=== PATIENT | male | born 1965 | race Caucasian/White ===

== ENCOUNTER 2019-08-06 12:11 | Emergency (ER) | payer MEDICARE, OTHER ==
[~2019-08-06] VITALS: Ht 188 cm; Wt 137.0 kg
[~2019-08-06 12:11] MED LIST: COGENTIN PO; COGENTIN1 MG/1 ML PO; HYDROCODON-ACE1 EA11 PO; LITHIUM PO; NORCO 10MG-325MG1 EA PO; RISPERDAL PO; RISPERDAL4 MG PO; VALIUM10 MG PO; ZOLOFT100 MG PO
--- OUTSIDE RECORDS SUMMARY | 2019-08-06 12:14 | XMS REPORT ---
Author [facility] Address Unknown Phone Unavailable Care Team Providers Care Stick Inserter Name Role Phone UNKNOWN, REFFERING PP Unavailable CARINA NICE M.D. Unavailable Unavailable Payers Payer Name Policy Type Policy Number Effective Date Expiration Date Problems This patient has no known problems. Allergies, Adverse Reactions, Alerts Allergy Name Allergy Type Status Severity Reaction(s) Onset Date Inactive Date Treating Clinician Comments Mesoridazine Besylate DA Active U 2019-05-03 00:00:00 Haloperidol Lactate DA Active U 2019-05-03 00:00:00 perphenazine DA Active U 2019-05-03 00:00:00 haloperidol DA Active U 2019-05-03 00:00:00 divalproex sodium DA Active MO 2019-05-03 00:00:00 clozapine DA Active SV 2019-05-03 00:00:00 Mesoridazine Besylate DA Active U 2018-04-24 00:00:00 Haloperidol Lactate DA Active U 2018-04-24 00:00:00 perphenazine DA Active U 2018-04-24 00:00:00 haloperidol DA Active U 2018-04-24 00:00:00 divalproex sodium DA Active MO 2018-04-24 00:00:00 clozapine DA Active SV 2018-04-24 00:00:00 lorazepam DA Active U 2018-04-24 00:00:00 No Known Allergies DA Active U 2018-03-06 00:00:00 Mesoridazine Besylate DA Active U 2015-11-11 00:00:00 Haloperidol Lactate DA Active U 2015-11-11 00:00:00 lorazepam DA Active U 2015-11-11 00:00:00 perphenazine DA Active U 2015-11-11 00:00:00 haloperidol DA Active U 2015-11-11 00:00:00 divalproex sodium DA Active MO 2015-11-11 00:00:00 clozapine DA Active SV 2015-11-11 00:00:00 CYRANTYL DA Active SV 2011-05-08 00:00:00 NAVAINE DA Active MO 2011-05-08 00:00:00 Medications This patient has no known medications. Encounters Start Date/Time End Date/Time Encounter Type Admission Type Attending [facility] Facility Care Department Encounter ID 2019-04-02 20:34:38 2019-04-02 20:34:38 Emergency [facility] MED [id number] 2019-02-05 22:30:00 2019-02-05 22:30:00 Emergency [facility] [id number] 2019-02-05 16:09:00 2019-02-05 16:09:00 Emergency E [facility] 7500 Results Test Description Test Time Test Comments Text Results Atomic Results Result Comments - XR PELVIS 05/29 VIEWS 2019-06-03 09:34:00 FAX: Alberto Mills MD [phone] [place]: St: REG FAX: Juanito Tellez [phone] Name: GARCIA CARTWRIGHT [facility] : 1965 Age/S: 53/M [address] Unit #: [id number] Loc: [place] [address] Phys: Alberto Stone MD Acct: [id number] Dis Date: Status: REG RCR PHONE #: [phone] Exam Date: 06/03/2019921 FAX #: Reason: HIP PAIN EXAMS: CPT CODE: [id number] XR PELVIS 1/2 VIEWS 88566 HISTORY: LEFT HIP PAIN EXAM: AP pelvis as well as AP and frog-leg views of the left hip Comparison: Pelvis radiographs March 02, 2019 FINDINGS: No acute fracture of the bony pelvis. No diastases of the SI joints or pubic symphysis. Hip joints are not dislocated. Proximal femurs are intact. Lower lumbar spine is unremarkable. IMPRESSION: Negative radiographic examination of the bony pelvis. Location: [facility] at 0934 Reported and signed by: Calos Infante MD CC: Alberto Stone MD; Juanito Morales Technologist: RT Meliton(Latoya) Trnscrd Date/Time/By: 06/03/2019 (1086) : By: [email or web address] Orig Print D/T: S: 06/03/2019 (8231) PAGE 1 Signed Report - XR HIP W/PEL UNI 2+V LT 2019-06-03 09:34:00 FAX: Alberto Mills MD [phone] [place]: St: REG FAX: Juanito Tellez [phone] Name: GARCIA CARTWRIGHT [facility] : 1965 Age/S: 53/M [address] Unit #: [id number] [facility] [address] Phys: Alberto Stone MD Acct: [id number] Dis Date: Status: REG RCR PHONE #: [phone] Exam Date: 06/03/2019921 FAX #: Reason: LEFT HIP PAIN EXAMS: CPT CODE: [id number] XR HIP W/PEL UNI 2+[place] [address] HISTORY: LEFT HIP PAIN EXAM: AP pelvis as well as AP and frog-leg views of the left hip Comparison: Pelvis radiographs March 02, 2019 FINDINGS: No acute fracture of the bony pelvis. No diastases of the SI joints or pubic symphysis. Hip joints are not dislocated. Proximal femurs are intact. Lower lumbar spine is unremarkable. IMPRESSION: Negative radiographic examination of the bony pelvis. Location: [facility] at 0934 Reported and signed by: Calos Infante MD CC: Alberto Stone MD; Juanito Morales Technologist: FLAQUITO Coelho) Trnscrd Date/Time/By: 06/03/2019 (8194) : By: [email or web address] Orig Print D/T: S: 06/03/2019 (2265) PAGE 1 Signed Report - MRI LW JNT W/O CONT LT 2019-05-14 14:57:00 FAX: Juanito Tellez [phone] [place]: St: REG Name: GARCIA CARTWRIGHT [facility] : 1965 Age/S: 53/M [address] [facility] Unit #: [id number] Loc: [place] [address] Phys: Juanito Morales DO Acct: [id number] Dis Date: Status: REG CLI PHONE #: [phone] Exam Date: 05/14/2019 1047 FAX #: [phone] Reason: M16.12,M25.552 EXAMS: CPT CODE: [id number] [place] LW JNT W/[place] [address] HISTORY: /552. COMPARISON: X-ray from March 02, 2019. Location: [facility]. MRI left hip without contrast: No acute fracture of the left hip mildly narrowed hip joint. No AVN is noted. Acetabulum is without fracture with normal signal. Sacrum is without fracture in the portions visualized. Unremarkable SI joint. The lower L- spine is without fracture. Visualized right hip is without fracture. The pubic bones are without fracture. Symphysis is well opposed. No cam or pincer impingement. No femoral ischial impingement. Strain at the insertion of the gluteus medius muscle on the left with small fluid consistent with trochanteric bursitis. There is mild edema of the gluteus medius muscle and to lesser extent in the gluteus nivia muscle. No edema within the gluteus minimus muscle. The piriformis muscle is unremarkable and appear symmetrical. The adductor muscles are without tear or strain. Origins of the hamstrings is normal. The conjoined tendon is without tear. The symphyseal disc is unremarkable. No pathologic adenopathy. Unremarkable urinary bladder. Prostate is not enlarged. IMPRESSION: Left trochanteric bursitis with strain at the insertion of the gluteus medius muscle as well. Mild edema of the gluteus maximum and medius muscles without tear. No joint fluid. No AVN. No acute fracture. Narrowed hip joint. No impingement. at 4892 Reported and signed by: Luis Alberto Valentin M.D. CC: Juanito Morales Technologist: RT JUL[facility] Date/Time/By: 05/14/2019 (5452) : By: [email or web address] Orig Print D/T: S: 05/14/2019 (1500) PAGE 1 Signed Report RPR Qualitative 2019-04-08 16:20:39 RPR Qual (test code=RPR Qual) Non-Reactive Non-Reactive Reactive Control (test code=Reactive Control) Reactive Weak Reactive Control (test code=Weak Reactive Control) Weak Reactive Non-Reactive Control (test code=Non-Reactive Control) Non-Reactive Lot # (test code=Lot #) [id number] Expiration Dt (test code=Expiration Dt) 1031.20 Thyroid Stimulating [id number] 10:27:38* Test Item Value Reference Range Comments TSH (test code=TSH) 1.880 mIU/mL 0.270-4.200 Lipid [id number] 10:24:51* Test Item Value Reference Range Comments Cholesterol Total (test code=Cholesterol Total) 136 mg/dL 0-200 RISK OF HEART DISEASEPublished by [place] Heart Association Analyte Optimal Borderline Increased RiskCHOL <200 200-239 >240TRIG <150 150-199 >200HDL Male >60 <40HDL Female >60 <50LDL <100 130-159 >160LDL Near optimal is 100-129 Triglycerides (test code=Triglycerides) 107 mg/dL 9-200 HDL (test code=HDL) 40 mg/dL 40-60 LDL (test code=LDL) 75 mg/dL 0-130 The equation being used in this calculation is LDL=(Chol - HDL) - (Trig / 5) VLDL (test code=VLDL) 21 mg/dL 5-40 The equation being used in this calculation is VLDL=Trig / 5 Chol/HDL (test code=Chol/HDL) 3.4 ratio 0.0-5.0 LDL/HDL Ratio (test code=LDL/HDL Ratio) 2 The equation being used in this calculation is LDL/HDL Ratio=LDL Calc/HDL Chol Alcohol [id number] 22:16:26* Test Item Value Reference Range Comments Ethanol Level (test code=Ethanol Level) <0.00 g/dL 0.00-0.01 Intoxicated 0.080 g/dL or more Ethanol Inst (test code=Ethanol Inst) <0 Comprehensive Metabolic [id number] 22:16:25* Test Item Value Reference Range Comments Sodium Level (test code=Sodium Level) 141.0 mmol/L 135.0-145.0 Potassium Level (test code=Potassium Level) 4.6 mmol/L 3.5-5.1 Chloride Level (test code=Chloride Level) 102 mmol/L 98-105 CO2 (test code=CO2) 28 mmol/L 22-29 Anion Gap (test code=Anion Gap) 11 mmol/L 7-16 BUN (test code=BUN) 18.00 mg/dL 6.00-20.00 Creatinine Level (test code=Creatinine Level) 1.00 mg/dL 0.70-1.20 BUN/Creat Ratio (test code=BUN/Creat Ratio) 18 Glucose Level (test code=Glucose Level) 86 mg/dL 70-115 Calcium Level (test code=Calcium Level) 9.6 mg/dL 8.3-10.5 Alk Phos (test code=Alk Phos) 82 U/L 40-129 Bilirubin Total (test code=Bilirubin Total) 0.4 mg/dL 0.1-0.9 Albumin Level (test code=Albumin Level) 3.9 g/dL 3.5-5.2 Protein Total (test code=Protein Total) 6.5 g/dL 6.4-8.3 ALT (test code=ALT) 30 U/L 1-41 AST (test code=AST) See Comments U/L 1-40 Specimen hemolyzed. AST 34 Globulin (test code=Globulin) 2.6 g/dL 2.9-3.1 A/G Ratio (test code=A/G Ratio) 1.5 ratio Comprehensive Metabolic [id number] 22:16:25* Test Item Value Reference Range Comments Sodium Level (test code=Sodium Level) 141.0 mmol/L 135.0-145.0 Potassium Level (test code=Potassium Level) 4.6 mmol/L 3.5-5.1 Chloride Level (test code=Chloride Level) 102 mmol/L 98-105 CO2 (test code=CO2) 28 mmol/L 22-29 Anion Gap (test code=Anion Gap) 11 mmol/L 7-16 BUN (test code=BUN) 18.00 mg/dL 6.00-20.00 Creatinine Level (test code=Creatinine Level) 1.00 mg/dL 0.70-1.20 BUN/Creat Ratio (test code=BUN/Creat Ratio) 18 Glucose Level (test code=Glucose Level) 86 mg/dL 70-115 Calcium Level (test code=Calcium Level) 9.6 mg/dL 8.3-10.5 Alk Phos (test code=Alk Phos) 82 U/L 40-129 Bilirubin Total (test code=Bilirubin Total) 0.4 mg/dL 0.1-0.9 Albumin Level (test code=Albumin Level) 3.9 g/dL 3.5-5.2 Protein Total (test code=Protein Total) 6.5 g/dL 6.4-8.3 ALT (test code=ALT) 30 U/L 1-41 AST (test code=AST) See Comments U/L 1-40 Specimen hemolyzed. AST 34 Globulin (test code=Globulin) 2.6 g/dL 2.9-3.1 A/G Ratio (test code=A/G Ratio) 1.5 ratio eGFR AA (test code=eGFR AA) >60 mL/min/1.73 m2 eGFR (estimated Glomerular Filtration Rate) is an estimated value, calculated from the patient's serum creatinine using the MDRD equation. It is NOT the patient's actual GFR. The eGFR provides a more clinically useful measure of kidney disease than serum creatinine alone.This calculation takes sex and race into account, if the information is provided. If the race is not provided, and the patient is -Algerian, multiply by 1.212. If sex is not provided, and the patient is female, multiply by 0.742. Results for patients <18 years of age have not been validated by the MDRD study and should be interpreted with caution. eGFR Result Interpretation:eGFR > or=60 is in the Normal RangeeGFR < 60 may mean kidney diseaseeGFR < 15 may mean kidney failure Ranges recommended by the National Kidney Foundation, http://nkdep.nih.gov Comprehensive Metabolic [id number] 22:16:25* Test Item Value Reference Range Comments Sodium Level (test code=Sodium Level) 141.0 mmol/L 135.0-145.0 Potassium Level (test code=Potassium Level) 4.6 mmol/L 3.5-5.1 Chloride Level (test code=Chloride Level) 102 mmol/L 98-105 CO2 (test code=CO2) 28 mmol/L 22-29 Anion Gap (test code=Anion Gap) 11 mmol/L 7-16 BUN (test code=BUN) 18.00 mg/dL 6.00-20.00 Creatinine Level (test code=Creatinine Level) 1.00 mg/dL 0.70-1.20 BUN/Creat Ratio (test code=BUN/Creat Ratio) 18 Glucose Level (test code=Glucose Level) 86 mg/dL 70-115 Calcium Level (test code=Calcium Level) 9.6 mg/dL 8.3-10.5 Alk Phos (test code=Alk Phos) 82 U/L 40-129 Bilirubin Total (test code=Bilirubin Total) 0.4 mg/dL 0.1-0.9 Albumin Level (test code=Albumin Level) 3.9 g/dL 3.5-5.2 Protein Total (test code=Protein Total) 6.5 g/dL 6.4-8.3 ALT (test code=ALT) 30 U/L 1-41 AST (test code=AST) See Comments U/L 1-40 Specimen hemolyzed. AST 34 Globulin (test code=Globulin) 2.6 g/dL 2.9-3.1 A/G Ratio (test code=A/G Ratio) 1.5 ratio eGFR AA (test code=eGFR AA) >60 mL/min/1.73 m2 eGFR (estimated Glomerular Filtration Rate) is an estimated value, calculated from the patient's serum creatinine using the MDRD equation. It is NOT the patient's actual GFR. The eGFR provides a more clinically useful measure of kidney disease than serum creatinine alone.This calculation takes sex and race into account, if the information is provided. If the race is not provided, and the patient is -Algerian, multiply by 1.212. If sex is not provided, and the patient is female, multiply by 0.742. Results for patients <18 years of age have not been validated by the MDRD study and should be interpreted with caution. eGFR Result Interpretation:eGFR > or=60 is in the Normal RangeeGFR < 60 may mean kidney diseaseeGFR < 15 may mean kidney failure Ranges recommended by the National Kidney Foundation, http://nkdep.nih.gov eGFR Non-AA (test code=eGFR Non-AA) >60.00 mL/min/1.73 m2 eGFR (estimated Glomerular Filtration Rate) is an estimated value, calculated from the patient's serum creatinine using the MDRD equation. It is NOT the patient's actual GFR. The eGFR provides a more clinically useful measure of kidney disease than serum creatinine alone.This calculation takes sex and race into account, if the information is provided. If the race is not provided, and the patient is -Algerian, multiply by 1.212. If sex is not provided, and the patient is female, multiply by 0.742. Results for patients <18 years of age have not been validated by the MDRD study and should be interpreted with caution. eGFR Result Interpretation:eGFR > or=60 is in the Normal RangeeGFR < 60 may mean kidney diseaseeGFR < 15 may mean kidney failure Ranges recommended by the National Kidney Foundation, http://nkdep.nih.gov Urine Drug [id number] 22:15:20* Test Item Value Reference Range Comments Amphetamine Screen Ur (test code=Amphetamine Screen Ur) Negative Negative Barbiturate Screen Ur (test code=Barbiturate Screen Ur) Negative Negative Benzodiazepines Ur (test code=Benzodiazepines Ur) POSITIVE Negative Cocaine Screen Ur (test code=Cocaine Screen Ur) Negative Negative U Methadone Scr (test code=U Methadone Scr) Negative Negative Opiate Screen Ur (test code=Opiate Screen Ur) POSITIVE Negative U PCP Scrn (test code=U PCP Scrn) Negative Negative Cannabinoid Screen Ur (test code=Cannabinoid Screen Ur) Negative Negative U TCA (test code=U TCA) Negative Negative The results of all drug screen tests are only preliminary. Clinical consideration and professional judgment should be applied to any drug of abuse test result, particularly when preliminary positive results are obtained. Please order a separate confirmatory test if desired. Automated [id number] 21:55:00* Test Item Value Reference Range Comments Neutro Auto (test code=Neutro Auto) 59.9 % 36.0-70.0 Lymph Auto (test code=Lymph Auto) 28.1 % 12.0-44.0 Nicollet Auto (test code=Nicollet Auto) 7.1 % 0.0-11.0 Eos, Auto (test code=Eos, Auto) 4.1 % 0.0-7.0 Basophil Auto (test code=Basophil Auto) 0.4 % 0.0-2.0 Neutro Absolute (test code=Neutro Absolute) 4.0 x10 1.6-7.4 Lymph Absolute (test code=Lymph Absolute) 1.90 x10 .50-4.60 Nicollet Absolute (test code=Nicollet Absolute) .48 x10 .00-1.20 Eos Absolute (test code=Eos Absolute) 0.28 x10 0.00-0.74 Baso Absolute (test code=Baso Absolute) 0.03 x10 0.00-0.21 IG [id number] 21:55:00* Test Item Value Reference Range Comments IG (test code=IG) 0.4 % 0.0-5.0 IG Abs (test code=IG Abs) 0 x10 Complete Blood Count with [id number] 21:54:59* Test Item Value Reference Range Comments WBC (test code=WBC) 6.8 x10 4.4-10.5 RBC (test code=RBC) 4.77 x10 4.10-5.70 Hgb (test code=Hgb) 15.0 g/dL 13.4-17.4 Hct (test code=Hct) 45.7 % 38.7-52.0 MCV (test code=MCV) 95.80 fL 80.00-100.00 MCHC (test code=MCHC) 32.80 g/dL 32.00-37.50 RDW CV (test code=RDW CV) 13.2 % 11.5-14.5 MCH (test code=MCH) 31.4 pg 27.0-32.5 Platelets (test code=Platelets) 207.0 x10 140.0-440.0 MPV (test code=MPV) 9.7 fL Slide Review (test code=Slide Review) Auto Auto Result created by [email or web address] nRBC (test code=nRBC) 0 NRBC Abs (test code=NRBC Abs) 0.00 x10 IPF (test code=IPF) 0 % URINALYSIS [id number] 04:35:00* Test Item Value Reference Range Comments UA COLOR (test code=COLU) COLORLESS YELLOW UA APPEARANCE (test code=APPU) CLEAR CLEAR UA GLUCOSE DIPSTICK (test code=DGLUU) NEGATIVE mg/dL NEGATIVE UA BILIRUBIN DIPSTICK (test code=BILU) NEGATIVE mg/dL NEGATIVE UA KETONE DIPSTICK (test code=KETU) NEGATIVE mg/dL NEGATIVE UA SPECIFIC GRAVITY (test code=SGU) 1.003 1.001-1.035 UA BLOOD DIPSTICK (test code=TISHA) Negative mg/dL NEGATIVE UA PH DIPSTICK (test code=ERIN) 6.0 5.0-8.0 UA PROTEIN DIPSTICK (test code=PROU) NEGATIVE mg/dL NEGATIVE UA UROBILINIOGEN DIPSTICK (test code=URO) Normal mg/dL NEGATIVE UA NITRITE DIPSTICK (test code=DOROTHY) NEGATIVE NEGATIVE UA LEUKOCYTE ESTERASE W REFLEX (test code=LEUUR) NEGATIVE Jose/uL NEGATIVE UA WBC (test code=WBCU) 0-5 per HPF 0-5 UA RBC (test code=RBCU) 0-2 #/HPF 0-5 UA EPITHELIAL CELLS (test code=EPIU) None seen per HPF FEW UA BACTERIA (test code=BACU) NONE SEEN #/HPF NONE Urine Source? Clean CatchDRUGS OF ABUSE SCREEN [id number] 04:35:00* Test Item Value Reference Range Comments URN COCAINE (test code=COCAURN) NEGATIVE <300 ng/mL URN CANNABINOIDS (test code=CANNABURN) NEGATIVE <50 ng/mL URN AMPHETAMINE (test code=AMPHETURN) NEGATIVE <1000 ng/mL URN BARBITURATE (test code=BARBITURN) NEGATIVE <200 ng/mL URN BENZODIAZEPINE (test code=BENZOURN) NEGATIVE <200 ng/mL URN OPIATES (test code=OPIATURN) NEGATIVE <300 ng/mL URN PHENCYCLIDINE (PCP) (test code=PHENCURN) NEGATIVE <25 ng/mL URN METHADONE (test code=METHAURN) NEGATIVE <300 ng/mL Urine Source? Clean CatchBASIC METABOLIC [id number] 03:28:00* Test Item Value Reference Range Comments SODIUM (test code=NA) 142 mmol/L 136-145 POTASSIUM (test code=K) 3.7 mmol/L 3.5-5.1 CHLORIDE (test code=CL) 106.0 mmol/L 98-107 CARBON DIOXIDE (test code=CO2) 28.0 mmol/L 21-32 ANION GAP (test code=GAP) 11.7 10-20 GLUCOSE (test code=GLU) 78 mg/dL 74-106 BLOOD UREA NITROGEN (test code=BUN) 7 mg/dL 7-18 GLOMERULAR FILTRATION RATE (test code=GFR) > 60 mL/min >=60 Estimated GFR by using Modified MDRD formula.Chronic kidney disease is defined as either kidney damageor GFR <60 mL/min/1.73 m2 for >3 months. CREATININE (test code=CREAT) 0.80 mg/dL 0.7-1.3 BUN/CREATININE RATIO (test code=BUN/CREA) 8.9 10-20 CALCIUM (test code=CA) 8.9 mg/dL 8.5-10.1 HEPATIC FUNCTION [id number] 03:28:00* Test Item Value Reference Range Comments TOTAL PROTEIN (test code=PROT) 7.4 gram/dL 6.4-8.2 ALBUMIN (test code=ALB) 3.9 g/dL 3.4-5.0 GLOBULIN (test code=GLOB) 3.5 gram/dL 2.7-4.2 ALBUMIN/GLOBULIN RATIO (test code=A/G) 1.1 0.75-1.50 BILIRUBIN TOTAL (test code=BILT) 0.50 mg/dL 0.0-1.0 BILIRUBIN DIRECT (test code=BILD) 0.16 mg/dL 0.0-0.20 SGOT/AST (test code=AST) 43 IUnit/L 15-37 SGPT/ALT (test code=ALT) 43 IUnit/L 12-78 ALKALINE PHOSPHATASE TOTAL (test code=ALKP) 85 IUnit/L 45-117 Note change in reference range due to change in reagent. [id number] 03:28:00* Test Item Value Reference Range Comments ACETAMINOPHEN (test code=ACET) < 10 mcg/mL 10-30 A RANGE OF 10-30 mcg/mL IS A THERAPEUTIC RANGE. TOXIC CONCENTRATIONS: >150 mcg/mL AT 4 HOURS AFTER INGESTION >=50 mcg/mL AT 12 HOURS AFTER INGESTION [id number] 03:28:00* Test Item Value Reference Range Comments SALICYLATE (test code=KALLI) 9.1 mg/dL 2.8-20.0 [id number] 03:28:00* Test Item Value Reference Range Comments ALCOHOL (test code=ALC) 131 mg/dL 0.0-3.0 INTERPRETIVE DATA NOTE: POSITIVE SCREENING RESULTS SHOULD BE CONSIDERED PRESUMPTIVE.WHEN COLLECTED FOR MEDICAL PURPOSES ONLY. SPECIMEN WILL NOTBE COLLECTED BY CHAIN OF CUSTODY.IF A CONFIRMATION OF POSITIVE RESULTS IS DESIRED, ACONFIRMATION TEST MUST BE REQUESTED BY THE PHYSICIAN AT ANADDITIONAL CHARGE TO THE PATIENT. BASIC METABOLIC [id number] 03:13:00* Test Item Value Reference Range Comments SODIUM (test code=NA) 142 mmol/L 136-145 POTASSIUM (test code=K) 3.7 mmol/L 3.5-5.1 CHLORIDE (test code=CL) 106.0 mmol/L 98-107 CARBON DIOXIDE (test code=CO2) mmol/L 21-32 ANION GAP (test code=GAP) 10-20 GLUCOSE (test code=GLU) mg/dL 74-106 BLOOD UREA NITROGEN (test code=BUN) mg/dL 7-18 GLOMERULAR FILTRATION RATE (test code=GFR) mL/min >=60 CREATININE (test code=CREAT) mg/dL 0.7-1.3 BUN/CREATININE RATIO (test code=BUN/CREA) 10-20 CALCIUM (test code=CA) mg/dL 8.5-10.1 HEPATIC FUNCTION [id number] 03:13:00* Test Item Value Reference Range Comments TOTAL PROTEIN (test code=PROT) gram/dL 6.4-8.2 ALBUMIN (test code=ALB) g/dL 3.4-5.0 GLOBULIN (test code=GLOB) gram/dL 2.7-4.2 ALBUMIN/GLOBULIN RATIO (test code=A/G) 0.75-1.50 BILIRUBIN TOTAL (test code=BILT) mg/dL 0.0-1.0 BILIRUBIN DIRECT (test code=BILD) mg/dL 0.0-0.20 SGOT/AST (test code=AST) IUnit/L 15-37 SGPT/ALT (test code=ALT) IUnit/L 12-78 ALKALINE PHOSPHATASE TOTAL (test code=ALKP) IUnit/L 45-117 [id number] 03:13:00* Test Item Value Reference Range Comments ACETAMINOPHEN (test code=ACET) mcg/mL 10-30 [id number] 03:13:00* Test Item Value Reference Range Comments SALICYLATE (test code=KALLI) mg/dL 2.8-20.0 [id number] 03:13:00* Test Item Value Reference Range Comments ALCOHOL (test code=ALC) mg/dL 0-3 URINALYSIS [id number] 03:10:00* Test Item Value Reference Range Comments UA COLOR (test code=COLU) COLORLESS YELLOW UA APPEARANCE (test code=APPU) CLEAR CLEAR UA GLUCOSE DIPSTICK (test code=DGLUU) NEGATIVE mg/dL NEGATIVE UA BILIRUBIN DIPSTICK (test code=BILU) NEGATIVE mg/dL NEGATIVE UA KETONE DIPSTICK (test code=KETU) NEGATIVE mg/dL NEGATIVE UA SPECIFIC GRAVITY (test code=SGU) 1.003 1.001-1.035 UA BLOOD DIPSTICK (test code=TISHA) Negative mg/dL NEGATIVE UA PH DIPSTICK (test code=ERIN) 6.0 5.0-8.0 UA PROTEIN DIPSTICK (test code=PROU) NEGATIVE mg/dL NEGATIVE UA UROBILINIOGEN DIPSTICK (test code=URO) Normal mg/dL NEGATIVE UA NITRITE DIPSTICK (test code=DOROTHY) NEGATIVE NEGATIVE UA LEUKOCYTE ESTERASE W REFLEX (test code=LEUUR) NEGATIVE Jose/uL NEGATIVE UA WBC (test code=WBCU) 0-5 per HPF 0-5 UA RBC (test code=RBCU) 0-2 #/HPF 0-5 UA EPITHELIAL CELLS (test code=EPIU) None seen per HPF FEW UA BACTERIA (test code=BACU) NONE SEEN #/HPF NONE Urine Source? Clean CatchDRUGS OF ABUSE SCREEN [id number] 03:10:00* Test Item Value Reference Range Comments URN COCAINE (test code=COCAURN) <300 ng/mL URN CANNABINOIDS (test code=CANNABURN) <50 ng/mL URN AMPHETAMINE (test code=AMPHETURN) <1000 ng/mL URN BARBITURATE (test code=BARBITURN) <200 ng/mL URN BENZODIAZEPINE (test code=BENZOURN) <200 ng/mL URN OPIATES (test code=OPIATURN) <300 ng/mL URN PHENCYCLIDINE (PCP) (test code=PHENCURN) <25 ng/mL URN METHADONE (test code=METHAURN) <300 ng/mL Urine Source? Clean CatchCBC W/O [id number] 03:03:00* Test Item Value Reference Range Comments WHITE BLOOD CELL (test code=WBC) 8.4 K/mm3 4.5-12.5 RED BLOOD CELL (test code=RBC) 4.73 mill/mm3 4.0-5.8 HEMOGLOBIN (test code=HGB) 14.9 gram/dL 13.0-17.5 HEMATOCRIT (test code=HCT) 46.3 % 42.0-52.0 MEAN CELL VOLUME (test code=MCV) 97.9 fL 80-98 MEAN CELL HGB (test code=MCH) 31.5 picogram 27.0-33.0 MEAN CELL HGB CONCETRATION (test code=MCHC) 32.2 gram/dL 33.0-36.0 RED CELL DISTRIBUTION WIDTH (test code=RDW) 14.1 % 11.6-16.2 PLATELET COUNT (test code=PLT) 187 K/mm3 150-450 MEAN PLATELET VOLUME (test code=MPV) 9.2 fL 6.7-11.0 BASIC METABOLIC [id number] 10:40:00* Test Item Value Reference Range Comments SODIUM (test code=NA) 145 mmol/L 136-145 POTASSIUM (test code=K) 4.4 mmol/L 3.5-5.1 CHLORIDE (test code=CL) 110.0 mmol/L 98-107 CARBON DIOXIDE (test code=CO2) 29.0 mmol/L 21-32 ANION GAP (test code=GAP) 10.4 10-20 GLUCOSE (test code=GLU) 98 mg/dL 74-106 BLOOD UREA NITROGEN (test code=BUN) 12 mg/dL 7-18 GLOMERULAR FILTRATION RATE (test code=GFR) > 60 mL/min >=60 Estimated GFR by using Modified MDRD formula.Chronic kidney disease is defined as either kidney damageor GFR <60 mL/min/1.73 m2 for >3 months. CREATININE (test code=CREAT) 0.80 mg/dL 0.7-1.3 BUN/CREATININE RATIO (test code=BUN/CREA) 14.3 10-20 CALCIUM (test code=CA) 9.1 mg/dL 8.5-10.1 HEPATIC FUNCTION [id number] 10:40:00* Test Item Value Reference Range Comments TOTAL PROTEIN (test code=PROT) 6.5 gram/dL 6.4-8.2 ALBUMIN (test code=ALB) 3.5 g/dL 3.4-5.0 GLOBULIN (test code=GLOB) 3.0 gram/dL 2.7-4.2 ALBUMIN/GLOBULIN RATIO (test code=A/G) 1.2 0.75-1.50 BILIRUBIN TOTAL (test code=BILT) 1.10 mg/dL 0.0-1.0 BILIRUBIN DIRECT (test code=BILD) 0.40 mg/dL 0.0-0.20 SGOT/AST (test code=AST) 38 IUnit/L 15-37 SGPT/ALT (test code=ALT) 34 IUnit/L 12-78 ALKALINE PHOSPHATASE TOTAL (test code=ALKP) 80 IUnit/L 45-117 Note change in reference range due to change in reagent. [id number] 10:40:00* Test Item Value Reference Range Comments ACETAMINOPHEN (test code=ACET) < 10 mcg/mL 10-30 A RANGE OF 10-30 mcg/mL IS A THERAPEUTIC RANGE. TOXIC CONCENTRATIONS: >150 mcg/mL AT 4 HOURS AFTER INGESTION >=50 mcg/mL AT 12 HOURS AFTER INGESTION [id number] 10:40:00* Test Item Value Reference Range Comments SALICYLATE (test code=KALLI) 7.9 mg/dL 2.8-20.0 [id number] 10:40:00* Test Item Value Reference Range Comments ALCOHOL (test code=ALC) < 3 mg/dL 0.0-3.0 INTERPRETIVE DATA NOTE: POSITIVE SCREENING RESULTS SHOULD BE CONSIDERED PRESUMPTIVE.WHEN COLLECTED FOR MEDICAL PURPOSES ONLY. SPECIMEN WILL NOTBE COLLECTED BY CHAIN OF CUSTODY.IF A CONFIRMATION OF POSITIVE RESULTS IS DESIRED, ACONFIRMATION TEST MUST BE REQUESTED BY THE PHYSICIAN AT ANADDITIONAL CHARGE TO THE PATIENT. BASIC METABOLIC [id number] 10:32:00* Test Item Value Reference Range Comments SODIUM (test code=NA) 145 mmol/L 136-145 POTASSIUM (test code=K) 4.4 mmol/L 3.5-5.1 CHLORIDE (test code=CL) 110.0 mmol/L 98-107 CARBON DIOXIDE (test code=CO2) mmol/L 21-32 ANION GAP (test code=GAP) 10-20 GLUCOSE (test code=GLU) mg/dL 74-106 BLOOD UREA NITROGEN (test code=BUN) mg/dL 7-18 GLOMERULAR FILTRATION RATE (test code=GFR) mL/min >=60 CREATININE (test code=CREAT) mg/dL 0.7-1.3 BUN/CREATININE RATIO (test code=BUN/CREA) 10-20 CALCIUM (test code=CA) mg/dL 8.5-10.1 HEPATIC FUNCTION [id number] 10:32:00* Test Item Value Reference Range Comments TOTAL PROTEIN (test code=PROT) gram/dL 6.4-8.2 ALBUMIN (test code=ALB) g/dL 3.4-5.0 GLOBULIN (test code=GLOB) gram/dL 2.7-4.2 ALBUMIN/GLOBULIN RATIO (test code=A/G) 0.75-1.50 BILIRUBIN TOTAL (test code=BILT) mg/dL 0.0-1.0 BILIRUBIN DIRECT (test code=BILD) mg/dL 0.0-0.20 SGOT/AST (test code=AST) IUnit/L 15-37 SGPT/ALT (test code=ALT) IUnit/L 12-78 ALKALINE PHOSPHATASE TOTAL (test code=ALKP) IUnit/L 45-117 [id number] 10:32:00* Test Item Value Reference Range Comments ACETAMINOPHEN (test code=ACET) mcg/mL 10-30 [id number] 10:32:00* Test Item Value Reference Range Comments SALICYLATE (test code=KALLI) mg/dL 2.8-20.0 [id number] 10:32:00* Test Item Value Reference Range Comments ALCOHOL (test code=ALC) mg/dL 0-3 CBC W/O [id number] 10:24:00* Test Item Value Reference Range Comments WHITE BLOOD CELL (test code=WBC) 7.7 K/mm3 4.5-12.5 RED BLOOD CELL (test code=RBC) 4.94 mill/mm3 4.0-5.8 HEMOGLOBIN (test code=HGB) 15.7 gram/dL 13.0-17.5 HEMATOCRIT (test code=HCT) 46.5 % 42.0-52.0 MEAN CELL VOLUME (test code=MCV) 94.1 fL 80-98 MEAN CELL HGB (test code=MCH) 31.8 picogram 27.0-33.0 MEAN CELL HGB CONCETRATION (test code=MCHC) 33.8 gram/dL 33.0-36.0 RED CELL DISTRIBUTION WIDTH (test code=RDW) 14.9 % 11.6-16.2 PLATELET COUNT (test code=PLT) 224 K/mm3 150-450 MEAN PLATELET VOLUME (test code=MPV) 9.3 fL 6.7-11.0 URINALYSIS [id number] 10:09:00* Test Item Value Reference Range Comments UA COLOR (test code=COLU) YELLOW YELLOW UA APPEARANCE (test code=APPU) CLEAR CLEAR UA GLUCOSE DIPSTICK (test code=DGLUU) NEGATIVE mg/dL NEGATIVE UA BILIRUBIN DIPSTICK (test code=BILU) NEGATIVE mg/dL NEGATIVE UA KETONE DIPSTICK (test code=KETU) 10 (1+) mg/dL NEGATIVE UA SPECIFIC GRAVITY (test code=SGU) 1.022 1.001-1.035 UA BLOOD DIPSTICK (test code=TISHA) Negative mg/dL NEGATIVE UA PH DIPSTICK (test code=ERIN) 6.0 5.0-8.0 UA PROTEIN DIPSTICK (test code=PROU) 20 (Trace) mg/dL NEGATIVE UA UROBILINIOGEN DIPSTICK (test code=URO) 2.0 (1+) mg/dL NEGATIVE UA NITRITE DIPSTICK (test code=DOROTHY) NEGATIVE NEGATIVE UA LEUKOCYTE ESTERASE W REFLEX (test code=LEUUR) NEGATIVE Jose/uL NEGATIVE UA WBC (test code=WBCU) 6-10 per HPF 0-5 UA RBC (test code=RBCU) 0-2 #/HPF 0-5 UA EPITHELIAL CELLS (test code=EPIU) FEW per HPF FEW UA BACTERIA (test code=BACU) FEW #/HPF NONE UA HYALINE CAST (test code=HYALU) 3-5 #/LPF 0-5 UA MUCUS (test code=MUCU) FEW #/LPF FEW Urine Source? Clean CatchDRUGS OF ABUSE SCREEN [id number] 10:09:00* Test Item Value Reference Range Comments URN COCAINE (test code=COCAURN) NEGATIVE <300 ng/mL URN CANNABINOIDS (test code=CANNABURN) NEGATIVE <50 ng/mL URN AMPHETAMINE (test code=AMPHETURN) NEGATIVE <1000 ng/mL URN BARBITURATE (test code=BARBITURN) NEGATIVE <200 ng/mL URN BENZODIAZEPINE (test code=BENZOURN) NEGATIVE <200 ng/mL URN OPIATES (test code=OPIATURN) NEGATIVE <300 ng/mL URN PHENCYCLIDINE (PCP) (test code=PHENCURN) NEGATIVE <25 ng/mL URN METHADONE (test code=METHAURN) NEGATIVE <300 ng/mL Urine Source? Clean CatchURINALYSIS [id number] 09:50:00* Test Item Value Reference Range Comments UA COLOR (test code=COLU) YELLOW YELLOW UA APPEARANCE (test code=APPU) CLEAR CLEAR UA GLUCOSE DIPSTICK (test code=DGLUU) NEGATIVE mg/dL NEGATIVE UA BILIRUBIN DIPSTICK (test code=BILU) NEGATIVE mg/dL NEGATIVE UA KETONE DIPSTICK (test code=KETU) 10 (1+) mg/dL NEGATIVE UA SPECIFIC GRAVITY (test code=SGU) 1.022 1.001-1.035 UA BLOOD DIPSTICK (test code=TISHA) Negative mg/dL NEGATIVE UA PH DIPSTICK (test code=ERIN) 6.0 5.0-8.0 UA PROTEIN DIPSTICK (test code=PROU) 20 (Trace) mg/dL NEGATIVE UA UROBILINIOGEN DIPSTICK (test code=URO) 2.0 (1+) mg/dL NEGATIVE UA NITRITE DIPSTICK (test code=DOROTHY) NEGATIVE NEGATIVE UA LEUKOCYTE ESTERASE W REFLEX (test code=LEUUR) NEGATIVE Jose/uL NEGATIVE UA WBC (test code=WBCU) 6-10 per HPF 0-5 UA RBC (test code=RBCU) 0-2 #/HPF 0-5 UA EPITHELIAL CELLS (test code=EPIU) FEW per HPF FEW UA BACTERIA (test code=BACU) FEW #/HPF NONE UA HYALINE CAST (test code=HYALU) 3-5 #/LPF 0-5 UA MUCUS (test code=MUCU) FEW #/LPF FEW Urine Source? Clean CatchDRUGS OF ABUSE SCREEN [id number] 09:50:00* Test Item Value Reference Range Comments URN COCAINE (test code=COCAURN) <300 ng/mL URN CANNABINOIDS (test code=CANNABURN) <50 ng/mL URN AMPHETAMINE (test code=AMPHETURN) <1000 ng/mL URN BARBITURATE (test code=BARBITURN) <200 ng/mL URN BENZODIAZEPINE (test code=BENZOURN) <200 ng/mL URN OPIATES (test code=OPIATURN) <300 ng/mL URN PHENCYCLIDINE (PCP) (test code=PHENCURN) <25 ng/mL URN METHADONE (test code=METHAURN) <300 ng/mL Urine Source? Clean Catch- XR PELVIS 1/2 [id number] 08:55:00 FAX: John Dietrich [place]: St: REG Name: GARCIA DURAND [facility] : [birth year] 64 Age/S: 53/M [address] [facility] Unit #: [id number] Loc: [place] [address] Phys: John Dietrich MD Acct: [id number] Dis Date: Status: REG ER PHONE #: [phone] Exam Date: 03/02/2019 08 FAX #: [phone] Reason: pain EXAMS: CPT CODE: [id number] XR PELVIS 1/2 VIEWS 01653 EXAM: Pelvis, one view; INFORMATION: Pelvic pain and leg pain; FINDINGS: Normal shape and structure of the imaged bones; no evidence of fracture or disloc ation; no soft tissue abnormalities. IMPRESSION: No evidence of acute osseous trauma or other pathological changes. No ra diopaque foreign body. at 0855 Reported and signed by: Richi Cruz M.D. CC: John Dietrich MD [place] hnologist: Paulo HUDDLESTON) Trnscrd Date/T alissa/By: 03/02/2019 (0855) : By: RashidaW Orig Print D/T: S: 9 (6254) PAGE 1 Signed Report [id number] 13:47:00 RUN DATE: 03/08/18 [facility] PAGE 1 RUN TIME: 1347 Specimen Inqui ry RUN USER: INTERFACE PATIENT: GARCIA CARTWRIGHT ACCT #: [id number] LOC: ICU U #: [id number] AGE/SX: 52/M ROOM: [facility] RE03/06/18REG DR: Avinash Mallory MD : 63 BED: A DIS: STATUS: ADM IN TLOC: SPEC #: [id number] RECD: 03/07/18 STATUS: PILLO REQ #: [id number] SARAH: 03/06/18- SUBM DR: Alexei Henning MD ENTERED: 03/07/18-1111 SP TYPE: STOMACH OTHR DR: lKeber Balbuena i, MD, Nkoli I MDORDERED: GROSS COPIES TO: Alexei Henning MD [address] [place] [address] Kleber Harmon MD [address] [place], [place] [id number] Glenda Russell MD [address] [place], [place] [id number] PROCEDURES: GROSS (03/08/18-124 5) TISSUES: GASTRIC ULCER - BX CLINICAL HISTORY COLLECTION DATE: 03/06/18 INTENTIONAL INGESTION OF CLOROX FINAL DIAGNOSIS Gastric tissue, biopsy: REACTIVE GASTROPATHY NO AREAS OF MUCO KALLI EROSION/ULCERATION NO ACUTE INFLAMMATORY INFILTRATE PRESENT IL LD REACTIVE EPITHELIAL CHANGE PRESENT NEGATIVE FOR INTESTINAL METAPLASIA NEGATIVE FOR HELICOBACTER ORGANISMS NEGATIVE FOR MALIGNANCY RRB/sm D CONTINUED ON NEXT PAGE ----- -------RUN DATE: 03/08/18 [place] - Lab PAGE 2 RUN TIME: 1347 Specimen Inquiry RUN USER: INTERFACE SPEC #: [id number] PATIENT: GARCIA CARTWRIGHT #[id number] (Continued) FINAL DIAGNOSIS (Continued) [id number], [address] MACROSCOPIC The specimen is recei amanda in formalin, labeled with the patient's name, identified as "gastric", and consists of light eduardo-pink biopsy tissue measuring 0.3 cm in aggregate, submi tted for H E and [facility]a stains. GROSS PERFORMED AT [address] [address] [phone] MICROSCOPIC MICROSCOPIC PERFORMED AT [facility] A ll of the stains, including any controls performed, stain appropriately. [facility] [address] [place] [phone] (A) PERFORMING SITE Diagnosis performed at: [facility], [place] [address] [place] [address] [phone] Signed SIGNATURE ON FILE Tanner Gautam 03/08/18 1347 END OF REPORT [id number] 21:56:00* Test Item Value Reference Range Comments Amphetamine (test code=AMPH) Negative Negative For diagnostic purposes only, positive results should always be assessedin conjunctionwith the patient's medical history,clinical examination and otherfindings.To fulfill legal requirements, a more specific alternate chemical methodmust be used inorder to obtain a Confirmed analytical result. GC/MS is the preferred confirmatory method. Barbiturates (test code=JOSELITO) Negative Negative Benzodiazepine (test code=LEANA) Negative Negative Cocaine (test code=COCA) Negative Negative Methadone (test code=MTHD) Negative Negative Opiates (test code=OPIA) Negative Negative PCP (test code=PCP) Negative Negative Propoxyphene (test code=PROPOX) Negative Negative THC (test code=THC) POSITIVE Negative Alcohol, Urine (test code=ETOHU) <0.01 g/dL 0.00-0.01 Comprehensive Metabolic [id number] 21:56:00* Test Item Value Reference Range Comments Sodium (test code=NA) 141 mmol/L 135-145 Potassium (test code=K) 4.3 mmol/L 3.5-5.1 Chloride (test code=CL) 100 mmol/L 98-105 Carbon Dioxide (test code=CO2) 28 mmol/L 22-29 Glucose (test code=GLU) 84 mg/dL 70-115 Blood Urea Nitrogen (test code=BUN) 10 mg/dL 6-20 Creatinine (test code=CREAT) 0.9 mg/dL 0.7-1.2 Calcium (test code=CA) 9.5 mg/dL 8.3-10.5 Prot Total (test code=TP) 7.1 g/dL 6.4-8.3 Albumin (test code=ALB) 4.1 g/dL 3.5-5.2 A/G Ratio (test code=AGRATIO) 1.4 Ratio Globulin (test code=GLOB) 3.0 2.9-3.1 Bili Total (test code=TBIL) 0.3 mg/dL 0.1-0.9 Alk Phos (test code=APHOS) 78 U/L 40-129 AST (test code=AST) 31 U/L 1-40 ALT (test code=ALT) 38 U/L 1-41 BUN/Creatinine Ratio (test code=BCRATIO) 11.1 Anion Gap (test code=AGAP) 13 mmol/L 7-16 Estimated GFR (test code=GFR) >60 mL/min/1.73m2 eGFR (estimated Glomerular Filtration Rate) is an estimated value,calculated from the patient's serum creatinine using the MDRD equation.It is NOT the patient's actual GFR. The eGFR provides a more clinicallyuseful measure of kidney disease than serum creatinine alone.This calculation takes sex and race into account, if the informationis provided. If the race is not provided, and the patient isAfrican-Algerian, multiply by 1.212. If sex is not provided, and thepatient is female, multiply by 0.742. Results for patients <18 years ofage have not been validated by the MDRD study and should be interpretedwith caution.eGFR Result Interpretation:eGFR > or=60 is in the Normal RangeeGFR < 60 may mean kidney diseaseeGFR < 15 may mean kidney failureRanges recommended by the National Kidney Foundat ion,http://nkdep.nih.gov Urinalysis [id number] 21:42:00* Test Item Value Reference Range Comments Color (test code=COLOR) Yellow Yellow,Straw,Pl yellow Clarity (test code=CLAR) Clear Clear Specific [place] (test code=SPGR) 1.005 1.001-1.035 pH (test code=PH) 7.0 5.0-9.0 Ketone (test code=KET) Negative mg/dL Negative Glucose (test code=GLUCUR) Negative mg/dL Negative Protein (test code=PROT) Negative mg/dL Negative Bilirubin (test code=BILI) Negative mg/dL Negative Occult Blood (test code=UDOB) Negative Negative Urobilinogen (test code=UROB) 0.2 mg/dL 0.2-1.0 Nitrite (test code=NIT) Negative Negative Leuk Esterase (test code=LEUK) Negative Negative Micros Exam (test code=MEXAM) Not indicated CBC with [id number] 21:35:00* Test Item Value Reference Range Comments WBC (test code=WBC) 7.1 K/cumm 4.4-10.5 RBC (test code=RBC) 5.41 M/cumm 4.10-5.70 Hemoglobin (test code=HGB) 16.3 gm/dL 13.4-17.4 Hematocrit (test code=HCT) 49.7 % 38.7-52.0 MCV (test code=MCV) 91.8 fL 80-100 MCH (test code=MCH) 30.1 pg 27.0-32.5 MCHC (test code=MCHC) 32.8 g/dL 32.0-37.5 RDW (test code=RDW) 13.0 % 11.5-14.5 Platelet Count (test code=PLTCT) 222 K/cumm 140-440 MPV (test code=MPV) 6.8 fL Diff Method (test code=DIFFM) Auto Neutrophil (test code=NEUT) 55.7 % 36-70 Lymphocyte (test code=LYMPH) 34.6 % 12-44 Monocyte (test code=MONO) 5.9 % 0-11 Eosinophil (test code=EOS) 3.4 % 0-7 Basophil (test code=BASO) 0.5 % 0-2 Neutro Abs (test code=ANEUT) 4.0 K/cumm 1.6-7.4 Lymph Abs (test code=ALYMPH) 2.5 K/cumm 0.5-4.6 [place] Abs (test code=AMONO) 0.4 K/cumm 0.0-1.2 Eos Abs (test code=AEOS) 0.24 K/cumm 0.00-0.74 Baso Abs (test code=ABASO) 0.0 K/cumm 0.00-0.21
[2019-08-06 12:56] LABS: BASOPHILS % 0.3 % (0.0-1.0); EOSINOPHILS # (AUTO) 0.1 (0.0-0.4); EOSINOPHILS % 1.4 % (0.0-6.0); HEMATOCRIT 47.1 % (38.2-49.6); LYMPHOCYTES # (AUTO) 1.8 (1.0-3.2); LYMPHOCYTES % 26.5 % (18.0-39.1); MEAN CORPUSCULAR HEMOGLOBIN 31.1 pg (28-32); MEAN CORPUSCULAR VOLUME 91.6 fL (81-99); MONOCYTES # (AUTO) 0.4 (0.2-0.8); MONOCYTES % 6.6 % (4.4-11.3); NEUTROPHILS # (AUTO) 4.3 (2.1-6.9); NEUTROPHILS % 64.9 % (38.7-80.0); PLATELET COUNT 194 x10e3/uL (140-360); RED BLOOD COUNT 5.14 x10e6/uL (4.3-5.7); RED CELL DISTRIBUTION WIDTH 13.2 % (11.7-14.4)
[2019-08-06] MEDS ORDERED: METHYLPREDNISOLONE SOD SUCC 125 MG/2ML VIAL IV STA (13:04)
[2019-08-06 13:13] LABS: ALANINE AMINOTRANSFERASE 33 IU/L (0-55); ALBUMIN 3.5 g/dL (3.5-5.0); ALBUMIN/GLOBULIN RATIO 1.2 (0.8-2.0); ALKALINE PHOSPHATASE 65 IU/L (40-150); ANION GAP 9.7 mmol/L (8-16); BLOOD UREA NITROGEN 7 mg/dL (7-26); BUN/CREATININE RATIO 10 (6-25); CARBON DIOXIDE 23 mmol/L (22-29); CHLORIDE 109 mmol/L (98-107); CREATINE KINASE 39 IU/L (30-200); CREATININE, SERUM 0.72 mg/dL (0.72-1.25); EST GLOMERULAR FILTRATION RATE > 60 ML/MIN (60-); GLUCOSE 96 mg/dL (74-118); POTASSIUM 3.7 mmol/L (3.5-5.1); SODIUM 138 mmol/L (136-145)
[2019-08-06] MEDS ORDERED: ALBUTEROL/IPRATROPIUM 3 ML NEB NEB ONE (13:15)
--- NOTE | 2019-08-06 13:18 | Diagnostic Imaging Report ---
EXAMINATION: CHEST 2 VIEWS INDICATION: ^CP COMPARISON: None FINDINGS: PA and lateral views TUBES and LINES: None. LUNGS: Lungs are well inflated. Lungs are clear. There is no evidence of pneumonia or pulmonary edema. PLEURA: No pleural effusion or pneumothorax. HEART AND MEDIASTINUM: The cardiomediastinal silhouette is unremarkable. BONES AND SOFT TISSUES: No acute osseous lesion. Soft tissues are unremarkable. UPPER ABDOMEN: No free air under the diaphragm. IMPRESSION: No acute thoracic radiographic abnormality. Signed by: Aydin Graham MD on 08/06/2019 1:15 PM
== END 2019-08-06 15:44 | disposition home or self-care (01) ==
LOC: ER 12:18
DX: J20.9 Acute bronchitis, unspecified (principal); R07.89 Other chest pain; J44.0 Chronic obstructive pulmonary disease with (acute) lower respiratory infection; I10 Essential (primary) hypertension; I25.10 Atherosclerotic heart disease of native coronary artery without angina pectoris; E78.5 Hyperlipidemia, unspecified; F17.200 Nicotine dependence, unspecified, uncomplicated; E66.9 Obesity, unspecified; Z68.38 Body mass index [BMI] 38.0-38.9, adult; F41.8 Other specified anxiety disorders; K21.9 Gastro-esophageal reflux disease without esophagitis; F20.0 Paranoid schizophrenia
CPT/HCPCS: 36415; 71046; 80053; 82550; 82553; 83735; 84484; 85025; 93005; 94640; 99284; J2930

== ENCOUNTER 2019-10-08 14:26 | Emergency (ER) | payer MEDICARE, OTHER ==
[~2019-10-08] VITALS: Ht 188 cm; Wt 137.0 kg
--- OUTSIDE RECORDS SUMMARY | 2019-10-08 14:30 | XMS REPORT | Summary of Care ---
Author Author [facility] Organization [facility] Address Unknown Phone Unavailable Encounter HQ Cierra(NEENA) [id number] Date(s): 02/05/19 - 02/06/19 [facility] [address] [employer] provided by [employer] [facility] [employer] [place] [address]- Encounter Diagnosis Hand pain (Discharge Diagnosis) - 02/06/19 Discharge Disposition: Home or Self Care Attending Physician: Davy Faith MD Vital Signs Most recent to 1 2 oldest [Reference Range]: Height 187.96 cm (02/05/19 10:33 PM) Temperature Oral 98.8 DegF 98.6 DegF [96.4-99.1 DegF] (02/06/19 5:08 AM) (02/05/19 10:33 PM) Blood Pressure 148/89 mmHg 163/77 mmHg [90-140/60-90 mmHg] *HI* *HI* (02/06/19 5:08 AM) (02/05/19 10:33 PM) Respiratory Rate 18 BRMIN 18 BRMIN [14-20 BRMIN] (02/06/19 5:08 AM) (02/05/19 10:33 PM) Peripheral Pulse 91 bpm 70 bpm Rate [60-100 bpm] (02/06/19 5:08 AM) (02/05/19 10:33 PM) Weight 97.727 kg (02/05/19 10:33 PM) Body Mass Index 27.66 m2 (02/05/19 10:33 PM) Problem List No data available for this section Allergies, Adverse Reactions, Alerts No Known Allergies Medications acetaminophen 650 mg, Route: PO, Drug form: TAB, ONCE, Dosing Weight 97.727, kg, Priority: STA T, Start date: 02/06/19 4:43:00 CDT, Stop date: 02/06/19 4:43:00 CDT Start Date: 02/06/19 Stop Date: 02/06/19 Status: Completed ibuprofen 400 mg, Route: PO, ONCE, Dosing Weight 97.727, kg, Priority: STAT, Start date: 0 02/06/19 4:43:00 CDT, Stop date: 02/06/19 4:43:00 CDT Start Date: 02/06/19 Stop Date: 02/06/19 Status: Completed Mcclave 5/325 oral tablet 1 tab, Route: PO, Drug Form: TAB, Dosing Weight 97.727, kg, ONCE, STAT, Start da te: 02/05/19 22:48:00 CDT, Stop date: 02/05/19 22:48:00 CDT, 0 Notes: (Same as: Mcclave 325/5) Do not exceed 4gm/day of acetaminophen. Start Date: 02/05/19 Stop Date: 02/05/19 Status: Completed Results No data available for this section Immunizations No data available for this section Procedures No data available for this section Social History Social History Type Response Smoking Status Never smoker; Exposure to T obacco Smoke None; Cigarette Smoking Last 365 Days No; Reg Smoking Cessation Counseli ng No entered on: 02/05/19 Assessment and Plan Extracted from: Title: ORS Hand Consult Note Author: Oniel Holder MD Date: 02/06/19 Ortho Hand Consult Note Reason for Consult: Bilateral scapholunate widening R > L Source of Consult: ED Consulting Physician: Dr. Shyanne Dixon Orthopedic Attending: Dr. Baez Date of Service: 02/06/19 CC: "I fell onto my wrists" HPI: The pt is a 53 yo RHD M s/p fall onto his bilateral wrists who was found to have scapholunate widening of his bilateral wrists R > L. On presentation, the patient complains of pain primarily to his right wrist. He denies any numbness or tingling to his fingers. PMH: HepC, COPD PSH: denies Medications: denies Allergies: NKDA Review of Systems: Gen: Denies fever/chills HEENT: Denies vision change CV: Denies CP, Palpitations Resp: Denies SOB, wheezing GI: Denies Abd pain, N/V : Denies urinary retention, urgency. Back/Spine: Denies pain. Neuro: Denies numbness, tingling, weakness in extremities. Integumentary: Denies open wounds. Endocrine: Denies recent weight changes. Psych: Denies depression, anxiety. Musculoskeletal: Denies all but HPI. All other systems negative except HPI. Social History: Employment/Lifestyle: unemployed Tobacco: smokes 2 packs per day EtOH: 6 pack per weekend Illicit drugs: denies Family History: Non-contibutory VitalsTmp(F)[id number] 02/05 22:3398.765440/170201--- 24 Hr Tmax: 98.6F (37.00c) at 02/05 22:3 3Vital Signs are the last 5 in the past 48 hours. Exam: Gen: A/Ox3, NAD Resp: Breathing unlabored CV: Distal pulses palpated RUE: Inspection: - No focal erythema or swelling - No open wounds or gross deformity - Mild tenderness to palpation over dors al wrist - Mereta intact Motor: Thumb: Active flex/ext at MCP, Active flex/ext at IP 2nd finger: Active flex/ext at MCP, Acti ve flex/ext at PIP, Active flex/ext at DIP 3rd finger: Active flex/ext at MCP, Acti ve flex/ext at PIP, Active flex/ext at DIP 4th finger: Active flex/ext at MCP, Acti ve flex/ext at PIP, Active flex/ext at DIP 5th finger: Active flex/ext at MCP, Acti ve flex/ext at PIP, Active flex/ext at DIP Sensory: 2-point discrimination intact to all 5 d igits Vascular: 2+ Radial pulse intact Cap refill <2 secs throughout all 5 fingers LUE: Inspection: - No focal erythema or swelling - No open wounds or gross deformity - Minimal TTP over the dorsal wrist - Mereta intact Motor: Thumb: Active flex/ext at MCP, Active flex/ext at IP 2nd finger: Active flex/ext at MCP, Acti ve flex/ext at PIP, Active flex/ext at DIP 3rd finger: Active flex/ext at MCP, Acti ve flex/ext at PIP, Active flex/ext at DIP 4th finger: Active flex/ext at MCP, Acti ve flex/ext at PIP, Active flex/ext at DIP 5th finger: Active flex/ext at MCP, Acti ve flex/ext at PIP, Active flex/ext at DIP Sensory: 2-point discrimination intact to all 5 d igits Vascular: 2+ Radial pulse intact Cap refill <2 secs throughout all 5 fingers Imaging:XR bilateral wrist: R wrist with 4mm scapholunate widening, L wrist with 3mm scapholunate widening Imaging Studies (last 36 hours) (none) Assessment and Plan: Patient is a 53yo RHD M s/p fall with bilateral scapholunate widening - Weight bearing status: NWB BUE - Removable wrist braces - Dispo:Plan for follow up with Dr. Wilmer adam as outpatient in 1-2 weeks to discuss surgical options. Oniel Holder MD PGY2 Orthopaedic Surgery MSO: [id number] Pager: [phone]
--- OUTSIDE RECORDS SUMMARY | 2019-10-08 14:30 | XMS REPORT | Summary of Care ---
Author Author [facility] Out[facility] Imaging - [facility] Organization [facility] Outpatient Imaging - [facility] Address Unknown Phone Unavailable Encounter HQ Encntr_alias(FIN) [id number] Date(s): 01/18/17 - 01/18/17 [facility] Outpatient Imaging - [place] [address] [place] [phone] Discharge Disposition: Home or Self Care Attending Physician: Juanito Morales DO Vital Signs No data available for this section Problem List No data available for this section Allergies, Adverse Reactions, Alerts No data available for this section Medications No data available for this section Results No data available for this section Immunizations No data available for this section Procedures No data available for this section Social History No data available for this section Assessment and Plan No data available for this section
--- OUTSIDE RECORDS SUMMARY | 2019-10-08 14:30 | XMS REPORT | Summary of Care ---
Author Organization Unknown Address Unknown Phone Unavailable Encounter HQ Kingar_katernia(NEENA) [id number] Date(s): 11/14/13 - 11/14/13 [facility] Outpatient Imaging - [address] [address] [place] Discharge Disposition: Home Physician Attending: Aydin Almaraz MD Reason for Visit 724.2 - LUMBAGO Problem List No data available for this section Allergies, Adverse Reactions, Alerts No data available for this section Medications No data available for this section Medications Administered During Your Visit No data available for this section Immunizations No data available for this section
--- OUTSIDE RECORDS SUMMARY | 2019-10-08 14:30 | XMS REPORT | Continuity of Care Document ---
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 Name Role Phone [facility] [employer] Unavailable Un available Problems Problem Status Onset Date Classification Date Reported Comments Source Pain in unspecified hand 02/06/2019 02/08/2019 [facility] Pain in left hip 02/05/2019 02/07/2019 [facility] Pain in right wrist 02/05/2019 02/07/2019 [facility] Low back pain 02/05/2019 02/07/2019 [facility] SHOULDER PAIN Active 02/05/2019 [facility] FALL Active 02/05/2019 [facility] M48.08 - "SPINAL STENOSIS, SACRAL AND SA Active 06/16/2016 [facility] Maria Medications Medication Details Route Status Patient Instructions Ordering Provider Order Date Source Acetaminophen 650 mg, Route: P O, Drug form: TAB, ONCE, Dosing Weight 97.727, kg, Priority: STAT, Start date: 02/06/19 4:43:00 CDT, Stop date: 02/06/19 4:43:00 CDT Inactive 02/06/2019 [facility] nt Ibuprofen 400 mg, Route: PO, O NCE, Dosing Weight 97.727, kg, Priority: STAT, Start date: 02/06/19 4:43:00 CDT, Stop date: 02/06/19 4:43:00 CDT Inactive 02/06/2019 [facility] Acetaminophen 325 MG / Hydrocodone Gerry trate 5 MG Oral Tablet [[place] 5/325] Notes: (Same as: [place] 325/5) Do not ex ceed 4gm/day of acetaminophen. Inactive 02/06/2019 [facility] Motrin 600 mg, 1 tab, Route: P O, Drug form: TAB, ONCE, Dosing Weight 97.273, kg, Priority: STAT, Start date: 02/05/19 16:54:00 CDT, Stop date: 02/05/19 16:54:00 CDT, 0 Inactive 02/05/2019 [facility] nter Tylenol 650 mg, 2 tab, Route: PO, Drug form: TAB, ONCE, Dosing Weight 97.273, kg, Priority: STAT, Start date: 02/05/19 16:54:00 CDT, Stop date: 02/05/19 16:54:00 CDT, 0 Inactive 02/05/2019 [facility] nter Allergies, Adverse Reactions, Alerts No Known Medication Allergies Immunizations No Data Provided for This Section Results No Data Provided for This Section Pathology Reports No Data Provided for This Section Diagnostic Reports Report Value Date Source Wrist complete DX EXAM: XR RIG HT WRIST 4 VIEWS DATE: 02/05/2019 18:11 CDT INDICATION: fell, wrist pain evaluate for fracture COMPARISON: None. TECHNIQUE: PA, scaphoid, lateral and oblique radiographs of the wrist FINDINGS: No acute fracture or malalignment is identified. 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 No fracture, periosteal reaction, or erosions identified. Widening of the scapholunate interval measuring 4 mm noted. Soft tissues are unremarkable. IMPRESSION: No fractures identified. Widening of the scapholunate interval suggesting age-indeterminate scapholunate ligament insufficiency/tear. Osteochondroma/exostosis at the distal 5th metacarpal metadiaphysis diaphysis. Dr. Shyanne Dixon notified of findings by telephone 02/05/2019 at 2030 hours 02/05/2019 [facility] Wrist complete DX EXAM: XR LEF T WRIST 4 VIEWS DATE: 02/05/2019 18:11 CDT INDICATION: Fell wrist pain evaluate for fracture COMPARISON: None. TECHNIQUE: PA, scaphoid, lateral and oblique radiographs of the wrist FINDINGS: No acute fracture or malalignment is identified. There is displacement of a well-corticated ulnar styloid process, from old nonunited fracture. Widening of the scapholunate interval measuring 4 mm noted. Soft tissues are unremarkable. IMPRESSION: No acute fracture or malalignment of the left wrist. Chronic nonunited ulnar styloid process fracture. Widening of the scapholunate interval suggesting age-indeterminate scapholunate ligament insufficiency/tear. Dr. Shyanne Dixon notified of findings by telephone 02/05/2019 at 2030 hours 02/05/2019 [facility] Spine lumbar 2 or 3 views DX E XAM: XR LUMBAR SPINE 2 VIEWS DATE: 02/05/2019 17:24 CDT INDICATION: - fall onto buttocks, tenderness overlying L3-L4 COMPARISON: None. TECHNIQUE: AP and lateral radiographs of the lumbar spine FINDINGS: 5 lumbar type, non-rib bearing vertebral bodies are present. Minimal grade 1 degenerative anterolisthesis present at L4-L5. Vertebral body heights are normal. No lumbar spine fracture is identified. Corticated ossicle/heterotopic bone along the L5-S1 level noted posteriorly. Soft tissues are unremarkable. Mild degenerative disc disease present at L4-S1. Minimal lumbar spondylosis noted. Mild facet arthropathy present at the lower lumbar spine. Minimal aortic atherosclerosis present. IMPRESSION: No acute injuries identified. Minimal grade 1 degenerative anterolisthesis at L4-L5. Degenerative disc disease and facet arthropathy of the lumbar spine. 02/05/2019 [facility] Shoulder series DX EXAM: XR RI GHT SHOULDER 3 VIEWS DATE: 02/05/2019 16:53 CDT INDICATION: - fall onto buttocks, braced fall onto wrists and right shoulder pain COMPARISON: None. TECHNIQUE: AP views in internal and external rotation, and an axillary view of the shoulder FINDINGS: No acute fracture or malalignment is identified. No subacromial narrowing. No greater tuberosity enthesophytes or cysts. Calcific tendinosis in the right rotator cuff noted. IMPRESSION: No fractures identified. Calcific tendinosis in the right rotator cuff. 02/05/2019 [facility] Femur series DX EXAM: XR LEFT HIP 2 VIEW AND AP PELVIS EXAM: XR LEFT FEMUR 2 VIEWS DATE: 02/05/2019 16:52 CDT INDICATION: - fall with gluteal pain COMPARISON: None. TECHNIQUE: AP pelvis, 2 view hip, 2 views of the femur FINDINGS: Pelvis/Hip: No acute fracture or malalignment is identified. Degenerative disc disease and facet arthropathy lower lumbar spine noted. Femur: No acute fracture or malalignment is identified. Degenerative changes of the knee are noted with tricompartmental marginal osteophyte formation. Soft tissues: No soft tissue abnormality is identified. IMPRESSION: No acute fracture or malalignment of the left hip or femur. Tricompartmental osteoarthrosis of the knee most pronounced in the patellofemoral compartment. 02/05/2019 [facility] Hip 2/3 views uni w pelvis DX EXAM: XR LEFT HIP 2 VIEW AND AP PELVIS EXAM: XR LEFT FEMUR 2 VIEWS DATE: 02/05/2019 16:52 CDT INDICATION: - fall with gluteal pain COMPARISON: None. TECHNIQUE: AP pelvis, 2 view hip, 2 views of the femur FINDINGS: Pelvis/Hip: No acute fracture or malalignment is identified. Degenerative disc disease and facet arthropathy lower lumbar spine noted. Femur: No acute fracture or malalignment is identified. Degenerative changes of the knee are noted with tricompartmental marginal osteophyte formation. Soft tissues: No soft tissue abnormality is identified. IMPRESSION: No acute fracture or malalignment of the left hip or femur. Tricompartmental osteoarthrosis of the knee most pronounced in the patellofemoral compartment. 02/05/2019 [facility] Knee wo contrast MRI Exam: MRI of the right knee without contrast Reason for Exam: - [id number] Unspecified tear of unspecified meniscus, current injury, right knee, initial encounter Comparison Exam: None Technique: Multiplanar and multisequence imaging was performed of the right knee. Proton density weighted images were acquired without injection of gadolinium IV. Discussion: Bones and marrow: No acute bony abnormalities identified. No destructive intraosseous lesions. Medial compartment: No acute tear seen within the medial meniscus. Mild chondromalacia seen involving the medial compartment. The medial collateral ligament appears intact. Intercondylar notch: Anterior cruciate ligament and posterior cruciate ligament are intact. The meniscal roots are also intact. Lateral compartment: No acute tear seen within the lateral meniscus. Mild chondromalacia seen involving the lateral compartment. Lateral collateral ligament complex and popliteal tendon remain intact. Anterior compartment: Grade II chondromalacia seen involving the patella. Small osteophyte formation is seen within the lateral articulating aspect of the femur. Moderate suprapatellar effusion. Infrapatellar fat pad is unremarkable. Extensor mechanisms: The patella tendon and quadriceps tendon are intact. Posterior compartment: Posterior compartment is unremarkable. No Rangel's cyst identified Impression: 1. The menisci, collateral ligaments, a nd cruciate ligaments appear intact. 2. Moderate osteoarthritis involving the anterior compartment. 01/18/2017 [facility] Spine lumbar wo contrast MRI L UMBAR SPINE MRI 06/17/2016. TECHNIQUE: Sagittal T1, sagittal T2 with fat saturation, axial T1 and axial T2 images were obtained. Comparison: 11/14/2013 FINDINGS: There is congenital shortening of the pedicles with dorsal epidural lipomatosis causing narrowing of the canal with diffuse mild canal stenosis causing crowding of the nerve roots. The vertebrae are normal in shape, signal intensity and alignment. The intervertebral disks are mildly desiccated especially T12 L1 with mild height loss. The paravertebral musculature demonstrates moderate fatty atrophy in keeping with deconditioning. The conus medullaris terminates normally at the T12-L1 level. There is no intradural mass lesion. T12-L1: Slight improvement in right paracentral disc extrusion measuring 2 to 3 mm anterior posteriorly and extending 4 mm below the level of the disc subligamentous with annular tearing, superimposed minimal disc bulge and facet hypertrophy. This now only encroaches on the right anterior conus medullaris without current contact. L1-L2: Minimal disc bulge and facet hypertrophy. Foramen patent. L2-L3: Minimal disc bulge and facet hypertrophy. Foramen patent. L3-L4: Mild disc bulge with minimal posterior osteophytes and [id number] facet hypertrophy with ligamentum flavum thickening. This results in moderate canal stenosis with near CSF block. Minimal neural foraminal narrowing. L4-L5: Moderate disc bulge and facet hypertrophy with ligamentum flavum thickening. This results in severe canal stenosis with probable complete to near complete CSF block [id number] right greater than left neural foraminal narrowing with slight deformity of the L4 nerve roots. Moderate right lateral recess narrowing displacing the descending right L5 nerve root. L5-S1: Mild disc bulge with posterior osteophytes and minimal facet hypertrophy. This results in mild lateral recess narrowing with slight contact to the descending S1 nerve roots. Mild bilateral neural foraminal narrowing with facets contacting the L5 nerve roots. IMPRESSION: 1. Congenital greater than acquired skip l stenosis is moderate to severe at L4- L5 greater than L3-L4 with near CSF block. 2. Additional degenerative stenoses incl uding slight deformity of bilateral L4 foraminal nerve roots and displacement of the descending right L5 nerve root. Lesser stenoses as detailed above. 3. Interval improvement in disc herniati on T12-L1. 06/17/2016 [facility] Spine lumbar wo contrast MRI M RI LUMBAR SPINE WITHOUT CONTRAST COMPARISON: No prior exam. The report of the MRI of 07/12/2005 is referenced. TECHNIQUE: Sagittal T1, sagittal T2 with fat saturation, axial T1 and axial T2 images were obtained. No intravenous gadolinium was given. FINDINGS: The paravertebral soft tissues are normal. The conus medullaris terminates at the L1 level. Congenital shortened lumbar pedicles are seen. Moderate epidural lipomatosis is present. T12-L1 right paracentral disc extrusion is present measuring 3.1 mm in the AP dimension, resulting in severe thecal sac stenosis and mild mass effect on the conus medullaris. L1-L2: Moderate to severe thecal sac stenosis present due to the short lumbar pedicles and epidural lipomatosis. No foraminal stenosis is seen. L2-L3: Severe thecal sac stenosis present due to similar findings. Mild bilateral foraminal stenosis present due to disc bulge encroachment. L3-L4: Severe thecal sac stenosis present with moderate ligamenta flava redundancy and facet osteoarthritis. Mild bilateral foraminal stenosis present. L4-L5: Severe thecal sac stenosis present due to dorsal disc osteophyte complex, severe ligamenta flava redundancy, and moderate facet osteoarthritis. Moderate bilateral foraminal stenosis is seen with mass effect on the right L4 exiting nerve root sleeve. L5-S1: Severe thecal sac stenosis present due to similar findings. Mild to moderate bilateral foraminal stenosis is present. IMPRESSION: 1. Multilevel disc degenerative disease and spondylosis. Congenital shortened lumbar pedicles are seen. Dorsal epidural lipomatosis is present. 2. T12-L1 right paracentral disc protrus ion with mild mass effect on the conus medullaris and severe thecal sac stenosis. 3. Additional multilevel severe central canal stenosis and mild to moderate bilateral foraminal stenosis as above. 11/14/2013 [facility] Bose Consultation Notes No Data Provided for This Section Discharge Summaries No Data Provided for This Section History and Physicals No Data Provided for This Section Vital Signs Vital Sign Value Date Comments Source Temperature Oral (F) 98.8 F 02/06/2019 [facility] Heart Rate 91 02/06/2019 [facility] Respitory Rate 18 02/06/2019 [facility] Systolic (mm Hg) 148 02/06/2019 [facility] Diastolic (mm Hg) 89 02/06/2019 [facility] Systolic (mm Hg) 163 02/06/2019 [facility] Diastolic (mm Hg) 77 02/06/2019 [facility] Heart Rate 70 02/06/2019 [facility] Respitory Rate 18 02/06/2019 [facility] Temperature Oral (F) 98.6 F 02/06/2019 [facility] Height 187.96 cm 02/06/2019 [facility] BMI Calculated 27.66 02/06/2019 [facility] Weight 97.727 02/06/2019 [facility] Temperature Oral (F) 97.8 F 02/06/2019 [facility] Heart Rate 66 02/06/2019 [facility] Respitory Rate 18 02/06/2019 [facility] Systolic (mm Hg) 152 02/06/2019 [facility] Diastolic (mm Hg) 69 02/06/2019 [facility] Systolic (mm Hg) 153 02/05/2019 [facility] Diastolic (mm Hg) 65 02/05/2019 [facility] Respitory Rate 20 02/05/2019 [facility] Heart Rate 64 02/05/2019 [facility] Systolic (mm Hg) 166 02/05/2019 [facility] Diastolic (mm Hg) 87 02/05/2019 [facility] Heart Rate 60 02/05/2019 [facility] Respitory Rate 18 02/05/2019 [facility] Temperature Oral (F) 97.9 F 02/05/2019 [facility] Height 187.96 cm 02/05/2019 [facility] BMI Calculated 27.53 02/05/2019 [facility] Weight 97.273 02/05/2019 [facility] Encounters Location Location Details Encounter Type Encounter Number Reason For Visit Attending Provider ADM Date DC Date Status Source [facility] [place] [facility] [id number] Aydin Almaraz 11/14/2013 11/15/2013 [facility] [place] [place] [facility] [id number] Casey Avila Jr 06/17/2016 06/18/2016 [facility] [place] [facility] [place] [facility] [id number] Juanito Morales 01/18/2017 01/19/2017 [facility] [place] Emergency [id number] Shyanne Dixon 02/05/2019 02/06/2019 [facility] Emergency [id number] Davy Faith 02/06/2019 02/06/2019 [facility] Procedures No Data Provided for This Section Assessment and Plan Assessment and Plan Date Source Extracted from:Title: ORS Hand Consult [place] Author: Oniel Holder MD Date: 02/06/19 Ortho [...] weekend Illicit drugs: denies Family History: Non-contibutory Vitals Tmp(F) Pulse BP RR SpO2 FIO2 02/05 22:33 98.6 70 163/77 1 8 98 --- 24 Hr Tmax: 98.6F (37.00c) at 02/05 22:3 3 Vital Signs are the last 5 in the past 48 hours. Exam: Gen: A/Ox3, NAD Resp: Breathing unlabored CV: Distal pulses palpated RUE: Inspection: - No focal erythema or swelling - No open wounds or gross deformity - Mild tenderness to palpation over dors al wrist - [place] intact Motor: Thumb: Active flex/ext at MCP, [...] Minimal TTP over the dorsal wrist - [place] intact Motor: Thumb: Active flex/ext at MCP, [...] - Dispo:Plan for follow up with Dr. Angel hwang as outpatient in 1-2 weeks to discuss surgical options. Oniel Holder MD PGY2 Orthopaedic Surgery MSO: [phone] Pager: [phone] 02/06/2019 [facility] Plan of Care No Data Provided for This Section Social History Social History Date Source Social History TypeResponse Smoking Status Never smoker; Exposure to Tobacco Smoke None; Cigarette Smoking Last 365 Days No; Reg Smoking Cessation Counseling No entered on: 02/05/19 02/05/2019 [facility] No data available for this section 01/19/2017 [facility] Family History No Data Provided for This Section Advance Directives No Data Provided for This Section Functional Status No Data Provided for This Section
--- OUTSIDE RECORDS SUMMARY | 2019-10-08 14:30 | XMS REPORT | Summary of Care ---
Author Author [facility] Organization [facility] Address Unknown Phone Unavailable Encounter HQ Encntr_aliwing(FIN) [id number] Date(s): 06/17/16 - 06/17/16 [facility] Outpatient Imaging - [place] [address] [place] [phone] Discharge Disposition: Home or Self Care Attending Physician: Casey Shetty MD Vital Signs No data available for this [...]
--- OUTSIDE RECORDS SUMMARY | 2019-10-08 14:30 | XMS REPORT | Summary of Care ---
Author Author [facility] Organization [facility] Address Unknown Phone Unavailable Encounter RADHA Norton(NEENA) [id number] Date(s): 02/05/19 - 02/05/[address] [facility] [address] [facility] provided by [facility] [place] [address]- Encounter Diagnosis Acute pain of left hip (Discharge Diagnosis) - 02/05/19 Acute pain of both wrists (Discharge Diagnosis) - 02/05/19 Lower back pain (Discharge Diagnosis) - 02/05/19 Discharge Disposition: Home or Self Care Attending Physician: Shyanne Dixon MD Vital Signs 1 2 3 Most recent to oldest [Reference Range]: 187.96 cm (02/05/19 4:12 PM) Height 97.8 DegF (02/05/19 7:12 PM) 97.9 DegF (02/05/19 4:12 PM) Temperature Oral [96.4-99.1 DegF] 152/69 mmHg *HI* (02/05/19 7:12 PM) 153/65 mmHg *HI* (02/05/19 5:54 PM) 166/87 mmHg *HI* (02/05/19 4:12 PM) Blood Pressure [90-140/60-90 mmHg] 18 BRMIN (02/05/19 7:12 PM) 20 BRMIN (02/05/19 5:54 PM) 18 BRMIN (02/05/19 4:12 PM) Respiratory Rate [14-20 BRMIN] 66 bpm (02/05/19 7:12 PM) 64 bpm (02/05/19 5:54 PM) 60 bpm (02/05/19 4:12 PM) Peripheral Pulse Rate [60-100 bpm] 97.273 kg (02/05/19 4:12 PM) Weight 27.53 m2 (02/05/19 4:12 PM) Body Mass Index Problem List No data available for this section Allergies, Adverse Reactions, Alerts No Known Allergies Medications Motrin 600 mg, 1 tab, Route: PO, Drug form: TAB, ONCE, Dosing Weight 97.273, kg, Priori ty: STAT, Start date: 02/05/19 16:54:00 CDT, Stop date: 02/05/19 16:54:00 CDT, 0 Start Date: 02/05/19 Stop Date: 02/05/19 Status: Completed Tylenol 650 mg, 2 tab, Route: PO, Drug form: TAB, ONCE, Dosing Weight 97.273, kg, Priori ty: STAT, Start date: 02/05/19 16:54:00 CDT, Stop date: 02/05/19 16:54:00 CDT, 0 Start Date: 02/05/19 Stop Date: 02/05/19 Status: Completed Results No data available for this section Immunizations No data available for this section Procedures No data available for this section Social History Social History Type Response Smoking Status Never smoker; Exposure to T obacco Smoke None; Cigarette Smoking Last 365 Days No; Reg Smoking Cessation Counseli ng No entered on: 02/05/19 Assessment and Plan No data available for this section
[2019-10-08] MEDS ORDERED: SODIUM CHLORIDE 0.9% 1000ML 1,000 ML IV STA (14:31)
--- OUTSIDE RECORDS SUMMARY | 2019-10-08 14:31 | XMS REPORT ---
Author Author [facility] Organization [facility] Address [address] [facility] [place] [address] Phone Unavailable Care Team Providers Care Allergy Nurse Name Role Phone Estuardo MORALES DO PCP Luis Alberto BUCK Attphys Unavailable Denton Faith Attphys Michael Dixon Attphys CARINA NICE M.D., CARINA Tabor M.D. Attphys Unavailable Michael Moraleston Attphys Michael Avila Jr Attphys Gilbert Almaraz Attphys CARINA NICE M.D., CARINA Tabor M.D. Admphys Unavailable Payers Payer Name Policy Type Policy Number Effective Date Expiration Date Pedro chacon [facility] [id number] 2011 00:00 :00 [facility] Medicare A & B [id number] 1995 00:00:00 [facility] Problems This patient has no known problems. Allergies, Adverse Reactions, Alerts Allergy Name Allergy Type Status Severity Reaction(s) Onset Date Inacti ve Date Treating Clinician Comments Source Mesoridazine Besylate DA Active U 2019-05-03 00:00:00 [facility] Haloperidol Lactate DA Active U 2019-05-03 00:00:00 [facility] perphenazine DA Active U 2019-05-03 00:00:00 [facility] haloperidol DA Active U 2019-05-03 00:00:00 [facility] divalproex sodium DA Active MO 2019-05-03 00:00:00 [facility] clozapine DA Active SV 2019-05-03 00:00:00 [facility] Mesoridazine Besylate DA Active U 2018-04-24 00:00:00 [facility] Haloperidol Lactate DA Active U 2018-04-24 00:00:00 [facility] perphenazine DA Active U 2018-04-24 00:00:00 [facility] haloperidol DA Active U 2018-04-24 00:00:00 [facility] divalproex sodium DA Active MO 2018-04-24 00:00:00 [facility] clozapine DA Active SV 2018-04-24 00:00:00 [facility] lorazepam DA Active U 2018-04-24 00:00:00 [facility] No Known Allergies DA Active U 2018-03-06 00:00:00 [facility] Mesoridazine Besylate DA Active U 2015-11-11 00:00:00 [facility] Haloperidol Lactate DA Active U 2015-11-11 00:00:00 [facility] lorazepam DA Active U 2015-11-11 00:00:00 [facility] perphenazine DA Active U 2015-11-11 00:00:00 [facility] haloperidol DA Active U 2015-11-11 00:00:00 [facility] divalproex sodium DA Active MO 2015-11-11 00:00:00 [facility] clozapine DA Active SV 2015-11-11 00:00:00 [facility] CYRANTYL DA Active SV 2011-05-08 00:00:00 [facility] NAVAINE DA Active MO 2011-05-08 00:00:00 [facility] Medications Ordered Medication Name Filled Medication Name Start Date Stop Da te Current Medication? Ordering Clinician Indication Dosage Frequency Signature (SIG) Comments Components Source Acetaminophen/Hydrocodone Bitart ([place] 10MG-325MG*) 1 Ea Tab Acetaminophen/Hydrocodone Bitart ([place] 10MG-325MG*) 1 Ea Tab Ye s 1 Every [address] [facility] Benztropine Mesylate (Cogentin) 1 Mg/1 Ml Amp Benztrop ine Mesylate (Cogentin) 1 Mg/1 Ml Amp Yes 2 Bedtime [facility] Hydrocodone Bit/Acetaminophen (Hydrocodon-Acetaminophe n 5-325) 1 Each Tablet Hydrocodone Bit/Acetaminophen (Hydrocodon-Acetaminophen 5-325) 1 Each Tablet Yes Four Times Daily [facility] Risperidone (Risperdal) 4 Mg Tablet Risperidone (Risperdal) 4 Mg Tabl et Yes 8 Bedtime [facility] Sertraline Hcl (Zoloft) 100 Mg Tablet Sertraline Hcl (Zoloft) 100 M g Tablet Yes 100 Bedtime [facility] Cogentin , 2 Mg Oral Cogentin , 2 Mg Oral 2016-07-18 00:00:00 No 2 Daily [facility] Diazepam (Valium) 10 Mg Tablet, 10 Mg Oral Diazepam (V alium) 10 Mg Tablet, 10 Mg Oral 2016-07-18 00:00:00 No 10 Daily [facility] [place] , 1200 Mg Oral [place] , 1200 Mg Oral 2016-07-18 00:00:0 0 No 1200 Daily [facility] Risperdal , 8 Mg Oral Risperdal , 8 Mg Oral 2016-07-18 00:00:00 No 8 Daily [facility] Procedures Procedure Date / Time Performed Performing Clinician Sour e X-ray of chest, two views 2019-08-06 00:00:00 TIA BUCK Luis Alberto [facility] Encounters Start Date/Time End Date/Time Encounter Type Admission Type Attendi [facility] Care Department Encounter ID Source 2019-08-06 12:18:00 2019-08-06 15:44:00 Departed Emergency Room 1 TIA BUCK [facility] [id number] [facility] 2019-02-05 22:30:38 2019-02-06 05:25:00 Outpatient Davy Faith [facility] [id number] [facility] 2019-02-05 22:30:00 2019-02-05 22:30:00 Emergency E [facility] [address] [facility] 2019-02-05 16:09:25 2019-02-05 19:14:00 Outpatient Demetrio Dixon [facility] [id number] [facility] 2019-02-05 16:09:00 2019-02-05 16:09:00 Emergency E [facility] [address] [facility] 2017-01-18 13:13:00 2017-01-18 23:59:00 Outpatient Juanito Stubbs [facility] [id number] [facility] Out patient Imaging - [place] 2016-06-17 12:10:00 2016-06-17 23:59:00 Outpatient Casey Reina [facility] [id number] [facility] Out patient Imaging - [place] 2013-11-14 10:30:00 2013-11-14 23:59:00 Outpatient Frances Ramires [facility] [id number] Results Test Description Test Time Test Comments Results Result Comments Source URINALYSIS COMPLETE 2019-09-13 19:24:00 Test Item UA COLOR (test code = COLU) YELLOW YELLOW UA APPEARANCE (test code = APPU) CLEAR CLEAR UA GLUCOSE DIPSTICK (test code = DGLUU) NEGATIVE mg/dL NEGATIVE UA BILIRUBIN DIPSTICK (test code = BILU) NEGATIVE mg/dL NEGATIVE UA KETONE DIPSTICK (test code = KETU) TRACE mg/dL NEGATIVE A UA SPECIFIC GRAVITY (test code = SGU) 1.011 1.001-1.035 UA BLOOD DIPSTICK (test code = TISHA) Negative mg/dL NEGATIVE UA PH DIPSTICK (test code = ERIN) 5.5 5.0-8.0 UA PROTEIN DIPSTICK (test code = PROU) NEGATIVE mg/dL NEGATIVE UA UROBILINIOGEN DIPSTICK (test code = URO) Normal mg/dL NEGATIVE UA NITRITE DIPSTICK (test code = DOROTHY) NEGATIVE NEGATIVE UA LEUKOCYTE ESTERASE W REFLEX (test code = LEUUR) NEGATIVE Jose/uL NEGATIVE UA WBC (test code = WBCU) 0-5 per HPF 0-5 UA RBC (test code = RBCU) NONE SEEN #/HPF 0-5 UA EPITHELIAL CELLS (test code = EPIU) None seen per HPF FEW UA BACTERIA (test code = BACU) NONE SEEN #/HPF NONE UA HYALINE CAST (test code = HYALU) 6-10 #/LPF 0-5 A UA MUCUS (test code = MUCU) FEW #/LPF FEW Urine Source? Clean CatchDRUGS OF ABUSE SCREEN [id number] 19:24:00* Test Item Value Reference Range Interpretation Comments URN COCAINE (test code = COCAURN) POSITIVE <300 ng/mL A This test provides only a preliminary test result. A morespecific alternate chemical method must be used in order toobtain a confirmed analytical result. Gas chromatography/mass spectrometry (GC/MS) is thepreferred confirmatory method. Other chemical confirmationmethods are available. Clinical consideration and professional judgment should be applied to any drug of abusetest result, particularly when preliminary positive resultsare used.Unconfirmed screening results must not be used fornon-medical purposes (e.g., employment testing, legaltesting). URN CANNABINOIDS (test code = CANNABURN) POSITIVE <50 ng/mL A This test provides only a preliminary test result. A morespecific alternate chemical method must be used in order toobtain a confirmed analytical result. Gas chromatography/mass spectrometry (GC/MS) is thepreferred confirmatory method. Other chemical confirmationmethods are available. Clinical consideration and professional judgment should be applied to any drug of abusetest result, particularly when preliminary positive resultsare used.Unconfirmed screening results must not be used fornon-medical purposes (e.g., employment testing, legaltesting). URN AMPHETAMINE (test code = AMPHETURN) POSITIVE <1000 ng/mL A This test provides only a preliminary test result. A morespecific alternate chemical method must be used in order toobtain a confirmed analytical result. Gas chromatography/mass spectrometry (GC/MS) is thepreferred confirmatory method. Other chemical confirmationmethods are available. Clinical consideration and professional judgment should be applied to any drug of abusetest result, particularly when preliminary positive resultsare used.Unconfirmed screening results must not be used fornon-medical purposes (e.g., employment testing, legaltesting). URN BARBITURATE (test code = BARBITURN) NEGATIVE <200 ng/mL URN BENZODIAZEPINE (test code = BENZOURN) NEGATIVE <200 ng/mL URN OPIATES (test code = OPIATURN) NEGATIVE <300 ng/mL URN PHENCYCLIDINE (PCP) (test code = PHENCURN) NEGATIVE <25 ng/ mL URN METHADONE (test code = METHAURN) NEGATIVE <300 ng/mL Urine Source? Clean CatchURINALYSIS [id number] 18:53:00* Test Item Value Reference Range Interpretation Comments UA COLOR (test code = COLU) YELLOW YELLOW UA APPEARANCE (test code = APPU) CLEAR CLEAR UA GLUCOSE DIPSTICK (test code = DGLUU) NEGATIVE mg/dL NEGATIVE UA BILIRUBIN DIPSTICK (test code = BILU) NEGATIVE mg/dL NEGATIVE UA KETONE DIPSTICK (test code = KETU) TRACE mg/dL NEGATIVE A UA SPECIFIC GRAVITY (test code = SGU) 1.011 1.001-1.035 UA BLOOD DIPSTICK (test code = TISHA) Negative mg/dL NEGATIVE UA PH DIPSTICK (test code = ERIN) 5.5 5.0-8.0 UA PROTEIN DIPSTICK (test code = PROU) NEGATIVE mg/dL NEGATIVE UA UROBILINIOGEN DIPSTICK (test code = URO) Normal mg/dL NEGATIVE UA NITRITE DIPSTICK (test code = DOROTHY) NEGATIVE NEGATIVE UA LEUKOCYTE ESTERASE W REFLEX (test code = LEUUR) NEGATIVE Jose/uL NEGATIVE UA WBC (test code = WBCU) 0-5 per HPF 0-5 UA RBC (test code = RBCU) NONE SEEN #/HPF 0-5 UA EPITHELIAL CELLS (test code = EPIU) None seen per HPF FEW UA BACTERIA (test code = BACU) NONE SEEN #/HPF NONE UA HYALINE CAST (test code = HYALU) 6-10 #/LPF 0-5 A UA MUCUS (test code = MUCU) FEW #/LPF FEW Urine Source? Clean CatchDRUGS OF ABUSE SCREEN [id number] 18:53:00* Test Item Value Reference Range Interpretation Comments URN COCAINE (test code = COCAURN) <300 ng/mL URN CANNABINOIDS (test code = CANNABURN) <50 ng/mL URN AMPHETAMINE (test code = AMPHETURN) <1000 ng/mL URN BARBITURATE (test code = BARBITURN) <200 ng/mL URN BENZODIAZEPINE (test code = BENZOURN) <200 ng/mL URN OPIATES (test code = OPIATURN) <300 ng/mL URN PHENCYCLIDINE (PCP) (test code = PHENCURN) <25 ng/ mL URN METHADONE (test code = METHAURN) <300 ng/mL Urine Source? Clean CatchBASIC METABOLIC [id number] 14:49:00* Test Item Value Reference Range Interpretation Comments SODIUM (test code = NA) 140 mmol/L 136-145 N POTASSIUM (test code = K) 3.7 mmol/L 3.5-5.1 N CHLORIDE (test code = CL) 107.0 mmol/L 98-107 N CARBON DIOXIDE (test code = CO2) 27.0 mmol/L 21-32 N ANION GAP (test code = GAP) 9.7 10-20 L GLUCOSE (test code = GLU) 80 mg/dL 74-106 N BLOOD UREA NITROGEN (test code = BUN) 11 mg/dL 7-18 N GLOMERULAR FILTRATION RATE (test code = GFR) > 60 mL/min >=60 Estimated GFR by using Modified MDRD formula.Chronic kidney disease is defined as either kidney damageor GFR <60 mL/min/1.73 m2 for >3 months. CREATININE (test code = CREAT) 1.00 mg/dL 0.7-1.3 N BUN/CREATININE RATIO (test code = BUN/CREA) 11.0 10-20 N CALCIUM (test code = CA) 9.2 mg/dL 8.5-10.1 N HEPATIC FUNCTION [id number] 14:49:00* Test Item Value Reference Range Interpretation Comments TOTAL PROTEIN (test code = PROT) 7.0 gram/dL 6.4-8.2 N ALBUMIN (test code = ALB) 3.6 g/dL 3.4-5.0 N GLOBULIN (test code = GLOB) 3.4 gram/dL 2.7-4.2 N ALBUMIN/GLOBULIN RATIO (test code = A/G) 1.1 0.75-1.50 N BILIRUBIN TOTAL (test code = BILT) 0.80 mg/dL 0.0-1.0 N BILIRUBIN DIRECT (test code = BILD) 0.26 mg/dL 0.0-0.20 H SGOT/AST (test code = AST) 30 IUnit/L 15-37 N SGPT/ALT (test code = ALT) 37 IUnit/L 12-78 N ALKALINE PHOSPHATASE TOTAL (test code = ALKP) 76 IUnit/L 45-117 N Note change in reference range due to change in reagent. [id number] 14:49:00* Test Item Value Reference Range Interpretation Comments ALCOHOL (test code = ALC) < 3 mg/dL 0.0-3.0 N -- INTERPRETIVE DATA NOTE: POSITIVE SCREENING RESULTS SHOULD BE CONSIDERED PRESUMPTIVE.WHEN COLLECTED FOR MEDICAL PURPOSES ONLY. SPECIMEN WILL NOTBE COLLECTED BY CHAIN OF CUSTODY.IF A CONFIRMATION OF POSITIVE RESULTS IS DESIRED, ACONFIRMATION TEST MUST BE REQUESTED BY THE PHYSICIAN AT ANADDITIONAL CHARGE TO THE PATIENT. BASIC METABOLIC [id number] 14:36:00* Test Item Value Reference Range Interpretation Comments SODIUM (test code = NA) 140 mmol/L 136-145 N POTASSIUM (test code = K) 3.7 mmol/L 3.5-5.1 N CHLORIDE (test code = CL) 107.0 mmol/L 98-107 N CARBON DIOXIDE (test code = CO2) mmol/L 21-32 ANION GAP (test code = GAP) 10-20 GLUCOSE (test code = GLU) mg/dL 74-106 BLOOD UREA NITROGEN (test code = BUN) mg/dL 7-18 GLOMERULAR FILTRATION RATE (test code = GFR) mL/min >=60 CREATININE (test code = CREAT) mg/dL 0.7-1.3 BUN/CREATININE RATIO (test code = BUN/CREA) 10-20 CALCIUM (test code = CA) mg/dL 8.5-10.1 HEPATIC FUNCTION [id number] 14:36:00* Test Item Value Reference Range Interpretation Comments TOTAL PROTEIN (test code = PROT) gram/dL 6.4-8.2 ALBUMIN (test code = ALB) g/dL 3.4-5.0 GLOBULIN (test code = GLOB) gram/dL 2.7-4.2 ALBUMIN/GLOBULIN RATIO (test code = A/G) 0.75-1.50 BILIRUBIN TOTAL (test code = BILT) mg/dL 0.0-1.0 BILIRUBIN DIRECT (test code = BILD) mg/dL 0.0-0.20 SGOT/AST (test code = AST) IUnit/L 15-37 SGPT/ALT (test code = ALT) IUnit/L 12-78 ALKALINE PHOSPHATASE TOTAL (test code = ALKP) IUnit/L 45-117 [id number] 14:36:00* Test Item Value Reference Range Interpretation Comments ALCOHOL (test code = ALC) mg/dL 0-3 CBC W/O [id number] 14:33:00* Test Item Value Reference Range Interpretation Comments WHITE BLOOD CELL (test code = WBC) 7.7 K/mm3 4.5-12.5 N RED BLOOD CELL (test code = RBC) 4.98 mill/mm3 4.0-5.8 N HEMOGLOBIN (test code = HGB) 15.5 gram/dL 13.0-17.5 N HEMATOCRIT (test code = HCT) 45.9 % 42.0-52.0 N MEAN CELL VOLUME (test code = MCV) 92.2 fL 80-98 N MEAN CELL HGB (test code = MCH) 31.1 picogram 27.0-33.0 N MEAN CELL HGB CONCETRATION (test code = MCHC) 33.8 gram/dL 33.0-36. 0 N RED CELL DISTRIBUTION WIDTH (test code = RDW) 13.8 % 11.6-16. 2 N PLATELET COUNT (test code = PLT) 233 K/mm3 150-450 N MEAN PLATELET VOLUME (test code = MPV) 9.5 fL 6.7-11.0 N BASIC METABOLIC [id number] 04:02:00* Test Item Value Reference Range Interpretation Comments SODIUM (test code = NA) 143 mmol/L 136-145 N POTASSIUM (test code = K) 4.2 mmol/L 3.5-5.1 N CHLORIDE (test code = CL) 113.0 mmol/L 98-107 H CARBON DIOXIDE (test code = CO2) 22.0 mmol/L 21-32 N ANION GAP (test code = GAP) 12.2 10-20 N GLUCOSE (test code = GLU) 91 mg/dL 74-106 N BLOOD UREA NITROGEN (test code = BUN) 6 mg/dL 7-18 L GLOMERULAR FILTRATION RATE (test code = GFR) > 60 mL/min >=60 Estimated GFR by using Modified MDRD formula.Chronic kidney disease is defined as either kidney damageor GFR <60 mL/min/1.73 m2 for >3 months. CREATININE (test code = CREAT) 0.70 mg/dL 0.7-1.3 N BUN/CREATININE RATIO (test code = BUN/CREA) 8.6 10-20 L CALCIUM (test code = CA) 9.2 mg/dL 8.5-10.1 N HEPATIC FUNCTION [id number] 04:02:00* Test Item Value Reference Range Interpretation Comments TOTAL PROTEIN (test code = PROT) 7.6 gram/dL 6.4-8.2 N ALBUMIN (test code = ALB) 3.8 g/dL 3.4-5.0 N GLOBULIN (test code = GLOB) 3.8 gram/dL 2.7-4.2 N ALBUMIN/GLOBULIN RATIO (test code = A/G) 1.0 0.75-1.50 N BILIRUBIN TOTAL (test code = BILT) 0.40 mg/dL 0.0-1.0 N BILIRUBIN DIRECT (test code = BILD) 0.11 mg/dL 0.0-0.20 N SGOT/AST (test code = AST) 33 IUnit/L 15-37 N SGPT/ALT (test code = ALT) 50 IUnit/L 12-78 N ALKALINE PHOSPHATASE TOTAL (test code = ALKP) 82 IUnit/L 45-117 N Note change in reference range due to change in reagent. [id number] 04:02:00* Test Item Value Reference Range Interpretation Comments ACETAMINOPHEN (test code = ACET) < 10 mcg/mL 10-30 L A RANGE OF 10-30 mcg/mL IS A THERAPEUTIC RANGE. TOXIC CONCENTRATIONS: >150 mcg/mL AT 4 HOURS AFTER INGESTION >= 50 mcg/mL AT 12 HOURS AFTER INGESTION [id number] 04:02:00* Test Item Value Reference Range Interpretation Comments SALICYLATE (test code = KALLI) 6.5 mg/dL 2.8-20.0 N [id number] 04:02:00* Test Item Value Reference Range Interpretation Comments ALCOHOL (test code = ALC) 79 mg/dL 0.0-3.0 H -- INTERPRETIVE DATA NOTE: POSITIVE SCREENING RESULTS SHOULD BE CONSIDERED PRESUMPTIVE.WHEN COLLECTED FOR MEDICAL PURPOSES ONLY. SPECIMEN WILL NOTBE COLLECTED BY CHAIN OF CUSTODY.IF A CONFIRMATION OF POSITIVE RESULTS IS DESIRED, ACONFIRMATION TEST MUST BE REQUESTED BY THE PHYSICIAN AT ANADDITIONAL CHARGE TO THE PATIENT. BASIC METABOLIC [id number] 03:48:00* Test Item Value Reference Range Interpretation Comments SODIUM (test code = NA) 143 mmol/L 136-145 N POTASSIUM (test code = K) 4.2 mmol/L 3.5-5.1 N CHLORIDE (test code = CL) 113.0 mmol/L 98-107 H CARBON DIOXIDE (test code = CO2) mmol/L 21-32 ANION GAP (test code = GAP) 10-20 GLUCOSE (test code = GLU) mg/dL 74-106 BLOOD UREA NITROGEN (test code = BUN) mg/dL 7-18 GLOMERULAR FILTRATION RATE (test code = GFR) mL/min >=60 CREATININE (test code = CREAT) mg/dL 0.7-1.3 BUN/CREATININE RATIO (test code = BUN/CREA) 10-20 CALCIUM (test code = CA) mg/dL 8.5-10.1 HEPATIC FUNCTION [id number] 03:48:00* Test Item Value Reference Range Interpretation Comments TOTAL PROTEIN (test code = PROT) gram/dL 6.4-8.2 ALBUMIN (test code = ALB) g/dL 3.4-5.0 GLOBULIN (test code = GLOB) gram/dL 2.7-4.2 ALBUMIN/GLOBULIN RATIO (test code = A/G) 0.75-1.50 BILIRUBIN TOTAL (test code = BILT) mg/dL 0.0-1.0 BILIRUBIN DIRECT (test code = BILD) mg/dL 0.0-0.20 SGOT/AST (test code = AST) IUnit/L 15-37 SGPT/ALT (test code = ALT) IUnit/L 12-78 ALKALINE PHOSPHATASE TOTAL (test code = ALKP) IUnit/L 45-117 [id number] 03:48:00* Test Item Value Reference Range Interpretation Comments ACETAMINOPHEN (test code = ACET) mcg/mL 10-30 [id number] 03:48:00* Test Item Value Reference Range Interpretation Comments SALICYLATE (test code = KALLI) mg/dL 2.8-20.0 [id number] 03:48:00* Test Item Value Reference Range Interpretation Comments ALCOHOL (test code = ALC) mg/dL 0-3 CBC W/O [id number] 03:35:00* Test Item Value Reference Range Interpretation Comments WHITE BLOOD CELL (test code = WBC) 7.2 K/mm3 4.5-12.5 N RED BLOOD CELL (test code = RBC) 5.89 mill/mm3 4.0-5.8 H HEMOGLOBIN (test code = HGB) 18.1 gram/dL 13.0-17.5 H HEMATOCRIT (test code = HCT) 53.5 % 42.0-52.0 H MEAN CELL VOLUME (test code = MCV) 90.8 fL 80-98 N MEAN CELL HGB (test code = MCH) 30.7 picogram 27.0-33.0 N MEAN CELL HGB CONCETRATION (test code = MCHC) 33.8 gram/dL 33.0-36. 0 N RED CELL DISTRIBUTION WIDTH (test code = RDW) 13.6 % 11.6-16. 2 N PLATELET COUNT (test code = PLT) 278 K/mm3 150-450 N MEAN PLATELET VOLUME (test code = MPV) 9.5 fL 6.7-11.0 N - CT MAXIFAC [id number] 21:29:00 Name: GARCIA CARTWRIGHT [facility] : 1965 Age/S: 54 / M [address] [facility] Unit #: [id number] Loc: [place] [address] Phys: Christina Alston MD Acct: [id number] Dis Date: Status: REG ER PHONE #: [phone] Exam Date: 09/03/20192107 FAX #: [phone] Reason: swelling, redness, discharge to right ear EXAMS: CPT CODE: [id number] CT MAXIFAC W/CONTRAST [id number] EXAM: - CT MAXIFAC W/CONTRAST HISTORY: swelling, redness, discharge to right ear TECHNIQUE: Axial images were obtained through the facial bones and orbits with IV contrast. Sagittal and coronal multiplanar reconstructions were created from the data. COMPARISON: CT scan of the brain March 06, 2018 FINDINGS: The facial bones, including the mandible, are within normal limits. Specifically, there is no evidence of fracture, dislocation, or aggressive osseous lesions. The globes are normal in size, contour, and position. There is been prior extraction of the lens from the left lobe. The course and caliber of the optic nerve sheath complex is within normal limits. The extraocular muscles, intraconal fat, and extraconal fat are within normal limits. The lacrimal glands appear normal. The orbital sherwood and optic canals are normal. The visualized intracranial structures appear normal. No lesion of the visualized skull base or calvarium is present. There is mild mucosal thic kening in the ethmoid sinuses. The mastoid air cells are clear. Th ere is cerumen in the left external auditory canal. The right data management al auditory canal is grossly clear. Both middle air cavities are clear. Th e internal auditory canals are also clear. The periauricular soft tissues do not demonstrate any abscesses. No abnormal-appearing lymph node s are seen on either side. IMPRESSION: Normal face CT. Specifically the right external auditory canal and right middle ear cavity and right internal auditory canal or clear and there are no abnormalities in the right-sided periauricular soft tissues. Location: [facility] PAGE 1 Signed Report (CONTINUED) Name: GARCIA CARTWRIGHT [facility] : 1965 Age/S: 54 / M [address] Unit #: [id number] Loc: [place] [address] Phys: Christina Alston MD Acct: [id number] Dis Date: Status: REG ER PHONE #: [phone] Exam Date: 09/03/20192107 FAX #: [phone] Reason: swelling, redness, discharge to right ear EXAMS: CPT CODE: [id number] CT MAXIFAC W/CONTRAST [id number] < Continued> at 2128 Reported and signed by: Calos Infante MD CC: Juanito Morales; Christina Alston MD Technologist:Bridget Brody RT(R); ALFONZO Jacob CTDI: DLP: Trnscb Date/Time: 09/03/2019 (2128) [email or web address] Orig Print D/T: S: 09/03/2019 (2131) PAGE 2 Signed Report BASIC METABOLIC [id number] 20:41:00* Test Item Value Reference Range Interpretation Comments SODIUM (test code = NA) 139 mmol/L 136-145 N POTASSIUM (test code = K) 3.7 mmol/L 3.5-5.1 N CHLORIDE (test code = CL) 108.0 mmol/L 98-107 H CARBON DIOXIDE (test code = CO2) 22.0 mmol/L 21-32 N ANION GAP (test code = GAP) 12.7 10-20 N GLUCOSE (test code = GLU) 88 mg/dL 74-106 N BLOOD UREA NITROGEN (test code = BUN) 8 mg/dL 7-18 N GLOMERULAR FILTRATION RATE (test code = GFR) > 60 mL/min >=60 Estimated GFR by using Modified MDRD formula.Chronic kidney disease is defined as either kidney damageor GFR <60 mL/min/1.73 m2 for >3 months. CREATININE (test code = CREAT) 1.10 mg/dL 0.7-1.3 N BUN/CREATININE RATIO (test code = BUN/CREA) 7.3 10-20 L CALCIUM (test code = CA) 9.9 mg/dL 8.5-10.1 N HEPATIC FUNCTION [id number] 20:41:00* Test Item Value Reference Range Interpretation Comments TOTAL PROTEIN (test code = PROT) 7.5 gram/dL 6.4-8.2 N ALBUMIN (test code = ALB) 3.7 g/dL 3.4-5.0 N GLOBULIN (test code = GLOB) 3.8 gram/dL 2.7-4.2 N ALBUMIN/GLOBULIN RATIO (test code = A/G) 1.0 0.75-1.50 N BILIRUBIN TOTAL (test code = BILT) 1.00 mg/dL 0.0-1.0 N BILIRUBIN DIRECT (test code = BILD) 0.28 mg/dL 0.0-0.20 H SGOT/AST (test code = AST) 36 IUnit/L 15-37 N SGPT/ALT (test code = ALT) 48 IUnit/L 12-78 N ALKALINE PHOSPHATASE TOTAL (test code = ALKP) 84 IUnit/L 45-117 N Note change in reference range due to change in reagent. [id number] 20:41:00* Test Item Value Reference Range Interpretation Comments LIPASE (test code = LIP) 35 U/L 73.0-393.0 L [id number] 20:41:00* Test Item Value Reference Range Interpretation Comments TROPONIN-I (test code = TROPI) <0.015 ng/mL 0-0.045 N LACTIC [id number] 20:38:00* Test Item Value Reference Range Interpretation Comments LACTIC ACID (test code = LACT) 1.2 mmol/L 0.4-1.9 N BASIC METABOLIC [id number] 20:28:00* Test Item Value Reference Range Interpretation Comments SODIUM (test code = NA) 139 mmol/L 136-145 N POTASSIUM (test code = K) 3.7 mmol/L 3.5-5.1 N CHLORIDE (test code = CL) 108.0 mmol/L 98-107 H CARBON DIOXIDE (test code = CO2) mmol/L 21-32 ANION GAP (test code = GAP) 10-20 GLUCOSE (test code = GLU) mg/dL 74-106 BLOOD UREA NITROGEN (test code = BUN) mg/dL 7-18 GLOMERULAR FILTRATION RATE (test code = GFR) mL/min >=60 CREATININE (test code = CREAT) mg/dL 0.7-1.3 BUN/CREATININE RATIO (test code = BUN/CREA) 10-20 CALCIUM (test code = CA) mg/dL 8.5-10.1 HEPATIC FUNCTION [id number] 20:28:00* Test Item Value Reference Range Interpretation Comments TOTAL PROTEIN (test code = PROT) gram/dL 6.4-8.2 ALBUMIN (test code = ALB) g/dL 3.4-5.0 GLOBULIN (test code = GLOB) gram/dL 2.7-4.2 ALBUMIN/GLOBULIN RATIO (test code = A/G) 0.75-1.50 BILIRUBIN TOTAL (test code = BILT) mg/dL 0.0-1.0 BILIRUBIN DIRECT (test code = BILD) mg/dL 0.0-0.20 SGOT/AST (test code = AST) IUnit/L 15-37 SGPT/ALT (test code = ALT) IUnit/L 12-78 ALKALINE PHOSPHATASE TOTAL (test code = ALKP) IUnit/L 45-117 [id number] 20:28:00* Test Item Value Reference Range Interpretation Comments LIPASE (test code = LIP) U/L 73.0-393.0 [id number] 20:28:00* Test Item Value Reference Range Interpretation Comments TROPONIN-I (test code = TROPI) ng/mL 0-0.045 CBC W/AUTO [id number] 20:16:00* Test Item Value Reference Range Interpretation Comments WHITE BLOOD CELL (test code = WBC) 9.3 K/mm3 4.5-12.5 N RED BLOOD CELL (test code = RBC) 5.60 mill/mm3 4.0-5.8 N HEMOGLOBIN (test code = HGB) 17.4 gram/dL 13.0-17.5 N HEMATOCRIT (test code = HCT) 51.1 % 42.0-52.0 N MEAN CELL VOLUME (test code = MCV) 91.3 fL 80-98 N MEAN CELL HGB (test code = MCH) 31.1 picogram 27.0-33.0 N MEAN CELL HGB CONCETRATION (test code = MCHC) 34.1 gram/dL 33.0-36. 0 N RED CELL DISTRIBUTION WIDTH (test code = RDW) 13.8 % 11.6-16. 2 N RED CELL DISTRIBUTION WIDTH SD (test code = RDW-SD) 46.2 fL 37 .0-51.0 N PLATELET COUNT (test code = PLT) 269 K/mm3 150-450 N MEAN PLATELET VOLUME (test code = MPV) 9.7 fL 6.7-11.0 N NEUTROPHIL % (test code = NT%) 72.3 % 39.0-69.0 H IMMATURE GRANULOCYTE % (test code = IG%) 0.2 % 0.0-5.0 N LYMPHOCYTE % (test code = LY%) 17.3 % 25.0-55.0 L MONOCYTE % (test code = MO%) 7.8 % 0.0-10.0 N EOSINOPHIL % (test code = EO%) 2.0 % 0.0-5.0 N BASOPHIL % (test code = BA%) 0.4 % 0.0-1.0 N NUCLEATED RBC % (test code = NRBC%) 0.0 % 0-0 N NEUTROPHIL # (test code = NT#) 6.72 K/mm3 1.8-7.7 N IMMATURE GRANULOCYTE # (test code = IG#) 0.02 x10 3/uL 0-0.03 N LYMPHOCYTE # (test code = LY#) 1.61 K/mm3 1.0-5.0 N MONOCYTE # (test code = MO#) 0.73 K/mm3 0-0.8 N EOSINOPHIL # (test code = EO#) 0.19 K/mm3 0.0-0.5 N BASOPHIL # (test code = BA#) 0.04 K/mm3 0.0-0.2 N NUCLEATED RBC # (test code = NRBC#) 0.00 K/mm3 0.0-0.1 N Magnesium [id number] 13:56:00* Test Item Value Reference Range Interpretation Comments Magnesium Level (test code = 65193-6) 1.7 1.3-2.1 [facility] Kinase [id number] 13:26:00* Test Item Value Reference Range Interpretation Comments Creatine Kinase MB (test code = 75151-6) 1.50 0-5.0 [facility] CenterTroponin [id number] 13:26:00* Test Item Value Reference Range Interpretation Comments Troponin I (test code = NUZ1562) 0.001 0-0.300 [facility] Rxpqg4897-22-23 13:19:00* Test Item Value Reference Range Interpretation Comments Sodium Level (test code = 2951-2) 138 136-145 [facility] CenterPotassium Rxanc4162-10-06 13:19:00* Test Item Value Reference Range Interpretation Comments Potassium Level (test code = 2823-3) 3.7 3.5-5.1 [facility] CenterChloride Hqxlm7506-35-80 13:19:00* Test Item Value Reference Range Interpretation Comments Chloride Level (test code = 2075-0) 109 98-107 [facility] CenterCarbon Dioxide Dxsbe1024-45-05 13:19:00* Test Item Value Reference Range Interpretation Comments Carbon Dioxide Level (test code = 2028-9) 23 22-29 [facility] CenterAnion [id number] 13:19:00* Test Item Value Reference Range Interpretation Comments Anion Gap (test code = 60323-7) 9.7 8-16 [facility] CenterBlood Urea Npnyyzij8944-54-90 13:19:00* Test Item Value Reference Range Interpretation Comments Blood Urea Nitrogen (test code = 3094-0) 7 7-26 [facility] CenterCreatinine2020-03-11 13:19:00* Test Item Value Reference Range Interpretation Comments Creatinine (test code = 2160-0) 0.72 0.72-1.25 [facility] CenterBUN/Creatinine Zeiwf2455-12-74 13:19:00* Test Item Value Reference Range Interpretation Comments BUN/Creatinine Ratio (test code = 3097-3) 10 6-25 [facility] CenterEstimat Glomerular Filtration Rate 2019-08-06 13:19:00* Test Item Value Reference Range Interpretation Comments Estimat Glomerular Filtration Rate (test code = 778142729) > 60 >60 Ranges were taken from the National Kidney Disease Education Program and the [facility] Kid[facility] Foundation literature.Reference ranges:60 or greater: Lmfgjq37-09 ( for 3 consecutive months): Chronic kidney disease 15 or less: Kidney failureBaylor University Medical CenterGlucose Htelq1215-23-50 13:19:00* Test Item Value Reference Range Interpretation Comments Glucose Level (test code = RLW9555) 96 74-118 [facility] CenterCalcium Pcver6741-95-12 13:19:00* Test Item Value Reference Range Interpretation Comments Calcium Level (test code = 66859-4) 9.0 8.4-10.2 [facility] CenterTotal Wglgakmmj0016-03-86 13:19:00* Test Item Value Reference Range Interpretation Comments Total Bilirubin (test code = 1975-2) 0.4 0.2-1.2 [facility] CenterAspartate Amino Transf (AST/SGOT) 2019-08-06 13:19:00* Test Item Value Reference Range Interpretation Comments Aspartate Amino Transf (AST/SGOT) (test code = Aspartate Amino Transf (AST/SGOT)) 32 5-34 [facility] CenterAlanine Aminotransferase (ALT/SGPT) 2019-08-06 13:19:00* Test Item Value Reference Range Interpretation Comments Alanine Aminotransferase (ALT/SGPT) (test code = 1742-6) 33 0-55 [facility] CenterTotal Kggdinj0796-51-18 13:19:00* Test Item Value Reference Range Interpretation Comments Total Protein (test code = 2885-2) 6.5 6.5-8.1 [facility] CenterAlbumin2020-03-11 13:19:00* Test Item Value Reference Range Interpretation Comments Albumin (test code = 1751-7) 3.5 3.5-5.0 [facility] CenterGlobulin2020-03-11 13:19:00* Test Item Value Reference Range Interpretation Comments Globulin (test code = 41085-2) 3.0 2.3-3.5 [facility] CenterAlbumin/Globulin Hxvuj0672-06-33 13:19:00 * Test Item Value Reference Range Interpretation Comments Albumin/Globulin Ratio (test code = 1759-0) 1.2 0.8-2.0 [facility] CenterAlkaline Qekrlltkxrg9011-19-99 13:19:00* Test Item Value Reference Range Interpretation Comments Alkaline Phosphatase (test code = 6768-6) 65 40-150 [facility] CenterCreatine Wttash5457-36-64 13:19:00* Test Item Value Reference Range Interpretation Comments Creatine Kinase (test code = 2157-6) 39 30-200 [facility] CenterCHEST 2 [id number] 13:14:00 [facility] [address] [address] Patient Name: GARCIA CARTWRIGHT MR #: [id number] : 1965 Age/Sex: 54/M Req #: [id number] Adm Physician: Ordered by: TIA BUCK MD Report #: [id number] Location: ER Room/Bed: Procedure: [id number] DX/C HEST 2 VIEWS Exam Date: Exam Time: REPORT STATUS: Signed EXAMINATION: CHEST 2 VIE WS INDICATION: CP COMPARISON: None FINDINGS: PA and lateral views TUBES and LINES: None. LUNGS: Lungs are well in flated. Lungs are clear. There is no evidence of pneumonia or pulmonary lulu a. PLEURA: No pleural effusion or pneumothorax. HEART AND MEDIASTINUM : The cardiomediastinal silhouette is unremarkable. BONES AND SOFT TIS SUES: No acute osseous lesion. Soft tissues are unremarkable. UPPER ABD OMEN: No free air under the diaphragm. IMPRESSION: No acute thoracic radiographic abnormality. Signed by: Frances Gutierrez MD on 08/06/2019 1: 15 PM Dictated By: FRANCES GUTIERREZ MD 1315 Transcribed By: ORTIZ on 08/06/19 1315 COPY T O: TIA BUCK MD White Blood Qhhyc6416-89-96 13:00:00* Test Item Value Reference Range Interpretation Comments White Blood Count (test code = 6690-2) 6.63 4.8-10.8 [facility] CenterRed Blood Bevuq1916-90-28 13:00:00* Test Item Value Reference Range Interpretation Comments Red Blood Count (test code = 789-8) 5.14 4.3-5.7 [facility] CenterHemoglobin2020-03-11 13:00:00* Test Item Value Reference Range Interpretation Comments Hemoglobin (test code = 88021-9) 16.0 14.0-18.0 [facility] CenterHematocrit2020-03-11 13:00:00* Test Item Value Reference Range Interpretation Comments Hematocrit (test code = 4544-3) 47.1 38.2-49.6 [facility] CenterMean Corpuscular Uiopzt3535-56-98 13:00:00* Test Item Value Reference Range Interpretation Comments Mean Corpuscular Volume (test code = 787-2) 91.6 81-99 [facility] CenterMean Corpuscular Zbncltakae3784-68-69 13:00:00* Test Item Value Reference Range Interpretation Comments Mean Corpuscular Hemoglobin (test code = 785-6) 31.1 28-32 [facility] CenterMean Corpuscular Hemoglobin Concent 2019-08-06 13:00:00* Test Item Value Reference Range Interpretation Comments Mean Corpuscular Hemoglobin Concent (test code = 786-4) 34.0 31-35 [facility] CenterRed Cell Distribution Vodhx6626-90-05 13:00:00* Test Item Value Reference Range Interpretation Comments Red Cell Distribution Width (test code = 63490-9) 13.2 11.7 -14.4 [facility] CenterPlatelet Jgcuk8321-58-82 13:00:00* Test Item Value Reference Range Interpretation Comments Platelet Count (test code = 777-3) 194 140-360 [facility] CenterNeutrophils (%) (Auto)2019-08-06 13:00:00 * Test Item Value Reference Range Interpretation Comments Neutrophils (%) (Auto) (test code = 03738-0) 64.9 38.7-80.0 [facility] CenterLymphocytes (%) (Auto)2019-08-06 13:00:00 * Test Item Value Reference Range Interpretation Comments Lymphocytes (%) (Auto) (test code = 736-9) 26.5 18.0-39.1 [facility] CenterMonocytes (%) (Auto)2019-08-06 13:00:00* Test Item Value Reference Range Interpretation Comments Monocytes (%) (Auto) (test code = 5905-5) 6.6 4.4-11.3 [facility] CenterEosinophils (%) (Auto)2019-08-06 13:00:00 * Test Item Value Reference Range Interpretation Comments Eosinophils (%) (Auto) (test code = 713-8) 1.4 0.0-6.0 [facility] CenterBasophils (%) (Auto)2019-08-06 13:00:00* Test Item Value Reference Range Interpretation Comments Basophils (%) (Auto) (test code = 706-2) 0.3 0.0-1.0 [facility] CenterIM GRANULOCYTES %2019-08-06 13:00:00* Test Item Value Reference Range Interpretation Comments IM GRANULOCYTES % (test code = IM GRANULOCYTES %) 0.3 0.0- 1.0 [facility] CenterNeutrophils # (Auto)2019-08-06 13:00:00* Test Item Value Reference Range Interpretation Comments Neutrophils # (Auto) (test code = 751-8) 4.3 2.1-6.9 [facility] CenterLymphocytes # (Auto)2019-08-06 13:00:00* Test Item Value Reference Range Interpretation Comments Lymphocytes # (Auto) (test code = 03692-9) 1.8 1.0-3.2 [facility] CenterMonocytes # (Auto)2019-08-06 13:00:00* Test Item Value Reference Range Interpretation Comments Monocytes # (Auto) (test code = 742-7) 0.4 0.2-0.8 [facility] CenterEosinophils # (Auto)2019-08-06 13:00:00* Test Item Value Reference Range Interpretation Comments Eosinophils # (Auto) (test code = 711-2) 0.1 0.0-0.4 [facility] CenterBasophils # (Auto)2019-08-06 13:00:00* Test Item Value Reference Range Interpretation Comments Basophils # (Auto) (test code = 704-7) 0.0 0.0-0.1 [facility] CenterAbsolute Immature Granulocyte (auto 2019-08-06 13:00:00* Test Item Value Reference Range Interpretation Comments Absolute Immature Granulocyte (auto (patrick t code = Absolute Immature Granulocyte (auto) 0.02 0-0.1 [facility]- XR PELVIS 1/2 [id number] 09:34:00 FAX: Alberto Mills MD [phone] [place]: St: REG FAX: Juanito Tellez [phone] Name: GARCIA CARTWRIGHT [facility] : 1965 Age/S: 53/M [address] Unit #: [id number] Loc: [place] [address] Phys: Alberto Stone MD Acct: [id number] Dis Date: Status: REG R PHONE #: [phone] Exam Date: 06/03/2019921 FAX #: Reason: HIP PAIN EXAMS: CPT CODE: [id number] XR PELVIS 1/2 VIEWS 02371 HISTORY: LEFT HIP PAIN EXAM: AP pelvis as well as AP and frog-leg views of the left hip Comparison: Pelvis radiographs March 02, 2019 FINDINGS: No acute fracture of the bony pelvis. No diastases of the SI joints or pubic symphysis. Hip joints are not dislocated. Proximal femurs are intact. Lower lumbar spine is unremarkable. IM PRESSION: Negative radiographic examination of the bony pelvis. Location: [facility] Electronically Signed by Calos Infante MD on 020 at 0934 Reported and signed by: Calos Infante MD CC: Alberto Stone MD; Juanito Morales gist: RT Meliton(R) Trnscrd Date/Time/B y: 06/03/2019 (933) : By: [email or web address] Orig Print D/T: S: 06/03/2019 () PAGE 1 Signed Report - XR HIP W/PEL UNI 2+V [id number] 09:34:00 FAX: Alberto Mills MD [phone] [place]: St: REG FAX: Juanito Tellez [phone] Name: GARCIA CARTWRIGHT [facility] [place] : 1965 Age/S: 53/M [address] Unit #: [id number] Loc: [place] [address] Phys: Alberto Stone MD Acct: [id number] Dis Date: Status: REG RCR PHONE #: [phone] Exam Date: 06/03/2019921 FAX #: Reason: LEFT HIP PAIN EXAMS: CPT CODE: [id number] XR HIP W/PEL UNI 2+[place] [address] HISTORY: LEFT HIP PAIN EXAM: AP pelvis as well as AP and frog-leg views of the left hip Comparison: Pelvis radiographs March 02, 2019 FINDINGS: No acute fracture of the bony pelvis. No diastases of the SI joints or pubic symphysis. Hip joints are not dislocated. Proximal femurs are intact. Lower lumbar spine is unremarkable. IM PRESSION: Negative radiographic examination of the bony pelvis. Location: [facility] Electronically Signed by Calos Infante MD on 020 at 0934 Reported and signed by: Calos Infante MD CC: Alberto Stone MD; Juanito Morales gist: RT Meliton(R) Trnscrd Date/Time/B y: 06/03/2019 (933) : By: [email or web address] Orig Print D/T: S: 06/03/2019 () PAGE 1 Signed Report - MRI LW JNT W/O CONT [id number] 14:57:00 FAX: Juanito Tellez [phone] [place]: St: REG Name: GARCIA DURAND [facility] : [birth year] Age/S: 53/M [facility] Unit #: [id number] Loc: [place] [address] Phys: Juanito Morales DO Acct: [id number] Dis Date: Status: REG CLI PHONE #: [phone] Exam Date: 05/14/2019 1047 FAX #: [phone] Reason: M111.06,M255 EXAMS: CPT CODE: [id number] MRI LW JNT W/[place] [address] HISTORY: /. COMPARISON: X-ray from March 02, 2019. Location: [facility]. MRI left hip without contrast: No acute fracture of the left hip mildly narrowed hip joint. No AVN is noted. Acetabulum is without f racture with normal signal. Sacrum is without fracture in the portions vis ualized. Unremarkable SI joint. The lower L-spine is without fracture. Vis ualized right hip is without fracture. The pubic bones are without fractur e. Symphysis is well opposed. No cam or pincer impingement. No femoral isc hial impingement. Strain at the insertion of the gluteus medius mu scle on the left with small fluid consistent with trochanteric bursitis. T here is mild edema of the gluteus medius muscle and to lesser extent in th e gluteus nivia muscle. No edema within the gluteus minimus muscle. The piriformis muscle is unremarkable and appear symmetrical. The adductor muscles are without tear or strain. Origins of the hamstrings is normal. The conjoined tendon is without tear. The symphyseal disc is unremarkable. No pathologic adenopathy. Unremarkable urinary bladder. Prostate is not enlarged. IMPRESSION: Left troc hanteric bursitis with strain at the insertion of the gluteus medius mus delroy as well. Mild edema of the gluteus maximum and medius muscles withou t tear. No joint fluid. No AVN. No acute fracture. Narrowed hip joint. N o impingement. Electronically Signed by Carol Valentin on 019 at 1457 Reported and signed by: Luis Alberto Valentin M.D. CC: Juanito Morales Technologist: Jyoti THOMAS,RT - MRI Trniard Date/Time/By: 04/27 (5967) : By: [email or web address] Orig Print D/T: S: 05/14/2019 (1235) PAGE 1 Signed Report RPR Bjaoniztfij8912-82-31 16:20:39* Test Item Value Reference Range Interpretation Comments RPR Qual (test code = RPR Qual) Non-Reactive Non-Reactive Reactive Control (test code = Reactive Control) Reactive Weak Reactive Control (test code = Weak Reactive Control) Weak Reac tive Non-Reactive Control (test code = Non-Reactive Control) Non-Reactiv e Lot # (test code = Lot #) [id number] N Expiration Dt (test code = Expiration Dt) 10.31.20 N Thyroid Stimulating Jwhougz8941-71-39 10:27:38* Test Item Value Reference Range Interpretation Comments TSH (test code = TSH) 1.880 mIU/mL 0.270-4.200 Lipid Eegan6061-51-75 10:24:51* Test Item Value Reference Range Interpretation Comments Cholesterol Total (test code = Cholesterol Total) 136 mg/dL 0-20 0 RISK OF HEART DISEASEPublished by [place] Heart Association Analyte Optimal Borderline Increased RiskCHOL <200 200-239 >240TRIG <150 150-199 >200HDL Male >60 <40HDL Female >60 <50LDL <100 130-159 >160LDL Near optimal is 100-129 Triglycerides (test code = Triglycerides) 107 mg/dL 9-200 HDL (test code = HDL) 40 mg/dL 40-60 LDL (test code = LDL) 75 mg/dL 0-130 The eq uation being used in this calculation is LDL = (Chol - HDL) - (Trig / 5) VLDL (test code = VLDL) 21 mg/dL 5-40 The equation being used in this calculation is VLDL = Trig / 5 Chol/HDL (test code = Chol/HDL) 3.4 ratio 0.0-5.0 LDL/HDL Ratio (test code = LDL/HDL Ratio) 2 N The equation being used in this calculation is LDL/HDL Ratio=LDL Calc/HDL Chol Alcohol Xlozx5184-06-03 22:16:26* Test Item Value Reference Range Interpretation Comments Ethanol Level (test code = Ethanol Level) <0.00 g/dL 0.00-0.01 Intoxicated 0.080 g/dL or more Ethanol Inst (test code = Ethanol Inst) <0 N Comprehensive Metabolic [id number] 22:16:25* Test Item Value Reference Range Interpretation Comments Sodium Level (test code = Sodium Level) 141.0 mmol/L 135.0-145.0 Potassium Level (test code = Potassium Level) 4.6 mmol/L 3.5-5.1 Chloride Level (test code = Chloride Level) 102 mmol/L 98-105 CO2 (test code = CO2) 28 mmol/L 22-29 Anion Gap (test code = Anion Gap) 11 mmol/L 7-16 BUN (test code = BUN) 18.00 mg/dL 6.00-20.00 Creatinine Level (test code = Creatinine Level) 1.00 mg/dL 0.70-1 .20 BUN/Creat Ratio (test code = BUN/Creat Ratio) 18 N Glucose Level (test code = Glucose Level) 86 mg/dL 70-115 Calcium Level (test code = Calcium Level) 9.6 mg/dL 8.3-10.5 Alk Phos (test code = Alk Phos) 82 U/L 40-129 Bilirubin Total (test code = Bilirubin Total) 0.4 mg/dL 0.1-0.9 Albumin Level (test code = Albumin Level) 3.9 g/dL 3.5-5.2 Protein Total (test code = Protein Total) 6.5 g/dL 6.4-8.3 ALT (test code = ALT) 30 U/L 1-41 AST (test code = AST) See Comments U/L 1-40 N Sp ecimen hemolyzed. AST 34 Globulin (test code = Globulin) 2.6 g/dL 2.9-3.1 L A/G Ratio (test code = A/G Ratio) 1.5 ratio N Comprehensive Metabolic [id number] 22:16:25* Test Item Value Reference Range Interpretation Comments Sodium Level (test code = Sodium Level) 141.0 mmol/L 135.0-145.0 Potassium Level (test code = Potassium Level) 4.6 mmol/L 3.5-5.1 Chloride Level (test code = Chloride Level) 102 mmol/L 98-105 CO2 (test code = CO2) 28 mmol/L 22-29 Anion Gap (test code = Anion Gap) 11 mmol/L 7-16 BUN (test code = BUN) 18.00 mg/dL 6.00-20.00 Creatinine Level (test code = Creatinine Level) 1.00 mg/dL 0.70-1 .20 BUN/Creat Ratio (test code = BUN/Creat Ratio) 18 N Glucose Level (test code = Glucose Level) 86 mg/dL 70-115 Calcium Level (test code = Calcium Level) 9.6 mg/dL 8.3-10.5 Alk Phos (test code = Alk Phos) 82 U/L 40-129 Bilirubin Total (test code = Bilirubin Total) 0.4 mg/dL 0.1-0.9 Albumin Level (test code = Albumin Level) 3.9 g/dL 3.5-5.2 Protein Total (test code = Protein Total) 6.5 g/dL 6.4-8.3 ALT (test code = ALT) 30 U/L 1-41 AST (test code = AST) See Comments U/L 1-40 N Sp ecimen hemolyzed. AST 34 Globulin (test code = Globulin) 2.6 g/dL 2.9-3.1 L A/G Ratio (test code = A/G Ratio) 1.5 ratio N eGFR AA (test code = eGFR AA) >60 mL/min/1.73 m2 N eGFR (estimated Glomerular Filtration Rate) is an estimated value, calculated from the patient's serum creatinine using the MDRD equation. It is NOT the patient's actual GFR. The eGFR provides a more clinically useful measure of kidney disease than serum creatinine alone.This calculation takes sex and race into account, if the information is provided. If the race is not provided, and the patient is -[place], multiply by 1.212. If sex is not provided, and the patient is female, multiply by 0.742. Results for patients <18 years of age have not been validated by the MDRD study and should be interpreted with caution. eGFR Result Interpretation:eGFR > or = 60 is in the Normal RangeeGFR < 60 may mean kidney diseaseeGFR < 15 may mean kidney failure Ranges recommended by the National Kidney Foundation, http://nkdep.nih.gov Comprehensive Metabolic [id number] 22:16:25* Test Item Value Reference Range Interpretation Comments Sodium Level (test code = Sodium Level) 141.0 mmol/L 135.0-145.0 Potassium Level (test code = Potassium Level) 4.6 mmol/L 3.5-5.1 Chloride Level (test code = Chloride Level) 102 mmol/L 98-105 CO2 (test code = CO2) 28 mmol/L 22-29 Anion Gap (test code = Anion Gap) 11 mmol/L 7-16 BUN (test code = BUN) 18.00 mg/dL 6.00-20.00 Creatinine Level (test code = Creatinine Level) 1.00 mg/dL 0.70-1 .20 BUN/Creat Ratio (test code = BUN/Creat Ratio) 18 N Glucose Level (test code = Glucose Level) 86 mg/dL 70-115 Calcium Level (test code = Calcium Level) 9.6 mg/dL 8.3-10.5 Alk Phos (test code = Alk Phos) 82 U/L 40-129 Bilirubin Total (test code = Bilirubin Total) 0.4 mg/dL 0.1-0.9 Albumin Level (test code = Albumin Level) 3.9 g/dL 3.5-5.2 Protein Total (test code = Protein Total) 6.5 g/dL 6.4-8.3 ALT (test code = ALT) 30 U/L 1-41 AST (test code = AST) See Comments U/L 1-40 N Sp ecimen hemolyzed. AST 34 Globulin (test code = Globulin) 2.6 g/dL 2.9-3.1 L A/G Ratio (test code = A/G Ratio) 1.5 ratio N eGFR AA (test code = eGFR AA) >60 mL/min/1.73 m2 N eGFR (estimated Glomerular Filtration Rate) is an estimated value, calculated from the patient's serum creatinine using the MDRD equation. It is NOT the patient's actual GFR. The eGFR provides a more clinically useful measure of kidney disease than serum creatinine alone.This calculation takes sex and race into account, if the information is provided. If the race is not provided, and the patient is -[place], multiply by 1.212. If sex is not provided, and the patient is female, multiply by 0.742. Results for patients <18 years of age have not been validated by the MDRD study and should be interpreted with caution. eGFR Result Interpretation:eGFR > or = 60 is in the Normal RangeeGFR < 60 may mean kidney diseaseeGFR < 15 may mean kidney failure Ranges recommended by the National Kidney Foundation, http://nkdep.nih.gov eGFR Non-AA (test code = eGFR Non-AA) >60.00 mL/min/1.73 m2 N eGFR (estimated Glomerular Filtration Rate) is an estimated value, calculated from the patient's serum creatinine using the MDRD equation. It is NOT the patient's actual GFR. The eGFR provides a more clinically useful measure of kidney disease than serum creatinine alone.This calculation takes sex and race into account, if the information is provided. If the race is not provided, and the patient is -[place], multiply by 1.212. If sex is not provided, and the patient is female, multiply by 0.742. Results for patients <18 years of age have not been validated by the MDRD study and should be interpreted with caution. eGFR Result Interpretation:eGFR > or = 60 is in the Normal RangeeGFR < 60 may mean kidney diseaseeGFR < 15 may mean kidney failure Ranges recommended by the National Kidney Foundation, http://[email or web address].nih.gov Urine Drug [id number] 22:15:20* Test Item Value Reference Range Interpretation Comments Amphetamine Screen Ur (test code = Amphetamine Screen Ur) Negative Negative Barbiturate Screen Ur (test code = Barbiturate Screen Ur) Negative Negative Benzodiazepines Ur (test code = Benzodiazepines Ur) POSITIVE Ne gative A Cocaine Screen Ur (test code = Cocaine Screen Ur) Negative Nega tive U Methadone Scr (test code = U Methadone Scr) Negative Negative Opiate Screen Ur (test code = Opiate Screen Ur) POSITIVE Negati ve A U PCP Scrn (test code = U PCP Scrn) Negative Negative Cannabinoid Screen Ur (test code = Cannabinoid Screen Ur) Negative Negative U TCA (test code = U TCA) Negative Negative Th e results of all drug screen tests are only preliminary. Clinical consideration and professional judgment should be applied to any drug of abuse test result, particularly when preliminary positive results are obtained. Please order a separate confirmatory test if desired. Automated [id number] 21:55:00* Test Item Value Reference Range Interpretation Comments Neutro Auto (test code = Neutro Auto) 59.9 % 36.0-70.0 Lymph Auto (test code = Lymph Auto) 28.1 % 12.0-44.0 [place] Auto (test code = [place] Auto) 7.1 % 0.0-11.0 Eos, Auto (test code = Eos, Auto) 4.1 % 0.0-7.0 Basophil Auto (test code = Basophil Auto) 0.4 % 0.0-2.0 Neutro Absolute (test code = Neutro Absolute) 4.0 x10 1.6-7.4 Lymph Absolute (test code = Lymph Absolute) 1.90 x10 .50-4.60 [place] Absolute (test code = [place] Absolute) .48 x10 .00-1.20 Eos Absolute (test code = Eos Absolute) 0.28 x10 0.00-0.74 Baso Absolute (test code = Baso Absolute) 0.03 x10 0.00-0.21 IG [id number] 21:55:00* Test Item Value Reference Range Interpretation Comments IG (test code = IG) 0.4 % 0.0-5.0 IG Abs (test code = IG Abs) 0 x10 N Complete Blood Count with [id number] 21:54:59* Test Item Value Reference Range Interpretation Comments WBC (test code = WBC) 6.8 x10 4.4-10.5 RBC (test code = RBC) 4.77 x10 4.10-5.70 Hgb (test code = Hgb) 15.0 g/dL 13.4-17.4 Hct (test code = Hct) 45.7 % 38.7-52.0 MCV (test code = MCV) 95.80 fL 80.00-100.00 MCHC (test code = MCHC) 32.80 g/dL 32.00-37.50 RDW CV (test code = RDW CV) 13.2 % 11.5-14.5 MCH (test code = MCH) 31.4 pg 27.0-32.5 Platelets (test code = Platelets) 207.0 x10 140.0-440.0 MPV (test code = MPV) 9.7 fL N Slide Review (test code = Slide Review) Auto Auto Result created by [id number] nRBC (test code = nRBC) 0 N NRBC Abs (test code = NRBC Abs) 0.00 x10 N IPF (test code = IPF) 0 % N URINALYSIS [id number] 04:35:00* Test Item Value Reference Range Interpretation Comments UA COLOR (test code = COLU) COLORLESS YELLOW A UA APPEARANCE (test code = APPU) CLEAR CLEAR UA GLUCOSE DIPSTICK (test code = DGLUU) NEGATIVE mg/dL NEGATIVE UA BILIRUBIN DIPSTICK (test code = BILU) NEGATIVE mg/dL NEGATIVE UA KETONE DIPSTICK (test code = KETU) NEGATIVE mg/dL NEGATIVE UA SPECIFIC GRAVITY (test code = SGU) 1.003 1.001-1.035 UA BLOOD DIPSTICK (test code = TISHA) Negative mg/dL NEGATIVE UA PH DIPSTICK (test code = ERIN) 6.0 5.0-8.0 UA PROTEIN DIPSTICK (test code = PROU) NEGATIVE mg/dL NEGATIVE UA UROBILINIOGEN DIPSTICK (test code = URO) Normal mg/dL NEGATIVE UA NITRITE DIPSTICK (test code = DOROTHY) NEGATIVE NEGATIVE UA LEUKOCYTE ESTERASE W REFLEX (test code = LEUUR) NEGATIVE Jose/uL NEGATIVE UA WBC (test code = WBCU) 0-5 per HPF 0-5 UA RBC (test code = RBCU) 0-2 #/HPF 0-5 UA EPITHELIAL CELLS (test code = EPIU) None seen per HPF FEW UA BACTERIA (test code = BACU) NONE SEEN #/HPF NONE Urine Source? Clean CatchDRUGS OF ABUSE SCREEN [id number] 04:35:00* Test Item Value Reference Range Interpretation Comments URN COCAINE (test code = COCAURN) NEGATIVE <300 ng/mL URN CANNABINOIDS (test code = CANNABURN) NEGATIVE <50 ng/mL URN AMPHETAMINE (test code = AMPHETURN) NEGATIVE <1000 ng/mL URN BARBITURATE (test code = BARBITURN) NEGATIVE <200 ng/mL URN BENZODIAZEPINE (test code = BENZOURN) NEGATIVE <200 ng/mL URN OPIATES (test code = OPIATURN) NEGATIVE <300 ng/mL URN PHENCYCLIDINE (PCP) (test code = PHENCURN) NEGATIVE <25 ng/ mL URN METHADONE (test code = METHAURN) NEGATIVE <300 ng/mL Urine Source? Clean CatchBASIC METABOLIC [id number] 03:28:00* Test Item Value Reference Range Interpretation Comments SODIUM (test code = NA) 142 mmol/L 136-145 N POTASSIUM (test code = K) 3.7 mmol/L 3.5-5.1 N CHLORIDE (test code = CL) 106.0 mmol/L 98-107 N CARBON DIOXIDE (test code = CO2) 28.0 mmol/L 21-32 N ANION GAP (test code = GAP) 11.7 10-20 N GLUCOSE (test code = GLU) 78 mg/dL 74-106 N BLOOD UREA NITROGEN (test code = BUN) 7 mg/dL 7-18 N GLOMERULAR FILTRATION RATE (test code = GFR) > 60 mL/min >=60 Estimated GFR by using Modified MDRD formula.Chronic kidney disease is defined as either kidney damageor GFR <60 mL/min/1.73 m2 for >3 months. CREATININE (test code = CREAT) 0.80 mg/dL 0.7-1.3 N BUN/CREATININE RATIO (test code = BUN/CREA) 8.9 10-20 L CALCIUM (test code = CA) 8.9 mg/dL 8.5-10.1 N HEPATIC FUNCTION [id number] 03:28:00* Test Item Value Reference Range Interpretation Comments TOTAL PROTEIN (test code = PROT) 7.4 gram/dL 6.4-8.2 N ALBUMIN (test code = ALB) 3.9 g/dL 3.4-5.0 N GLOBULIN (test code = GLOB) 3.5 gram/dL 2.7-4.2 N ALBUMIN/GLOBULIN RATIO (test code = A/G) 1.1 0.75-1.50 N BILIRUBIN TOTAL (test code = BILT) 0.50 mg/dL 0.0-1.0 N BILIRUBIN DIRECT (test code = BILD) 0.16 mg/dL 0.0-0.20 N SGOT/AST (test code = AST) 43 IUnit/L 15-37 H SGPT/ALT (test code = ALT) 43 IUnit/L 12-78 N ALKALINE PHOSPHATASE TOTAL (test code = ALKP) 85 IUnit/L 45-117 N Note change in reference range due to change in reagent. [id number] 03:28:00* Test Item Value Reference Range Interpretation Comments ACETAMINOPHEN (test code = ACET) < 10 mcg/mL 10-30 L A RANGE OF 10-30 mcg/mL IS A THERAPEUTIC RANGE. TOXIC CONCENTRATIONS: >150 mcg/mL AT 4 HOURS AFTER INGESTION >= 50 mcg/mL AT 12 HOURS AFTER INGESTION [id number] 03:28:00* Test Item Value Reference Range Interpretation Comments SALICYLATE (test code = KALLI) 9.1 mg/dL 2.8-20.0 N [id number] 03:28:00* Test Item Value Reference Range Interpretation Comments ALCOHOL (test code = ALC) 131 mg/dL 0.0-3.0 H -- INTERPRETIVE DATA NOTE: POSITIVE SCREENING RESULTS SHOULD BE CONSIDERED PRESUMPTIVE.WHEN COLLECTED FOR MEDICAL PURPOSES ONLY. SPECIMEN WILL NOTBE COLLECTED BY CHAIN OF CUSTODY.IF A CONFIRMATION OF POSITIVE RESULTS IS DESIRED, ACONFIRMATION TEST MUST BE REQUESTED BY THE PHYSICIAN AT ANADDITIONAL CHARGE TO THE PATIENT. BASIC METABOLIC [id number] 03:13:00* Test Item Value Reference Range Interpretation Comments SODIUM (test code = NA) 142 mmol/L 136-145 N POTASSIUM (test code = K) 3.7 mmol/L 3.5-5.1 N CHLORIDE (test code = CL) 106.0 mmol/L 98-107 N CARBON DIOXIDE (test code = CO2) mmol/L 21-32 ANION GAP (test code = GAP) 10-20 GLUCOSE (test code = GLU) mg/dL 74-106 BLOOD UREA NITROGEN (test code = BUN) mg/dL 7-18 GLOMERULAR FILTRATION RATE (test code = GFR) mL/min >=60 CREATININE (test code = CREAT) mg/dL 0.7-1.3 BUN/CREATININE RATIO (test code = BUN/CREA) 10-20 CALCIUM (test code = CA) mg/dL 8.5-10.1 HEPATIC FUNCTION [id number] 03:13:00* Test Item Value Reference Range Interpretation Comments TOTAL PROTEIN (test code = PROT) gram/dL 6.4-8.2 ALBUMIN (test code = ALB) g/dL 3.4-5.0 GLOBULIN (test code = GLOB) gram/dL 2.7-4.2 ALBUMIN/GLOBULIN RATIO (test code = A/G) 0.75-1.50 BILIRUBIN TOTAL (test code = BILT) mg/dL 0.0-1.0 BILIRUBIN DIRECT (test code = BILD) mg/dL 0.0-0.20 SGOT/AST (test code = AST) IUnit/L 15-37 SGPT/ALT (test code = ALT) IUnit/L 12-78 ALKALINE PHOSPHATASE TOTAL (test code = ALKP) IUnit/L 45-117 [id number] 03:13:00* Test Item Value Reference Range Interpretation Comments ACETAMINOPHEN (test code = ACET) mcg/mL 10-30 [id number] 03:13:00* Test Item Value Reference Range Interpretation Comments SALICYLATE (test code = KALLI) mg/dL 2.8-20.0 [id number] 03:13:00* Test Item Value Reference Range Interpretation Comments ALCOHOL (test code = ALC) mg/dL 0-3 URINALYSIS [id number] 03:10:00* Test Item Value Reference Range Interpretation Comments UA COLOR (test code = COLU) COLORLESS YELLOW A UA APPEARANCE (test code = APPU) CLEAR CLEAR UA GLUCOSE DIPSTICK (test code = DGLUU) NEGATIVE mg/dL NEGATIVE UA BILIRUBIN DIPSTICK (test code = BILU) NEGATIVE mg/dL NEGATIVE UA KETONE DIPSTICK (test code = KETU) NEGATIVE mg/dL NEGATIVE UA SPECIFIC GRAVITY (test code = SGU) 1.003 1.001-1.035 UA BLOOD DIPSTICK (test code = TISHA) Negative mg/dL NEGATIVE UA PH DIPSTICK (test code = ERIN) 6.0 5.0-8.0 UA PROTEIN DIPSTICK (test code = PROU) NEGATIVE mg/dL NEGATIVE UA UROBILINIOGEN DIPSTICK (test code = URO) Normal mg/dL NEGATIVE UA NITRITE DIPSTICK (test code = DOROTHY) NEGATIVE NEGATIVE UA LEUKOCYTE ESTERASE W REFLEX (test code = LEUUR) NEGATIVE Jose/uL NEGATIVE UA WBC (test code = WBCU) 0-5 per HPF 0-5 UA RBC (test code = RBCU) 0-2 #/HPF 0-5 UA EPITHELIAL CELLS (test code = EPIU) None seen per HPF FEW UA BACTERIA (test code = BACU) NONE SEEN #/HPF NONE Urine Source? Clean CatchDRUGS OF ABUSE SCREEN [id number] 03:10:00* Test Item Value Reference Range Interpretation Comments URN COCAINE (test code = COCAURN) <300 ng/mL URN CANNABINOIDS (test code = CANNABURN) <50 ng/mL URN AMPHETAMINE (test code = AMPHETURN) <1000 ng/mL URN BARBITURATE (test code = BARBITURN) <200 ng/mL URN BENZODIAZEPINE (test code = BENZOURN) <200 ng/mL URN OPIATES (test code = OPIATURN) <300 ng/mL URN PHENCYCLIDINE (PCP) (test code = PHENCURN) <25 ng/ mL URN METHADONE (test code = METHAURN) <300 ng/mL Urine Source? Clean CatchCBC W/O [id number] 03:03:00* Test Item Value Reference Range Interpretation Comments WHITE BLOOD CELL (test code = WBC) 8.4 K/mm3 4.5-12.5 N RED BLOOD CELL (test code = RBC) 4.73 mill/mm3 4.0-5.8 N HEMOGLOBIN (test code = HGB) 14.9 gram/dL 13.0-17.5 N HEMATOCRIT (test code = HCT) 46.3 % 42.0-52.0 N MEAN CELL VOLUME (test code = MCV) 97.9 fL 80-98 N MEAN CELL HGB (test code = MCH) 31.5 picogram 27.0-33.0 N MEAN CELL HGB CONCETRATION (test code = MCHC) 32.2 gram/dL 33.0-36. 0 L RED CELL DISTRIBUTION WIDTH (test code = RDW) 14.1 % 11.6-16. 2 N PLATELET COUNT (test code = PLT) 187 K/mm3 150-450 N MEAN PLATELET VOLUME (test code = MPV) 9.2 fL 6.7-11.0 N BASIC METABOLIC [id number] 10:40:00* Test Item Value Reference Range Interpretation Comments SODIUM (test code = NA) 145 mmol/L 136-145 N POTASSIUM (test code = K) 4.4 mmol/L 3.5-5.1 N CHLORIDE (test code = CL) 110.0 mmol/L 98-107 H CARBON DIOXIDE (test code = CO2) 29.0 mmol/L 21-32 N ANION GAP (test code = GAP) 10.4 10-20 N GLUCOSE (test code = GLU) 98 mg/dL 74-106 N BLOOD UREA NITROGEN (test code = BUN) 12 mg/dL 7-18 N GLOMERULAR FILTRATION RATE (test code = GFR) > 60 mL/min >=60 Estimated GFR by using Modified MDRD formula.Chronic kidney disease is defined as either kidney damageor GFR <60 mL/min/1.73 m2 for >3 months. CREATININE (test code = CREAT) 0.80 mg/dL 0.7-1.3 N BUN/CREATININE RATIO (test code = BUN/CREA) 14.3 10-20 N CALCIUM (test code = CA) 9.1 mg/dL 8.5-10.1 N HEPATIC FUNCTION [id number] 10:40:00* Test Item Value Reference Range Interpretation Comments TOTAL PROTEIN (test code = PROT) 6.5 gram/dL 6.4-8.2 N ALBUMIN (test code = ALB) 3.5 g/dL 3.4-5.0 N GLOBULIN (test code = GLOB) 3.0 gram/dL 2.7-4.2 N ALBUMIN/GLOBULIN RATIO (test code = A/G) 1.2 0.75-1.50 N BILIRUBIN TOTAL (test code = BILT) 1.10 mg/dL 0.0-1.0 H BILIRUBIN DIRECT (test code = BILD) 0.40 mg/dL 0.0-0.20 H SGOT/AST (test code = AST) 38 IUnit/L 15-37 H SGPT/ALT (test code = ALT) 34 IUnit/L 12-78 N ALKALINE PHOSPHATASE TOTAL (test code = ALKP) 80 IUnit/L 45-117 N Note change in reference range due to change in reagent. [id number] 10:40:00* Test Item Value Reference Range Interpretation Comments ACETAMINOPHEN (test code = ACET) < 10 mcg/mL 10-30 L A RANGE OF 10-30 mcg/mL IS A THERAPEUTIC RANGE. TOXIC CONCENTRATIONS: >150 mcg/mL AT 4 HOURS AFTER INGESTION >= 50 mcg/mL AT 12 HOURS AFTER INGESTION [id number] 10:40:00* Test Item Value Reference Range Interpretation Comments SALICYLATE (test code = KALLI) 7.9 mg/dL 2.8-20.0 N [id number] 10:40:00* Test Item Value Reference Range Interpretation Comments ALCOHOL (test code = ALC) < 3 mg/dL 0.0-3.0 N -- INTERPRETIVE DATA NOTE: POSITIVE SCREENING RESULTS SHOULD BE CONSIDERED PRESUMPTIVE.WHEN COLLECTED FOR MEDICAL PURPOSES ONLY. SPECIMEN WILL NOTBE COLLECTED BY CHAIN OF CUSTODY.IF A CONFIRMATION OF POSITIVE RESULTS IS DESIRED, ACONFIRMATION TEST MUST BE REQUESTED BY THE PHYSICIAN AT ANADDITIONAL CHARGE TO THE PATIENT. BASIC METABOLIC [id number] 10:32:00* Test Item Value Reference Range Interpretation Comments SODIUM (test code = NA) 145 mmol/L 136-145 N POTASSIUM (test code = K) 4.4 mmol/L 3.5-5.1 N CHLORIDE (test code = CL) 110.0 mmol/L 98-107 H CARBON DIOXIDE (test code = CO2) mmol/L 21-32 ANION GAP (test code = GAP) 10-20 GLUCOSE (test code = GLU) mg/dL 74-106 BLOOD UREA NITROGEN (test code = BUN) mg/dL 7-18 GLOMERULAR FILTRATION RATE (test code = GFR) mL/min >=60 CREATININE (test code = CREAT) mg/dL 0.7-1.3 BUN/CREATININE RATIO (test code = BUN/CREA) 10-20 CALCIUM (test code = CA) mg/dL 8.5-10.1 HEPATIC FUNCTION [id number] 10:32:00* Test Item Value Reference Range Interpretation Comments TOTAL PROTEIN (test code = PROT) gram/dL 6.4-8.2 ALBUMIN (test code = ALB) g/dL 3.4-5.0 GLOBULIN (test code = GLOB) gram/dL 2.7-4.2 ALBUMIN/GLOBULIN RATIO (test code = A/G) 0.75-1.50 BILIRUBIN TOTAL (test code = BILT) mg/dL 0.0-1.0 BILIRUBIN DIRECT (test code = BILD) mg/dL 0.0-0.20 SGOT/AST (test code = AST) IUnit/L 15-37 SGPT/ALT (test code = ALT) IUnit/L 12-78 ALKALINE PHOSPHATASE TOTAL (test code = ALKP) IUnit/L 45-117 [id number] 10:32:00* Test Item Value Reference Range Interpretation Comments ACETAMINOPHEN (test code = ACET) mcg/mL 10-30 [id number] 10:32:00* Test Item Value Reference Range Interpretation Comments SALICYLATE (test code = KALLI) mg/dL 2.8-20.0 [id number] 10:32:00* Test Item Value Reference Range Interpretation Comments ALCOHOL (test code = ALC) mg/dL 0-3 CBC W/O [id number] 10:24:00* Test Item Value Reference Range Interpretation Comments WHITE BLOOD CELL (test code = WBC) 7.7 K/mm3 4.5-12.5 N RED BLOOD CELL (test code = RBC) 4.94 mill/mm3 4.0-5.8 N HEMOGLOBIN (test code = HGB) 15.7 gram/dL 13.0-17.5 N HEMATOCRIT (test code = HCT) 46.5 % 42.0-52.0 N MEAN CELL VOLUME (test code = MCV) 94.1 fL 80-98 N MEAN CELL HGB (test code = MCH) 31.8 picogram 27.0-33.0 N MEAN CELL HGB CONCETRATION (test code = MCHC) 33.8 gram/dL 33.0-36. 0 N RED CELL DISTRIBUTION WIDTH (test code = RDW) 14.9 % 11.6-16. 2 N PLATELET COUNT (test code = PLT) 224 K/mm3 150-450 N MEAN PLATELET VOLUME (test code = MPV) 9.3 fL 6.7-11.0 N URINALYSIS [id number] 10:09:00* Test Item Value Reference Range Interpretation Comments UA COLOR (test code = COLU) YELLOW YELLOW UA APPEARANCE (test code = APPU) CLEAR CLEAR UA GLUCOSE DIPSTICK (test code = DGLUU) NEGATIVE mg/dL NEGATIVE UA BILIRUBIN DIPSTICK (test code = BILU) NEGATIVE mg/dL NEGATIVE UA KETONE DIPSTICK (test code = KETU) 10 (1+) mg/dL NEGATIVE A UA SPECIFIC GRAVITY (test code = SGU) 1.022 1.001-1.035 UA BLOOD DIPSTICK (test code = TISHA) Negative mg/dL NEGATIVE UA PH DIPSTICK (test code = ERIN) 6.0 5.0-8.0 UA PROTEIN DIPSTICK (test code = PROU) 20 (Trace) mg/dL NEGATIVE A UA UROBILINIOGEN DIPSTICK (test code = URO) 2.0 (1+) mg/dL NEGATIVE A UA NITRITE DIPSTICK (test code = DOROTHY) NEGATIVE NEGATIVE UA LEUKOCYTE ESTERASE W REFLEX (test code = LEUUR) NEGATIVE Jose/uL NEGATIVE UA WBC (test code = WBCU) 6-10 per HPF 0-5 A UA RBC (test code = RBCU) 0-2 #/HPF 0-5 UA EPITHELIAL CELLS (test code = EPIU) FEW per HPF FEW UA BACTERIA (test code = BACU) FEW #/HPF NONE A UA HYALINE CAST (test code = HYALU) 3-5 #/LPF 0-5 UA MUCUS (test code = MUCU) FEW #/LPF FEW Urine Source? Clean CatchDRUGS OF ABUSE SCREEN [id number] 10:09:00* Test Item Value Reference Range Interpretation Comments URN COCAINE (test code = COCAURN) NEGATIVE <300 ng/mL URN CANNABINOIDS (test code = CANNABURN) NEGATIVE <50 ng/mL URN AMPHETAMINE (test code = AMPHETURN) NEGATIVE <1000 ng/mL URN BARBITURATE (test code = BARBITURN) NEGATIVE <200 ng/mL URN BENZODIAZEPINE (test code = BENZOURN) NEGATIVE <200 ng/mL URN OPIATES (test code = OPIATURN) NEGATIVE <300 ng/mL URN PHENCYCLIDINE (PCP) (test code = PHENCURN) NEGATIVE <25 ng/ mL URN METHADONE (test code = METHAURN) NEGATIVE <300 ng/mL Urine Source? Clean CatchURINALYSIS [id number] 09:50:00* Test Item Value Reference Range Interpretation Comments UA COLOR (test code = COLU) YELLOW YELLOW UA APPEARANCE (test code = APPU) CLEAR CLEAR UA GLUCOSE DIPSTICK (test code = DGLUU) NEGATIVE mg/dL NEGATIVE UA BILIRUBIN DIPSTICK (test code = BILU) NEGATIVE mg/dL NEGATIVE UA KETONE DIPSTICK (test code = KETU) 10 (1+) mg/dL NEGATIVE A UA SPECIFIC GRAVITY (test code = SGU) 1.022 1.001-1.035 UA BLOOD DIPSTICK (test code = TISHA) Negative mg/dL NEGATIVE UA PH DIPSTICK (test code = ERIN) 6.0 5.0-8.0 UA PROTEIN DIPSTICK (test code = PROU) 20 (Trace) mg/dL NEGATIVE A UA UROBILINIOGEN DIPSTICK (test code = URO) 2.0 (1+) mg/dL NEGATIVE A UA NITRITE DIPSTICK (test code = DOROTHY) NEGATIVE NEGATIVE UA LEUKOCYTE ESTERASE W REFLEX (test code = LEUUR) NEGATIVE Jose/uL NEGATIVE UA WBC (test code = WBCU) 6-10 per HPF 0-5 A UA RBC (test code = RBCU) 0-2 #/HPF 0-5 UA EPITHELIAL CELLS (test code = EPIU) FEW per HPF FEW UA BACTERIA (test code = BACU) FEW #/HPF NONE A UA HYALINE CAST (test code = HYALU) 3-5 #/LPF 0-5 UA MUCUS (test code = MUCU) FEW #/LPF FEW Urine Source? Clean CatchDRUGS OF ABUSE SCREEN [id number] 09:50:00* Test Item Value Reference Range Interpretation Comments URN COCAINE (test code = COCAURN) <300 ng/mL URN CANNABINOIDS (test code = CANNABURN) <50 ng/mL URN AMPHETAMINE (test code = AMPHETURN) <1000 ng/mL URN BARBITURATE (test code = BARBITURN) <200 ng/mL URN BENZODIAZEPINE (test code = BENZOURN) <200 ng/mL URN OPIATES (test code = OPIATURN) <300 ng/mL URN PHENCYCLIDINE (PCP) (test code = PHENCURN) <25 ng/ mL URN METHADONE (test code = METHAURN) <300 ng/mL Urine Source? Clean Catch- XR PELVIS 1/2 [id number] 08:55:00 FAX: John Dietrich [place]: B St: REG Name: GARCIA DURANDIN [facility] : [birth year] Age/S: 53/M [address] [facility] Unit #: [id number] Loc: [place] [address] Phys: John Dietrich MD Acct: [id number] Dis Date: Status: REG ER PHONE #: [phone] Exam Date: 03/02/2019 0831 FAX #: [phone] Reason: pain EXAMS: CPT CODE: [id number] XR PELVIS 1/2 VIEWS [id number] EXAM: Pelvis, one view; INFORMATION: Pelvic pain and leg pain; FINDINGS: Normal shape and structure of the imaged bones; no evidence of fracture or disloc ation; no soft tissue abnormalities. IMPRESSION: No evidence of acute osseous trauma or other pathological changes. No ra diopaque foreign body. at 0855 Reported and signed by: Richi Cruz M.D. CC: John Dietrich MD [place] hnologist: Alfonzo RIOSR) Trnscrd Date/T alissa/By: 03/02/2019 (854) : By: BernardoGRW Orig Print D/T: S: 9 (10) PAGE 1 Signed Report [id number] 13:47:00 RUN DATE: 03/08/18 [facility] PAGE 1 RUN TIME: 1347 Specimen Inqui ry RUN USER: INTERFACE PATIENT: GARCIA CARTWRIGHT ACCT #: [id number] LOC: .ICU U #: [id number] AGE/SX: 52/M ROOM: [facility] RE03/06/18REG DR: Avinash Mallory MD : 63 BED: A DIS: STATUS: ADM IN TLOC: SPEC #: [id number] RECD: 03/07/18 STATUS: PILLO BATISTA #: [id number] SARAH: 03/06/18- SUBM DR: Alexei Henning MD ENTERED: 03/07/18 SP TYPE: STOMACH OTHR DR: Kleber Balbuena i, MD, Nkoli I MDORDERED: GROSS COPIES TO: Alexei Henning MD [address] [place] [address] Kleber Harmon MD [address] [place] [address] Glenda Russell MD [address] [place], [place] [id number] PROCEDURES: GROSS (03/08/18-124 5) TISSUES: GASTRIC ULCER - BX CLINICAL HISTORY COLLECTION DATE: 03/06/18 INTENTIONAL INGESTION OF CLOROX FINAL DIAGNOSIS Gastric tissue, biopsy: REACTIVE GASTROPATHY NO AREAS OF MUCO KALLI EROSION/ULCERATION NO ACUTE INFLAMMATORY INFILTRATE PRESENT HI LD REACTIVE EPITHELIAL CHANGE PRESENT NEGATIVE FOR INTESTINAL METAPLASIA NEGATIVE FOR HELICOBACTER ORGANISMS NEGATIVE FOR MALIGNANCY RRB/sm D CONTINUED ON NEXT PAGE ----- -------RUN DATE: 03/08/18 [place] [email or web address] PAGE 2 RUN TIME: 1347 Specimen Inquiry RUN USER: INTERFACE SPEC #: [id number] PATIENT: GARCIA CARTWRIGHT #[id number] (Continued) FINAL DIAGNOSIS (Continued) [id number], [id number] MACROSCOPIC The specimen is recei amanda in formalin, labeled with the patient's name, identified as "gastric", and consists of light eduardo-pink biopsy tissue measuring 0.3 cm in aggregate, submi tted for H E and Giemsa stains[place] [address] (D) MICROSCOPIC MICROSCOPIC PERFORMED AT [facility] A ll of the stains, including any controls performed, stain appropriately. [facility] [address] [place] [address] [phone] PERFORMING SITE Diagnosis performed at: [facility] [address] [place], [place] [id number] Signed SIGNATURE ON FILE Tanner Gautam 03/08/18 1347 END OF REPORT [id number] 21:56:00* Test Item Value Reference Range Interpretation Comments Amphetamine (test code = AMPH) Negative Negative N For diagnostic purposes only, positive results should always be assessedin conjunctionwith the patient's medical history,clinical examination and otherfindings.To fulfill legal requirements, a more specific alternate chemical methodmust be used inorder to obtain a Confirmed analytical result. GC/MS is the preferred confirmatory method. Barbiturates (test code = JOSELITO) Negative Negative N Benzodiazepine (test code = LEANA) Negative Negative N Cocaine (test code = COCA) Negative Negative N Methadone (test code = MTHD) Negative Negative N Opiates (test code = OPIA) Negative Negative N PCP (test code = PCP) Negative Negative N Propoxyphene (test code = PROPOX) Negative Negative N THC (test code = THC) POSITIVE Negative A Alcohol, Urine (test code = ETOHU) <0.01 g/dL 0.00-0.01 N Comprehensive Metabolic [id number] 21:56:00* Test Item Value Reference Range Interpretation Comments Sodium (test code = NA) 141 mmol/L 135-145 N Potassium (test code = K) 4.3 mmol/L 3.5-5.1 N Chloride (test code = CL) 100 mmol/L 98-105 N Carbon Dioxide (test code = CO2) 28 mmol/L 22-29 N Glucose (test code = GLU) 84 mg/dL 70-115 N Blood Urea Nitrogen (test code = BUN) 10 mg/dL 6-20 N Creatinine (test code = CREAT) 0.9 mg/dL 0.7-1.2 N Calcium (test code = CA) 9.5 mg/dL 8.3-10.5 N Prot Total (test code = TP) 7.1 g/dL 6.4-8.3 N Albumin (test code = ALB) 4.1 g/dL 3.5-5.2 N A/G Ratio (test code = AGRATIO) 1.4 Ratio Globulin (test code = GLOB) 3.0 2.9-3.1 N Bili Total (test code = TBIL) 0.3 mg/dL 0.1-0.9 N Alk Phos (test code = APHOS) 78 U/L 40-129 N AST (test code = AST) 31 U/L 1-40 N ALT (test code = ALT) 38 U/L 1-41 N BUN/Creatinine Ratio (test code = BCRATIO) 11.1 Anion Gap (test code = AGAP) 13 mmol/L 7-16 N Estimated GFR (test code = GFR) >60 mL/min/1.73m2 eGFR (estimated Glomerular Filtration Rate) is an estimated value,calculated from the patient's serum creatinine using the MDRD equation.It is NOT the patient's actual GFR. The eGFR provides a more clinicallyuseful measure of kidney disease than serum creatinine alone.This calculation takes sex and race into account, if the informationis provided. If the race is not provided, and the patient isAfrican-Yemeni, multiply by 1.212. If sex is not provided, and thepatient is female, multiply by 0.742. Results for patients <18 years ofage have not been validated by the MDRD study and should be interpretedwith caution.eGFR Result Interpretation:eGFR > or = 60 is in the Normal RangeeGFR < 60 may mean kidney diseaseeGFR < 15 may mean kidney failureRanges recommended by the National Kidney Found ation,http://nkdep.nih.gov Urinalysis [id number] 21:42:00* Test Item Value Reference Range Interpretation Comments Color (test code = COLOR) Yellow Yellow,Straw,Pl yellow N Clarity (test code = CLAR) Clear Clear N Specific [place] (test code = SPGR) 1.005 1.001-1.035 N pH (test code = PH) 7.0 5.0-9.0 N Ketone (test code = KET) Negative mg/dL Negative N Glucose (test code = GLUCUR) Negative mg/dL Negative N Protein (test code = PROT) Negative mg/dL Negative N Bilirubin (test code = BILI) Negative mg/dL Negative N Occult Blood (test code = UDOB) Negative Negative N Urobilinogen (test code = UROB) 0.2 mg/dL 0.2-1.0 N Nitrite (test code = NIT) Negative Negative N Leuk Esterase (test code = LEUK) Negative Negative N Micros Exam (test code = MEXAM) Not indicated CBC with [id number] 21:35:00* Test Item Value Reference Range Interpretation Comments WBC (test code = WBC) 7.1 K/cumm 4.4-10.5 N RBC (test code = RBC) 5.41 M/cumm 4.10-5.70 N Hemoglobin (test code = HGB) 16.3 gm/dL 13.4-17.4 N Hematocrit (test code = HCT) 49.7 % 38.7-52.0 N MCV (test code = MCV) 91.8 fL 80-100 N MCH (test code = MCH) 30.1 pg 27.0-32.5 N MCHC (test code = MCHC) 32.8 g/dL 32.0-37.5 N RDW (test code = RDW) 13.0 % 11.5-14.5 N Platelet Count (test code = PLTCT) 222 K/cumm 140-440 N MPV (test code = MPV) 6.8 fL Diff Method (test code = DIFFM) Auto Neutrophil (test code = NEUT) 55.7 % 36-70 N Lymphocyte (test code = LYMPH) 34.6 % 12-44 N Monocyte (test code = MONO) 5.9 % 0-11 N Eosinophil (test code = EOS) 3.4 % 0-7 N Basophil (test code = BASO) 0.5 % 0-2 N Neutro Abs (test code = ANEUT) 4.0 K/cumm 1.6-7.4 N Lymph Abs (test code = ALYMPH) 2.5 K/cumm 0.5-4.6 N [place] Abs (test code = AMONO) 0.4 K/cumm 0.0-1.2 N Eos Abs (test code = AEOS) 0.24 K/cumm 0.00-0.74 N Baso Abs (test code = ABASO) 0.0 K/cumm 0.00-0.21 N
[2019-10-08] MEDS ORDERED: ZIPRASIDONE 20 MG VIAL IM STA ×2 (14:41→15:05)
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
[2019-10-08] MEDS ORDERED: LORAZEPAM INJ 2 MG/ML VIAL ONE (14:47)
[2019-10-08] MEDS ORDERED: ZIPRASIDONE 20 MG VIAL IM ONE (14:48)
[2019-10-08] MEDS ORDERED: LORAZEPAM INJ 2 MG/ML VIAL IM ONE (15:00)
[2019-10-08 15:46] LABS: BASOPHILS % 0.3 % (0.0-1.0); EOSINOPHILS # (AUTO) 0.2 (0.0-0.4); EOSINOPHILS % 2.7 % (0.0-6.0); HEMATOCRIT 44.1 % (38.2-49.6); HEMOGLOBIN 14.8 g/dL (14.0-18.0); LYMPHOCYTES % 30.1 % (18.0-39.1); MEAN CORPUSCULAR HEMOGLOBIN 30.1 pg (28-32); MEAN CORPUSCULAR HGB CONC 33.6 g/dL (31-35); MEAN CORPUSCULAR VOLUME 89.8 fL (81-99); MONOCYTES # (AUTO) 0.3 (0.2-0.8); MONOCYTES % 4.7 % (4.4-11.3); NEUTROPHILS # (AUTO) 4.2 (2.1-6.9); NEUTROPHILS % 61.9 % (38.7-80.0); PLATELET COUNT 246 x10e3/uL (140-360); RED BLOOD COUNT 4.91 x10e6/uL (4.3-5.7); RED CELL DISTRIBUTION WIDTH 13.2 % (11.7-14.4)
[2019-10-08 15:49] LABS: BILIRUBIN,URINE NEGATIVE (NEGATIVE); CLARITY,URINE CLEAR (CLEAR); COLOR,URINE YELLOW (YELLOW); KETONES,URINE NEGATIVE (NEGATIVE); LEUKOCYTE ESTERASE ,URINE NEGATIVE (NEGATIVE); NITRITE,URINE NEGATIVE (NEGATIVE); PROTEIN,URINE DIPSTICK NEGATIVE (NEGATIVE); URINE UROBILINOGEN 0.2 mg/dL (0.2 - 1)
[2019-10-08 15:51] LABS: PHENCYCLIDINE SCREEN,URINE NEGATIVE (NEGATIVE)
[2019-10-08 15:51] LABS: PARTIAL THROMBOPLASTIN TIME 31.3 seconds (23.8-35.5); PROTHROMBIN TIME 13.8 seconds (11.9-14.5)
[2019-10-08 15:52] LABS: AMPHETAMINES SCREEN,URINE NEGATIVE (NEGATIVE); BENZODIAZEPINES SCREEN,URINE NEGATIVE (NEGATIVE)
--- NOTE | 2019-10-08 15:52 | Diagnostic Imaging Report ---
EXAMINATION: CHEST SINGLE (PORTABLE) INDICATION: Altered mental status COMPARISON: None FINDINGS: LINES/TUBES:None LUNGS:The lungs are well-inflated. No focal consolidation or pulmonary edema. PLEURA:No pleural effusion or pneumothorax. MEDIASTINUM:The cardiomediastinal silhouette appears normal in size and shape. BONES/SOFT TISSUES:No acute osseous injury. ABDOMEN:No free air under the diaphragm. IMPRESSION: No focal pneumonia or pulmonary edema. Signed by: Steffanie Kay MD on 10/08/2019 3:47 PM
[2019-10-08 16:01] LABS: ALANINE AMINOTRANSFERASE 32 IU/L (0-55); ALBUMIN 3.6 g/dL (3.5-5.0); ALBUMIN/GLOBULIN RATIO 1.2 (0.8-2.0); ALKALINE PHOSPHATASE 71 IU/L (40-150); ANION GAP 14.7 mmol/L (8-16); BLOOD UREA NITROGEN 7 mg/dL (7-26); BUN/CREATININE RATIO 8 (6-25); CALCIUM 8.7 mg/dL (8.4-10.2); CARBON DIOXIDE 24 mmol/L (22-29); CHLORIDE 105 mmol/L (98-107); CREATINE KINASE 48 IU/L (30-200); CREATININE, SERUM 0.86 mg/dL (0.72-1.25); EST GLOMERULAR FILTRATION RATE > 60 ML/MIN (60-); GLUCOSE 108 mg/dL (74-118); POTASSIUM 3.7 mmol/L (3.5-5.1); SODIUM 140 mmol/L (136-145)
[2019-10-08 16:01] LABS: WBC,URINE (MAN) 0-5 /HPF (0-5)
--- NOTE | 2019-10-08 16:01 | NUR ---
rn and tech logged pt property pt has $21.85 and dentures that was given to security pt hat, shoes, pants, belt and shirt placed in pt belonging bag with pt sticker attached to it
[2019-10-08 16:02] LABS: BACTERIA,URINE RARE /HPF; EPITHELIAL CELLS,URINE FEW /LPF
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
--- NOTE | 2019-10-08 16:21 | Diagnostic Imaging Report ---
History: Altered mental status Comparison studies: None Technique: Axial images were obtained from the brain and cervical spine. Coronal and sagittal images reconstructed from the axial data. Dose modulation, iterative reconstruction, and/or weight based adjustment of the mA/kV was utilized to reduce the radiation dose to as low as reasonably achievable. Intravenous contrast: None Findings: Head CT: Scalp/skull: No abnormalities. No fractures, blastic or lytic lesions. Brain sulci: Appropriate for age. Ventricles: Normal in size and configuration. No hydrocephalus. Extra-axial spaces: No masses. No fluid collections. Parenchyma: No abnormal densities. No masses, hemorrhage, acute or chronic cortical vascular insults. Sellar/suprasellar region: No abnormalities. Craniocervical junction: Patent foramen magnum. No Chiari one malformation. Cervical spine CT: Airway: Patent. Fractures: None. Soft tissues: No gross abnormalities. Atlantoaxial articulation: Intact. Alignment: Straightening of the normal cervical lordosis. No scoliosis. Cervicomedullary junction: No abnormalities. Patent foramen magnum. Vertebrae: No infection or neoplasm. Degenerative changes: * Posterior disc osteophyte complex and right uncovertebral hypertrophy results in severe right neural foraminal stenosis at C4-C5 and C6-C7. * No high-grade spinal canal stenosis. IMPRESSION: Head CT: No acute abnormalities. Cervical spine CT: 1. No acute abnormalities. 2. Cannot adequately evaluate for ligament, spinal cord and or vascular abnormalities. Preliminary report was given by Neuroradiology fellow Dr. Harrison at 4:20 PM on 10/08/2019. I have reviewed the images and agree with findings in the preliminary report. Signed by: Dr. Twyla Rios M.D. on 10/08/2019 7:52 PM
--- NOTE | 2019-10-08 20:08 | NUR ---
Patient asleep with no distress noted. When patient awoken, he was alert and oriented times 3 yet lethrgic and words slurred. Md aware. Will continue to monitor patient closely.
--- NOTE | 2019-10-08 21:18 | NUR ---
Patient more alert and this time. Asking questions regarding where he is at. No distress noted at this time. Will continue to monitor patient.
--- NOTE | 2019-10-08 22:36 | NUR ---
Patient resting with no distress at this time.
--- NOTE | 2019-10-08 23:53 | NUR ---
Patient alert and oriented and getting dressed at this time. Cab called for patient. Patient states he has money to pay for his own cab.
--- NOTE | 2019-10-08 23:54 | NUR ---
IV dc'd at this time. ER MD states patient may discharge home.
[2019-10-08 23:56] VITALS: BP 102/50
--- NOTE | 2019-10-09 00:22 | NUR ---
Patient not in lobby at this time. Cab was called for patient. Patient decided to leave by himself. ELEAZAR PALOMARES notified.
== END 2019-10-09 00:10 | disposition home or self-care (01) ==
LOC: ER 14:26
DX: R41.82 Altered mental status, unspecified (principal); F10.10 Alcohol abuse, uncomplicated; F20.0 Paranoid schizophrenia; I10 Essential (primary) hypertension; E78.5 Hyperlipidemia, unspecified; I25.10 Atherosclerotic heart disease of native coronary artery without angina pectoris; J44.9 Chronic obstructive pulmonary disease, unspecified
CPT/HCPCS: 36415; 51701; 70450; 71045; 72125; 80053; 80307; 80320; 80329; 81001; 82550; 82553; 84484; 85025; 85610; 85730; 93005; 99284; J2060; J3486; J7030

== ENCOUNTER 2020-01-28 21:37 | Emergency (ER) | payer MEDICARE, OTHER ==
[~2020-01-28] VITALS: Ht 188 cm; Wt 108.9 kg
[2020-01-28] MEDS ORDERED: SODIUM CHLORIDE 0.9% 1000ML 1,000 ML IV STA (21:41)
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
[2020-01-28 21:49] LABS: BASOPHILS % 0.3 % (0.0-1.0); EOSINOPHILS # (AUTO) 0.2 (0.0-0.4); EOSINOPHILS % 2.3 % (0.0-6.0); HEMATOCRIT 41.6 % (38.2-49.6); HEMOGLOBIN 13.9 g/dL (14.0-18.0); LYMPHOCYTES # (AUTO) 2.5 (1.0-3.2); LYMPHOCYTES % 27.6 % (18.0-39.1); MEAN CORPUSCULAR HEMOGLOBIN 30.2 pg (28-32); MEAN CORPUSCULAR HGB CONC 33.4 g/dL (31-35); MEAN CORPUSCULAR VOLUME 90.4 fL (81-99); MONOCYTES # (AUTO) 0.7 (0.2-0.8); MONOCYTES % 7.9 % (4.4-11.3); NEUTROPHILS # (AUTO) 5.7 (2.1-6.9); NEUTROPHILS % 61.6 % (38.7-80.0); PLATELET COUNT 257 x10e3/uL (140-360); RED CELL DISTRIBUTION WIDTH 13.8 % (11.7-14.4)
[2020-01-28 22:07] LABS: ALANINE AMINOTRANSFERASE 32 IU/L (0-55); ALBUMIN 4.4 g/dL (3.5-5.0); ALBUMIN/GLOBULIN RATIO 1.7 (0.8-2.0); ALKALINE PHOSPHATASE 68 IU/L (40-150); ANION GAP 16.2 mmol/L (8-16); BLOOD UREA NITROGEN 12 mg/dL (7-26); BUN/CREATININE RATIO 15 (6-25); CALCIUM 9.8 mg/dL (8.4-10.2); CARBON DIOXIDE 26 mmol/L (22-29); CHLORIDE 104 mmol/L (98-107); CREATINE KINASE 137 IU/L (30-200); CREATININE, SERUM 0.81 mg/dL (0.72-1.25); EST GLOMERULAR FILTRATION RATE > 60 ML/MIN (60-); GLUCOSE 103 mg/dL (74-118); POTASSIUM 3.2 mmol/L (3.5-5.1); SODIUM 143 mmol/L (136-145)
--- OUTSIDE RECORDS SUMMARY | 2020-01-28 22:31 | XMS REPORT | Continuity of Care Document ---
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 Role Phone [employer] Unavailable Un available Problems Problem Status Onset Date Classification Date Reported Comments Source Pain in unspecified hand 02/06/2019 02/08/2019 [facility] Pain in left hip 02/05/2019 02/07/2019 [facility] Pain in right wrist 02/05/2019 02/07/2019 [facility] Low back pain 02/05/2019 02/07/2019 [facility] SHOULDER PAIN Active 02/05/2019 [facility] FALL Active 02/05/2019 [facility] M48.08 - "SPINAL STENOSIS, SACRAL AND SA Active 06/16/2016 [facility] [place] Medications Medication Details Route Status Patient Instructions Ordering Provider Order Date Source Acetaminophen 650 mg, Route: P O, Drug form: TAB, ONCE, Dosing Weight 97.727, kg, Priority: STAT, Start date: 02/06/19 4:43:00 CDT, Stop date: 02/06/19 4:43:00 CDT Inactive 02/06/2019 [facility] nt Ibuprofen 400 mg, Route: PO, O NCE, Dosing Weight 97.727, kg, Priority: STAT, Start date: 02/06/19 4:43:00 CDT, Stop date: 02/06/19 4:43:00 CDT Inactive 02/06/2019 [facility] Acetaminophen 325 MG / Hydrocodone Gerry trate 5 MG Oral Tablet [[place] 5/325] Notes: (Same as: [place] 325/5) Do not ex ceed 4gm/day of acetaminophen. Inactive 02/06/2019 [facility] Motrin 600 mg, 1 tab, Route: P O, Drug form: TAB, ONCE, Dosing Weight 97.273, kg, Priority: STAT, Start date: 02/05/19 16:54:00 CDT, Stop date: 02/05/19 16:54:00 CDT, 0 Inactive 02/05/2019 [facility] nter Tylenol 650 mg, 2 tab, Route: PO, Drug form: TAB, ONCE, Dosing Weight 97.273, kg, Priority: STAT, Start date: 02/05/19 16:54:00 CDT, Stop date: 02/05/19 16:54:00 CDT, 0 Inactive 02/05/2019 [facility] nter Allergies, Adverse Reactions, Alerts No Known [...] by telephone 02/05/2019 at 2030 hours 02/05/2019 [facility] Wrist complete DX EXAM: XR LEF T [...] by telephone 02/05/2019 at 2030 hours 02/05/2019 [facility] Spine lumbar 2 or 3 views DX [...] facet arthropathy of the lumbar spine. 02/05/2019 [facility] Shoulder series DX EXAM: XR RI GHT [...] tendinosis in the right rotator cuff. 02/05/2019 [facility] Femur series DX EXAM: XR LEFT HIP [...] most pronounced in the patellofemoral compartment. 02/05/2019 [facility] Hip 2/3 views uni w pelvis DX [...] most pronounced in the patellofemoral compartment. 02/05/2019 [facility] Knee wo contrast MRI Exam: MRI of [...] osteoarthritis involving the anterior compartment. 01/18/2017 [facility] [place] Spine lumbar wo contrast MRI L UMBAR [...] disc bulge with minimal posterior osteophytes and jnqy-ih-uyncomzm facet hypertrophy with ligamentum flavum thickening. This results in moderate canal stenosis with near CSF block. Minimal neural foraminal narrowing. L4-L5: Moderate disc bulge and facet hypertrophy with ligamentum flavum thickening. This results in severe canal stenosis with probable complete to near complete CSF block [id number]-[id number] right greater than left neural foraminal narrowing [...] in disc herniati on T12-L1. 06/17/2016 [facility] [place] Spine lumbar wo contrast MRI M RI [...] bilateral foraminal stenosis as above. 11/14/2013 [facility] Consultation Notes No Data Provided for This Section Discharge Summaries No Data Provided for This Section History and Physicals No Data Provided for This Section Vital Signs Vital Sign Value Date Comments Source Temperature Oral (F) 98.8 F 02/06/2019 [facility] Heart Rate 91 02/06/2019 [facility] Respitory Rate 18 02/06/2019 [facility] Systolic (mm Hg) 148 02/06/2019 [facility] Diastolic (mm Hg) 89 02/06/2019 [facility] Systolic (mm Hg) 163 02/06/2019 [facility] Diastolic (mm Hg) 77 02/06/2019 [facility] Heart Rate 70 02/06/2019 [facility] Respitory Rate 18 02/06/2019 [facility] Temperature Oral (F) 98.6 F 02/06/2019 [facility] Height 187.96 cm 02/06/2019 [facility] BMI Calculated 27.66 02/06/2019 [facility] Weight 97.727 02/06/2019 [facility] Temperature Oral (F) 97.8 F 02/06/2019 [facility] Heart Rate 66 02/06/2019 [facility] Respitory Rate 18 02/06/2019 [facility] Systolic (mm Hg) 152 02/06/2019 [facility] Diastolic (mm Hg) 69 02/06/2019 [facility] Systolic (mm Hg) 153 02/05/2019 [facility] Diastolic (mm Hg) 65 02/05/2019 [facility] Respitory Rate 20 02/05/2019 [facility] Heart Rate 64 02/05/2019 [facility] Systolic (mm Hg) 166 02/05/2019 [facility] Diastolic (mm Hg) 87 02/05/2019 [facility] Heart Rate 60 02/05/2019 [facility] Respitory Rate 18 02/05/2019 [facility] Temperature Oral (F) 97.9 F 02/05/2019 [facility] Height 187.96 cm 02/05/2019 [facility] BMI Calculated 27.53 02/05/2019 [facility] Weight 97.273 02/05/2019 [facility] Encounters Location Location Details Encounter Type Encounter Number Reason For Visit Attending Provider ADM Date DC Date Status Source [facility] [place] [facility] [id number] Aydin Almaraz 11/14/2013 11/15/2013 [facility] [place] [facility] [place] [facility] [id number] Casey Avila Jr 06/17/2016 06/18/2016 [facility] [place] [facility] [place] [facility] [id number] 02 Juanito Morales 01/18/2017 01/19/2017 [facility] [place] [facility] [id number] Shyanne Dixon 02/05/2019 02/06/2019 [facility] [id number] Davy Faith 02/06/2019 02/06/2019 [facility] Procedures No Data Provided for This Section [...] to palpation over dors al wrist - Bland intact Motor: Thumb: Active flex/ext at MCP, [...] Minimal TTP over the dorsal wrist - Bland intact Motor: Thumb: Active flex/ext at MCP, [...] Oniel Holder MD PGY2 Orthopaedic Surgery MSO: [id number] Pager: [phone] 02/06/2019 [facility] Plan of Care No Data Provided for This Section Social History Social History Date Source Social History TypeResponse Smoking Status Never smoker; Exposure to Tobacco Smoke None; Cigarette Smoking Last 365 Days No; Reg Smoking Cessation Counseling No entered on: 02/05/19 02/05/2019 [facility] No data available for this section 01/19/2017 [facility] [place] Family History No Data Provided for This Section Advance Directives No Data Provided for This Section Functional Status No Data Provided for This Section
--- OUTSIDE RECORDS SUMMARY | 2020-01-28 22:32 | XMS REPORT | Continuity of Care Document ---
Author Author [facility] t Organization [facility] Address [address] [place] [address] Phone Unavailable Care Team Providers Care Oil Winterizer Name Role Phone Estuardo MORALES DO PCP Leander Nice Attphys Unavailable Leander Nice Attphys Unavailable Sera Ahuja Attphys Unavailable Sera Ahuja Attphys Unavailable Luis Alberto BUCK Attphys Unavailable Denton Faith Attphys Michael Dixon Attphys Michael Morales Attphys Michael Avila Jr Attphys Gilbert Almaraz Attphys Leander Nice Admphys Unavailable Sera Ahuja Admphys Unavailable CARINA NICE M.D., CARINA Tabor M.D. Admphys Unavailable Payers Payer Name Policy Type Policy Number Effective Date Expiration Date S [facility] [employer] [facility] [id number] 2011 00:00 :00 [facility] Medicare A & B [id number] 1995 00:00:[address] [facility] Problems Condition Name Condition Details Condition Category Status Onset Date Resolution Date Last Treatment Date Treating Clinician Comments Source SHOULDER PAIN SHOU LDER PAIN Active 02/05/2019 [facility] Diagnosis Active 2019-02-05 10:49:00 2019-02-05 2 2:52:00 Errol Estrada FALL FALL Active 02/05/2019 [facility] Diagnosis Active 2019-02-05 00:00:00 2019-02-12 22:15:00 [facility] Gail M48.08 - "SPINAL STENOSIS, SACRAL AND SA M48.08 - "SPINAL STENOSIS, SACRAL AND SA Active 06/16/2016 [facility] Diagnosis Active 2016-06-16 00:01:00 2016-06-17 12:20:00 Errol Estrada Pain in unspecified hand Pain in unspecified hand 02/06/2019 02/08/2019 [facility] Problem 2019-01 17:00:00 2019-02-08 21:07:18 2019-02-08 21:07:18 [facility] Pain in left hip Pain in left hip 02/05/2019 02/07/2019 [facility] Problem 2019-02-05 17:00:00 2019-01 22:24:43 2019-02-07 22:24:43 [facility] Sean Pain in right wrist Pain in right wrist 02/05/2019 02/07/2019 [facility] Problem 2019-02-05 17 :00:00 2019-02-07 22:24:43 2019-02-07 22:24:43 [facility] mo Low back pain Low back pain 02/05/2019 02/07/2019 [facility] Problem 2019-02-05 17:00:00 2019-01 22:24:43 2019-02-07 22:24:43 [facility] Allergies, Adverse Reactions, Alerts Allergy Name Allergy Type Status Severity Reaction(s) Onset Date Inacti ve Date Treating Clinician Comments Source Mesoridazine Besylate DA Active U 2020-01-02 00:00:00 [facility] Haloperidol Lactate DA Active U 2020-01-02 00:00:00 [facility] perphenazine DA Active U 2020-01-02 00:00:00 [facility] haloperidol DA Active U 2020-01-02 00:00:00 [facility] divalproex sodium DA Active MO 2020-01-02 00:00:00 [facility] clozapine DA Active SV 2020-01-02 00:00:00 [facility] Mesoridazine Besylate DA Active U 2019-05-03 00:00:00 [facility] Haloperidol Lactate DA Active U 2019-05-03 00:00:00 [facility] perphenazine DA Active U 2019-05-03 00:00:00 [facility] haloperidol DA Active U 2019-05-03 00:00:00 [facility] divalproex sodium DA Active MO 2019-05-03 00:00:00 [facility] clozapine DA Active SV 2019-05-03 00:00:00 [facility] Mesoridazine Besylate DA Active U 2018-04-24 00:00:00 [facility] Haloperidol Lactate DA Active U 2018-04-24 00:00:00 [facility] perphenazine DA Active U 2018-04-24 00:00:00 [facility] haloperidol DA Active U 2018-04-24 00:00:00 [facility] divalproex sodium DA Active MO 2018-04-24 00:00:00 [facility] clozapine DA Active SV 2018-04-24 00:00:00 [facility] lorazepam DA Active U 2018-04-24 00:00:00 [facility] No Known Allergies DA Active U 2018-03-06 00:00:00 [facility] Mesoridazine Besylate DA Active U 2015-11-11 00:00:00 [facility] Haloperidol Lactate DA Active U 2015-11-11 00:00:00 [facility] lorazepam DA Active U 2015-11-11 00:00:00 [facility] perphenazine DA Active U 2015-11-11 00:00:00 [facility] haloperidol DA Active U 2015-11-11 00:00:00 [facility] divalproex sodium DA Active MO 2015-11-11 00:00:00 [facility] clozapine DA Active SV 2015-11-11 00:00:00 [facility] CYRANTYL DA Active SV 2011-05-08 00:00:00 [facility] NAVAINE DA Active MO 2011-05-08 00:00:00 [facility] Social History Social Habit Start Date Stop Date Quantity Comments Source Social History 2017-01-19 04:59:00 2017-01-19 04:59:00 [facility] Smoking Status Start Date Stop Date Source Social History [facility] Medications Ordered Medication Name Filled Medication Name Start Date Stop Da te Current Medication? Ordering Clinician Indication Dosage Frequency Signature (SIG) Comments Components Source Acetaminophen 2019-02-06 09:43:00 No 650 mg, Route: PO, Drug form: TAB, ONCE, Dosing Weight 97.727, kg, Priority: STAT, Start date: 02/06/19 4:43:00 CDT, Stop date: 02/06/19 4:43:00 CDT [facility] Ibuprofen 2019-02-06 09:43:00 No 400 mg, Route: PO, ONCE, Dosing Weight 97.727, kg, Priority: STAT, Start date: 02/06/19 4:43:00 CDT, Stop date: 02/06/19 4:43:00 CDT [facility] Acetaminophen 325 MG / Hydrocodone Bitartrate 5 MG Oral Tabl et [[place] 5/325] 2019-02-06 03:48:00 No Notes: (Same as: [place] 325/5) Do not exceed 4gm/day of acetaminophen. [facility] nn Motrin 2019-02-05 21:54:00 No 600 mg, 1 tab, Route: PO, Drug form: TAB, ONCE, Dosing Weight 97.273, kg, Priority: STAT, Start date: 02/05/19 16:54:00 CDT, Stop date: 02/05/19 16:54:00 CDT, 0 [facility] Tylenol 2019-02-05 21:54:00 No 650 mg, 2 tab, Route: PO, Drug form: TAB, ONCE, Dosing Weight 97.273, kg, Priority: STAT, Start date: 02/05/19 16:54:00 CDT, Stop date: 02/05/19 16:54:00 CDT, 0 [facility] Acetaminophen/Hydrocodone Bitart ([place] 10MG-325MG*) 1 Ea Tab Acetaminophen/Hydrocodone Bitart ([place] 10MG-325MG*) 1 Ea Tab Ye s 1 Every [address] [facility] Benztropine Mesylate (Cogentin) 1 Mg/1 Ml Amp Benztrop ine Mesylate (Cogentin) 1 Mg/1 Ml Amp Yes 2 Bedtime [facility] Hydrocodone Bit/Acetaminophen (Hydrocodon-Acetaminophe n 5-325) 1 Each Tablet Hydrocodone Bit/Acetaminophen (Hydrocodon-Acetaminophen 5-325) 1 Each Tablet Yes Four Times Daily [facility] Risperidone (Risperdal) 4 Mg Tablet Risperidone (Risperdal) 4 Mg Tabl et Yes [address] [facility] Sertraline Hcl (Zoloft) 100 Mg Tablet Sertraline Hcl (Zoloft) 100 M g Tablet Yes 100 Bedtime [facility] Cogentin , 2 Mg Oral Cogentin , 2 Mg Oral 2016-07-18 00:00:00 No 2 Daily [facility] Diazepam (Valium) 10 Mg Tablet, 10 Mg Oral Diazepam (V alium) 10 Mg Tablet, 10 Mg Oral 2016-07-18 00:00:00 No 10 Daily [facility] [place] , 1200 Mg Oral [place] , 1200 Mg Oral 2016-07-18 00:00:0 0 No 1200 Daily [facility] Risperdal , 8 Mg Oral Risperdal , 8 Mg Oral 2016-07-18 00:00:00 No 8 Daily [facility] Vital Signs Vital Name Observation Time Observation Value Comments Source Temperature Oral (F) 2019-02-06 10:08:00 98.8 F [facility] Sean Heart Rate 2019-02-06 10:08:00 [facility] Respitory Rate 2019-02-06 10:08:00 [facility] Systolic (mm Hg) 2019-02-06 10:08:00 Dalton blake Sean Diastolic (mm Hg) 2019-02-06 10:08:00 [facility] Sean Systolic (mm Hg) 2019-02-06 03:33:00 Dalton rial Sean Diastolic (mm Hg) 2019-02-06 03:33:00 [facility] Sean Heart Rate 2019-02-06 03:33:00 [facility] Respitory Rate 2019-02-06 03:33:00 [facility] Saen Temperature Oral (F) 2019-02-06 03:33:00 98.6 F [facility] Height 2019-02-06 03:33:00 187.96 cm [facility] BMI Calculated 2019-02-06 03:33:00 [facility] Weight 2019-02-06 03:33:00 [facility] Temperature Oral (F) 2019-02-06 00:12:00 97.8 F [facility] Heart Rate 2019-02-06 00:12:00 [facility] Respitory Rate 2019-02-06 00:12:00 [facility] Systolic (mm Hg) 2019-02-06 00:12:00 Dalton rial Sean Diastolic (mm Hg) 2019-02-06 00:12:00 Mem o[facility] Gail Systolic (mm Hg) 2019-02-05 22:54:00 Dalton rial Gail Diastolic (mm Hg) 2019-02-05 22:54:00 Mem orial Gail Respitory Rate 2019-02-05 22:54:00 [facility] Heart Rate 2019-02-05 22:54:00 [facility] Systolic (mm Hg) 2019-02-05 21:12:00 Dalton rial Sean Diastolic (mm Hg) 2019-02-05 21:12:00 Mem orial Gail Heart Rate 2019-02-05 21:12:00 [facility] Respitory Rate 2019-02-05 21:12:00 [facility] G[facility] Temperature Oral (F) 2019-02-05 21:12:00 97.9 F [facility] Height 2019-02-05 21:12:00 187.96 cm [facility] BMI Calculated 2019-02-05 21:12:00 [facility] Weight 2019-02-05 21:12:00 [facility] Procedures Procedure Date / Time Performed Performing Clinician [facility] e X-ray of chest, two views 2019-08-06 00:00:00 TIA BUCK [facility] Encounters Start Date/Time End Date/Time En[facility] Source 2020-01-04 05:22:00 Inpatient 1 Deborah Nice Lawrence [facility] ITZ [id number] [facility] 2020-01-28 01:34:00 2020-01-28 08:44:00 Emergency 1 Carlos Menon Mike [facility] ITZ [id number] [facility] 2020-01-04 05:22:00 2020-01-06 13:12:00 Inpatient 1 Carina Mejia [facility] PSY [id number] [facility] 2019-08-06 12:18:00 2019-08-06 15:44:00 Departed Emergency Room [address] [facility] [id number] [facility] 2019-02-05 22:30:38 2019-02-06 05:25:00 Outpatient Davy Faith [facility] [id number] 2019-02-05 22:30:00 2019-02-05 22:30:00 Emergency E [facility] [id number] [facility] 2019-02-05 16:09:25 2019-02-05 19:14:00 Outpatient Demetrio Dixon [facility] [id number] 2019-02-05 16:09:00 2019-02-05 16:09:00 Emergency E [facility] [id number] [facility] 2017-01-18 13:13:00 2017-01-18 23:59:00 Outpatient Juanito Stubbs [facility] [id number] 2016-06-17 12:10:00 2016-06-17 23:59:00 Outpatient Casey Reina [facility] [id number] 2013-11-14 10:30:00 2013-11-14 23:59:00 Outpatient Aydin Almaraz [facility] [id number] Results Test Description Test Time Test Comments Results Result Comments Source Urine DOA 9 2020-01-28 03:35:44 Test Item Amphetamine Screen Ur (test code = Amphetamine Screen Ur) Negative Negative The specimen is presumptive positive if the analyte concentration is equal to or greater than 1000 ng/ml.If confirmation of positive result is desired, please order Amphetamine Confirmation, Urine within 7 days. Barbiturate Screen Ur (test code = Barbiturate Screen Ur) Negative Negative The specimen is presumptive positive if the analyte concentration is equal to or greater than 200 ng/ml.If confirmation of positive result is desired, please order Barbiturate Confirmation, Urine within 7 days. Benzodiazepines Ur (test code = Benzodiazepines Ur) Negative Ne gative The specimen is presumptive positive if the analyte concentration is equal to or greater than 200 ng/ml.If confirmation of positive result is desired, please order Benzodiazephine Confirmation, Urine within 7 days. Cocaine Screen Ur (test code = Cocaine Screen Ur) Negative Nega tive The specimen is presumptive positive if the analyte concentration is equal to or greater than 300 ng/ml.If confirmation of positive result is desired, please order Cocaine Metabolite Confirmation, Urine within 7 days. Opiate Screen Ur (test code = Opiate Screen Ur) Negative Negati ve The specimen is presumptive positive if the analyte concentration is equal to or greater than 2000 ng/ml.If confirmation of positive result is desired, please order Opiate Confirmation, Urine within 7 days. U PCP Scrn (test code = U PCP Scrn) Negative Negative The specimen is presumptive positive if the analyte concentration is equal to or greater than 25 ng/ml.If confirmation of positive result is desired, please order Phencyclidine Confirmation, Urine within 7 days. Cannabinoid Screen Ur (test code = Cannabinoid Screen Ur) Negative Negative The specimen is presumptive positive if the analyte concentration is equal to or greater than 50 ng/ml.If confirmation of positive result is desired, please order Cannabinoid (THC) Confirmation, Urine within 7 days. U Methadone Scr (test code = U Methadone Scr) Negative Negative The specimen is presumptive positive if the analyte concentration is equal to or greater than 300 ng/ml.If confirmation of positive result is desired, please order Methadone Confirmation, Urine within 7 days. U Propoxyphene (test code = U Propoxyphene) Negative Negative The specimen is presumptive positive if the analyte concentration is equal to or greater than 300 ng/ml.If confirmation of positive result is desired, please order Propoxyphene Confirmation within 7 days. Urinalysis with Culture, if [id number] 03:32:44* Test Item Value Reference Range Interpretation Comments UA Color (test code = UA Color) Dark Yellow N UA Appear (test code = UA Appear) CLEAR Clear UA pH (test code = UA pH) 5.5 N UA Spec Grav (test code = UA Spec Grav) 1.025 1.001-1.035 UA Glucose (test code = UA Glucose) NEG Negative UA Bili (test code = UA Bili) Small mg/dL N UA Ketones (test code = UA Ketones) Trace mg/dL N UA Blood (test code = UA Blood) NEG Negative UA Protein (test code = UA Protein) NEG Negative UA Urobilinogen (test code = UA Urobilinogen) 2 mg/dL N UA Nitrite (test code = UA Nitrite) NEG Negative UA Leuk Est (test code = UA Leuk Est) NEG Negative UA Micro Ind? (test code = UA Micro Ind?) Not Indicated Not Indicat ed Alcohol [id number] 03:20:56* Test Item Value Reference Range Interpretation Comments Ethanol Level (test code = Ethanol Level) 74.1 mg/dL N The pharmacological response to blood alcohol levels may vary from individual to individual. The fatal concentration has been reported to be >400 mg/dl. Comprehensive Metabolic [id number] 03:20:55* Test Item Value Reference Range Interpretation Comments Sodium Level (test code = Sodium Level) 145.0 mmol/L 136.0-145.0 Potassium Level (test code = Potassium Level) 3.70 mmol/L 3.50-5.1 0 Chloride Level (test code = Chloride Level) 111.0 mmol/L 98.0-107.0 H CO2 (test code = CO2) 27 mmol/L 20-31 Anion Gap (test code = Anion Gap) 7.1 mmol/L 5.0-15.0 BUN (test code = BUN) 13 mg/dL 9-23 Creatinine Level (test code = Creatinine Level) 0.73 mg/dL 0.70-1 .30 BUN/Creat Ratio (test code = BUN/Creat Ratio) 17.8 ratio 10.0-20. 0 Glucose Level (test code = Glucose Level) 93 mg/dL 74-106 Calcium Level (test code = Calcium Level) 9.5 mg/dL 8.3-10.6 Alk Phos (test code = Alk Phos) 73 U/L 46-116 Bilirubin Total (test code = Bilirubin Total) 0.2 mg/dL 0.2-1.1 Albumin Level (test code = Albumin Level) 4.3 g/dL 3.2-4.8 Protein Total (test code = Protein Total) 6.3 g/dL 5.7-8.2 ALT (test code = ALT) 38 U/L 10-49 AST (test code = AST) 38 U/L <=34 H Globulin (test code = Globulin) 2.0 g/dL 2.3-3.5 L A/G Ratio (test code = A/G Ratio) 2.2 g/dL 0.8-2.0 H Hemolysis (test code = Hemolysis) 0 g/dL 1-2 H Icterus (test code = Icterus) 0 g/dL 1-2 H Lipemia (test code = Lipemia) 0 g/dL 1-2 H Comprehensive Metabolic [id number] 03:20:55* Test Item Value Reference Range Interpretation Comments Sodium Level (test code = Sodium Level) 145.0 mmol/L 136.0-145.0 Potassium Level (test code = Potassium Level) 3.70 mmol/L 3.50-5.1 0 Chloride Level (test code = Chloride Level) 111.0 mmol/L 98.0-107.0 H CO2 (test code = CO2) 27 mmol/L 20-31 Anion Gap (test code = Anion Gap) 7.1 mmol/L 5.0-15.0 BUN (test code = BUN) 13 mg/dL 9-23 Creatinine Level (test code = Creatinine Level) 0.73 mg/dL 0.70-1 .30 BUN/Creat Ratio (test code = BUN/Creat Ratio) 17.8 ratio 10.0-20. 0 Glucose Level (test code = Glucose Level) 93 mg/dL 74-106 Calcium Level (test code = Calcium Level) 9.5 mg/dL 8.3-10.6 Alk Phos (test code = Alk Phos) 73 U/L 46-116 Bilirubin Total (test code = Bilirubin Total) 0.2 mg/dL 0.2-1.1 Albumin Level (test code = Albumin Level) 4.3 g/dL 3.2-4.8 Protein Total (test code = Protein Total) 6.3 g/dL 5.7-8.2 ALT (test code = ALT) 38 U/L 10-49 AST (test code = AST) 38 U/L <=34 H Globulin (test code = Globulin) 2.0 g/dL 2.3-3.5 L A/G Ratio (test code = A/G Ratio) 2.2 g/dL 0.8-2.0 H eGFR AA (test code = eGFR AA) >60 mL/min/1.73 m2 >=60 eGFR (estimated Glomerular Filtration Rate) is an estimated value, calculated from the patient's serum creatinine using the MDRD equation. It is NOT the patient's actual GFR. The eGFR provides a more clinically useful measure of kidney disease than serum creatinine alone.This calculation takes sex and race into account, if the information is provided. If the race is not provided, and the patient is -[place]ym[place], multiply by 1.212. If sex is not [...] recommended by the National Kidney Foundation, http://nkdep.nih.gov Hemolysis (test code = Hemolysis) 0 g/dL 1-2 H Icterus (test code = Icterus) 0 g/dL 1-2 H Lipemia (test code = Lipemia) 0 g/dL 1-2 H Comprehensive Metabolic [id number] 03:20:55* Test Item Value Reference Range Interpretation Comments Sodium Level (test code = Sodium Level) 145.0 mmol/L 136.0-145.0 Potassium Level (test code = Potassium Level) 3.70 mmol/L 3.50-5.1 0 Chloride Level (test code = Chloride Level) 111.0 mmol/L 98.0-107.0 H CO2 (test code = CO2) 27 mmol/L 20-31 Anion Gap (test code = Anion Gap) 7.1 mmol/L 5.0-15.0 BUN (test code = BUN) 13 mg/dL 9-23 Creatinine Level (test code = Creatinine Level) 0.73 mg/dL 0.70-1 .30 BUN/Creat Ratio (test code = BUN/Creat Ratio) 17.8 ratio 10.0-20. 0 Glucose Level (test code = Glucose Level) 93 mg/dL 74-106 Calcium Level (test code = Calcium Level) 9.5 mg/dL 8.3-10.6 Alk Phos (test code = Alk Phos) 73 U/L 46-116 Bilirubin Total (test code = Bilirubin Total) 0.2 mg/dL 0.2-1.1 Albumin Level (test code = Albumin Level) 4.3 g/dL 3.2-4.8 Protein Total (test code = Protein Total) 6.3 g/dL 5.7-8.2 ALT (test code = ALT) 38 U/L 10-49 AST (test code = AST) 38 U/L <=34 H Globulin (test code = Globulin) 2.0 g/dL 2.3-3.5 L A/G Ratio (test code = A/G Ratio) 2.2 g/dL 0.8-2.0 H eGFR AA (test code = eGFR AA) >60 mL/min/1.73 m2 >=60 eGFR (estimated Glomerular Filtration Rate) is an estimated value, calculated from the patient's serum creatinine using the MDRD equation. It is NOT the patient's actual GFR. The eGFR provides a more clinically useful measure of kidney disease than serum creatinine alone.This calculation takes sex and race into account, if the information is provided. If the race is not provided, and the patient is -[place]ym[place], multiply by 1.212. If sex is not [...] code = eGFR Non-AA) >60.00 mL/min/1.73 m2 >=60.00 eGFR (estimated Glomerular Filtration Rate) is an estimated value, calculated from the patient's serum creatinine using the MDRD equation. It is NOT the patient's actual GFR. The eGFR provides a more clinically useful measure of kidney disease than serum creatinine alone.This calculation takes sex and race into account, if the information is provided. If the race is not provided, and the patient is -[place]ym[place], multiply by 1.212. If sex is not [...] recommended by the National Kidney Foundation, http://nkdep.nih.gov Hemolysis (test code = Hemolysis) 0 g/dL 1-2 H Icterus (test code = Icterus) 0 g/dL 1-2 H Lipemia (test code = Lipemia) 0 g/dL 1-2 H Complete Blood Count with [id number] 03:19:59* Test Item Value Reference Range Interpretation Comments WBC (test code = WBC) 8.6 x10 4.4-10.5 RBC (test code = RBC) 4.90 x10 4.10-5.70 Hgb (test code = Hgb) 15.3 g/dL 13.4-17.4 MCV (test code = MCV) 94.10 fL 80.00-100.00 Hct (test code = Hct) 46.1 % 38.7-52.0 MCHC (test code = MCHC) 33.20 g/dL 32.00-37.50 RDW CV (test code = RDW CV) 13.4 % 11.5-14.5 MCH (test code = MCH) 31.2 pg 27.0-32.5 Platelets (test code = Platelets) 313.0 x10 140.0-440.0 MPV (test code = MPV) 9.7 fL N Slide Review (test code = Slide Review) Auto Auto Result created by [email or web address] nRBC (test code = nRBC) 0 N NRBC Abs (test code = NRBC Abs) 0.00 x10 N Automated [id number] 03:19:59* Test Item Value Reference Range Interpretation Comments Neutro Auto (test code = Neutro Auto) 57.9 % 36.0-70.0 Lymph Auto (test code = Lymph Auto) 32.4 % 12.0-44.0 Dundy Auto (test code = Dundy Auto) 5.5 % 0.0-11.0 Eos, Auto (test code = Eos, Auto) 3.6 % 0.0-7.0 Basophil Auto (test code = Basophil Auto) 0.3 % 0.0-2.0 Neutro Absolute (test code = Neutro Absolute) 5.0 x10 1.6-7.4 Lymph Absolute (test code = Lymph Absolute) 2.80 x10 .50-4.60 Dundy Absolute (test code = Dundy Absolute) .48 x10 .00-1.20 Eos Absolute (test code = Eos Absolute) 0.31 x10 0.00-0.74 Baso Absolute (test code = Baso Absolute) 0.03 x10 0.00-0.21 IG [id number] 03:19:59* Test Item Value Reference Range Interpretation Comments IG (test code = IG) 0.3 % 0.0-5.0 IG Abs (test code = IG Abs) 0 x10 N URINALYSIS [id number] 20:39:00* Test Item Value Reference Range Interpretation Comments UA COLOR (test code = COLU) YELLOW YELLOW UA APPEARANCE (test code = APPU) Cloudy CLEAR A UA GLUCOSE DIPSTICK (test code = DGLUU) NEGATIVE mg/dL NEGATIVE UA BILIRUBIN DIPSTICK (test code = BILU) 0.5 (1+) mg/dL NEGATIVE A UA KETONE DIPSTICK (test code = KETU) TRACE mg/dL NEGATIVE A UA SPECIFIC GRAVITY (test code = SGU) 1.034 1.001-1.035 UA BLOOD DIPSTICK (test code = TISHA) >1.0 mg/dL NEGATIVE UA PH DIPSTICK (test code = ERIN) 5.5 5.0-8.0 UA PROTEIN DIPSTICK (test code = PROU) 50 (1+) mg/dL NEGATIVE A UA UROBILINIOGEN DIPSTICK (test code = URO) 6.0 (2+) mg/dL NEGATIVE A UA NITRITE DIPSTICK (test code = DOROTHY) NEGATIVE NEGATIVE UA LEUKOCYTE ESTERASE W REFLEX (test code = LEUUR) NEGATIVE Jose/uL NEGATIVE UA WBC (test code = WBCU) 0-5 per HPF 0-5 UA RBC (test code = RBCU) >200 #/HPF 0-5 UA EPITHELIAL CELLS (test code = EPIU) None seen per HPF FEW UA BACTERIA (test code = BACU) NONE SEEN #/HPF NONE UA MUCUS (test code = MUCU) FEW #/LPF FEW Urine Source? Clean CatchDRUGS OF ABUSE SCREEN [id number] 20:39:00* Test Item Value Reference Range Interpretation Comments [...] NEGATIVE <300 ng/mL Urine Source? Clean CatchURINALYSIS [id number] 20:38:00* Test Item Value Reference Range Interpretation Comments UA COLOR (test code = COLU) YELLOW YELLOW UA APPEARANCE (test code = APPU) Cloudy CLEAR A UA GLUCOSE DIPSTICK (test code = DGLUU) NEGATIVE mg/dL NEGATIVE UA BILIRUBIN DIPSTICK (test code = BILU) 0.5 (1+) mg/dL NEGATIVE A UA KETONE DIPSTICK (test code = KETU) TRACE mg/dL NEGATIVE A UA SPECIFIC GRAVITY (test code = SGU) 1.034 1.001-1.035 UA BLOOD DIPSTICK (test code = TISHA) >1.0 mg/dL NEGATIVE UA PH DIPSTICK (test code = ERIN) 5.5 5.0-8.0 UA PROTEIN DIPSTICK (test code = PROU) 50 (1+) mg/dL NEGATIVE A UA UROBILINIOGEN DIPSTICK (test code = URO) 6.0 (2+) mg/dL NEGATIVE A UA NITRITE DIPSTICK (test code = DOROTHY) NEGATIVE NEGATIVE UA LEUKOCYTE ESTERASE W REFLEX (test code = LEUUR) NEGATIVE Jose/uL NEGATIVE UA WBC (test code = WBCU) 0-5 per HPF 0-5 UA RBC (test code = RBCU) >200 #/HPF 0-5 UA EPITHELIAL CELLS (test code = EPIU) None seen per HPF FEW UA BACTERIA (test code = BACU) NONE SEEN #/HPF NONE UA MUCUS (test code = MUCU) FEW #/LPF FEW Urine Source? Clean CatchDRUGS OF ABUSE SCREEN [id number] 20:38:00* Test Item Value Reference Range Interpretation [...] <300 ng/mL Urine Source? Clean CatchBASIC METABOLIC [id number] 20:26:00* Test Item Value Reference Range Interpretation Comments SODIUM (test code = NA) 142 mmol/L 136-145 N POTASSIUM (test code = K) 3.7 mmol/L 3.5-5.1 N CHLORIDE (test code = CL) 107.0 mmol/L 98-107 N CARBON DIOXIDE (test code = CO2) 27.0 mmol/L 21-32 N ANION GAP (test code = GAP) 11.7 10-20 N GLUCOSE (test code = GLU) 89 mg/dL 74-106 N BLOOD UREA NITROGEN (test code = BUN) 13 mg/dL 7-18 N GLOMERULAR FILTRATION RATE (test code = GFR) > 60 mL/min >=60 Estimated GFR by using Modified MDRD formula.Chronic kidney disease is defined as either kidney damageor GFR <60 mL/min/1.73 m2 for >3 months. CREATININE (test code = CREAT) 0.70 mg/dL 0.7-1.3 N BUN/CREATININE RATIO (test code = BUN/CREA) 18.7 10-20 N CALCIUM (test code = CA) 9.5 mg/dL 8.5-10.1 N HEPATIC FUNCTION [id number] 20:26:00* Test Item Value Reference Range Interpretation Comments TOTAL PROTEIN (test code = PROT) 6.6 gram/dL 6.4-8.2 N ALBUMIN (test code = ALB) 3.7 g/dL 3.4-5.0 N GLOBULIN (test code = GLOB) 2.9 gram/dL 2.7-4.2 N ALBUMIN/GLOBULIN RATIO (test code = A/G) 1.3 0.75-1.50 N BILIRUBIN TOTAL (test code = BILT) 0.90 mg/dL 0.0-1.0 N BILIRUBIN DIRECT (test code = BILD) 0.26 mg/dL 0.0-0.20 H SGOT/AST (test code = AST) 44 IUnit/L 15-37 H SGPT/ALT (test code = ALT) 60 IUnit/L 12-78 N ALKALINE PHOSPHATASE TOTAL (test code = ALKP) 73 IUnit/L 45-117 N Note change in reference range due to change in reagent. [id number] 20:26:00* Test Item Value Reference Range Interpretation Comments ALCOHOL (test code = ALC) < 3 mg/dL 0.0-3.0 N -- INTERPRETIVE DATA NOTE: POSITIVE SCREENING RESULTS SHOULD BE CONSIDERED PRESUMPTIVE.WHEN COLLECTED FOR MEDICAL PURPOSES ONLY. SPECIMEN WILL NOTBE COLLECTED BY CHAIN OF CUSTODY.IF A CONFIRMATION OF POSITIVE RESULTS IS DESIRED, ACONFIRMATION TEST MUST BE REQUESTED BY THE PHYSICIAN AT ANADDITIONAL CHARGE TO THE PATIENT. URINALYSIS [id number] 20:23:00* Test Item Value Reference Range Interpretation Comments UA COLOR (test code = COLU) YELLOW YELLOW UA APPEARANCE (test code = APPU) Cloudy CLEAR A UA GLUCOSE DIPSTICK (test code = DGLUU) NEGATIVE mg/dL NEGATIVE UA BILIRUBIN DIPSTICK (test code = BILU) 0.5 (1+) mg/dL NEGATIVE A UA KETONE DIPSTICK (test code = KETU) TRACE mg/dL NEGATIVE A UA SPECIFIC GRAVITY (test code = SGU) 1.034 1.001-1.035 UA BLOOD DIPSTICK (test code = TISHA) >1.0 mg/dL NEGATIVE UA PH DIPSTICK (test code = ERIN) 5.5 5.0-8.0 UA PROTEIN DIPSTICK (test code = PROU) 50 (1+) mg/dL NEGATIVE A UA UROBILINIOGEN DIPSTICK (test code = URO) 6.0 (2+) mg/dL NEGATIVE A UA NITRITE DIPSTICK (test code = DOROTHY) NEGATIVE NEGATIVE UA LEUKOCYTE ESTERASE W REFLEX (test code = LEUUR) NEGATIVE Jose/uL NEGATIVE UA WBC (test code = WBCU) per HPF 0-5 UA RBC (test code = RBCU) per HPF 0-5 UA EPITHELIAL CELLS (test code = EPIU) per HPF Few UA BACTERIA (test code = BACU) per HPF NONE Urine Source? Clean CatchDRUGS OF ABUSE SCREEN [id number] 20:23:00* Test Item Value Reference Range Interpretation Comments [...] <300 ng/mL Urine Source? Clean CatchBASIC METABOLIC [id number] 20:18:00* Test Item Value Reference Range Interpretation Comments [...] code = CA) mg/dL 8.5-10.1 HEPATIC FUNCTION [id number] 20:18:00* Test Item Value Reference Range Interpretation Comments [...] TOTAL (test code = ALKP) IUnit/L 45-117 [id number] 20:18:00* Test Item Value Reference Range Interpretation Comments ALCOHOL (test code = ALC) mg/dL 0-3 CBC W/O [id number] 20:13:00* Test Item Value Reference Range Interpretation Comments WHITE BLOOD CELL (test code = WBC) 7.4 K/mm3 4.5-12.5 N RED BLOOD CELL (test code = RBC) 4.67 mill/mm3 4.0-5.8 N HEMOGLOBIN (test code = HGB) 14.5 gram/dL 13.0-17.5 N HEMATOCRIT (test code = HCT) 42.6 % 42.0-52.0 N MEAN CELL VOLUME (test code = MCV) 91.2 fL 80-98 N MEAN CELL HGB (test code = MCH) 31.0 picogram 27.0-33.0 N MEAN CELL HGB CONCETRATION (test code = MCHC) 34.0 gram/dL 33.0-36. 0 N RED CELL DISTRIBUTION WIDTH (test code = RDW) 13.2 % 11.6-16. 2 N PLATELET COUNT (test code = PLT) 280 K/mm3 150-450 N MEAN PLATELET VOLUME (test code = MPV) 9.5 fL 6.7-11.0 N CBC W/O [id number] 20:10:00* Test Item Value Reference Range Interpretation Comments WHITE BLOOD CELL (test code = WBC) K/mm3 4.5-12.5 RED BLOOD CELL (test code = RBC) mill/mm3 4.0-5.8 HEMOGLOBIN (test code = HGB) 14.5 gram/dL 13.0-17.5 N HEMATOCRIT (test code = HCT) 42.6 % 42.0-52.0 N MEAN CELL VOLUME (test code = MCV) fL 80-98 MEAN CELL HGB (test code = MCH) picogram 27.0-33.0 MEAN CELL HGB CONCETRATION (test code = MCHC) gram/dL 33.0-36. 0 RED CELL DISTRIBUTION WIDTH (test code = RDW) % 11.6-16. 2 PLATELET COUNT (test code = PLT) 280 K/mm3 150-450 N MEAN PLATELET VOLUME (test code = MPV) fL 6.7-11.0 RPR [id number] 15:45:35* Test Item Value Reference Range Interpretation Comments RPR Qual (test code = RPR Qual) Non-Reactive Non-Reactive Reactive Control (test code = Reactive Control) Reactive Weak Reactive Control (test code = Weak Reactive Control) Weak Reac tive Non-Reactive Control (test code = Non-Reactive Control) Non-Reactiv e Lot # (test code = Lot #) [id number] N Expiration Dt (test code = Expiration Dt) 02-24-21 N Lipid [id number] 07:30:39* Test Item Value Reference Range Interpretation Comments Cholesterol Total (test code = Cholesterol Total) 137 mg/dL N Low-risk level (desirable) - <200 mg/dlModerate-risk level (borderline) - 200-239 mg/dlHigh- risk level - ?240 mg/dl Triglycerides (test code = Triglycerides) 77 mg/dL N Normal - <150 mg/dlBorderline high - 150-199 mg/dlHigh - 200-499 mg/dlVery high - ?500 mg/dl HDL (test code = HDL) 46.60 mg/dL N Low-ri sk level (desirable) - ?60 mg/dlHigh-risk level (undesirable) - <40 mg/dl LDL (test code = LDL) 75 mg/dL N The eq uation being used in this calculation is LDL = (Chol - HDL) - (Trig / 5) VLDL (test code = VLDL) 15 mg/dL 5-40 The equation being used in this calculation is VLDL = Trig / 5 Chol/HDL (test code = Chol/HDL) 2.9 ratio <=5.0 LDL/HDL Ratio (test code = LDL/HDL Ratio) 3 N The equation being used in this calculation is LDL/HDL Ratio=LDL Calc/HDL Chol Thyroid Stimulating [id number] 07:30:39* Test Item Value Reference Range Interpretation Comments TSH (test code = TSH) 0.616 mcIU/mL 0.550-4.780 Hemoglobin [id number] 07:28:34* Test Item Value Reference Range Interpretation Comments Hemoglobin A1c (test code = Hemoglobin A1c) 4.5 % 4.0-5.8 Diabetic >=6.5 %Prediabetes 5.7-6.4 %Normal <5.7 % COVID 19 INHOUSE [id number] 11:10:00* Test Item Value Reference Range Interpretation Comments COVID 19 INHOUSE AG (test code = [id number]) NEGATIVE URINALYSIS [id number] 04:32:00* Test Item Value Reference Range Interpretation Comments UA COLOR (test code = COLU) YELLOW YELLOW UA APPEARANCE (test code = APPU) CLEAR CLEAR UA GLUCOSE DIPSTICK (test code = DGLUU) NEGATIVE mg/dL NEGATIVE UA BILIRUBIN DIPSTICK (test code = BILU) NEGATIVE mg/dL NEGATIVE UA KETONE DIPSTICK (test code = KETU) NEGATIVE mg/dL NEGATIVE UA SPECIFIC GRAVITY (test code = SGU) 1.015 1.001-1.035 UA BLOOD DIPSTICK (test code = TISHA) Negative mg/dL NEGATIVE UA PH DIPSTICK (test code = ERIN) 5.5 5.0-8.0 UA PROTEIN DIPSTICK (test code = PROU) 10 (Trace) mg/dL NEGATIVE A UA UROBILINIOGEN DIPSTICK [...] Urine Source? Clean CatchDRUGS OF ABUSE SCREEN [id number] 04:32:00* Test Item Value Reference Range Interpretation Comments URN COCAINE (test code = COCAURN) NEGATIVE <300 ng/mL URN CANNABINOIDS (test code = CANNABURN) NEGATIVE <50 ng/mL URN AMPHETAMINE (test code = AMPHETURN) NEGATIVE <1000 ng/mL URN BARBITURATE (test code = BARBITURN) NEGATIVE <200 ng/mL URN BENZODIAZEPINE (test code = BENZOURN) NEGATIVE <200 ng/mL URN OPIATES (test code = OPIATURN) POSITIVE <300 ng/mL A This test provides [...] fornon-medical purposes (e.g., employment testing, legaltesting). URN PHENCYCLIDINE (PCP) (test code = PHENCURN) NEGATIVE <25 ng/ mL URN METHADONE (test code = METHAURN) NEGATIVE <300 ng/mL Urine Source? Clean CatchURINALYSIS [id number] 04:30:00* Test Item Value Reference Range Interpretation Comments UA COLOR (test code = COLU) YELLOW YELLOW UA APPEARANCE (test code = APPU) CLEAR CLEAR UA GLUCOSE DIPSTICK (test code = DGLUU) NEGATIVE mg/dL NEGATIVE UA BILIRUBIN DIPSTICK (test code = BILU) NEGATIVE mg/dL NEGATIVE UA KETONE DIPSTICK (test code = KETU) NEGATIVE mg/dL NEGATIVE UA SPECIFIC GRAVITY (test code = SGU) 1.015 1.001-1.035 UA BLOOD DIPSTICK (test code = TISHA) Negative mg/dL NEGATIVE UA PH DIPSTICK (test code = ERIN) 5.5 5.0-8.0 UA PROTEIN DIPSTICK (test code = PROU) 10 (Trace) mg/dL NEGATIVE A UA UROBILINIOGEN DIPSTICK (test code = URO) Normal mg/dL NEGATIVE UA NITRITE DIPSTICK (test code = DOROTHY) NEGATIVE NEGATIVE UA LEUKOCYTE ESTERASE W REFLEX (test code = LEUUR) NEGATIVE Jose/uL NEGATIVE UA WBC (test code = WBCU) per HPF 0-5 UA RBC (test code = RBCU) per HPF 0-5 UA EPITHELIAL CELLS (test code = EPIU) per HPF Few UA BACTERIA (test code = BACU) per HPF NONE Urine Source? Clean CatchDRUGS OF ABUSE SCREEN [id number] 04:30:00* Test Item Value Reference Range Interpretation Comments URN COCAINE (test code = COCAURN) NEGATIVE <300 ng/mL URN CANNABINOIDS (test code = CANNABURN) NEGATIVE <50 ng/mL URN AMPHETAMINE (test code = AMPHETURN) NEGATIVE <1000 ng/mL URN BARBITURATE (test code = BARBITURN) NEGATIVE <200 ng/mL URN BENZODIAZEPINE (test code = BENZOURN) NEGATIVE <200 ng/mL URN OPIATES (test code = OPIATURN) POSITIVE <300 ng/mL A This test provides [...] fornon-medical purposes (e.g., employment testing, legaltesting). URN PHENCYCLIDINE (PCP) (test code = PHENCURN) NEGATIVE <25 ng/ mL URN METHADONE (test code = METHAURN) NEGATIVE <300 ng/mL Urine Source? Clean CatchURINALYSIS [id number] 03:58:00* Test Item Value Reference Range Interpretation Comments UA COLOR (test code = COLU) YELLOW YELLOW UA APPEARANCE (test code = APPU) CLEAR CLEAR UA GLUCOSE DIPSTICK (test code = DGLUU) NEGATIVE mg/dL NEGATIVE UA BILIRUBIN DIPSTICK (test code = BILU) NEGATIVE mg/dL NEGATIVE UA KETONE DIPSTICK (test code = KETU) NEGATIVE mg/dL NEGATIVE UA SPECIFIC GRAVITY (test code = SGU) 1.015 1.001-1.035 UA BLOOD DIPSTICK (test code = TISHA) Negative mg/dL NEGATIVE UA PH DIPSTICK (test code = ERIN) 5.5 5.0-8.0 UA PROTEIN DIPSTICK (test code = PROU) 10 (Trace) mg/dL NEGATIVE A UA UROBILINIOGEN DIPSTICK (test code = URO) Normal mg/dL NEGATIVE UA NITRITE DIPSTICK (test code = DOROTHY) NEGATIVE NEGATIVE UA LEUKOCYTE ESTERASE W REFLEX (test code = LEUUR) NEGATIVE Jose/uL NEGATIVE UA WBC (test code = WBCU) per HPF 0-5 UA RBC (test code = RBCU) per HPF 0-5 UA EPITHELIAL CELLS (test code = EPIU) per HPF Few UA BACTERIA (test code = BACU) per HPF NONE Urine Source? Clean CatchDRUGS OF ABUSE SCREEN [id number] 03:58:00* Test Item Value Reference Range Interpretation Comments [...] <300 ng/mL Urine Source? Clean CatchBASIC METABOLIC [id number] 23:16:00* Test Item Value Reference Range Interpretation Comments SODIUM (test code = NA) 139 mmol/L 136-145 N POTASSIUM (test code = K) 3.0 mmol/L 3.5-5.1 L CHLORIDE (test code = CL) 106.0 mmol/L 98-107 N CARBON DIOXIDE (test code = CO2) 26.0 mmol/L 21-32 N ANION GAP (test code = GAP) 10.0 10-20 N GLUCOSE (test code = GLU) 106 mg/dL 74-106 N BLOOD UREA NITROGEN (test code = BUN) 14 mg/dL 7-18 N GLOMERULAR FILTRATION RATE (test code = GFR) > 60 mL/min >=60 Estimated GFR by using Modified MDRD formula.Chronic kidney disease is defined as either kidney damageor GFR <60 mL/min/1.73 m2 for >3 months. CREATININE (test code = CREAT) 1.00 mg/dL 0.7-1.3 N BUN/CREATININE RATIO (test code = BUN/CREA) 14.3 10-20 N CALCIUM (test code = CA) 9.4 mg/dL 8.5-10.1 N HEPATIC FUNCTION [id number] 23:16:00* Test Item Value Reference Range Interpretation Comments TOTAL PROTEIN (test code = PROT) 6.9 gram/dL 6.4-8.2 N ALBUMIN (test code = ALB) 3.4 g/dL 3.4-5.0 N GLOBULIN (test code = GLOB) 3.5 gram/dL 2.7-4.2 N ALBUMIN/GLOBULIN RATIO (test code = A/G) 1.0 0.75-1.50 N BILIRUBIN TOTAL (test code = BILT) 0.50 mg/dL 0.0-1.0 N BILIRUBIN DIRECT (test code = BILD) 0.21 mg/dL 0.0-0.20 H SGOT/AST (test code = AST) 46 IUnit/L 15-37 H SGPT/ALT (test code = ALT) 40 IUnit/L 12-78 N ALKALINE PHOSPHATASE TOTAL (test code = ALKP) 73 IUnit/L 45-117 N Note change in reference range due to change in reagent. [id number] 23:16:00* Test Item Value Reference Range Interpretation Comments ACETAMINOPHEN (test code = ACET) < 10 mcg/mL 10-30 L A RANGE OF 10-30 mcg/mL IS A THERAPEUTIC RANGE. TOXIC CONCENTRATIONS: >150 mcg/mL AT 4 HOURS AFTER INGESTION >= 50 mcg/mL AT 12 HOURS AFTER INGESTION [id number] 23:16:00* Test Item Value Reference Range Interpretation Comments SALICYLATE (test code = KALLI) 5.8 mg/dL 2.8-20.0 N [id number] 23:16:00* Test Item Value Reference Range Interpretation Comments [...] ANADDITIONAL CHARGE TO THE PATIENT. BASIC METABOLIC [id number] 23:08:00* Test Item Value Reference Range Interpretation Comments SODIUM (test code = NA) 139 mmol/L 136-145 N POTASSIUM (test code = K) 3.0 mmol/L 3.5-5.1 L CHLORIDE (test code = CL) 106.0 mmol/L [...] code = CA) mg/dL 8.5-10.1 HEPATIC FUNCTION [id number] 23:08:00* Test Item Value Reference Range Interpretation Comments [...] TOTAL (test code = ALKP) IUnit/L 45-117 [id number] 23:08:00* Test Item Value Reference Range Interpretation Comments ACETAMINOPHEN (test code = ACET) mcg/mL 10-30 [id number] 23:08:00* Test Item Value Reference Range Interpretation Comments SALICYLATE (test code = KALLI) mg/dL 2.8-20.0 [id number] 23:08:00* Test Item Value Reference Range Interpretation Comments ALCOHOL (test code = ALC) mg/dL 0-3 CBC W/O [id number] 22:58:00* Test Item Value Reference Range Interpretation Comments WHITE BLOOD CELL (test code = WBC) 6.6 K/mm3 4.5-12.5 N RED BLOOD CELL (test code = RBC) 4.77 mill/mm3 4.0-5.8 N HEMOGLOBIN (test code = HGB) 14.9 gram/dL 13.0-17.5 N HEMATOCRIT (test code = HCT) 44.5 % 42.0-52.0 N MEAN CELL VOLUME (test code = MCV) 93.3 fL 80-98 N MEAN CELL HGB (test code = MCH) 31.2 picogram 27.0-33.0 N MEAN CELL HGB CONCETRATION (test code = MCHC) 33.5 gram/dL 33.0-36. 0 N RED CELL DISTRIBUTION WIDTH (test code = RDW) 13.0 % 11.6-16. 2 N PLATELET COUNT (test code = PLT) 188 K/mm3 150-450 N MEAN PLATELET VOLUME (test code = MPV) 9.4 fL 6.7-11.0 N CBC W/O [id number] 22:57:00* Test Item Value Reference Range Interpretation Comments WHITE BLOOD CELL (test code = WBC) K/mm3 4.5-12.5 RED BLOOD CELL (test code = RBC) mill/mm3 4.0-5.8 HEMOGLOBIN (test code = HGB) 14.9 gram/dL 13.0-17.5 N HEMATOCRIT (test code = HCT) 44.5 % 42.0-52.0 N MEAN CELL VOLUME (test code = MCV) fL 80-98 MEAN CELL HGB (test code = MCH) picogram 27.0-33.0 MEAN CELL HGB CONCETRATION (test code = MCHC) gram/dL 33.0-36. 0 RED CELL DISTRIBUTION WIDTH (test code = RDW) % 11.6-16. 2 PLATELET COUNT (test code = PLT) 188 K/mm3 150-450 N MEAN PLATELET VOLUME (test code = MPV) fL 6.7-11.0 CT BRAIN [id number] 16:15:00 [place] [address] Patient Name: GARCIA CARTWRIGHT MR #: [id number] : 1965 Age/Sex: 54/M Req #: [id number] Adm Physician: Ordered by: CHANTEL REYES NP Report #: [id number] Location: ER Room/Bed: Procedure: [id number] CT/CT BRAIN WO Exam Date: 10/08/19 Exam Time: 1550 REPORT STATUS: Signed History: Altered mental st atus Comparison studies: None Technique: Axial images were obtaine d from the brain and cervical spine. Coronal and sagittal images reconstructed from the axial data. Dose modulation, iterative reconstruction, and/or weight based adjustment of the mA/kV was utilized to reduce the radiation dose to as low as reasonably achievable. Intravenous contrast: None Findings: Head CT: Scalp/skull: No abnormalities. No fractures, blastic or lytic lesions. Brain sulci: Appropriate for age. Ventricles: Normal in si ze and configuration. No hydrocephalus. Extra-axial spaces: No masses. No fluid collections. Parenchyma: No abnormal densities. No masses, h emorrhage, acute or chronic cortical vascular insults. Sellar/suprasellar r egion: No abnormalities. Craniocervical junction: Patent foramen magnum. No C hiari one malformation. Cervical spine CT: Airway: Patent. Fractu res: None. Soft tissues: No gross abnormalities. Atlantoaxial articulatio n: Intact. Alignment: Straightening of the normal cervical lordosis. No scolio sis. Cervicomedullary junction: No abnormalities. Patent foramen magnum. Vertebrae: No infection or neoplasm. Degenerative changes: * Posteri or disc osteophyte complex and right uncovertebral hypertrophy results in ludwig re right neural foraminal stenosis at C4-C5 and C6-C7. * No high-grade spinal canal stenosis. IMPRESSION: Head CT: No acute abnormalities. Cervical spine CT: 1. No acute abnormalities. 2. Cannot adequately evalu ate for ligament, spinal cord and or vascular abnormalities. Preliminary report was given by Neuroradiology fellow Dr. Harrison at 4:20 PM on 10/08/2019. I have reviewed the images and agree with findings in the preliminary report. Signed by: Dr. Marci Rios M.D. on 10/08/2019 7:52 PM Dictated By: MARCI RIOS MD 1 952 Transcribed By: ORTIZ on 10/08/191951 COPY TO: CHANTEL REYES NP CT CERVICAL SPINE [id number] 16:15:00 [place] [address] Patient Name: GARCIA CARTWRIGHT MR #: [id number] : 1965 Age/Sex: 54/M Req #: [id number] Adm Physician: Ordered by: CHANTEL REYES NP Report #: [id number] Location: ER Room/Bed: Procedure: [id number] CT/CT CERVICAL SPINE WO Exam Date: 10/08/19 Exam Time: 1550 REPORT STATUS: Signed History: Altered mental status Comparison studies: None Technique: Axial images wer e obtained from the brain and cervical spine. Coronal and sagittal images mary nstructed from the axial data. Dose modulation, iterative reconstruction, and/ or weight based adjustment of the mA/kV was utilized to reduce the radiation dose to as low as reasonably achievable. Intravenous contrast: None Findings: Head CT: Scalp/skull: No abnormalities. No fractures, bl astic or lytic lesions. Brain sulci: Appropriate for age. Ventricles: Nor mal in size and configuration. No hydrocephalus. Extra-axial spaces: No masses. No fluid collections. Parenchyma: No abnormal densities. No masses, hemorrhage, acute or chronic cortical vascular insults. Sellar/supr asellar region: No abnormalities. Craniocervical junction: Patent foramen magn um. No Chiari one malformation. Cervical spine CT: Airway: Patent. Fractures: None. Soft tissues: No gross abnormalities. Atlantoaxial ar ticulation: Intact. Alignment: Straightening of the normal cervical lordosis. No scoliosis. Cervicomedullary junction: No abnormalities. Patent foramen magn um. Vertebrae: No infection or neoplasm. Degenerative changes: * Posterior disc osteophyte complex and right uncovertebral hypertrophy results in severe right neural foraminal stenosis at C4-C5 and C6-C7. * No high-grade spinal canal stenosis. IMPRESSION: Head CT: No acute abnormali ties. Cervical spine CT: 1. No acute abnormalities. 2. Cannot adequat ning evaluate for ligament, spinal cord and or vascular abnormalities. Pre liminary report was given by Neuroradiology fellow Dr. Harrison at 4:20 PM on 09/25. I have reviewed the images and agree with findings in the preliminary report. Signed by: Dr. Marci Rios M.D. on 10/08/2019 7:52 PM Di ctated By: MARCI RIOS MD 51 COPY TO: Sera REYES NP CHEST SINGLE (PORTABLE)2019-10-08 15:46:00 [place] [address] Patient Name: GARCIA CARTWRIGHT MR #: [id number] : 1965 Age/Sex: 54/M Req #: [id number] Adm Physician: Ordered by: CHANTEL REYES NP Report #: [id number] Location: ER Room/Bed: Procedure: [id number] DX/CHEST SINGLE (PORTABLE) Exam Date: 10/08/19 Exam Time: 1520 REPORT STATUS: Signed EXAMINATION: CHEST SINGLE (PORTABLE) INDICATION: Altered mental status COMPARIS ON: None FINDINGS: LINES/TUBES:None LUNGS:The lungs are well -inflated. No focal consolidation or pulmonary edema. PLEURA:No pleural eff usion or pneumothorax. MEDIASTINUM:The cardiomediastinal silhouette appears normal in size and shape. BONES/SOFT TISSUES:No acute osseous injury. ABDOMEN:No free air under the diaphragm. IMPRESSION: No focal pneumo santos or pulmonary edema. Signed by: Rowena Gil MD on 10/08/2019 3:47 PM Dictated By: ROWENA GIL MD 46 COPY TO: CHANTEL REYES NP URINALYSIS [id number] 19:24:00* Test Item Value Reference Range Interpretation [...] Urine Source? Clean CatchDRUGS OF ABUSE SCREEN [id number] 19:24:00* Test Item Value Reference Range Interpretation [...] NEGATIVE <300 ng/mL Urine Source? Clean CatchURINALYSIS [id number] 18:53:00* Test Item Value Reference Range Interpretation [...] Urine Source? Clean CatchDRUGS OF ABUSE SCREEN [id number] 18:53:00* Test Item Value Reference Range Interpretation [...] <300 ng/mL Urine Source? Clean CatchBASIC METABOLIC [id number] 14:49:00* Test Item Value Reference Range Interpretation [...] CA) 9.2 mg/dL 8.5-10.1 N HEPATIC FUNCTION [id number] 14:49:00* Test Item Value Reference Range Interpretation [...] reference range due to change in reagent. [id number] 14:49:00* Test Item Value Reference Range Interpretation [...] ANADDITIONAL CHARGE TO THE PATIENT. BASIC METABOLIC [id number] 14:36:00* Test Item Value Reference Range Interpretation [...] code = CA) mg/dL 8.5-10.1 HEPATIC FUNCTION [id number] 14:36:00* Test Item Value Reference Range Interpretation [...] TOTAL (test code = ALKP) IUnit/L 45-117 [id number] 14:36:00* Test Item Value Reference Range Interpretation Comments ALCOHOL (test code = ALC) mg/dL 0-3 CBC W/O [id number] 14:33:00* Test Item Value Reference Range Interpretation [...] MPV) 9.5 fL 6.7-11.0 N BASIC METABOLIC [id number] 04:02:00* Test Item Value Reference Range Interpretation [...] CA) 9.2 mg/dL 8.5-10.1 N HEPATIC FUNCTION [id number] 04:02:00* Test Item Value Reference Range Interpretation [...] reference range due to change in reagent. [id number] 04:02:00* Test Item Value Reference Range Interpretation Comments ACETAMINOPHEN (test code = ACET) < 10 mcg/mL 10-30 L A RANGE OF 10-30 mcg/mL IS A THERAPEUTIC RANGE. TOXIC CONCENTRATIONS: >150 mcg/mL AT 4 HOURS AFTER INGESTION >= 50 mcg/mL AT 12 HOURS AFTER INGESTION [id number] 04:02:00* Test Item Value Reference Range Interpretation Comments SALICYLATE (test code = KALLI) 6.5 mg/dL 2.8-20.0 N [id number] 04:02:00* Test Item Value Reference Range Interpretation [...] ANADDITIONAL CHARGE TO THE PATIENT. BASIC METABOLIC [id number] 03:48:00* Test Item Value Reference Range Interpretation [...] code = CA) mg/dL 8.5-10.1 HEPATIC FUNCTION [id number] 03:48:00* Test Item Value Reference Range Interpretation [...] TOTAL (test code = ALKP) IUnit/L 45-117 [id number] 03:48:00* Test Item Value Reference Range Interpretation Comments ACETAMINOPHEN (test code = ACET) mcg/mL 10-30 [id number] 03:48:00* Test Item Value Reference Range Interpretation Comments SALICYLATE (test code = KALLI) mg/dL 2.8-20.0 [id number] 03:48:00* Test Item Value Reference Range Interpretation Comments ALCOHOL (test code = ALC) mg/dL 0-3 CBC W/O [id number] 03:35:00* Test Item Value Reference Range Interpretation [...] 9.5 fL 6.7-11.0 N - CT MAXIFAC [id number] 21:29:00 Name: GARCIA CARTWRIGHT [facility] : 1965 Age/S: 54 / M Fabienne Moyer [facility] Unit #: [id number] Loc: [place] [address] Phys: Christina Alston MD Acct: [id number] Dis Date: Status: REG ER PHONE #: [phone] Exam Date: 09/03/20192107 FAX #: [phone] Reason: swelling, redness, discharge to right ear EXAMS: CPT CODE: [id number] CT MAXIFAC W/CONTRAST 62345 EXAM: - CT MAXIFAC W/CONTRAST HISTORY: swelling, [...] the left external auditory canal. The right maturity checker al auditory canal is grossly clear. Both [...] in the right-sided periauricular soft tissues. Location: [facility] PAGE 1 Signed Report (CONTINUED) Name: GARCIA CARTWRIGHT [facility] : 1965 Age/S: 54 / M [address] Unit #: [id number] Loc: [place] [address] Phys: Christina Alston MD Acct: [id number] Dis Date: Status: REG ER PHONE #: [phone] Exam Date: 09/03/20192107 FAX #: [phone] Reason: swelling, redness, discharge to right ear EXAMS: CPT CODE: [id number] CT MAXIFAC W/CONTRAST 01458 < Continued> at 2129 Reported and signed by: Calos Infante MD CC: Juanito Morales; Christina Alston MD Technologist:Bridget Brody RT(R); ALFONZO Jacob CTDI: DLP: Trnscb Date/Time: 09/03/2019 (2128) t.SDR.RR31 Orig Print D/T: S: 09/03/2019 (2131) PAGE 2 Signed Report BASIC METABOLIC [id number] 20:41:00* Test Item Value Reference Range Interpretation [...] CA) 9.9 mg/dL 8.5-10.1 N HEPATIC FUNCTION [id number] 20:41:00* Test Item Value Reference Range Interpretation [...] reference range due to change in reagent. [id number] 20:41:00* Test Item Value Reference Range Interpretation Comments LIPASE (test code = LIP) 35 U/L 73.0-393.0 L [id number]-[id number] 20:41:00* Test Item Value Reference Range Interpretation Comments TROPONIN-I (test code = TROPI) <0.015 ng/mL 0-0.045 N LACTIC [id number] 20:38:00* Test Item Value Reference Range Interpretation Comments LACTIC ACID (test code = LACT) 1.2 mmol/L 0.4-1.9 N BASIC METABOLIC [id number] 20:28:00* Test Item Value Reference Range Interpretation [...] code = CA) mg/dL 8.5-10.1 HEPATIC FUNCTION [id number] 20:28:00* Test Item Value Reference Range Interpretation [...] TOTAL (test code = ALKP) IUnit/L 45-117 VHGHEG5630-07-49 20:28:00* Test Item Value Reference Range Interpretation Comments LIPASE (test code = LIP) U/L 73.0-393.0 ULEEZQGD-K1946-72-08 20:28:00* Test Item Value Reference Range Interpretation Comments TROPONIN-I (test code = TROPI) ng/mL 0-0.045 CBC W/AUTO USUR9253-03-92 20:16:00* Test Item Value Reference Range Interpretation [...] = NRBC#) 0.00 K/mm3 0.0-0.1 N Magnesium Efgtx0385-84-82 13:56:00* Test Item Value Reference Range Interpretation Comments Magnesium Level (test code = 39015-5) 1.7 1.3-2.1 [facility] CenterCreatine Kinase [id number] 13:26:00* Test Item Value Reference Range Interpretation Comments Creatine Kinase MB (test code = 67036-4) 1.50 0-5.0 [facility] CenterTroponin [id number] 13:26:00* Test Item Value Reference Range Interpretation Comments Troponin I (test code = HZG0774) 0.001 0-0.300 [facility] Wqxdf0269-37-47 13:19:00* Test Item Value Reference Range Interpretation Comments Sodium Level (test code = 2951-2) 138 136-145 [facility] CenterPotassium Jdetm8860-88-53 13:19:00* Test Item Value Reference Range Interpretation Comments Potassium Level (test code = 2823-3) 3.7 3.5-5.1 [facility] CenterChloride Wlini3503-96-11 13:19:00* Test Item Value Reference Range Interpretation Comments Chloride Level (test code = 2075-0) 109 98-107 H [facility] CenterCarbon Dioxide Czccq1828-58-97 13:19:00* Test Item Value Reference Range Interpretation Comments Carbon Dioxide Level (test code = 2028-9) 23 22-29 [facility] CenterAnion Siu9767-08-13 13:19:00* Test Item Value Reference Range Interpretation Comments Anion Gap (test code = 09011-7) 9.7 8-16 [facility] CenterBlood Urea Aydsrwko0169-82-27 13:19:00* Test Item Value Reference Range Interpretation Comments Blood Urea Nitrogen (test code = 3094-0) 7 7-26 [facility] CenterCreatinine2020-03-11 13:19:00* Test Item Value Reference Range Interpretation Comments Creatinine (test code = 2160-0) 0.72 0.72-1.25 [facility] CenterBUN/Creatinine Lynuk1369-26-10 13:19:00* Test Item Value Reference Range Interpretation Comments BUN/Creatinine Ratio (test code = 3097-3) 10 6-25 [facility] CenterEstimat Glomerular Filtration Rate 2019-08-06 13:19:00* Test Item Value Reference Range Interpretation Comments Estimat Glomerular Filtration Rate (test code = 043945757) > 60 >60 Ranges were taken from the National Kidney Disease Education Program and the [facility] Kidney Foundation literature.Reference ranges:60 or greater: Gterco89-51 ( for 3 consecutive months): Chronic kidney disease 15 or less: Kidney failureMethodist Dallas Medical CenterGlucose Fchxw5491-28-86 13:19:00* Test Item Value Reference Range Interpretation Comments Glucose Level (test code = IRK9779) 96 74-118 [facility] CenterCalcium Jhira5739-45-21 13:19:00* Test Item Value Reference Range Interpretation Comments Calcium Level (test code = 57428-1) 9.0 8.4-10.2 [facility] CenterTotal Gnxneucvo3948-87-59 13:19:00* Test Item Value Reference Range Interpretation Comments Total Bilirubin (test code = 1975-2) 0.4 0.2-1.2 [facility] CenterAspartate Amino Transf (AST/SGOT) 2019-08-06 13:19:00* Test Item Value Reference Range Interpretation Comments Aspartate Amino Transf (AST/SGOT) (test code = Aspartate Amino Transf (AST/SGOT)) 32 5-34 [facility] CenterAlanine Aminotransferase (ALT/SGPT) 2019-08-06 13:19:00* Test Item Value Reference Range Interpretation Comments Alanine Aminotransferase (ALT/SGPT) (test code = 1742-6) 33 0-55 [facility] CenterTotal Nbxyhmb2718-48-01 13:19:00* Test Item Value Reference Range Interpretation Comments Total Protein (test code = 2885-2) 6.5 6.5-8.1 [facility] CenterAlbumin2020-03-11 13:19:00* Test Item Value Reference Range Interpretation Comments Albumin (test code = 1751-7) 3.5 3.5-5.0 [facility] CenterGlobulin2020-03-11 13:19:00* Test Item Value Reference Range Interpretation Comments Globulin (test code = 69366-1) 3.0 2.3-3.5 [facility] CenterAlbumin/Globulin Lcdrq1577-40-72 13:19:00 * Test Item Value Reference Range Interpretation Comments Albumin/Globulin Ratio (test code = 1759-0) 1.2 0.8-2.0 [facility] CenterAlkaline Jbdvvsfiabj0547-72-57 13:19:00* Test Item Value Reference Range Interpretation Comments Alkaline Phosphatase (test code = 6768-6) 65 40-150 [facility] CenterCreatine Hdpwsn9994-82-13 13:19:00* Test Item Value Reference Range Interpretation Comments Creatine Kinase (test code = 2157-6) 39 30-200 [facility] CenterCHEST 2 KSSUV8222-44-27 13:14:00 [facility] [address] [address] Patient Name: GARCIA CARTWRIGHT MR #: [id number] : 1965 Age/Sex: 54/M Req #: [id number] Adm Physician: Ordered by: TIA BUCK MD Report #: [id number] Location: ER Room/Bed: Procedure: [id number] DX/C HEST 2 VIEWS Exam Date: Exam [...] No acute thoracic radiographic abnormality. Signed by: Aydin Gutierrez MD on 08/06/2019 1: 15 PM Dictated By: AYDIN GUTIERREZ MD 14 Transcribed By: ORTIZ on 08/06/191314 COPY T O: TIA BUCK MD White Blood Beprd5257-96-34 13:00:00* Test Item Value Reference Range Interpretation Comments White Blood Count (test code = 6690-2) 6.63 4.8-10.8 [facility] CenterRed Blood Waudz3367-26-01 13:00:00* Test Item Value Reference Range Interpretation Comments Red Blood Count (test code = 789-8) 5.14 4.3-5.7 [facility] CenterHemoglobin2020-03-11 13:00:00* Test Item Value Reference Range Interpretation Comments Hemoglobin (test code = 47431-5) 16.0 14.0-18.0 [facility] CenterHematocrit2020-03-11 13:00:00* Test Item Value Reference Range Interpretation Comments Hematocrit (test code = 4544-3) 47.1 38.2-49.6 [facility] CenterMean Corpuscular Jovvif0229-56-11 13:00:00* Test Item Value Reference Range Interpretation Comments Mean Corpuscular Volume (test code = 787-2) 91.6 81-99 [facility] CenterMean Corpuscular Qbqphrpcbe8112-43-80 13:00:00* Test Item Value Reference Range Interpretation Comments Mean Corpuscular Hemoglobin (test code = 785-6) 31.1 28-32 [facility] CenterMean Corpuscular Hemoglobin Concent 2019-08-06 13:00:00* Test Item Value Reference Range Interpretation Comments Mean Corpuscular Hemoglobin Concent (test code = 786-4) 34.0 31-35 [facility] CenterRed Cell Distribution Yoldj4557-31-62 13:00:00* Test Item Value Reference Range Interpretation Comments Red Cell Distribution Width (test code = 78289-3) 13.2 11.7 -14.4 [facility] CenterPlatelet Wrtpv9453-80-15 13:00:00* Test Item Value Reference Range Interpretation Comments Platelet Count (test code = 777-3) 194 140-360 [facility] CenterNeutrophils (%) (Auto)2019-08-06 13:00:00 * Test Item Value Reference Range Interpretation Comments Neutrophils (%) (Auto) (test code = 65195-1) 64.9 38.7-80.0 [facility] CenterLymphocytes (%) (Auto)2019-08-06 13:00:00 * Test Item Value Reference Range Interpretation Comments Lymphocytes (%) (Auto) (test code = 736-9) 26.5 18.0-39.1 [facility] CenterMonocytes (%) (Auto)2019-08-06 13:00:00* Test Item Value Reference Range Interpretation Comments Monocytes (%) (Auto) (test code = 5905-5) 6.6 4.4-11.3 [facility] CenterEosinophils (%) (Auto)2019-08-06 13:00:00 * Test Item Value Reference Range Interpretation Comments Eosinophils (%) (Auto) (test code = 713-8) 1.4 0.0-6.0 [facility] CenterBasophils (%) (Auto)2019-08-06 13:00:00* Test Item Value Reference Range Interpretation Comments Basophils (%) (Auto) (test code = 706-2) 0.3 0.0-1.0 [facility] CenterIM GRANULOCYTES %2019-08-06 13:00:00* Test Item Value Reference Range Interpretation Comments IM GRANULOCYTES % (test code = IM GRANULOCYTES %) 0.3 0.0- 1.0 [facility] CenterNeutrophils # (Auto)2019-08-06 13:00:00* Test Item Value Reference Range Interpretation Comments Neutrophils # (Auto) (test code = 751-8) 4.3 2.1-6.9 [facility] CenterLymphocytes # (Auto)2019-08-06 13:00:00* Test Item Value Reference Range Interpretation Comments Lymphocytes # (Auto) (test code = 97908-3) 1.8 1.0-3.2 [facility] CenterMonocytes # (Auto)2019-08-06 13:00:00* Test Item Value Reference Range Interpretation Comments Monocytes # (Auto) (test code = 742-7) 0.4 0.2-0.8 [facility] CenterEosinophils # (Auto)2019-08-06 13:00:00* Test Item Value Reference Range Interpretation Comments Eosinophils # (Auto) (test code = 711-2) 0.1 0.0-0.4 [facility] CenterBasophils # (Auto)2019-08-06 13:00:00* Test Item Value Reference Range Interpretation Comments Basophils # (Auto) (test code = 704-7) 0.0 0.0-0.1 [facility] CenterAbsolute Immature Granulocyte (auto 2019-08-06 13:00:00* Test Item Value Reference Range Interpretation Comments Absolute Immature Granulocyte (auto (patrick t code = Absolute Immature Granulocyte (auto) 0.02 0-0.1 [facility]- XR PELVIS 1/2 QNORH4788-75-58 09:34:00 FAX: Alberto Mills MD [phone] [place]: St: REG FAX: Juanito Tellez [phone] Name: CARTWRIGHTGARCIA [facility] [place] : 1965 Age/S: 53/M [address] Unit #: [id number] Loc: [place] [address] Phys: Alberto Stone MD Acct: [id number] Dis Date: Status: REG RCR PHONE #: [phone] Exam Date: 06/03/2019921 FAX #: Reason: HIP PAIN EXAMS: CPT CODE: [id number] XR PELVIS 1/2 VIEWS 66882 HISTORY: LEFT HIP PAIN EXAM: AP pelvis [...] radiographic examination of the bony pelvis. Location: [facility] Electronically Signed by Calos Infante MD on 020 at 0934 Reported and signed by: Calos Infante MD CC: Alberto Stone MD; Juanito Morales gist: RT Meliton(R) Trnscrd Date/Time/B y: 06/03/2019 (933) : By: [email or web address] Orig Print D/T: S: 06/03/2019 ( 37) PAGE 1 Signed Report - XR HIP W/PEL UNI 2+V [id number] 09:34:00 FAX: Alberto Mills MD [phone] [place]: St: REG FAX: Juanito Tellez [phone] Name: GARCIA CARTWRIGHT [facility] [place] : 1965 Age/S: 53/M [address] [place] [address] Unit #: [id number] Loc: [place] [address] Phys: Alberto Stone MD Acct: [id number] Dis Date: Status: REG RCR PHONE #: [phone] Exam Date: 06/03/2019 09 FAX #: Reason: LEFT HIP PAIN EXAMS: CPT CODE: [id number] XR HIP W/PEL UNI 2+[place] [address] HISTORY: LEFT HIP PAIN EXAM: AP pelvis [...] radiographic examination of the bony pelvis. Location: [facility] Electronically Signed by Calos Infante MD on 020 at 0934 Reported and signed by: Calos Infante MD CC: Alberto Stone MD; Juanito Morales gist: RT Meliton(R) Rinscrd Date/Time/B y: 06/03/2019 (933) : By: [email or web address] Orig Print D/T: S: 06/03/2019 () PAGE 1 Signed Report - MRI JNT W/O CONT [id number] 14:57:00 FAX: Juanito Tellez [phone] [place]: St: REG Name: GARCIA DURAND [facility] : [birth year] Age/S: 53/M [address] [facility] Unit #: [id number] Loc: [place] [address] Phys: Juanito Morales DO Acct: [id number] Dis Date: Status: REG CLI PHONE #: [phone] Exam Date: 05/14/2019 1047 FAX #: [phone] Reason: M16.12,M25.552 EXAMS: CPT CODE: [id number] [place] JNT W/[place] [address] HISTORY: M16.12/M25.552. COMPARISON: X-ray from March 02, 2019. Location: [facility]. MRI left hip without contrast: No acute [...] Valentin M.D. CC: Juanito Morales Technologist: Jyoti THOMASRT - MRI Trnhird Date/Time/By: 04/27 (2386) : By: [email or web address] Orig Print D/T: S: 05/14/2019 (1637) PAGE 1 Signed Report RPR Vlipsyemflp7316-97-64 16:20:39* Test Item Value Reference Range Interpretation [...] = Expiration Dt) 10.31.20 N Thyroid Stimulating Ytvwgui3925-05-57 10:27:38* Test Item Value Reference Range Interpretation Comments TSH (test code = TSH) 1.880 mIU/mL 0.270-4.200 Lipid Yokmk6015-92-85 10:24:51* Test Item Value Reference Range Interpretation Comments Cholesterol Total (test code = Cholesterol Total) 136 mg/dL 0-20 0 RISK OF HEART DISEASEPublished by [employer] Association Analyte Optimal Borderline Increased RiskCHOL [...] calculation is LDL/HDL Ratio=LDL Calc/HDL Chol Alcohol Hokih7507-42-65 22:16:26* Test Item Value Reference Range Interpretation Comments Ethanol Level (test code = Ethanol Level) <0.00 g/dL 0.00-0.01 Intoxicated 0.080 g/dL or more Ethanol Inst (test code = Ethanol Inst) <0 N Comprehensive Metabolic Myhgs7195-84-89 22:16:25* Test Item Value Reference Range Interpretation [...] A/G Ratio) 1.5 ratio N Comprehensive Metabolic Adocj7238-23-95 22:16:25* Test Item Value Reference Range Interpretation [...] is not provided, and the patient is -Cymro, multiply by 1.212. If sex is not [...] the National Kidney Foundation, http://nkdep.nih.gov Comprehensive Metabolic Aonjj7587-09-44 22:16:25* Test Item Value Reference Range Interpretation [...] is not provided, and the patient is -Cymro, multiply by 1.212. If sex is not [...] is not provided, and the patient is -Cymro, multiply by 1.212. If sex is not [...] the National Kidney Foundation, http://nkdep.nih.gov Urine Drug Vpssdi2327-80-41 22:15:20* Test Item Value Reference Range Interpretation [...] a separate confirmatory test if desired. Automated Yyydcqfvuwpw1810-25-70 21:55:00* Test Item Value Reference Range Interpretation Comments Neutro Auto (test code = Neutro Auto) 59.9 % 36.0-70.0 Lymph Auto (test code = Lymph Auto) 28.1 % 12.0-44.0 Dundy Auto (test code = Dundy Auto) 7.1 % 0.0-11.0 Eos, Auto (test code = Eos, Auto) 4.1 % 0.0-7.0 Basophil Auto (test code = Basophil Auto) 0.4 % 0.0-2.0 Neutro Absolute (test code = Neutro Absolute) 4.0 x10 1.6-7.4 Lymph Absolute (test code = Lymph Absolute) 1.90 x10 .50-4.60 Dundy Absolute (test code = Dundy Absolute) .48 x10 .00-1.20 Eos Absolute (test code = Eos Absolute) 0.28 x10 0.00-0.74 Baso Absolute (test code = Baso Absolute) 0.03 x10 0.00-0.21 IG Ludpj7593-99-12 21:55:00* Test Item Value Reference Range Interpretation Comments IG (test code = IG) 0.4 % 0.0-5.0 IG Abs (test code = IG Abs) 0 x10 N Complete Blood Count with Besswnuegknb8229-40-23 21:54:59* Test Item Value Reference Range Interpretation [...] code = IPF) 0 % N URINALYSIS REMHXFVI7973-74-61 04:35:00* Test Item Value Reference Range Interpretation [...] Urine Source? Clean CatchDRUGS OF ABUSE SCREEN QX7001-51-49 04:35:00* Test Item Value Reference Range Interpretation [...] <300 ng/mL Urine Source? Clean CatchBASIC METABOLIC RQLLJ0336-76-33 03:28:00* Test Item Value Reference Range Interpretation [...] CA) 8.9 mg/dL 8.5-10.1 N HEPATIC FUNCTION IROCA3515-18-90 03:28:00* Test Item Value Reference Range Interpretation [...] reference range due to change in reagent. SOSLHBYSLFOOI3002-75-72 03:28:00* Test Item Value Reference Range Interpretation Comments ACETAMINOPHEN (test code = ACET) < 10 mcg/mL 10-30 L A RANGE OF 10-30 mcg/mL IS A THERAPEUTIC RANGE. TOXIC CONCENTRATIONS: >150 mcg/mL AT 4 HOURS AFTER INGESTION >= 50 mcg/mL AT 12 HOURS AFTER INGESTION XKCUSXSXIC2985-70-02 03:28:00* Test Item Value Reference Range Interpretation Comments SALICYLATE (test code = KALLI) 9.1 mg/dL 2.8-20.0 N [id number] 03:28:00* Test Item Value Reference Range Interpretation [...] ANADDITIONAL CHARGE TO THE PATIENT. BASIC METABOLIC KKAIH1297-63-35 03:13:00* Test Item Value Reference Range Interpretation [...] code = CA) mg/dL 8.5-10.1 HEPATIC FUNCTION IUUQK7673-19-27 03:13:00* Test Item Value Reference Range Interpretation [...] TOTAL (test code = ALKP) IUnit/L 45-117 WIGWXEVMYUTXD3931-55-62 03:13:00* Test Item Value Reference Range Interpretation Comments ACETAMINOPHEN (test code = ACET) mcg/mL 10-30 ULEXXOKTAA4741-30-39 03:13:00* Test Item Value Reference Range Interpretation Comments SALICYLATE (test code = KALLI) mg/dL 2.8-20.0 EXBVCQX8660-26-49 03:13:00* Test Item Value Reference Range Interpretation Comments ALCOHOL (test code = ALC) mg/dL 0-3 URINALYSIS BPQGFGXB0617-00-20 03:10:00* Test Item Value Reference Range Interpretation [...] Urine Source? Clean CatchDRUGS OF ABUSE SCREEN [id number] 03:10:00* Test Item Value Reference Range Interpretation [...] <300 ng/mL Urine Source? Clean CatchCBC W/O [id number] 03:03:00* Test Item Value Reference Range Interpretation [...] MPV) 9.2 fL 6.7-11.0 N BASIC METABOLIC TVIFW8889-64-73 10:40:00* Test Item Value Reference Range Interpretation [...] CA) 9.1 mg/dL 8.5-10.1 N HEPATIC FUNCTION [id number] 10:40:00* Test Item Value Reference Range Interpretation [...] reference range due to change in reagent. QGKDYBLNITLGI6526-47-83 10:40:00* Test Item Value Reference Range Interpretation Comments ACETAMINOPHEN (test code = ACET) < 10 mcg/mL 10-30 L A RANGE OF 10-30 mcg/mL IS A THERAPEUTIC RANGE. TOXIC CONCENTRATIONS: >150 mcg/mL AT 4 HOURS AFTER INGESTION >= 50 mcg/mL AT 12 HOURS AFTER INGESTION VQWNNQJGJI4354-88-40 10:40:00* Test Item Value Reference Range Interpretation Comments SALICYLATE (test code = KALLI) 7.9 mg/dL 2.8-20.0 N PNKZESM6127-68-98 10:40:00* Test Item Value Reference Range Interpretation [...] ANADDITIONAL CHARGE TO THE PATIENT. BASIC METABOLIC EYAIM3957-45-66 10:32:00* Test Item Value Reference Range Interpretation [...] code = CA) mg/dL 8.5-10.1 HEPATIC FUNCTION [id number] 10:32:00* Test Item Value Reference Range Interpretation [...] TOTAL (test code = ALKP) IUnit/L 45-117 MEDSOQLZEGTUI5611-73-58 10:32:00* Test Item Value Reference Range Interpretation Comments ACETAMINOPHEN (test code = ACET) mcg/mL 10-30 EMOQCNRHJE9391-29-83 10:32:00* Test Item Value Reference Range Interpretation Comments SALICYLATE (test code = KALLI) mg/dL 2.8-20.0 PQWWBKQ1405-82-90 10:32:00* Test Item Value Reference Range Interpretation Comments ALCOHOL (test code = ALC) mg/dL 0-3 CBC W/O SRRI7442-90-82 10:24:00* Test Item Value Reference Range Interpretation [...] = MPV) 9.3 fL 6.7-11.0 N URINALYSIS DOZQPNZM6846-58-48 10:09:00* Test Item Value Reference Range Interpretation [...] Urine Source? Clean CatchDRUGS OF ABUSE SCREEN QY7215-78-28 10:09:00* Test Item Value Reference Range Interpretation [...] NEGATIVE <300 ng/mL Urine Source? Clean CatchURINALYSIS KLRPENUR1676-80-02 09:50:00* Test Item Value Reference Range Interpretation [...] Urine Source? Clean CatchDRUGS OF ABUSE SCREEN IO0653-04-62 09:50:00* Test Item Value Reference Range Interpretation [...] Urine Source? Clean Catch- XR PELVIS 1/2 [id number] 08:55:00 FAX: John Dietrich [place]: St: REG Name: GARCIA DURAND [facility] : [birth year] Age/S: 53/M [address] [facility] Unit #: [id number] Loc: [place] [address] Phys: John Dietrich MD Acct: [id number] Dis Date: Status: REG ER PHONE #: [phone] Exam Date: 03/02/2019 0831 FAX #: [phone] Reason: pain EXAMS: CPT CODE: [id number] XR PELVIS 1/2 VIEWS 45321 EXAM: Pelvis, one view; INFORMATION: Pelvic pain and leg pain; FINDINGS: Normal shape and structure of the imaged bones; no evidence of fracture or disloc ation; no soft tissue abnormalities. IMPRESSION: No evidence of acute osseous trauma or other pathological changes. No ra diopaque foreign body. at 0855 Reported and signed by: Richi Cruz M.D. CC: John Dietrich MD [place] hnologist: Alfonzo Silverman RT(R) Trnscrd Date/T alissa/By: 03/02/2019 (0855) : By: BernardoGRW Orig Print D/T: S: 9 (3696) PAGE 1 Signed Report [id number] 13:47:00 RUN DATE: 03/08/18 [facility] PAGE 1 RUN TIME: 1347 Specimen Inqui ry RUN USER: INTERFACE PATIENT: GARCIA CARTWRIGHT ACCT #: [id number] LOC: [facility] U #: [id number] AGE/SX: 52/M ROOM: [facility] RE03/06/18REG DR: Avinash Mallory MD : 63 BED: A DIS: STATUS: ADM IN TLOC: SPEC #: [id number] RECD: 03/07/18 STATUS: PILLO REQ #: [id number] SARAH: 03/06/18- SUBM DR: Alexei Henning MD ENTERED: 03/07/18-1111 SP TYPE: STOMACH OTHR DR: Kleber Balbuena i, MD, Nkoli I MDORDERED: GROSS COPIES TO: Alexei Henning MD [address] [place] [address] Kleber Harmon MD [address] [place], [place] [id number] Glenda Russell MD [address] [place], [place] [address] PROCEDURES: GROSS (03/08/18-124 5) TISSUES: GASTRIC ULCER - BX CLINICAL HISTORY COLLECTION DATE: 03/06/18 INTENTIONAL INGESTION OF CLOROX FINAL DIAGNOSIS Gastric tissue, biopsy: REACTIVE GASTROPATHY NO AREAS OF MUCO KALLI EROSION/ULCERATION NO ACUTE INFLAMMATORY INFILTRATE PRESENT MN LD REACTIVE EPITHELIAL CHANGE PRESENT NEGATIVE FOR INTESTINAL METAPLASIA NEGATIVE FOR HELICOBACTER ORGANISMS NEGATIVE FOR MALIGNANCY RRB/sm D CONTINUED ON NEXT PAGE ----- -------RUN DATE: 03/08/18 [facility] PAGE 2 RUN TIME: 1347 Specimen Inquiry RUN USER: INTERFACE SPEC #: [id number] PATIENT: GARCIA CARTWRIGHT #[id number] (Continued) FINAL DIAGNOSIS (Continued) 70940, 29058 MACROSCOPIC The specimen is recei amanda in formalin, labeled with the patient's name, identified as "gastric", and consists of light eduardo-pink biopsy tissue measuring 0.3 cm in aggregate, submi tted for H E and Giemsa stains. GROSS PERFORMED AT [address] [address] (X) MICROSCOPIC MICROSCOPIC PERFORMED AT [facility] A ll of the stains, including any controls performed, stain appropriately. [facility] [address] [place] [address] (Y) PERFORMING SITE Diagnosis performed at: [facility], [address] [place] [address] Signed SIGNATURE ON FILE Tanner Gautam 03/08/18 1347 END OF REPORT [id number] 21:56:00* Test Item Value Reference Range Interpretation [...] ETOHU) <0.01 g/dL 0.00-0.01 N Comprehensive Metabolic Aamhw9264-30-35 21:56:00* Test Item Value Reference Range Interpretation [...] race is not provided, and the patient isAfrican-Cymro, multiply by 1.212. If sex is not [...] by the National Kidney Found ation,http://nkdep.nih.gov Urinalysis Dmjffikc8097-40-65 21:42:00* Test Item Value Reference Range Interpretation Comments Color (test code = COLOR) Yellow Yellow,Straw,Pl yellow N Clarity (test code = CLAR) Clear Clear N Specific Orrum (test code = SPGR) 1.005 1.001-1.035 N [...] code = MEXAM) Not indicated CBC with Dzghkqipbabq4364-75-04 21:35:00* Test Item Value Reference Range Interpretation [...] code = ALYMPH) 2.5 K/cumm 0.5-4.6 N Dundy Abs (test code = AMONO) 0.4 K/cumm 0.0-1.2 N Eos Abs (test code = AEOS) 0.24 K/cumm 0.00-0.74 N Baso Abs (test code = ABASO) 0.0 K/cumm 0.00-0.21 N
[2020-01-28 22:52] LABS: BILIRUBIN,URINE SMALL (NEGATIVE); CLARITY,URINE CLEAR (CLEAR); COLOR,URINE AMBER (YELLOW); KETONES,URINE NEGATIVE (NEGATIVE); LEUKOCYTE ESTERASE ,URINE NEGATIVE (NEGATIVE); NITRITE,URINE NEGATIVE (NEGATIVE); PROTEIN,URINE DIPSTICK TRACE (NEGATIVE); URINE UROBILINOGEN 1 mg/dL (0.2 - 1)
[2020-01-28 22:53] VITALS: BP 133/64
[2020-01-28 22:53] LABS: AMPHETAMINES SCREEN,URINE NEGATIVE (NEGATIVE); BENZODIAZEPINES SCREEN,URINE NEGATIVE (NEGATIVE); PHENCYCLIDINE SCREEN,URINE NEGATIVE (NEGATIVE)
[2020-01-28 22:58] LABS: BACTERIA,URINE FEW /HPF; EPITHELIAL CELLS,URINE FEW /LPF; MUCUS,URINE MANY (RARE); RBC,URINE 0-5 /HPF (0-5); WBC,URINE (MAN) 0-5 /HPF (0-5)
== END 2020-01-28 22:55 | disposition home or self-care (01) ==
LOC: ER 22:28
DX: R53.1 Weakness (principal); R19.7 Diarrhea, unspecified; I10 Essential (primary) hypertension; E78.5 Hyperlipidemia, unspecified; K21.9 Gastro-esophageal reflux disease without esophagitis; F20.0 Paranoid schizophrenia; F10.10 Alcohol abuse, uncomplicated; F17.210 Nicotine dependence, cigarettes, uncomplicated
CPT/HCPCS: 36415; 80053; 80307; 80320; 81001; 82550; 82553; 83690; 84484; 85025; 93005; 99283; J7030

== ENCOUNTER 2020-01-30 07:05 | Emergency (ER) | payer MEDICARE, OTHER ==
[~2020-01-30] VITALS: Ht 188 cm; Wt 108.9 kg
[2020-01-30 07:34] VITALS: BP 133/69
--- OUTSIDE RECORDS SUMMARY | 2020-01-30 07:57 | XMS REPORT | Continuity of Care Document ---
Author Author Limundo GARCIA Urrutia Organization [employer] Address Unknown Phone Unavailable Care Team Providers Care Ct Technologist Name Role Phone [employer] Unavailable Un available Problems Problem Status Onset Date Classification Date Reported Comments Source Pain in unspecified hand 02/06/2019 02/08/2019 [facility] Pain in left hip 02/05/2019 02/07/2019 [facility] Pain in right wrist 02/05/2019 02/07/2019 [facility] Low back pain 02/05/2019 02/07/2019 [facility] SHOULDER PAIN Active 02/05/2019 [facility] FALL Active 02/05/2019 [facility] M48.08 - "SPINAL STENOSIS, SACRAL AND SA Active 06/16/2016 [facility] [place] Medications Medication Details Route Status Patient Instructions Ordering Provider Order Date Source Acetaminophen 650 mg, Route: P O, Drug form: TAB, ONCE, Dosing Weight 97.727, kg, Priority: STAT, Start date: 02/06/19 4:43:00 CDT, Stop date: 02/06/19 4:43:00 CDT Inactive 02/06/2019 [facility] nt Ibuprofen 400 mg, Route: PO, O NCE, Dosing Weight 97.727, kg, Priority: STAT, Start date: 02/06/19 4:43:00 CDT, Stop date: 02/06/19 4:43:00 CDT Inactive 02/06/2019 [facility] Acetaminophen 325 MG / Hydrocodone Gerry trate 5 MG Oral Tablet [[place] 5/325] Notes: (Same as: [place] 325/5) Do not ex ceed 4gm/day of acetaminophen. Inactive 02/06/2019 [facility] Motrin 600 mg, 1 tab, Route: P O, Drug form: TAB, ONCE, Dosing Weight 97.273, kg, Priority: STAT, Start date: 02/05/19 16:54:00 CDT, Stop date: 02/05/19 16:54:00 CDT, 0 Inactive 02/05/2019 [facility] nter Tylenol 650 mg, 2 tab, Route: PO, Drug form: TAB, ONCE, Dosing Weight 97.273, kg, Priority: STAT, Start date: 02/05/19 16:54:00 CDT, Stop date: 02/05/19 16:54:00 CDT, 0 Inactive 02/05/2019 [facility] nter Allergies, Adverse Reactions, Alerts No Known [...] by telephone 02/05/2019 at 2030 hours 02/05/2019 [facility] Wrist complete DX EXAM: XR LEF T [...] by telephone 02/05/2019 at 2030 hours 02/05/2019 [facility] Spine lumbar 2 or 3 views DX [...] facet arthropathy of the lumbar spine. 02/05/2019 [facility] Shoulder series DX EXAM: XR RI GHT [...] tendinosis in the right rotator cuff. 02/05/2019 [facility] Femur series DX EXAM: XR LEFT HIP [...] most pronounced in the patellofemoral compartment. 02/05/2019 [facility] Hip 2/3 views uni w pelvis DX [...] most pronounced in the patellofemoral compartment. 02/05/2019 [facility] Knee wo contrast MRI Exam: MRI of [...] osteoarthritis involving the anterior compartment. 01/18/2017 [facility] [place] Spine lumbar wo contrast MRI L UMBAR [...] disc bulge with minimal posterior osteophytes and [id number] facet hypertrophy with ligamentum flavum thickening. This results in moderate canal stenosis with near CSF block. Minimal neural foraminal narrowing. L4-L5: Moderate disc bulge and facet hypertrophy with ligamentum flavum thickening. This results in severe canal stenosis with probable complete to near complete CSF block [id number] right greater than left neural foraminal narrowing [...] in disc herniati on T12-L1. 06/17/2016 [facility] [place] Spine lumbar wo contrast MRI M RI [...] Source Temperature Oral (F) 98.8 F 02/06/2019 [facility] Heart Rate 91 02/06/2019 [facility] Respitory Rate 18 02/06/2019 [facility] Systolic (mm Hg) 148 02/06/2019 [facility] Diastolic (mm Hg) 89 02/06/2019 [facility] Systolic (mm Hg) 163 02/06/2019 [facility] Diastolic (mm Hg) 77 02/06/2019 [facility] Heart Rate 70 02/06/2019 [facility] Respitory Rate 18 02/06/2019 [facility] Temperature Oral (F) 98.6 F 02/06/2019 [facility] Height 187.96 cm 02/06/2019 [facility] BMI Calculated 27.66 02/06/2019 [facility] Weight 97.727 02/06/2019 [facility] Temperature Oral (F) 97.8 F 02/06/2019 [facility] Heart Rate 66 02/06/2019 [facility] Respitory Rate 18 02/06/2019 [facility] Systolic (mm Hg) 152 02/06/2019 [facility] Diastolic (mm Hg) 69 02/06/2019 [facility] Systolic (mm Hg) 153 02/05/2019 [facility] Diastolic (mm Hg) 65 02/05/2019 [facility] Respitory Rate 20 02/05/2019 [facility] Heart Rate 64 02/05/2019 [facility] Systolic (mm Hg) 166 02/05/2019 [facility] Diastolic (mm Hg) 87 02/05/2019 [facility] Heart Rate 60 02/05/2019 [facility] Respitory Rate 18 02/05/2019 [facility] Temperature Oral (F) 97.9 F 02/05/2019 [facility] Height 187.96 cm 02/05/2019 [facility] BMI Calculated 27.53 02/05/2019 [facility] Weight 97.273 02/05/2019 [facility] Encounters Location Location Details Encounter Type Encounter Number Reason For Visit Attending Provider ADM Date DC Date Status Source [facility] [place] [facility] [id number] Aydin Almaraz 11/14/2013 11/15/2013 [facility] [place] [facility] [place] [facility] [id number] Casey Avila Jr 06/17/2016 06/18/2016 [facility] [place] [facility] [place] [facility] [id number] Juanito Morales 01/18/2017 01/19/2017 [facility] [place] [facility] [id number] Shyanne Dixon 02/05/2019 02/06/2019 [facility] [id number] Davy Faith 02/06/2019 02/06/2019 [facility] Procedures No Data Provided for This Section [...] to palpation over dors al wrist - [place] intact Motor: Thumb: Active flex/ext at MCP, [...] Minimal TTP over the dorsal wrist - [place] intact Motor: Thumb: Active flex/ext at MCP, [...] Oniel Holder MD PGY2 Orthopaedic Surgery MSO: [phone] Pager: [phone] 02/06/2019 [facility] Plan of Care No Data Provided for This Section Social History Social History Date Source Social History TypeResponse Smoking Status Never smoker; Exposure to Tobacco Smoke None; Cigarette Smoking Last 365 Days No; Reg Smoking Cessation Counseling No entered on: 02/05/19 02/05/2019 [facility] No data available for this section 01/19/2017 [facility] [place] Family History No Data Provided for This Section Advance Directives No Data Provided for This Section Functional Status No Data Provided for This Section
--- OUTSIDE RECORDS SUMMARY | 2020-01-30 07:58 | XMS REPORT | Continuity of Care Document ---
Author Author [facility] t Organization [facility] Address [address] [place] [address] Phone Unavailable Care Team Providers Care Assurance Services Manager Health Care Name Role Phone NO, PCP PCP Unavailable Leander Nice Attphys Unavailable Leander Nice Attphys Unavailable eSra Ahuja Attphys Unavailable Sera Ahuja Attphys Unavailable Luis Alberto BUCK Attphys Unavailable Denton Faith Attphys Michael Dixon Attphys Michael Morales Attphys Michael Avila Jr Attphys Gilbert Almaraz Attphys Leander Nice Admphys Unavailable Sera Ahuja Admphys Unavailable CARINA NICE M.D., CARINA Tabor M.D. Admphys Unavailable Payers Payer Name Policy Type Policy Number Effective Date Expiration Date S [facility] [id number] 2011 00:00 :00 [facility] Medicare A & B [id number] 1995 00:00:00 [facility] Problems Condition Name Condition Details Condition Category Status Onset Date Resolution Date Last Treatment Date Treating Clinician Comments Source SHOULDER PAIN SHOU LDER PAIN Active 02/05/2019 [facility] Diagnosis Active 2019-02-05 10:49:00 2019-02-05 2 2:52:00 [facility] Sean FALL FALL Active 02/05/2019 [facility] Diagnosis Active 2019-02-05 00:00:00 2019-02-12 22:15:00 [facility] M48.08 - "SPINAL STENOSIS, SACRAL AND SA M48.08 - "SPINAL STENOSIS, SACRAL AND SA Active 06/16/2016 [facility] Diagnosis Active 2016-06-16 00:01:00 2016-06-17 12:20:00 [facility] Problem Condition Active [facility] Pain in unspecified hand Pain in unspecified hand 02/06/2019 02/08/2019 [facility] Problem 2019-01 17:00:00 2019-02-08 21:07:18 2019-02-08 21:07:18 [facility] Pain in left hip Pain in left hip 02/05/2019 02/07/2019 [facility] Problem 2019-02-05 17:00:00 2019-01 22:24:43 2019-02-07 22:24:43 [facility] in right [facility] Pain in right wrist 02/05/2019 02/07/2019 [facility] Problem 2019-02-05 17 :00:00 2019-02-07 22:24:43 2019-02-07 22:24:43 [facility] mo Low back pain Low back pain 02/05/2019 02/07/2019 [facility] Problem 2019-02-05 17:00:00 2019-01 22:24:43 2019-02-07 22:24:43 [facility] Allergies, Adverse Reactions, Alerts Allergy Name Allergy Type Status Severity Reaction(s) Onset Date Inacti ve Date Treating Clinician Comments Source Mesoridazine Besylate DA Active U 2020-01-02 00:00:00 [facility] Haloperidol Lactate DA Active U 2020-01-02 00:00:00 [facility] perphenazine DA Active U 2020-01-02 00:00:00 [facility] haloperidol DA Active U 2020-01-02 00:00:00 [facility] divalproex sodium DA Active MO 2020-01-02 00:00:00 [facility] clozapine DA Active SV 2020-01-02 00:00:00 [facility] Mesoridazine Besylate DA Active U 2019-05-03 00:00:00 [facility] Haloperidol Lactate DA Active U 2019-05-03 00:00:00 [facility] perphenazine DA Active U 2019-05-03 00:00:00 [facility] haloperidol DA Active U 2019-05-03 00:00:00 [facility] divalproex sodium DA Active MO 2019-05-03 00:00:00 [facility] clozapine DA Active SV 2019-05-03 00:00:00 [facility] Mesoridazine Besylate DA Active U 2018-04-24 00:00:00 [facility] Haloperidol Lactate DA Active U 2018-04-24 00:00:00 [facility] perphenazine DA Active U 2018-04-24 00:00:00 [facility] haloperidol DA Active U 2018-04-24 00:00:00 [facility] divalproex sodium DA Active MO 2018-04-24 00:00:00 [facility] clozapine DA Active SV 2018-04-24 00:00:00 [facility] lorazepam DA Active U 2018-04-24 00:00:00 [facility] No Known Allergies DA Active U 2018-03-06 00:00:00 [facility] Mesoridazine Besylate DA Active U 2015-11-11 00:00:00 [facility] Haloperidol Lactate DA Active U 2015-11-11 00:00:00 [facility] lorazepam DA Active U 2015-11-11 00:00:00 [facility] perphenazine DA Active U 2015-11-11 00:00:00 [facility] haloperidol DA Active U 2015-11-11 00:00:00 [facility] divalproex sodium DA Active MO 2015-11-11 00:00:00 [facility] clozapine DA Active SV 2015-11-11 00:00:00 [facility] CYRANTYL DA Active SV 2011-05-08 00:00:00 [facility] NAVAINE DA Active MO 2011-05-08 00:00:00 [facility] Social History Social Habit Start Date Stop Date Quantity Comments Source Social History 2017-01-19 04:59:00 2017-01-19 04:59:00 [facility] Sex Assigned At 1965 00:00:00 1965 00[birth year]00:00 Male [facility] Smoking Status Start Date Stop Date Source Social History [facility] Medications Ordered Medication Name Filled Medication Name Start Date Stop Da te Current Medication? Ordering Clinician Indication Dosage Frequency Signature (SIG) Comments Components Source Acetaminophen 2019-02-06 09:43:00 No 650 mg, Route: PO, Drug form: TAB, ONCE, Dosing Weight 97.727, kg, Priority: STAT, Start date: 02/06/19 4:43:00 CDT, Stop date: 02/06/19 4:43:00 CDT [facility] Ibuprofen 2019-02-06 09:43:00 No 400 mg, Route: PO, ONCE, Dosing Weight 97.727, kg, Priority: STAT, Start date: 02/06/19 4:43:00 CDT, Stop date: 02/06/19 4:43:00 CDT [facility] Acetaminophen 325 MG / Hydrocodone Bitartrate 5 MG Oral Tabl et [[place] 5/325] 2019-02-06 03:48:00 No Notes: (Same as: [place] 325/5) Do not exceed 4gm/day of acetaminophen. [facility] nn Motrin 2019-02-05 21:54:00 No 600 mg, 1 tab, Route: PO, Drug form: TAB, ONCE, Dosing Weight 97.273, kg, Priority: STAT, Start date: 02/05/19 16:54:00 CDT, Stop date: 02/05/19 16:54:00 CDT, 0 [facility] Tylenol 2019-02-05 21:54:00 No 650 mg, 2 tab, Route: PO, Drug form: TAB, ONCE, Dosing Weight 97.273, kg, Priority: STAT, Start date: 02/05/19 16:54:00 CDT, Stop date: 02/05/19 16:54:00 CDT, 0 [facility] Acetaminophen/Hydrocodone Bitart ([place] 10MG-325MG*) 1 Ea TAB Acetaminophen/Hydrocodone Bitart ([place] 10MG-325MG*) 1 Ea TAB Ye s 1 Every 6 Hours for Pain [facility] Benztropine Mesylate (Cogentin) 1 Mg/1 Ml AMP Benztrop ine Mesylate (Cogentin) 1 Mg/1 Ml AMP Yes 2 Bedtime [facility] Hydrocodone Bit/Acetaminophen (Hydrocodon-Acetaminophe n 5-325) 1 Each TABLET Hydrocodone Bit/Acetaminophen (Hydrocodon-Acetaminophen 5-325) 1 Each TABLET Yes Four Times Daily [facility] Risperidone (Risperdal) 4 Mg TABLET Risperidone (Risperdal) 4 Mg TABL ET Yes 8 Bedtime [facility] Sertraline Hcl (Zoloft) 100 Mg TABLET Sertraline Hcl (Zoloft) 100 M g TABLET Yes 100 Bedtime [facility] Cogentin Cogentin 2016-07-18 00:00:00 No 2 Daily [facility] Diazepam (Valium) 10 Mg TABLET Diazepam (Valium) 10 Mg TABLET 2016-07-18 00:00:00 No 10 Daily [facility] [place] 2016-07-18 00:00:00 No 1200 Daily [facility] Risperdal Risperdal 2016-07-18 00:00:00 No 8 Daily [facility] Vital Signs Vital Name Observation Time Observation Value Comments Source Body Temperature 2020-01-28 22:53:00 98.1 [degF] [facility] Weight 2020-01-28 21:42:00 240 [lb_av] [facility] BMI (Body Mass Index) 2020-01-28 21:42:00 30.8 kg/m2 [facility] Temperature Oral (F) 2019-02-06 10:08:00 98.8 F [facility] Heart Rate 2019-02-06 10:08:00 [facility] Respitory Rate 2019-02-06 10:08:00 [facility] Systolic (mm Hg) 2019-02-06 10:08:00 [place] [facility] Diastolic (mm Hg) 2019-02-06 10:08:00 Mem o[facility] [place] Systolic (mm Hg) 2019-02-06 03:33:00 [place] [facility] Diastolic (mm Hg) 2019-02-06 03:33:00 [facility] Heart Rate 2019-02-06 03:33:00 [facility] Respitory Rate 2019-02-06 03:33:00 [facility] Temperature Oral (F) 2019-02-06 03:33:00 98.6 F [facility] Height 2019-02-06 03:33:00 187.96 cm [facility] BMI Calculated 2019-02-06 03:33:00 [facility] Weight 2019-02-06 03:33:00 [facility] Temperature Oral (F) 2019-02-06 00:12:00 97.8 F [facility] Heart Rate 2019-02-06 00:12:00 [facility] Respitory Rate 2019-02-06 00:12:00 [facility] Systolic (mm Hg) 2019-02-06 00:12:00 [place] [facility] Diastolic (mm Hg) 2019-02-06 00:12:00 Mem o[facility] Systolic (mm Hg) 2019-02-05 22:54:00 [place] [facility] Diastolic (mm Hg) 2019-02-05 22:54:00 Mem o[facility] Respitory Rate 2019-02-05 22:54:00 [facility] Heart Rate 2019-02-05 22:54:00 [facility] Systolic (mm Hg) 2019-02-05 21:12:00 [place] [facility] [place] Diastolic (mm Hg) 2019-02-05 21:12:00 Mem [facility] Heart Rate 2019-02-05 21:12:00 [facility] Respitory Rate 2019-02-05 21:12:00 [facility] Temperature Oral (F) 2019-02-05 21:12:00 97.9 F [facility] Height 2019-02-05 21:12:00 187.96 cm [facility] BMI Calculated 2019-02-05 21:12:00 [facility] Weight 2019-02-05 21:12:00 [facility] Procedures Procedure Date / Time Performed Performing Clinician Jennifer winkler Computed tomography of brain without radiopaque contrast 2019-09 00:00:00 [facility] Computed tomography of cervical spine without contrast 2019-09-26 3 00:00:00 [facility] X-ray of chest, two views 2019-08-06 00:00:00 TIA BUCK A CH [facility] Plan of Care Planned Activity Planned Date Details Comments Source Instructions Weakness (Generalized) [facility] Encounters Start Date/Time End Date/Time Encounter Type Admission Type [facility] Care Department Encounter ID Source 2020-01-04 05:22:00 Inpatient 1 Deborah Nice Lawrence [facility] [id number] [facility] 2020-01-28 22:28:00 2020-01-28 22:55:00 Departed Emergency Room [facility] [id number] [facility] dical [place] 2020-01-28 01:34:00 2020-01-28 08:44:00 Emergency 1 Carlos Menon Mike [facility] [id number] [facility] 2020-01-04 05:22:00 2020-01-06 13:12:00 Inpatient 1 Carina Mejia [facility] PSY [id number] [facility] 2019-10-08 14:26:00 2019-10-09 00:10:00 Departed Emergency Room 1 [facility] [id number] [facility] 2019-08-06 12:18:00 2019-08-06 15:44:00 Departed Emergency Room 1 [place] [facility] [id number] [facility] 2019-02-05 22:30:38 2019-02-06 05:25:00 Outpatient Davy Faith [facility] [id number] 2019-02-05 22:30:00 2019-02-05 22:30:00 [facility] [id number] [facility] 2019-02-05 16:09:25 2019-02-05 19:14:00 Outpatient Demetrio Dixon [facility] [id number] 2019-02-05 16:09:00 2019-02-05 16:09:00 [facility] [id number] [facility] 2017-01-18 13:13:00 2017-01-18 23:59:00 Outpatient Juanito Stubbs [facility] [id number] 2016-06-17 12:10:00 2016-06-17 23:59:00 Outpatient Casey Reina [facility] [id number] 2013-11-14 10:30:00 2013-11-14 23:59:00 Outpatient Aydin Almaraz [facility] [id number] Results Test Description Test Time Test Comments Results Result Comments Source Urine color determination 2020-01-28 22:35:00 Test Item Urine Color (test code = 5778-6) MARCOS YELLOW [facility] [id number] 22:35:00* Test Item Value Reference Range Interpretation Comments Urine Clarity (test code = 93932-9) CLEAR [facility]AR [facility] by Test strip 2020-01-28 22:35:00* Test Item Value Reference Range Interpretation Comments Urine Specific Pass Christian (test code = 5811-5) 1.030 1.010-1.02 5 [facility] pH measurement by automated test [id number] 22:35:00* Test Item Value Reference Range Interpretation Comments Urine pH (test code = 71513-6) 5.5 5-7 [facility] leukocyte esterase detection by [id number] 22:35:00* Test Item Value Reference Range Interpretation Comments Urine Leukocyte Esterase (test code = 5799-2) NEGATIVE NEGATIVE [facility] nitrite [id number] 22:35:00* Test Item Value Reference Range Interpretation Comments Urine Nitrite (test code = 23016-9) NEGATIVE NEGATIVE [facility] protein measurement by test strip (mass/volume)2020-01-28 22:35:00* Test Item Value Reference Range Interpretation Comments Urine Protein (test code = 5804-0) TRACE NEGATIVE [facility] glucose [id number] 22:35:00* Test Item Value Reference Range Interpretation Comments Urine Glucose (UA) (test code = 2349-9) NEGATIVE NEGATIVE [facility] Center[facility] ketones detection by automated test [id number] 22:35:00* Test Item Value Reference Range Interpretation Comments Urine Ketones (test code = 81778-5) NEGATIVE NEGATIVE [facility] Center[facility] opiates screening [id number] 22:35:00* Test Item Value Reference Range Interpretation Comments Urine Opiates Screen (test code = 95944-6) POSITIVE NEGATIVE This test provides only a screen. Positive results should be repeated by a confi rmatory test.[facility] Center[facility] screen, urine 2020-01-28 22:35:00* Test Item Value Reference Range Interpretation Comments Urine Barbiturates Screen (test code = 176871667) NEGATIVE NEGA TIVE [facility] Center[facility] phencyclidine detection by screening [id number] 22:35:00* Test Item Value Reference Range Interpretation Comments Urine Phencyclidine Screen (test code = 57676-6) NEGATIVE NEGAT DELON [facility] CenterU[facility] amphetamines detection by screen method > 1000 [id number] 22:35:00* Test Item Value Reference Range Interpretation Comments Urine Amphetamines Screen (test code = 41556-5) NEGATIVE NEGATI VE [facility] CenterFluoroscopic procedure less than one hour [id number] 22:35:00* Test Item Value Reference Range Interpretation Comments Urine Methamphetamines Screen (test code = Urine Metha mphetamines Screen) NEGATIVE NEGATIVE [facility] Center[facility] benzodiazepines detection by screening [id number] 22:35:00* Test Item Value Reference Range Interpretation Comments Urine Benzodiazepines Screen (test code = 27902-9) NEGATIVE NEG ATIVE [facility] Center[facility] cocaine measurement (mass/volume) 2020-01-28 22:35:00* Test Item Value Reference Range Interpretation Comments Urine Cocaine Screen (test code = 3398-5) NEGATIVE NEGATIVE [facility] CenterUrine cannabinoids detection by screening [id number] 22:35:00* Test Item Value Reference Range Interpretation Comments Urine Cannabinoids Screen (test code = 81287-0) NEGATIVE NEGATI VE THESE RESULTS ARE FOR MEDICAL TREATMENT ONLYTHIS REPORT CONTAINS UNCONFIR MED SCREENING RESULTS*POSITIVE RESULTS WILL BE CONFIRMED BY REFERENCE LAB UPON R EQUEST CUT-OFFDRUG CLASS CONCENTRATION ng/mLAmphetamines 1000Methamphetamines 1000Cocaine 300Opiate 300Phencyc lidine 25Cannabinoid 50Barbiturates 300Benzodiazepine 300Methadone 300[facility] CenterUrine methadone [id number] 22:35:00* Test Item Value Reference Range Interpretation Comments Urine Methadone Screen (test code = 45100-0) NEGATIVE NEGATIVE THESE RESULTS ARE FOR MEDICAL TREATMENT ONLYTHIS REPORT CONTAINS UNCONFIR MED SCREENING RESULTS*POSITIVE RESULTS WILL BE CONFIRMED BY REFERENCE LAB UPON R EQUEST CUT-OFFDRUG CLASS CONCENTRATION ng/mLAmphetamines 1000Methamphetamines 1000Cocaine Metabolite 300Opiate 300Phencyc lidine 25Cannabinoid 50Barbiturates 300Benzodiazepine 300Methadone 300[facility] CenterUrine urobilinogen measurement by test strip (mass/volume)2020-01-28 22:35:00* Test Item Value Reference Range Interpretation Comments Urine Urobilinogen (test code = 64962-4) 1 0.2-1 [facility] Center[facility] total bilirubin measurement (mass/volume)2020-01-28 22:35:00* Test Item Value Reference Range Interpretation Comments Urine Bilirubin (test code = 1978-6) SMALL NEGATIVE [facility] CenterUrine erythrocytes [id number] 22:35:00* Test Item Value Reference Range Interpretation Comments Urine Blood (test code = 39256-4) NEGATIVE NEGATIVE [facility] CenterBlood leukocytes automated count (number/volume)2020-01-28 21:45:00* Test Item Value Reference Range Interpretation Comments White Blood Count (test code = 6690-2) 9.20 4.8-10.8 [facility] CenterBlood erythrocytes automated count (number/volume)2020-01-28 21:45:00* Test Item Value Reference Range Interpretation Comments Red Blood Count (test code = 789-8) 4.60 4.3-5.7 [facility] CenterBlood hemoglobin measurement (moles/volume)2020-01-28 21:45:00* Test Item Value Reference Range Interpretation Comments Hemoglobin (test code = 10622-1) 13.9 14.0-18.0 [facility] CenterAutomated blood hematocrit (volume fraction)2020-01-28 21:45:00* Test Item Value Reference Range Interpretation Comments Hematocrit (test code = 4544-3) 41.6 38.2-49.6 [facility] CenterAutomated erythrocyte mean corpuscular [id number] 21:45:00* Test Item Value Reference Range Interpretation Comments Mean Corpuscular Volume (test code = 787-2) 90.4 81-99 [facility] CenterAutomated erythrocyte mean corpuscular hemoglobin (mass per erythrocyte)2020-01-28 21:45:00* Test Item Value Reference Range Interpretation Comments Mean Corpuscular Hemoglobin (test code = 785-6) 30.2 28-32 [facility] CenterAutomated erythrocyte mean corpuscular hemoglobin concentration measurement (mass/volume)2020-01-28 21:45:00* Test Item Value Reference Range Interpretation Comments Mean Corpuscular Hemoglobin Concent (test code = 786-4) 33.4 31-35 [facility] CenterRDW PuxNw-[id number] 21:45:00* Test Item Value Reference Range Interpretation Comments Red Cell Distribution Width (test code = 05303-9) 13.8 11.7 -14.4 [facility] CenterAutomated blood platelet count (count/volume)2020-01-28 21:45:00* Test Item Value Reference Range Interpretation Comments Platelet Count (test code = 777-3) 257 140-360 [facility] CenterAutomated blood segmented neutrophil count as percentage of total dnxcfgozvd3530-86-22 21:45:00* Test Item Value Reference Range Interpretation Comments Neutrophils (%) (Auto) (test code = 04720-1) 61.6 38.7-80.0 [facility] CenterAutomated blood lymphocyte count as percentage ot total gijbjyngwq1557-33-03 21:45:00* Test Item Value Reference Range Interpretation Comments Lymphocytes (%) (Auto) (test code = 736-9) 27.6 18.0-39.1 [facility] CenterAutomated blood monocyte count as percentage of total irrvsakmer9883-28-93 21:45:00* Test Item Value Reference Range Interpretation Comments Monocytes (%) (Auto) (test code = 5905-5) 7.9 4.4-11.3 [facility] CenterAutomated blood eosinophil count as percentage of total mjpagjaoyd4373-26-42 21:45:00* Test Item Value Reference Range Interpretation Comments Eosinophils (%) (Auto) (test code = 713-8) 2.3 0.0-6.0 [facility] CenterAutomated blood basophil count as percentage of total gkfvyjwsgm3449-95-42 21:45:00* Test Item Value Reference Range Interpretation Comments Basophils (%) (Auto) (test code = 706-2) 0.3 0.0-1.0 [facility] CenterFluoroscopic procedure less than one hour [id number] 21:45:00* Test Item Value Reference Range Interpretation Comments IM GRANULOCYTES % (test code = IM GRANULOCYTES %) 0.3 0.0- 1.0 [facility] CenterAutomated blood neutrophil count 2020-01-28 21:45:00* Test Item Value Reference Range Interpretation Comments Neutrophils # (Auto) (test code = 751-8) 5.7 2.1-6.9 [facility] CenterBlood lymphocytes count (number/volume) 2020-01-28 21:45:00* Test Item Value Reference Range Interpretation Comments Lymphocytes # (Auto) (test code = 45527-5) 2.5 1.0-3.2 [facility] CenterBlood monocytes automated count (number/volume)2020-01-28 21:45:00* Test Item Value Reference Range Interpretation Comments Monocytes # (Auto) (test code = 742-7) 0.7 0.2-0.8 [facility] CenterAutomated blood eosinophil count 2020-01-28 21:45:00* Test Item Value Reference Range Interpretation Comments Eosinophils # (Auto) (test code = 711-2) 0.2 0.0-0.4 [facility] CenterAutomated blood basophil count (count/volume)2020-01-28 21:45:00* Test Item Value Reference Range Interpretation Comments Basophils # (Auto) (test code = 704-7) 0.0 0.0-0.1 [facility] CenterFluoroscopic procedure less than one hour [id number] 21:45:00* Test Item Value Reference Range Interpretation Comments Absolute Immature Granulocyte (auto (patrick t code = Absolute Immature Granulocyte (auto) 0.03 0-0.1 [facility] Centererum or plasma sodium measurement (moles/volume)2020-01-28 21:45:00* Test Item Value Reference Range Interpretation Comments Sodium Level (test code = 2951-2) 143 136-145 [facility] Centererum or plasma potassium measurement (moles/volume)2020-01-28 21:45:00* Test Item Value Reference Range Interpretation Comments Potassium Level (test code = 2823-3) 3.2 3.5-5.1 [facility] Centererum or plasma chloride measurement (moles/volume)2020-01-28 21:45:00* Test Item Value Reference Range Interpretation Comments Chloride Level (test code = 2075-0) 104 98-107 [facility] Centererum or plasma carbon dioxide, total measurement (moles/volume)2020-01-28 21:45:00* Test Item Value Reference Range Interpretation Comments Carbon Dioxide Level (test code = 2028-9) 26 22-29 [facility] Centererum or plasma anion [id number] 21:45:00* Test Item Value Reference Range Interpretation Comments Anion Gap (test code = 73277-9) 16.2 8-16 [facility] Centererum or plasma urea nitrogen measurement (mass/volume)2020-01-28 21:45:00* Test Item Value Reference Range Interpretation Comments Blood Urea Nitrogen (test code = 3094-0) 12 7-26 [facility] Centererum or plasma creatinine measurement (mass/volume)2020-01-28 21:45:00* Test Item Value Reference Range Interpretation Comments Creatinine (test code = 2160-0) 0.81 0.72-1.25 [facility] Centererum or plasma urea nitrogen/creatinine mass [id number] 21:45:00* Test Item Value Reference Range Interpretation Comments BUN/Creatinine Ratio (test code = 3097-3) 15 6- [facility] CenterEstimated glomerular filtration rate (GFR) suqhjohtornoj4241-59-63 21:45:00* Test Item Value Reference Range Interpretation Comments Estimat Glomerular Filtration Rate (test code = 028445664) > 60 >60 Ranges were taken from the National Kidney Disease Education Program and the Critical access hospital [employer] literature.Reference ranges:60 or greater: Lxgjrh25-70 ( for 3 consecutive months): Chronic kidney disease 15 or less: Kidney failureCarl [facility]. [facility]arnall [facility] Medical CenterGlucose dricnhcxbqd4580-52-85 21:45:00* Test Item Value Reference Range Interpretation Comments Glucose Level (test code = CWK2180) 103 74-118 [facility] Centererum or plasma calcium measurement (mass/volume)2020-01-28 21:45:00* Test Item Value Reference Range Interpretation Comments Calcium Level (test code = 97244-2) 9.8 8.4-10.2 [facility] Centererum or plasma total bilirubin measurement (mass/volume)2020-01-28 21:45:00* Test Item Value Reference Range Interpretation Comments Total Bilirubin (test code = 1975-2) 0.6 0.2-1.2 [facility] CenterFluoroscopic procedure less than one hour qmtkscnb7452-49-39 21:45:00* Test Item Value Reference Range Interpretation Comments Aspartate Amino Transf (AST/SGOT) (test code = Aspartate Amino Transf (AST/SGOT)) 31 5-34 [facility] Centererum or plasma alanine aminotransferase measurement (enzymatic activity/volume)2020-01-28 21:45:00* Test Item Value Reference Range Interpretation Comments Alanine Aminotransferase (ALT/SGPT) (test code = 1742-6) 32 0-55 [facility] Centererum or plasma protein measurement (mass/volume)2020-01-28 21:45:00* Test Item Value Reference Range Interpretation Comments Total Protein (test code = 2885-2) 7.0 6.5-8.1 [facility] Centererum or plasma albumin measurement (mass/volume)2020-01-28 21:45:00* Test Item Value Reference Range Interpretation Comments Albumin (test code = 1751-7) 4.4 3.5-5.0 [facility] CenterPlasma globulin measurement (mass/volume) 2020-01-28 21:45:00* Test Item Value Reference Range Interpretation Comments Globulin (test code = 88456-0) 2.6 2.3-3.5 [facility] Centererum or plasma albumin/globulin mass nseeh2918-61-84 21:45:00* Test Item Value Reference Range Interpretation Comments Albumin/Globulin Ratio (test code = 1759-0) 1.7 0.8-2.0 [facility] Centererum or plasma alkaline phosphatase measurement (enzymatic activity/volume)2020-01-28 21:45:00* Test Item Value Reference Range Interpretation Comments Alkaline Phosphatase (test code = 6768-6) 68 40-150 [facility] Centererum or plasma creatine kinase measurement (enzymatic activity/volume)2020-01-28 21:45:00* Test Item Value Reference Range Interpretation Comments Creatine Kinase (test code = 2157-6) 137 30-200 [facility] Centererum or plasma creatine kinase MB measurement (mass/volume)2020-01-28 21:45:00* Test Item Value Reference Range Interpretation Comments Creatine Kinase MB (test code = 09204-4) 3.30 0-5.0 [facility] CenterTroponin I measurement by highly sensitive enzyme xbvplenteao1301-73-84 21:45:00* Test Item Value Reference Range Interpretation Comments Troponin I (test code = 56847-8) 0.008 0-0.300 [facility] Centererum or plasma lipase measurement (enzymatic activity/volume)2020-01-28 21:45:00* Test Item Value Reference Range Interpretation Comments Lipase (test code = 3040-3) 10 8-78 [facility] Centererum or plasma ethanol measurement (mass/volume)2020-01-28 21:45:00* Test Item Value Reference Range Interpretation Comments Ethyl Alcohol Level (test code = 5643-2) < 10.0 0.0-10.0 [facility] CenterUrine DOA 24441-35-76 03:35:44* Test Item Value Reference Range Interpretation Comments [...] within 7 days. Urinalysis with Culture, if aguncnare7155-64-11 03:32:44* Test Item Value Reference Range Interpretation [...] Ind?) Not Indicated Not Indicat ed Alcohol Mfvma8388-70-01 03:20:56* Test Item Value Reference Range Interpretation Comments Ethanol Level (test code = Ethanol Level) 74.1 mg/dL N The pharmacological response to blood alcohol levels may vary from individual to individual. The fatal concentration has been reported to be >400 mg/dl. Comprehensive Metabolic Uaddt1811-31-88 03:20:55* Test Item Value Reference Range Interpretation [...] Lipemia) 0 g/dL 1-2 H Comprehensive Metabolic Slxxt5539-35-38 03:20:55* Test Item Value Reference Range Interpretation [...] is not provided, and the patient is -[place], multiply by 1.212. If sex is not [...] Lipemia) 0 g/dL 1-2 H Comprehensive Metabolic Snajg2767-01-85 03:20:55* Test Item Value Reference Range Interpretation [...] is not provided, and the patient is -[place], multiply by 1.212. If sex is not [...] is not provided, and the patient is -[place], multiply by 1.212. If sex is not [...] g/dL 1-2 H Complete Blood Count with Nnrfajoakjct0632-49-90 03:19:59* Test Item Value Reference Range Interpretation [...] = NRBC Abs) 0.00 x10 N Automated Xnugpccyazci0533-64-23 03:19:59* Test Item Value Reference Range Interpretation Comments Neutro Auto (test code = Neutro Auto) 57.9 % 36.0-70.0 Lymph Auto (test code = Lymph Auto) 32.4 % 12.0-44.0 [place] Auto (test code = [place] Auto) 5.5 % 0.0-11.0 Eos, Auto (test code = Eos, Auto) 3.6 % 0.0-7.0 Basophil Auto (test code = Basophil Auto) 0.3 % 0.0-2.0 Neutro Absolute (test code = Neutro Absolute) 5.0 x10 1.6-7.4 Lymph Absolute (test code = Lymph Absolute) 2.80 x10 .50-4.60 [place] Absolute (test code = [place] Absolute) .48 x10 .00-1.20 Eos Absolute (test code = Eos Absolute) 0.31 x10 0.00-0.74 Baso Absolute (test code = Baso Absolute) 0.03 x10 0.00-0.21 IG Wqxem1235-43-71 03:19:59* Test Item Value Reference Range Interpretation Comments IG (test code = IG) 0.3 % 0.0-5.0 IG Abs (test code = IG Abs) 0 x10 N URINALYSIS JZRHYAUO8071-38-99 20:39:00* Test Item Value Reference Range Interpretation [...] Urine Source? Clean CatchDRUGS OF ABUSE SCREEN ES2254-40-51 20:39:00* Test Item Value Reference Range Interpretation [...] NEGATIVE <300 ng/mL Urine Source? Clean CatchURINALYSIS NZTVKPMT4605-00-46 20:38:00* Test Item Value Reference Range Interpretation [...] Urine Source? Clean CatchDRUGS OF ABUSE SCREEN BS2967-28-48 20:38:00* Test Item Value Reference Range Interpretation [...] <300 ng/mL Urine Source? Clean CatchBASIC METABOLIC WIYHP4943-97-18 20:26:00* Test Item Value Reference Range Interpretation [...] CA) 9.5 mg/dL 8.5-10.1 N HEPATIC FUNCTION [id number] 20:26:00* Test Item Value Reference Range Interpretation [...] reference range due to change in reagent. SCFIKMJ9223-53-58 20:26:00* Test Item Value Reference Range Interpretation [...] AT ANADDITIONAL CHARGE TO THE PATIENT. URINALYSIS VDSFUASL8079-48-47 20:23:00* Test Item Value Reference Range Interpretation [...] Urine Source? Clean CatchDRUGS OF ABUSE SCREEN ES0927-03-82 20:23:00* Test Item Value Reference Range Interpretation [...] <300 ng/mL Urine Source? Clean CatchBASIC METABOLIC NKRRN8950-60-37 20:18:00* Test Item Value Reference Range Interpretation [...] code = CA) mg/dL 8.5-10.1 HEPATIC FUNCTION [id number] 20:18:00* Test Item Value Reference Range Interpretation [...] TOTAL (test code = ALKP) IUnit/L 45-117 [id number] 20:18:00* Test Item Value Reference Range Interpretation Comments ALCOHOL (test code = ALC) mg/dL 0-3 CBC W/O LUBB6513-89-34 20:13:00* Test Item Value Reference Range Interpretation [...] MPV) 9.5 fL 6.7-11.0 N CBC W/O [id number] 20:10:00* Test Item Value Reference Range Interpretation [...] (test code = MPV) fL 6.7-11.0 RPR Aqwpygymuuh5742-83-87 15:45:35* Test Item Value Reference Range Interpretation Comments RPR Qual (test code = RPR Qual) Non-Reactive Non-Reactive Reactive Control (test code = Reactive Control) Reactive Weak Reactive Control (test code = Weak Reactive Control) Weak Reac tive Non-Reactive Control (test code = Non-Reactive Control) Non-Reactiv e Lot # (test code = Lot #) [id number] N Expiration Dt (test code = Expiration Dt) 9-30-21 N Lipid Bqtuj6709-08-74 07:30:39* Test Item Value Reference Range Interpretation [...] is LDL/HDL Ratio=LDL Calc/HDL Chol Thyroid Stimulating Ccdyfyt3267-74-50 07:30:39* Test Item Value Reference Range Interpretation Comments TSH (test code = TSH) 0.616 mcIU/mL 0.550-4.780 Hemoglobin [id number] 07:28:34* Test Item Value Reference Range Interpretation Comments Hemoglobin A1c (test code = Hemoglobin A1c) 4.5 % 4.0-5.8 Diabetic >=6.5 %Prediabetes 5.7-6.4 %Normal <5.7 % COVID 19 INHOUSE OY7340-48-03 11:10:00* Test Item Value Reference Range Interpretation Comments COVID 19 INHOUSE AG (test code = [id number]) NEGATIVE URINALYSIS KNFDKPDF8279-86-33 04:32:00* Test Item Value Reference Range Interpretation [...] Urine Source? Clean CatchDRUGS OF ABUSE SCREEN [id number] 04:32:00* Test Item Value Reference Range Interpretation [...] NEGATIVE <300 ng/mL Urine Source? Clean CatchURINALYSIS CEUFMSUY3204-49-65 04:30:00* Test Item Value Reference Range Interpretation [...] Urine Source? Clean CatchDRUGS OF ABUSE SCREEN [id number] 04:30:00* Test Item Value Reference Range Interpretation [...] NEGATIVE <300 ng/mL Urine Source? Clean CatchURINALYSIS [id number] 03:58:00* Test Item Value Reference Range Interpretation [...] Urine Source? Clean CatchDRUGS OF ABUSE SCREEN CN3922-15-37 03:58:00* Test Item Value Reference Range Interpretation [...] <300 ng/mL Urine Source? Clean CatchBASIC METABOLIC [id number] 23:16:00* Test Item Value Reference Range Interpretation [...] CA) 9.4 mg/dL 8.5-10.1 N HEPATIC FUNCTION [id number] 23:16:00* Test Item Value Reference Range Interpretation [...] reference range due to change in reagent. [id number] 23:16:00* Test Item Value Reference Range Interpretation Comments ACETAMINOPHEN (test code = ACET) < 10 mcg/mL 10-30 L A RANGE OF 10-30 mcg/mL IS A THERAPEUTIC RANGE. TOXIC CONCENTRATIONS: >150 mcg/mL AT 4 HOURS AFTER INGESTION >= 50 mcg/mL AT 12 HOURS AFTER INGESTION [id number] 23:16:00* Test Item Value Reference Range Interpretation Comments SALICYLATE (test code = KALLI) 5.8 mg/dL 2.8-20.0 N [id number] 23:16:00* Test Item Value Reference Range Interpretation [...] ANADDITIONAL CHARGE TO THE PATIENT. BASIC METABOLIC [id number] 23:08:00* Test Item Value Reference Range Interpretation [...] code = CA) mg/dL 8.5-10.1 HEPATIC FUNCTION [id number] 23:08:00* Test Item Value Reference Range Interpretation [...] TOTAL (test code = ALKP) IUnit/L 45-117 CHBJFIJQPHNSZ0970-74-52 23:08:00* Test Item Value Reference Range Interpretation Comments ACETAMINOPHEN (test code = ACET) mcg/mL 10-30 NWQYIUGYRE5809-14-74 23:08:00* Test Item Value Reference Range Interpretation Comments SALICYLATE (test code = KALLI) mg/dL 2.8-20.0 [id number] 23:08:00* Test Item Value Reference Range Interpretation Comments ALCOHOL (test code = ALC) mg/dL 0-3 CBC W/O [id number] 22:58:00* Test Item Value Reference Range Interpretation [...] MPV) 9.4 fL 6.7-11.0 N CBC W/O [id number] 22:57:00* Test Item Value Reference Range Interpretation [...] code = MPV) fL 6.7-11.0 CT BRAIN [id number] 16:15:00 [place] [address] Patient Name: GARCIA CARTWRIGHT MR #: [id number] : 1965 Age/Sex: 54/M Req #: [id number] Adm Physician: Ordered by: CHANTEL REYES MINE INSPECTOR Report #: [id number] Location: ER Room/Bed: Procedure: [id number] CT/CT BRAIN WO Exam Date: 10/08/19 Exam Time: 1550 REPORT STATUS: Signed History: Altered mental st atus Comparison studies: None Technique: Axial images were obtaine d from the brain and cervical spine. Coronal and sagittal images reconstructed from the axial data. Dose modulation, iterative reconstruction, and/or weight based adjustment of the mA/kV was utilized to reduce the radiation dose to a s low as reasonably achievable. Intravenous contrast: None Findings : Head CT: Scalp/skull: No abnormalities. No fractures, [...] Rios M.D. 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 * No high-gra de spinal canal stenosis. IMPRESSION: Head CT: No [...] Di ctated By: MARCI RIOS MD 51 Transcribed By: ORTIZ on 10/08/191951 COPY TO: Sera REYES NP CHEST SINGLE (PORTABLE)2019-10-08 15:46:00 [place] [address] Patient Name: GARCIA CARTWRIGHT MR #: [id number] : 1965 Age/Sex: 54/M Req #: [id number] Adm Physician: Ordered by: CHANTEL REYES MINE INSPECTOR Report #: [id number] Location: ER Room/Bed: Procedure: [id number] DX/CHEST SINGLE (PORTABLE) Exam Date: 10/08/19 Exam [...] MD 46 COPY TO: CHANTEL REYES NP Automated urine sediment leukocyte count by microscopy (number/high power field)2019-10-08 15:34:00* Test Item Value Reference Range Interpretation Comments Urine WBC (test code = 5821-4) 0-5 0-5 [facility] CenterErythrocytes detection in urine sediment by light bolbykwaix2098-58-22 15:34:00* Test Item Value Reference Range Interpretation Comments Urine RBC (test code = 99726-0) NONE 0-5 [facility] CenterBacteria detection in urine sediment by light fznizkldyh3596-73-29 15:34:00* Test Item Value Reference Range Interpretation Comments Urine Bacteria (test code = 46833-0) RARE NONE [facility] CenterEpithelial cells detection in urine sediment by light zgbcxpalxy0790-86-55 15:34:00* Test Item Value Reference Range Interpretation Comments Urine Epithelial Cells (test code = 09740-1) FEW NONE [facility] CenterProthrombin time (PT) in platelet poor plasma by coagulation mvwwm7539-61-50 15:23:00* Test Item Value Reference Range Interpretation Comments Prothrombin Time (test code = 5902-2) 13.8 11.9-14.5 [facility] CenterINR in Platelet poor plasma by Coagulation ksevo2748-85-15 15:23:00* Test Item Value Reference Range Interpretation Comments Prothromb Time International Ratio (test code = 6301-6) 1.00 Oral Anticoagulant Therapy INR Values:1. Low Intensity Therapy 1.5 - 2.02 . Moderate Intensity Therapy 2.0 - 3.03. High Intensity Therapy(1) 2.5 - 3. 54. High Intensity Therapy(2) 3.0 - 4.05. Panic Value INR > 5.0 [facility] CenterActivated partial thromboplastin time (aPTT) in platelet poor plasma by coagulation oxjem8844-33-56 15:23:00* Test Item Value Reference Range Interpretation Comments Activated Partial Thromboplast Time (test code = 40035-4) 31.3 23.8-35.5 [facility] Centererum or plasma acetaminophen measurement by screening method (mass/volume)2019-10-08 15:23:00* Test Item Value Reference Range Interpretation Comments Acetaminophen Level (test code = 79816-7) < 3.0 10-30 [facility] CenterURINALYSIS EQOVZELO1144-42-46 19:24:00* Test Item Value Reference Range Interpretation [...] Urine Source? Clean CatchDRUGS OF ABUSE SCREEN [id number] 19:24:00* Test Item Value Reference Range Interpretation [...] NEGATIVE <300 ng/mL Urine Source? Clean CatchURINALYSIS [id number] 18:53:00* Test Item Value Reference Range Interpretation [...] Urine Source? Clean CatchDRUGS OF ABUSE SCREEN [id number] 18:53:00* Test Item Value Reference Range Interpretation [...] <300 ng/mL Urine Source? Clean CatchBASIC METABOLIC [id number] 14:49:00* Test Item Value Reference Range Interpretation [...] CA) 9.2 mg/dL 8.5-10.1 N HEPATIC FUNCTION [id number] 14:49:00* Test Item Value Reference Range Interpretation [...] reference range due to change in reagent. [id number] 14:49:00* Test Item Value Reference Range Interpretation [...] ANADDITIONAL CHARGE TO THE PATIENT. BASIC METABOLIC [id number] 14:36:00* Test Item Value Reference Range Interpretation [...] code = CA) mg/dL 8.5-10.1 HEPATIC FUNCTION QMFBJ8886-40-01 14:36:00* Test Item Value Reference Range Interpretation [...] TOTAL (test code = ALKP) IUnit/L 45-117 [id number] 14:36:00* Test Item Value Reference Range Interpretation Comments ALCOHOL (test code = ALC) mg/dL 0-3 CBC W/O [id number] 14:33:00* Test Item Value Reference Range Interpretation [...] MPV) 9.5 fL 6.7-11.0 N BASIC METABOLIC CKJTY6898-00-72 04:02:00* Test Item Value Reference Range Interpretation [...] CA) 9.2 mg/dL 8.5-10.1 N HEPATIC FUNCTION [id number] 04:02:00* Test Item Value Reference Range Interpretation [...] reference range due to change in reagent. OQLMHEOUBYFNX5825-68-11 04:02:00* Test Item Value Reference Range Interpretation Comments ACETAMINOPHEN (test code = ACET) < 10 mcg/mL 10-30 L A RANGE OF 10-30 mcg/mL IS A THERAPEUTIC RANGE. TOXIC CONCENTRATIONS: >150 mcg/mL AT 4 HOURS AFTER INGESTION >= 50 mcg/mL AT 12 HOURS AFTER INGESTION KGDJHATNCF5546-02-02 04:02:00* Test Item Value Reference Range Interpretation Comments SALICYLATE (test code = KALLI) 6.5 mg/dL 2.8-20.0 N [id number] 04:02:00* Test Item Value Reference Range Interpretation [...] ANADDITIONAL CHARGE TO THE PATIENT. BASIC METABOLIC [id number] 03:48:00* Test Item Value Reference Range Interpretation [...] code = CA) mg/dL 8.5-10.1 HEPATIC FUNCTION [id number] 03:48:00* Test Item Value Reference Range Interpretation [...] TOTAL (test code = ALKP) IUnit/L 45-117 FJWWCIOBTQSOZ4187-49-34 03:48:00* Test Item Value Reference Range Interpretation Comments ACETAMINOPHEN (test code = ACET) mcg/mL 10-30 ULXUGKVCXU7308-07-36 03:48:00* Test Item Value Reference Range Interpretation Comments SALICYLATE (test code = KALLI) mg/dL 2.8-20.0 RBPVUCX6408-74-20 03:48:00* Test Item Value Reference Range Interpretation Comments ALCOHOL (test code = ALC) mg/dL 0-3 CBC W/O [id number] 03:35:00* Test Item Value Reference Range Interpretation [...] 9.5 fL 6.7-11.0 N - CT MAXIFAC W/BBBKCWYJ2674-70-97 21:29:00 Name: GARCIA CARTWRIGHT [facility] : 1965 Age/S: 54 / M [address] [facility] Unit #: [id number] Loc: [place] [address] Phys: Christina Alston MD Acct: [id number] Dis Date: Status: REG ER PHONE #: [phone] Exam Date: 09/03/20192107 FAX #: [phone] Reason: swelling, redness, discharge to right ear EXAMS: CPT CODE: [id number] CT MAXIFAC W/CONTRAST 66944 EXAM: - CT MAXIFAC W/CONTRAST HISTORY: swelling, [...] course and caliber of the optic nerve s domingo complex is within normal limits. The extraocular muscles, intracona l fat, and extraconal fat are within normal limits. The lacrimal glands a ppear normal. The orbital sherwood and optic canals are normal. The visualized intracranial structures appear normal. No lesion of the visualized skull base or calvarium is present. There is mild mucosal thic kening in the ethmoid sinuses. The mastoid air cells are clear. Th ere is cerumen in the left external auditory canal. The right lead rider al auditory canal is grossly clear. Both [...] in the right-sided periauricular soft tissues. Location: [facility] PAGE 1 Signed Report (CONTINUED) Name: GARCIA CARTWRIGHT [facility] [place] je[place] [facility]iste : 1965 Age/S: 54 / M [address] Unit #: [id number] Loc: [place], [place] [address] Phys: Christina Alston MD Acct: [id number] Dis Date: Status: REG ER PHONE #: [phone] Exam Date: 09/03/20192107 FAX #: [phone] Reason: swelling, redness, [facility] to [facility] ear EXAMS: CPT CODE: [id number] CT MAXIFAC W/CONTRAST 26440 < Continued> at 2128 Reported and signed by: Calos Infante MD CC: Juanito Morales; Christina Alston MD Technologist:Bridget Brody RT(R); ALFONZO Jacob CTDI: DLP: Trnscb Date/Time: 09/03/2019 (2128) t.[id number] Orig Print D/T: S: 09/03/2019 (2131) PAGE 2 Signed Report BASIC METABOLIC [id number] 20:41:00* Test Item Value Reference Range Interpretation [...] CA) 9.9 mg/dL 8.5-10.1 N HEPATIC FUNCTION [id number] 20:41:00* Test Item Value Reference Range Interpretation [...] reference range due to change in reagent. [id number] 20:41:00* Test Item Value Reference Range Interpretation Comments LIPASE (test code = LIP) 35 U/L 73.0-393.0 L [id number]-[id number] 20:41:00* Test Item Value Reference Range Interpretation Comments TROPONIN-I (test code = TROPI) <0.015 ng/mL 0-0.045 N LACTIC [id number] 20:38:00* Test Item Value Reference Range Interpretation Comments LACTIC ACID (test code = LACT) 1.2 mmol/L 0.4-1.9 N BASIC METABOLIC [id number] 20:28:00* Test Item Value Reference Range Interpretation [...] code = CA) mg/dL 8.5-10.1 HEPATIC FUNCTION [id number] 20:28:00* Test Item Value Reference Range Interpretation [...] TOTAL (test code = ALKP) IUnit/L 45-117 [id number] 20:28:00* Test Item Value Reference Range Interpretation Comments LIPASE (test code = LIP) U/L 73.0-393.0 ISFGCVVP-K0188-28-08 20:28:00* Test Item Value Reference Range Interpretation Comments TROPONIN-I (test code = TROPI) ng/mL 0-0.045 CBC W/AUTO [id number] 20:16:00* Test Item Value Reference Range Interpretation [...] = NRBC#) 0.00 K/mm3 0.0-0.1 N Magnesium Vrebu2660-74-58 13:56:00* Test Item Value Reference Range Interpretation Comments Magnesium Level (test code = 87741-5) 1.7 1.3-2.1 [facility] CenterCreatine Kinase [id number] 13:26:00* Test Item Value Reference Range Interpretation Comments Creatine Kinase MB (test code = 48104-3) 1.50 0-5.0 [facility] CenterTroponin [id number] 13:26:00* Test Item Value Reference Range Interpretation Comments Troponin I (test code = ZKO5064) 0.001 0-0.300 [facility] Centerodium Fgpmm4334-64-45 13:19:00* Test Item Value Reference Range Interpretation Comments Sodium Level (test code = 2951-2) 138 136-145 [facility] CenterPotassium Awvdx6620-01-00 13:19:00* Test Item Value Reference Range Interpretation Comments Potassium Level (test code = 2823-3) 3.7 3.5-5.1 [facility] CenterChloride Baswi0692-13-61 13:19:00* Test Item Value Reference Range Interpretation Comments Chloride Level (test code = 2075-0) 109 98-107 H [facility] CenterCarbon Dioxide Fmaci1025-23-18 13:19:00* Test Item Value Reference Range Interpretation Comments Carbon Dioxide Level (test code = 2028-9) 23 22-29 [facility] CenterAnion Ywm2860-51-95 13:19:00* Test Item Value Reference Range Interpretation Comments Anion Gap (test code = 38388-0) 9.7 8-16 [facility] CenterBlood Urea Uahyilvt2447-09-22 13:19:00* Test Item Value Reference Range Interpretation Comments Blood Urea Nitrogen (test code = 3094-0) 7 7-26 [facility] CenterCreatinine2020-03-11 13:19:00* Test Item Value Reference Range Interpretation Comments Creatinine (test code = 2160-0) 0.72 0.72-1.25 [facility] CenterBUN/Creatinine Gduuv2155-58-33 13:19:00* Test Item Value Reference Range Interpretation Comments BUN/Creatinine Ratio (test code = 3097-3) 10 6-25 [facility] CenterEstimat Glomerular Filtration Rate 2019-08-06 13:19:00* Test Item Value Reference Range Interpretation Comments Estimat Glomerular Filtration Rate (test code = 240550111) > 60 >60 Ranges were taken from the National Kidney Disease Education Program and the [facility] literature.Reference ranges:60 or greater: Miltpf68-33 ( for 3 consecutive months): Chronic kidney disease 15 or less: Kidney failureCarl R. Darnall Army Medical CenterGlucose Vexgw5978-77-63 13:19:00* Test Item Value Reference Range Interpretation Comments Glucose Level (test code = PFK9598) 96 74-118 [facility] CenterCalcium Zypyd7218-59-58 13:19:00* Test Item Value Reference Range Interpretation Comments Calcium Level (test code = 58009-9) 9.0 8.4-10.2 [facility] CenterTotal Rrpglvsxd7662-05-72 13:19:00* Test Item Value Reference Range Interpretation Comments Total Bilirubin (test code = 1975-2) 0.4 0.2-1.2 [facility] Medical CenterAspartate Amino Transf (AST/SGOT) 2019-08-06 13:19:00* Test Item Value Reference Range Interpretation Comments Aspartate Amino Transf (AST/SGOT) (test code = Aspartate Amino Transf (AST/SGOT)) 32 5-34 [facility] CenterAlanine Aminotransferase (ALT/SGPT) 2019-08-06 13:19:00* Test Item Value Reference Range Interpretation Comments Alanine Aminotransferase (ALT/SGPT) (test code = 1742-6) 33 0-55 [facility] CenterTotal Cxblmlp4718-34-26 13:19:00* Test Item Value Reference Range Interpretation Comments Total Protein (test code = 2885-2) 6.5 6.5-8.1 [facility] CenterAlbumin2020-03-11 13:19:00* Test Item Value Reference Range Interpretation Comments Albumin (test code = 1751-7) 3.5 3.5-5.0 [facility] CenterGlobulin2020-03-11 13:19:00* Test Item Value Reference Range Interpretation Comments Globulin (test code = 58312-0) 3.0 2.3-3.5 [facility] CenterAlbumin/Globulin Qtzfj4202-36-57 13:19:00 * Test Item Value Reference Range Interpretation Comments Albumin/Globulin Ratio (test code = 1759-0) 1.2 0.8-2.0 [facility] CenterAlkaline Vnjkxmlotyk9773-24-78 13:19:00* Test Item Value Reference Range Interpretation Comments Alkaline Phosphatase (test code = 6768-6) 65 40-150 [facility] CenterCreatine Ujqikb6304-25-68 13:19:00* Test Item Value Reference Range Interpretation Comments Creatine Kinase (test code = 2157-6) 39 30-200 [facility] CenterCHEST 2 [id number] 13:14:00 [facility] [address] [address] Patient Name: GARCIA CARTWRIGHT MR #: [id number] : 1965 Age/Sex: 54/M Req #: [id number] Adm Physician: Ordered by: TIA BUCK MD Report #: [id number] Location: ER Room/Bed: Procedure: [id number] DX/C HEST 2 VIEWS Exam Date: Exam [...] T O: TIA BUCK MD White Blood Oqvvc3927-70-69 13:00:00* Test Item Value Reference Range Interpretation Comments White Blood Count (test code = 6690-2) 6.63 4.8-10.8 [facility] CenterRed Blood Vorgf3163-22-82 13:00:00* Test Item Value Reference Range Interpretation Comments Red Blood Count (test code = 789-8) 5.14 4.3-5.7 [facility] CenterHemoglobin2020-03-11 13:00:00* Test Item Value Reference Range Interpretation Comments Hemoglobin (test code = 14637-4) 16.0 14.0-18.0 [facility] CenterHematocrit2020-03-11 13:00:00* Test Item Value Reference Range Interpretation Comments Hematocrit (test code = 4544-3) 47.1 38.2-49.6 [facility] CenterMean Corpuscular Akzkxv6892-75-12 13:00:00* Test Item Value Reference Range Interpretation Comments Mean Corpuscular Volume (test code = 787-2) 91.6 81-99 [facility] CenterMean Corpuscular Pnuuvhwtmx3229-84-04 13:00:00* Test Item Value Reference Range Interpretation Comments Mean Corpuscular Hemoglobin (test code = 785-6) 31.1 28-32 [facility] Corpuscular Hemoglobin Concent 2019-08-06 13:00:00* Test Item Value Reference Range Interpretation Comments Mean Corpuscular Hemoglobin Concent (test code = 786-4) 34.0 31-35 [facility] CenterRed Cell Distribution Ntmso3029-90-78 13:00:00* Test Item Value Reference Range Interpretation Comments Red Cell Distribution Width (test code = 32889-3) 13.2 11.7 -14.4 [facility] CenterPlatelet Frbji7863-31-99 13:00:00* Test Item Value Reference Range Interpretation Comments Platelet Count (test code = 777-3) 194 140-360 [facility] CenterNeutrophils (%) (Auto)2019-08-06 13:00:00 * Test Item Value Reference Range Interpretation Comments Neutrophils (%) (Auto) (test code = 35667-4) 64.9 38.7-80.0 [facility] CenterLymphocytes (%) (Auto)2019-08-06 13:00:00 * Test Item Value Reference Range Interpretation Comments Lymphocytes (%) (Auto) (test code = 736-9) 26.5 18.0-39.1 [facility] CenterMonocytes (%) (Auto)2019-08-06 13:00:00* Test Item Value Reference Range Interpretation Comments Monocytes (%) (Auto) (test code = 5905-5) 6.6 4.4-11.3 [facility] CenterEosinophils (%) (Auto)2019-08-06 13:00:00 * Test Item Value Reference Range Interpretation Comments Eosinophils (%) (Auto) (test code = 713-8) 1.4 0.0-6.0 [facility] CenterBasophils (%) (Auto)2019-08-06 13:00:00* Test Item Value Reference Range Interpretation Comments Basophils (%) (Auto) (test code = 706-2) 0.3 0.0-1.0 [facility] CenterIM GRANULOCYTES %2019-08-06 13:00:00* Test Item Value Reference Range Interpretation Comments IM GRANULOCYTES % (test code = IM GRANULOCYTES %) 0.3 0.0- 1.0 [facility] CenterNeutrophils # (Auto)2019-08-06 13:00:00* Test Item Value Reference Range Interpretation Comments Neutrophils # (Auto) (test code = 751-8) 4.3 2.1-6.9 [facility] CenterLymphocytes # (Auto)2019-08-06 13:00:00* Test Item Value Reference Range Interpretation Comments Lymphocytes # (Auto) (test code = 43574-2) 1.8 1.0-3.2 [facility] CenterMonocytes # (Auto)2019-08-06 13:00:00* Test Item Value Reference Range Interpretation Comments Monocytes # (Auto) (test code = 742-7) 0.4 0.2-0.8 [facility] CenterEosinophils # (Auto)2019-08-06 13:00:00* Test Item Value Reference Range Interpretation Comments Eosinophils # (Auto) (test code = 711-2) 0.1 0.0-0.4 [facility] CenterBasophils # (Auto)2019-08-06 13:00:00* Test Item Value Reference Range Interpretation Comments Basophils # (Auto) (test code = 704-7) 0.0 0.0-0.1 [facility] CenterAbsolute Immature Granulocyte (auto 2019-08-06 13:00:00* Test Item Value Reference Range Interpretation Comments Absolute Immature Granulocyte (auto (patrick t code = Absolute Immature Granulocyte (auto) 0.02 0-0.1 [facility] Centererum or plasma magnesium measurement (mass/volume)2019-08-06 12:42:00* Test Item Value Reference Range Interpretation Comments Magnesium Level (test code = 27324-9) 1.7 1.3-2.1 [facility]- XR PELVIS 05/29 NYWKB6217-12-56 09:34:00 FAX: Alberto Mills MD [phone] Jolo: St: [facility] FAX: Juanito Tellez [phone] Name: GARCIA CARTWRIGHT [facility] - [place] : 1965 Age/S: 53/M [address] Unit #: [id number] [facility] [place] [phone] Phys: Alberto Stone MD Acct: [id number] Dis Date: Status: REG RCR PHONE #: [phone] Exam Date: 06/03/2019921 FAX #: Reason: HIP PAIN EXAMS: CPT CODE: [id number] XR PELVIS 1/2 VIEWS 20370 HISTORY: LEFT HIP PAIN EXAM: AP pelvis as well a s AP and frog-leg views of the left hip Comparison: Pelvis radiogr aphs March 02, 2019 FINDINGS: No acute fracture of the bony pelvis. No diastases of the SI joints or pubic symphysis . Hip joints are not dislocated. Proximal femurs a re intact. Lower lumbar spine is unremarkable. IM PRESSION: Negative radiographic examination of the bony pelvis. Location: [facility] Electronically Signed by Calos Infante MD on 020 at 0934 Reported and signed by: Calos Infante MD CC: Alberto Stone MD; Juanito Morales gist: Ivanna Robles RT(R) Trnscrd Date/Time/B y: 06/03/2019 (0934) : By: [email or web address] Orig Print D/T: S: 06/03/2019 () PAGE 1 Signed Report - XR HIP W/PEL UNI 2+V [id number] 09:34:00 FAX: Alberto Mills MD [phone] Jolo: St: REG FAX: Juanito Tellez [phone] Name: GARCIA CARTWRIHGT [facility] [place] : 1965 Age/S: 53/M [address] Unit #: [id number] [facility] [place] [phone] Phys: Alberto Stnoe MD Acct: [id number] Dis Date: Status: REG RCR PHONE #: [phone] Exam Date: 06/03/2019921 FAX #: Reason: LEFT HIP PAIN EXAMS: CPT CODE: [id number] XR HIP W/PEL UNI 2+[place] [address] HISTORY: LEFT HIP PAIN EXAM: AP pelvis as well a s AP and frog-leg views of the left hip Comparison: Pelvis radiogr aphs March 02, 2019 FINDINGS: No acute fracture of the bony pelvis. No diastases of the SI joints or pubic symphysis . Hip joints are not dislocated. Proximal femurs a re intact. Lower lumbar spine is unremarkable. IM PRESSION: Negative radiographic examination of the bony pelvis. Location: [facility] Electronically Signed by Calos Infante MD on 020 at 0934 Reported and signed by: Calos Infante MD CC: Alberto Stone MD; Juanito Morales gist: RT Meliton(Latoya) Trnscrd Date/Time/B y: 06/03/2019 (09) : By: [email or web address] Orig Print D/T: S: 06/03/2019 ( 37) PAGE 1 Signed Report - MRI LW JNT W/O CONT [id number] 14:57:00 FAX: Juanito Tellez [phone] Jolo: B St: REG Name: GARCIA DURAND [facility] : [birth year] Age/S: 53/M [address] Unit #: [id number] Loc: V.MRI [place], [place] [address] Phys: Juanito Morales Acct: [id number] Dis Date: Status: REG CLI PHONE #: [phone] Exam Date: 05/14/2019 1047 FAX #: [phone] Reason: M16.12,M25.552 EXAMS: CPT CODE: [id number] [place] LW JNT W/[place] [address] HISTORY: M1./M25.552. COMPARISON: X-ray from March 02, 2019. Location: [facility]. MRI left hip without contrast: No acute fracture of the le ft hip mildly narrowed hip joint. No AVN [...] or strain. Origins of the hamstrings is normal . The conjoined tendon is without tear. The symphyseal disc is unremarkabl e. No pathologic adenopathy. Unremarkable urinary bladder. Prostat e is not enlarged. IMPRESSION: Left troc hanteric [...] Juanito Morales Technologist: Jyoti THOMASRT - MRI Trnscrd Date/Time/By: 04/27 (1457) : By: [email or web address] Orig Print D/T: S: 05/14/2019 (7994) PAGE 1 Signed Report RPR Wyjuwrfqlbm8115-73-70 16:20:39* Test Item Value Reference Range Interpretation [...] = Expiration Dt) 10.31.20 N Thyroid Stimulating Kknlwrf9311-37-02 10:27:38* Test Item Value Reference Range Interpretation Comments TSH (test code = TSH) 1.880 mIU/mL 0.270-4.200 Lipid Tiipb7529-54-23 10:24:51* Test Item Value Reference Range Interpretation Comments Cholesterol Total (test code = Cholesterol Total) 136 mg/dL 0-20 0 RISK OF HEART DISEASEPublished by [place] [employer] Analyte Optimal Borderline Increased RiskCHOL [...] calculation is LDL/HDL Ratio=LDL Calc/HDL Chol Alcohol Kjota6105-17-41 22:16:26* Test Item Value Reference Range Interpretation Comments Ethanol Level (test code = Ethanol Level) <0.00 g/dL 0.00-0.01 Intoxicated 0.080 g/dL or more Ethanol Inst (test code = Ethanol Inst) <0 N Comprehensive Metabolic Zzcse9034-02-02 22:16:25* Test Item Value Reference Range Interpretation [...] A/G Ratio) 1.5 ratio N Comprehensive Metabolic Zmwkd9746-68-82 22:16:25* Test Item Value Reference Range Interpretation [...] is not provided, and the patient is -[place], multiply by 1.212. If sex is not [...] the National Kidney Foundation, http://nkdep.nih.gov Comprehensive Metabolic Xlmgi4669-78-17 22:16:25* Test Item Value Reference Range Interpretation [...] is not provided, and the patient is -[place], multiply by 1.212. If sex is not [...] is not provided, and the patient is -[place], multiply by 1.212. If sex is not [...] the National Kidney Foundation, http://nkdep.nih.gov Urine Drug Obnoql1767-11-36 22:15:20* Test Item Value Reference Range Interpretation [...] a separate confirmatory test if desired. Automated Ongphvrzmyle5303-96-45 21:55:00* Test Item Value Reference Range Interpretation Comments Neutro Auto (test code = Neutro Auto) 59.9 % 36.0-70.0 Lymph Auto (test code = Lymph Auto) 28.1 % 12.0-44.0 Hansford Auto (test code = Hansford Auto) 7.1 % 0.0-11.0 Eos, Auto (test code = Eos, Auto) 4.1 % 0.0-7.0 Basophil Auto (test code = Basophil Auto) 0.4 % 0.0-2.0 Neutro Absolute (test code = Neutro Absolute) 4.0 x10 1.6-7.4 Lymph Absolute (test code = Lymph Absolute) 1.90 x10 .50-4.60 Hansford Absolute (test code = Hansford Absolute) .48 x10 .00-1.20 Eos Absolute (test code = Eos Absolute) 0.28 x10 0.00-0.74 Baso Absolute (test code = Baso Absolute) 0.03 x10 0.00-0.21 IG Mggev5819-48-87 21:55:00* Test Item Value Reference Range Interpretation Comments IG (test code = IG) 0.4 % 0.0-5.0 IG Abs (test code = IG Abs) 0 x10 N Complete Blood Count with Leifffdtmdlk7016-33-34 21:54:59* Test Item Value Reference Range Interpretation [...] code = IPF) 0 % N URINALYSIS PFOPOCDL3504-09-29 04:35:00* Test Item Value Reference Range Interpretation [...] Urine Source? Clean CatchDRUGS OF ABUSE SCREEN [id number] 04:35:00* Test Item Value Reference Range Interpretation [...] <300 ng/mL Urine Source? Clean CatchBASIC METABOLIC [id number] 03:28:00* Test Item Value Reference Range Interpretation [...] CA) 8.9 mg/dL 8.5-10.1 N HEPATIC FUNCTION [id number] 03:28:00* Test Item Value Reference Range Interpretation [...] reference range due to change in reagent. JWDNWSUWXIMHD2206-16-92 03:28:00* Test Item Value Reference Range Interpretation Comments ACETAMINOPHEN (test code = ACET) < 10 mcg/mL 10-30 L A RANGE OF 10-30 mcg/mL IS A THERAPEUTIC RANGE. TOXIC CONCENTRATIONS: >150 mcg/mL AT 4 HOURS AFTER INGESTION >= 50 mcg/mL AT 12 HOURS AFTER INGESTION [id number] 03:28:00* Test Item Value Reference Range Interpretation Comments SALICYLATE (test code = KALLI) 9.1 mg/dL 2.8-20.0 N [id number] 03:28:00* Test Item Value Reference Range Interpretation [...] ANADDITIONAL CHARGE TO THE PATIENT. BASIC METABOLIC [id number] 03:13:00* Test Item Value Reference Range Interpretation [...] code = CA) mg/dL 8.5-10.1 HEPATIC FUNCTION [id number] 03:13:00* Test Item Value Reference Range Interpretation [...] TOTAL (test code = ALKP) IUnit/L 45-117 BGXJLPAVDICOS1205-52-90 03:13:00* Test Item Value Reference Range Interpretation Comments ACETAMINOPHEN (test code = ACET) mcg/mL 10-30 RRFOKTRIUQ5359-13-33 03:13:00* Test Item Value Reference Range Interpretation Comments SALICYLATE (test code = KALLI) mg/dL 2.8-20.0 MQJWWPV2499-07-13 03:13:00* Test Item Value Reference Range Interpretation Comments ALCOHOL (test code = ALC) mg/dL 0-3 URINALYSIS CYMXXTQT3896-75-27 03:10:00* Test Item Value Reference Range Interpretation [...] Urine Source? Clean CatchDRUGS OF ABUSE SCREEN [id number] 03:10:00* Test Item Value Reference Range Interpretation [...] <300 ng/mL Urine Source? Clean CatchCBC W/O [id number] 03:03:00* Test Item Value Reference Range Interpretation [...] MPV) 9.2 fL 6.7-11.0 N BASIC METABOLIC [id number] 10:40:00* Test Item Value Reference Range Interpretation [...] CA) 9.1 mg/dL 8.5-10.1 N HEPATIC FUNCTION [id number] 10:40:00* Test Item Value Reference Range Interpretation [...] reference range due to change in reagent. ZGLXFNDHUCUGJ8870-24-09 10:40:00* Test Item Value Reference Range Interpretation Comments ACETAMINOPHEN (test code = ACET) < 10 mcg/mL 10-30 L A RANGE OF 10-30 mcg/mL IS A THERAPEUTIC RANGE. TOXIC CONCENTRATIONS: >150 mcg/mL AT 4 HOURS AFTER INGESTION >= 50 mcg/mL AT 12 HOURS AFTER INGESTION [id number] 10:40:00* Test Item Value Reference Range Interpretation Comments SALICYLATE (test code = KALLI) 7.9 mg/dL 2.8-20.0 N [id number] 10:40:00* Test Item Value Reference Range Interpretation [...] ANADDITIONAL CHARGE TO THE PATIENT. BASIC METABOLIC [id number] 10:32:00* Test Item Value Reference Range Interpretation [...] code = CA) mg/dL 8.5-10.1 HEPATIC FUNCTION [id number] 10:32:00* Test Item Value Reference Range Interpretation [...] TOTAL (test code = ALKP) IUnit/L 45-117 [id number] 10:32:00* Test Item Value Reference Range Interpretation Comments ACETAMINOPHEN (test code = ACET) mcg/mL 10-30 IFRTAQSXCB1992-30-05 10:32:00* Test Item Value Reference Range Interpretation Comments SALICYLATE (test code = KALLI) mg/dL 2.8-20.0 [id number] 10:32:00* Test Item Value Reference Range Interpretation Comments ALCOHOL (test code = ALC) mg/dL 0-3 CBC W/O [id number] 10:24:00* Test Item Value Reference Range Interpretation [...] = MPV) 9.3 fL 6.7-11.0 N URINALYSIS BRLYWVWR4946-82-02 10:09:00* Test Item Value Reference Range Interpretation [...] Urine Source? Clean CatchDRUGS OF ABUSE SCREEN [id number] 10:09:00* Test Item Value Reference Range Interpretation [...] NEGATIVE <300 ng/mL Urine Source? Clean CatchURINALYSIS ZCCRTPXK9121-54-25 09:50:00* Test Item Value Reference Range Interpretation [...] Urine Source? Clean CatchDRUGS OF ABUSE SCREEN [id number] 09:50:00* Test Item Value Reference Range Interpretation [...] ng/mL Urine Source? Clean Catch- XR PELVIS 05/29 [id number] 08:55:00 FAX: John Dietrich Jolo: B St: REG [facility] [birth year][facility][birth year] Age/S: 53/M [address] Unit #: [id number] Loc: [place] [address] Phys: John Dietrich Acct: [id number] Dis Date: Status: REG ER PHONE #: [phone] Exam Date: 03/02/2019 0831 FAX #: [phone] Reason: pain EXAMS: CPT CODE: [id number] XR PELVIS 1/2 VIEWS 36950 EXAM: Pelvis, one view; INFORMATION: Pelvic pain and leg pain; FINDINGS: Normal shape and structure of the imaged bones; no evidence of fracture or disloc ation; no soft tissue abnormalities. IMPRESSION: No evidence of acute osseous trauma or other pathological changes. No ra diopaque foreign body. at 0855 Reported and signed by: Richi Cruz M.D. CC: John Dietrich MD Roscoe hnologist: Alfonzo HUDDLESTON) Trnscrd Date/T alissa/By: 03/02/2019 (0855) : By: BernardoGRW Orig Print D/T: S: 9 (4226) PAGE 1 Signed Report [id number] 13:47:00 RUN DATE: 03/08/18 [facility] PAGE 1 RUN TIME: 1347 Specimen Inqui ry RUN USER: INTERFACE PATIENT: GARCIA CARTWRIGHT ACCT #: [id number] LOC: ICU U #: [id number] AGE/SX: 52/M [facility]: Avinash Mallory MD : 63 BED: A DIS: STATUS: ADM IN TLOC: SPEC #: [id number] RECD: 03/07/18 STATUS: [facility] #: [id number] SARAH: 03/06/18- SUBM DR: Alexei Henning MD ENTERED: 03/07/18-1111 SP TYPE: STOMACH OTHR DR: Kleber Balbuena i, MD, Nkoli I MDORDERED: GROSS COPIES TO: Alexei Henning MD [address] [place] [address] Kleber Harmon MD [address] [place] [address] Glenda Russell MD [address] [place], [place] [address] PROCEDURES: GROSS (03/08/18-124 5) TISSUES: GASTRIC ULCER - BX CLINICAL HISTORY COLLECTION DATE: 03/06/18 INTENTIONAL INGESTION OF CLOROX FINAL DIAGNOSIS Gastric tissue, biopsy: REACTIVE GASTROPATHY NO AREAS OF MUCO KALLI EROSION/ULCERATION NO ACUTE INFLAMMATORY INFILTRATE PRESENT AR LD REACTIVE EPITHELIAL CHANGE PRESENT NEGATIVE FOR INTESTINAL METAPLASIA NEGATIVE FOR HELICOBACTER ORGANISMS NEGATIVE FOR MALIGNANCY RRB/sm D CONTINUED ON NEXT PAGE ----- -------RUN DATE: 03/08/18 [facility] PAGE 2 RUN TIME: 1347 Specimen Inquiry RUN USER: INTERFACE SPEC #: [id number] PATIENT: GARCIA CARTWRIGHT #[id number] (Continued) FINAL DIAGNOSIS (Continued) 39269, 50256 MACROSCOPIC The specimen is recei amanda in formalin, labeled with the patient's name, identified as "gastric", and consists of light eduardo-pink biopsy tissue measuring 0.3 cm in aggregate, submi tted for H E and Giemsa stains. GROSS PERFORMED AT [facility] [address] [place] [phone] (O) MICROSCOPIC MICROSCOPIC PERFORMED AT [facility] A ll of the stains, including any controls performed, stain appropriately. [address] [address] (J) PERFORMING SITE Diagnosis performed at: [facility] [address] [place] [address] [phone] Signed SIGNATURE ON FILE Tanner Gautam 03/08/18 1347 END OF REPORT [id number] 21:56:00* Test Item Value Reference Range Interpretation [...] ETOHU) <0.01 g/dL 0.00-0.01 N Comprehensive Metabolic [id number] 21:56:00* Test Item Value Reference Range Interpretation [...] race is not provided, and the patient isAfrican-[place], multiply by 1.212. If sex is not [...] by the National Kidney Found ation,http://nkdep.nih.gov Urinalysis Vlktmqda9484-82-26 21:42:00* Test Item Value Reference Range Interpretation Comments Color (test code = COLOR) Yellow Yellow,Straw,Pl yellow N Clarity (test code = CLAR) Clear Clear N Specific Pass Christian (test code = SPGR) 1.005 1.001-1.035 N [...] code = MEXAM) Not indicated CBC with Yngscsbinmaf7437-62-49 21:35:00* Test Item Value Reference Range Interpretation [...] code = ALYMPH) 2.5 K/cumm 0.5-4.6 N [place] Abs (test code = AMONO) 0.4 K/cumm 0.0-1.2 N Eos Abs (test code = AEOS) 0.24 K/cumm 0.00-0.74 N Baso Abs (test code = ABASO) 0.0 K/cumm 0.00-0.21 N
--- NOTE | 2020-01-30 08:14 | Emergency Department Note ---
History of Present Illnes History of Present Illness Chief Complaint: Extremity Trauma/Pain History of Present Illness This is a 54 year old male Patient in from home via EMS with complaints of bilateral foot pain. Patient reports that he walked about 15 miles around [place] in just socks. Patient states that he was hospitalized at [facility] Sunday and ended up walking most of the way home because they did not give him his shoes back. Patient has blisters to the plantar surfaces of both of his feet. 20g IV placed to patient's right hand. Patient is not in any acute distress in triage. Socially patient admits to drinking almost daily and smokes 2.5 to 3 ppd. 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 Any updates have been documented here. 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) DRUG ABUSE ALCOHOL ABUSE Past Surgical History: Cholecysctectomy Other Surgery: back surgery in 2017 Social History Smoking Cessation: Current every day smoker Counseling Performed: No Alcohol Use: Daily Any Illegal Drug Use: Yes TB Exposure/Symptoms: No Physically hurt or threatened: No Family History Family history of heart diseas: No Other Last Tetanus: U Any Pre-Existing Lines (PICC,: No Review of Systems Review of Systems Constitutional: Reports no symptoms EENTM: Reports no symptoms Cardiovascular: Reports no symptoms Respiratory: Reports no symptoms Gastrointestinal: Reports no symptoms Genitourinary: Reports no symptoms Musculoskeletal: Reports as per HPI Integumentary: Reports no symptoms Neurological: Reports no symptoms Psychological: Reports no symptoms Endocrine: Reports no symptoms Hematological/Lymphatic: Reports no symptoms Physical Exam Related Data Allergies: Coded Allergies: No Known Allergies (Unverified , 07/18/16) Triage Vital Signs Vital Signs Date Time Temp Pulse Resp B/P (MAP) Pulse Ox O2 Delivery O2 Flow Rate FiO2 01/30/20 07:09 98.4 70 17 137/71 97 Room Air Vital signs reviewed: Yes Physical Exam CONSTITUTIONAL Constitutional: Present well-developed, Present well-nourished, Present other (DISSHEVELED) HENT HENT: Present normocephalic, Present atraumatic, Present oropharynx clear/moist, Present nose normal HENT L/R: Present left ext ear normal, Present right ext ear normal EYES Eyes: Reports PERRL, Reports conjunctivae normal NECK Neck: Present ROM normal PULMONARY Pulmonary: Present effort normal, Present breath sounds normal CARDIOVASCULAR Cardiovascular: Present regular rhythm, Present heart sounds normal, Present capillary refill normal, Present normal rate GASTROINTESTINAL Abdominal: Present soft, Present nontender, Present bowel sounds normal GENITOURINARY Genitourinary: Present exam deferred SKIN Skin: Present warm, Present dry, Present other (BILATERAL FEET WITH BLISTERS, LEFT > RIGHT) MUSCULOSKELETAL Musculoskeletal: Present ROM normal NEUROLOGICAL Neurological: Present alert, Present oriented x 3, Present no gross motor or sensory deficits PSYCHOLOGICAL Psychological: Present mood/affect normal, Present judgement normal Assessment & Plan Medical Decision Making MDM WALKED 15 MILES IN SOCKS, BLISTERS ON FEET WITHOUT EVIDENCE OF INFECTION AT THIS POINT BUT PT DISHEVELED - WILL GIVE ABX'S, F/U PCP AND WOUND CARE CLINIC Reassessment Reassessment DC, BACTRIM, BACTROBAN, TRAMADOL (#15), F/U PCP & WOUND CARE CLINIC Assessment & Plan Final Impression: (1) Blister of foot Depart Disposition: HOME, SELF-CARE Last Vital Signs Date Time Temp Pulse Resp B/P (MAP) Pulse Ox O2 Delivery O2 Flow Rate FiO2 01/30/20 07:34 68 20 100 01/30/20 07:17 98.2 132/67 Room Air Home Meds Reported Medications Acetaminophen/Hydrocodone* (NORCO 10MG-325MG*) 1 Ea Tab, 1 TAB PO Q6H for PAIN, TAB 07/21/16 Hydrocodone Bit/Acetaminophen (HYDROCODON-ACETAMINOPHEN 5-325) 1 Each Tablet, PO QID 07/18/16 Sertraline Hcl (ZOLOFT) 100 Mg Tablet, 100 MG PO HS 07/18/16 Benztropine Mesylate (COGENTIN) 1 Mg/1 Ml Amp, 2 MG PO HS 07/18/16 Risperidone (RISPERDAL) 4 Mg Tablet, 8 MG PO HS 07/18/16 TIA BUCK MD Jan 30, 2020 08:14
== END 2020-01-30 07:35 | disposition home or self-care (01) ==
LOC: ER 07:25
DX: M79.672 Pain in left foot (principal); M79.671 Pain in right foot; S90.822A Blister (nonthermal), left foot, initial encounter; S90.821A Blister (nonthermal), right foot, initial encounter; Y93.01 Activity, walking, marching and hiking; Y92.488 Other paved roadways as the place of occurrence of the external cause; I10 Essential (primary) hypertension; E78.5 Hyperlipidemia, unspecified; K21.9 Gastro-esophageal reflux disease without esophagitis; I25.10 Atherosclerotic heart disease of native coronary artery without angina pectoris; F20.0 Paranoid schizophrenia; F17.210 Nicotine dependence, cigarettes, uncomplicated
CPT/HCPCS: 99283

== ENCOUNTER 2020-01-31 12:33 | Emergency (ER) | payer MEDICARE, OTHER ==
[~2020-01-31] VITALS: Ht 182.9 cm; Wt 90.7 kg
--- OUTSIDE RECORDS SUMMARY | 2020-01-31 13:40 | XMS REPORT | Continuity of Care Document ---
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 Role Phone [employer] Unavailable Un available Problems Problem Status Onset Date Classification Date Reported Comments Source Pain in unspecified hand 02/06/2019 02/08/2019 [facility] Pain in left hip 02/05/2019 02/07/2019 [facility] Pain in right wrist 02/05/2019 02/07/2019 [facility] Low back pain 02/05/2019 02/07/2019 [facility] SHOULDER PAIN Active 02/05/2019 [facility] FALL Active 02/05/2019 [facility] M48.08 - "SPINAL STENOSIS, SACRAL AND SA Active 06/16/2016 [facility] [place] Medications Medication Details Route Status Patient Instructions Ordering Provider Order Date Source Acetaminophen 650 mg, Route: P O, Drug form: TAB, ONCE, Dosing Weight 97.727, kg, Priority: STAT, Start date: 02/06/19 4:43:00 CDT, Stop date: 02/06/19 4:43:00 CDT Inactive 02/06/2019 [facility] nt Ibuprofen 400 mg, Route: PO, O NCE, Dosing Weight 97.727, kg, Priority: STAT, Start date: 02/06/19 4:43:00 CDT, Stop date: 02/06/19 4:43:00 CDT Inactive 02/06/2019 [facility] Acetaminophen 325 MG / Hydrocodone Gerry trate 5 MG Oral Tablet [[place] 5/325] Notes: (Same as: [place] 325/5) Do not ex ceed 4gm/day of acetaminophen. Inactive 02/06/2019 [facility] Motrin 600 mg, 1 tab, Route: P O, Drug form: TAB, ONCE, Dosing Weight 97.273, kg, Priority: STAT, Start date: 02/05/19 16:54:00 CDT, Stop date: 02/05/19 16:54:00 CDT, 0 Inactive 02/05/2019 [facility] nter Tylenol 650 mg, 2 tab, Route: PO, Drug form: TAB, ONCE, Dosing Weight 97.273, kg, Priority: STAT, Start date: 02/05/19 16:54:00 CDT, Stop date: 02/05/19 16:54:00 CDT, 0 Inactive 02/05/2019 [facility] nter Allergies, Adverse Reactions, Alerts No [...] by telephone 02/05/2019 at 2030 hours 02/05/2019 [facility] Wrist complete DX EXAM: XR LEF T [...] by telephone 02/05/2019 at 2030 hours 02/05/2019 [facility] Spine lumbar 2 or 3 views DX [...] facet arthropathy of the lumbar spine. 02/05/2019 [facility] Shoulder series DX EXAM: XR RI GHT [...] tendinosis in the right rotator cuff. 02/05/2019 [facility] Femur series DX EXAM: XR LEFT HIP [...] most pronounced in the patellofemoral compartment. 02/05/2019 [facility] Hip 2/3 views uni w pelvis DX [...] most pronounced in the patellofemoral compartment. 02/05/2019 [facility] Knee wo contrast MRI Exam: MRI of [...] osteoarthritis involving the anterior compartment. 01/18/2017 [facility] [place] Spine lumbar wo contrast MRI L UMBAR [...] disc bulge with minimal posterior osteophytes and [id number] facet hypertrophy with ligamentum flavum thickening. This results in moderate canal stenosis with near CSF block. Minimal neural foraminal narrowing. L4-L5: Moderate disc bulge and facet hypertrophy with ligamentum flavum thickening. This results in severe canal stenosis with probable complete to near complete CSF block [id number] right greater than left neural foraminal narrowing [...] in disc herniati on T12-L1. 06/17/2016 [facility] [place] Spine lumbar wo contrast MRI M RI [...] Source Temperature Oral (F) 98.8 F 02/06/2019 [facility] Heart Rate 91 02/06/2019 [facility] Respitory Rate 18 02/06/2019 [facility] Systolic (mm Hg) 148 02/06/2019 [facility] Diastolic (mm Hg) 89 02/06/2019 [facility] Systolic (mm Hg) 163 02/06/2019 [facility] Diastolic (mm Hg) 77 02/06/2019 [facility] Heart Rate 70 02/06/2019 [facility] Respitory Rate 18 02/06/2019 [facility] Temperature Oral (F) 98.6 F 02/06/2019 [facility] Height 187.96 cm 02/06/2019 [facility] BMI Calculated 27.66 02/06/2019 [facility] Weight 97.727 02/06/2019 [facility] Temperature Oral (F) 97.8 F 02/06/2019 [facility] Heart Rate 66 02/06/2019 [facility] Respitory Rate 18 02/06/2019 [facility] Systolic (mm Hg) 152 02/06/2019 [facility] Diastolic (mm Hg) 69 02/06/2019 [facility] Systolic (mm Hg) 153 02/05/2019 [facility] Diastolic (mm Hg) 65 02/05/2019 [facility] Respitory Rate 20 02/05/2019 [facility] Heart Rate 64 02/05/2019 [facility] Systolic (mm Hg) 166 02/05/2019 [facility] Diastolic (mm Hg) 87 02/05/2019 [facility] Heart Rate 60 02/05/2019 [facility] Respitory Rate 18 02/05/2019 [facility] Temperature Oral (F) 97.9 F 02/05/2019 [facility] Height 187.96 cm 02/05/2019 [facility] BMI Calculated 27.53 02/05/2019 [facility] Weight 97.273 02/05/2019 [facility] Encounters Location Location Details Encounter Type Encounter Number Reason For Visit Attending Provider ADM Date DC Date Status Source [facility] [place] [facility] [id number] 00 Aydin Almaraz 11/14/2013 11/15/2013 [facility] [place] [facility] [place] [facility] [id number] 01 Casey Avila Jr 06/17/2016 06/18/2016 [facility] [place] [facility] [place] [facility] [id number] 02 Juanito Morales 01/18/2017 01/19/2017 [facility] [place] [facility] [id number] Shyanne Dixon 02/05/2019 02/06/2019 [facility] Emergency [id number] Davy Faith 02/06/2019 02/06/2019 [facility] Procedures No Data Provided for This Section [...] to palpation over dors al wrist - Larue intact Motor: Thumb: Active flex/ext at MCP, [...] Minimal TTP over the dorsal wrist - Larue intact Motor: Thumb: Active flex/ext at MCP, [...] Oniel Holder MD PGY2 Orthopaedic Surgery MSO: [id number] Pager: [phone] 02/06/2019 [facility] Plan of Care No Data Provided for This Section Social History Social History Date Source Social History TypeResponse Smoking Status Never smoker; Exposure to Tobacco Smoke None; Cigarette Smoking Last 365 Days No; Reg Smoking Cessation Counseling No entered on: 02/05/19 02/05/2019 [facility] No data available for this section 01/19/2017 [facility] [place] Family History No Data Provided for This Section Advance Directives No Data Provided for This Section Functional Status No Data Provided for This Section
--- OUTSIDE RECORDS SUMMARY | 2020-01-31 13:41 | XMS REPORT | Continuity of Care Document ---
Author Author [facility] t Organization [facility] Address [address] [place] [address] Phone Unavailable Care Team Providers Care Cabinet Finisher Name Role Phone NO, PCP PCP Unavailable [...] Type Policy Number Effective Date Expiration Date [facility] [employer] [facility] [id number] 2011 00:00 :00 [facility] Medicare A & B [id number] 1995 00:00:00 [facility] Problems Condition Name Condition Details Condition Category Status Onset Date Resolution Date Last Treatment Date Treating Clinician Comments Source SHOULDER PAIN SHOU LDER PAIN Active 02/05/2019 [facility] Diagnosis Active 2019-02-05 10:49:00 2019-02-05 2 2:52:00 Errol Estrada FALL FALL Active 02/05/2019 [facility] Diagnosis Active 2019-02-05 00:00:00 2019-02-12 22:15[facility] - "SPINAL STENOSIS, SACRAL AND SA M48.08 - "SPINAL STENOSIS, SACRAL AND SA Active 06/16/2016 [facility] [place] Diagnosis Active 2016-06-16 00:01:00 2016-06-17 12:20:00 [facility] Problem Condition Active [facility] Pain in unspecified hand Pain in unspecified hand 02/06/2019 02/08/2019 [facility] Problem 2019-01 17:00:00 2019-02-08 21:07:18 2019-02-08 21:07:18 [facility] Pain in left hip Pain in left hip 02/05/2019 02/07/2019 [facility] Problem 2019-02-05 17:00:00 2019-01 22:24:43 2019-02-07 22:24:43 [facility] Pain in right [facility] Pain in right wrist 02/05/2019 02/07/2019 [facility] Problem 2019-02-05 17 :00:00 2019-02-07 22:24:43 2019-02-07 22:24:43 [facility] mo Low back pain Low back pain 02/05/2019 02/07/2019 [facility] Problem 2019-02-05 17:00:00 2019-01 22:24:43 2019-02-07 22:24:43 [facility] Allergies, Adverse Reactions, Alerts Allergy Name Allergy Type Status Severity Reaction(s) Onset Date Inacti ve Date Treating Clinician Comments Source Mesoridazine Besylate DA Active U 2020-01-02 00:00:00 [facility] Haloperidol Lactate DA Active U 2020-01-02 00:00:00 [facility] perphenazine DA Active U 2020-01-02 00:00:00 [facility] haloperidol DA Active U 2020-01-02 00:00:00 [facility] divalproex sodium DA Active MO 2020-01-02 00:00:00 [facility] clozapine DA Active SV 2020-01-02 00:00:00 [facility] Mesoridazine Besylate DA Active U 2019-05-03 00:00:00 [facility] Haloperidol Lactate DA Active U 2019-05-03 00:00:00 [facility] perphenazine DA Active U 2019-05-03 00:00:00 [facility] haloperidol DA Active U 2019-05-03 00:00:00 [facility] divalproex sodium DA Active MO 2019-05-03 00:00:00 [facility] clozapine DA Active SV 2019-05-03 00:00:00 [facility] Mesoridazine Besylate DA Active U 2018-04-24 00:00:00 [facility] Haloperidol Lactate DA Active U 2018-04-24 00:00:00 [facility] perphenazine DA Active U 2018-04-24 00:00:00 [facility] haloperidol DA Active U 2018-04-24 00:00:00 [facility] divalproex sodium DA Active MO 2018-04-24 00:00:00 [facility] clozapine DA Active SV 2018-04-24 00:00:00 [facility] lorazepam DA Active U 2018-04-24 00:00:00 [facility] No Known Allergies DA Active U 2018-03-06 00:00:00 [facility] Mesoridazine Besylate DA Active U 2015-11-11 00:00:00 [facility] Haloperidol Lactate DA Active U 2015-11-11 00:00:00 [facility] lorazepam DA Active U 2015-11-11 00:00:00 [facility] perphenazine DA Active U 2015-11-11 00:00:00 [facility] haloperidol DA Active U 2015-11-11 00:00:00 [facility] divalproex sodium DA Active MO 2015-11-11 00:00:00 [facility] clozapine DA Active SV 2015-11-11 00:00:00 [facility] CYRANTYL DA Active SV 2011-05-08 00:00:00 [facility] NAVAINE DA Active MO 2011-05-08 00:00:00 [facility] Social History Social Habit Start Date Stop Date Quantity Comments Source Social History 2017-01-19 04:59:00 2017-01-19 04:59:00 [facility] Sex Ass[birth year] At 1965 00:00:00 1965 00[birth year]00:00 Male [facility] Smoking Status Start Date Stop Date Source Social History [facility] Medications Ordered Medication Name Filled Medication Name Start Date Stop Da te Current Medication? Ordering Clinician Indication Dosage Frequency Signature (SIG) Comments Components Source Acetaminophen 2019-02-06 09:43:00 No 650 mg, Route: PO, Drug form: TAB, ONCE, Dosing Weight 97.727, kg, Priority: STAT, Start date: 02/06/19 4:43:00 CDT, Stop date: 02/06/19 4:43:00 CDT [facility] Ibuprofen 2019-02-06 09:43:00 No 400 mg, Route: PO, ONCE, Dosing Weight 97.727, kg, Priority: STAT, Start date: 02/06/19 4:43:00 CDT, Stop date: 02/06/19 4:43:00 CDT [facility] Acetaminophen 325 MG / Hydrocodone Bitartrate 5 MG Oral Tabl et [[place] 5/325] 2019-02-06 03:48:00 No Notes: (Same as: [place] 325/5) Do not exceed 4gm/day of acetaminophen. [facility] nn Motrin 2019-02-05 21:54:00 No 600 mg, 1 tab, Route: PO, Drug form: TAB, ONCE, Dosing Weight 97.273, kg, Priority: STAT, Start date: 02/05/19 16:54:00 CDT, Stop date: 02/05/19 16:54:00 CDT, 0 [facility] Tylenol 2019-02-05 21:54:00 No 650 mg, 2 tab, Route: PO, Drug form: TAB, ONCE, Dosing Weight 97.273, kg, Priority: STAT, Start date: 02/05/19 16:54:00 CDT, Stop date: 02/05/19 16:54:00 CDT, 0 [facility] Acetaminophen/Hydrocodone Bitart ([place] 10MG-325MG*) 1 Ea TAB Acetaminophen/Hydrocodone Bitart ([place] 10MG-325MG*) 1 Ea TAB Ye s 1 Every 6 Hours for [facility] Benztropine Mesylate (Cogentin) 1 Mg/1 Ml AMP Benztrop ine Mesylate (Cogentin) 1 Mg/1 Ml AMP Yes 2 Bedtime [facility] Hydrocodone Bit/Acetaminophen (Hydrocodon-Acetaminophe n 5-325) 1 Each TABLET Hydrocodone Bit/Acetaminophen (Hydrocodon-Acetaminophen 5-325) 1 Each TABLET Yes Four Times Daily [facility] Risperidone (Risperdal) 4 Mg TABLET Risperidone (Risperdal) 4 Mg TABL ET Yes 8 Bedtime [facility] Sertraline Hcl (Zoloft) 100 Mg TABLET Sertraline Hcl (Zoloft) 100 M g TABLET Yes 100 Bedtime [facility] Cogentin Cogentin 2016-07-18 00:00:00 No 2 Daily [facility] Diazepam (Valium) 10 Mg TABLET Diazepam (Valium) 10 Mg TABLET 2016-07-18 00:00:00 No 10 Daily [facility] [place] 2016-07-18 00:00:00 No 1200 Daily [facility] Risperdal Risperdal 2016-07-18 00:00:00 No 8 Daily [facility] Vital Signs Vital Name Observation Time Observation Value Comments Source Body Temperature 2020-01-28 22:53:00 98.1 [degF] [facility] Weight 2020-01-28 21:42:00 240 [lb_av] [facility] BMI (Body Mass Index) 2020-01-28 21:42:00 30.8 kg/m2 [facility] Temperature Oral (F) 2019-02-06 10:08:00 98.8 F [facility] Heart Rate 2019-02-06 10:08:00 [facility] Respitory Rate 2019-02-06 10:08:00 [facility] Systolic (mm Hg) 2019-02-06 10:08:00 [place] [facility] [place] Diastolic (mm Hg) 2019-02-06 10:08:00 [facility] [place] Systolic (mm Hg) 2019-02-06 03:33:00 [facility] Diastolic (mm Hg) 2019-02-06 03:33:00 [facility] [place] Heart Rate 2019-02-06 03:33:00 [facility] Respitory Rate 2019-02-06 03:33:00 [facility] Temperature Oral (F) 2019-02-06 03:33:00 98.6 F [facility] Height 2019-02-06 03:33:00 187.96 cm [facility] BMI Calculated 2019-02-06 03:33:00 [facility] Weight 2019-02-06 03:33:00 [facility] Temperature Oral (F) 2019-02-06 00:12:00 97.8 F [facility] Heart Rate 2019-02-06 00:12:00 [facility] Respitory Rate 2019-02-06 00:12:00 [facility] [place] Systolic (mm Hg) 2019-02-06 00:12:00 [facility] Diastolic (mm Hg) 2019-02-06 00:12:00 [facility] Systolic (mm Hg) 2019-02-05 22:54:00 [facility] Diastolic (mm Hg) 2019-02-05 22:54:00 [facility] [place] Respitory Rate 2019-02-05 22:54:00 [facility] [place] Heart Rate 2019-02-05 22:54:00 [facility] Systolic (mm Hg) 2019-02-05 21:12:00 [place] [facility] [place] Diastolic (mm Hg) 2019-02-05 21:12:00 [facility] [place] Heart Rate 2019-02-05 21:12:00 [facility] Respitory Rate 2019-02-05 21:12:00 [facility] [place] Temperature Oral (F) 2019-02-05 21:12:00 97.9 F [facility] Height 2019-02-05 21:12:00 187.96 cm [facility] BMI Calculated 2019-02-05 21:12:00 [facility] [place] Weight 2019-02-05 21:12:00 [facility] Procedures Procedure Date / Time Performed Performing Clinician Jennifer winkler Computed tomography of brain without radiopaque contrast 2019-09 00:00:00 [facility] Computed tomography of cervical spine without contrast 2019-09-26 3 00:00:00 [facility] X-ray of chest, two views 2019-08-06 00:00:00 TIA BUCK A CH I [facility] Plan of Care Planned Activity Planned Date Details Comments Source Instructions Weakness (Generalized) [facility] Encounters Start Date/Time End Date/Time Encounter Type Admission Type [facility] Care Department Encounter ID Source 2020-01-04 05:22:00 Inpatient 1 Deborah Nice Lawrence [facility] [id number] [facility] 2020-01-28 22:28:00 2020-01-28 22:55:00 Departed Emergency Room [facility] [id number] [facility] [place] 2020-01-28 01:34:00 2020-01-28 08:44:00 Emergency 1 Carlos Menon Mike [facility] [id number] [facility] 2020-01-04 05:22:00 2020-01-06 13:12:00 Inpatient 1 Carina Mejia [facility] PSY [id number] [facility] 2019-10-08 14:26:00 2019-10-09 00:10:00 Departed Emergency Room 1 [facility] [id number] [facility] 2019-08-06 12:18:00 2019-08-06 15:44:00 Departed Emergency Room 1 [place] [facility] [id number] [facility] 2019-02-05 22:30:38 2019-02-06 05:25:00 Outpatient Davy Faith [facility] [id number] 2019-02-05 22:30:00 2019-02-05 22:30:00 Emergency E [facility] [address] [facility] 2019-02-05 16:09:25 2019-02-05 19:14:00 Outpatient Demetrio Dixon [facility] [id number] 2019-02-05 16:09:00 2019-02-05 16:09:00 Emergency E [facility] [address] [facility] 2017-01-18 13:13:00 2017-01-18 23:59:00 Outpatient Juanito Stubbs [facility] [id number] 2016-06-17 12:10:00 2016-06-17 23:59:00 Outpatient Casey Reina [facility] [id number] 2013-11-14 10:30:00 2013-11-14 23:59:00 Outpatient Aydin Almaraz [facility] [id number] Results Test Description Test Time Test Comments Results Result Comments Source Urine color determination 2020-01-28 22:35:00 Test Item Urine Color (test code = 5778-6) MARCOS YELLOW [facility] [id number] 22:35:00* Test Item Value Reference Range Interpretation Comments Urine Clarity (test code = 98248-8) CLEAR [facility]AR [facility] by Test strip 2020-01-28 22:35:00* Test Item Value Reference Range Interpretation Comments Urine Specific [place] (test code = 5811-5) 1.030 1.010-1.02 5 [facility] pH measurement by automated test [id number] 22:35:00* Test Item Value Reference Range Interpretation Comments Urine pH (test code = 72976-3) 5.5 5-7 [facility] leukocyte esterase detection by vjzvfrgy6891-31-66 22:35:00* Test Item Value Reference Range Interpretation Comments Urine Leukocyte Esterase (test code = 5799-2) NEGATIVE NEGATIVE [facility] nitrite [id number] 22:35:00* Test Item Value Reference Range Interpretation Comments Urine Nitrite (test code = 18629-6) NEGATIVE NEGATIVE [facility] protein measurement by test strip (mass/volume)2020-01-28 22:35:00* Test Item Value Reference Range Interpretation Comments Urine Protein (test code = 5804-0) TRACE NEGATIVE [facility] glucose icffbvmlz9017-22-42 22:35:00* Test Item Value Reference Range Interpretation Comments Urine Glucose (UA) (test code = 2349-9) NEGATIVE NEGATIVE [facility] ketones detection by automated test afflq2498-11-08 22:35:00* Test Item Value Reference Range Interpretation Comments Urine Ketones (test code = 66724-6) NEGATIVE NEGATIVE [facility] opiates screening [id number] 22:35:00* Test Item Value Reference Range Interpretation Comments Urine Opiates Screen (test code = 01799-7) POSITIVE NEGATIVE This test provides only a screen. Positive results should be repeated by a confi rmatory test.[facility] Center[facility] screen, urine 2020-01-28 22:35:00* Test Item Value Reference Range Interpretation Comments Urine Barbiturates Screen (test code = 298200277) NEGATIVE NEGA TIVE [facility] Center[facility] phencyclidine detection by screening [id number] 22:35:00* Test Item Value Reference Range Interpretation Comments Urine Phencyclidine Screen (test code = 09881-5) NEGATIVE NEGAT DELON [facility] Center[facility] amphetamines detection by screen method > 1000 ng/hW9171-88-29 22:35:00* Test Item Value Reference Range Interpretation Comments Urine Amphetamines Screen (test code = 81978-2) NEGATIVE NEGATI VE [facility] CenterFluoroscopic procedure less than one hour ujmovhjw4041-61-31 22:35:00* Test Item Value Reference Range Interpretation Comments Urine Methamphetamines Screen (test code = Urine Metha mphetamines Screen) NEGATIVE NEGATIVE [facility] Center[facility] benzodiazepines detection by screening bvigur1160-98-40 22:35:00* Test Item Value Reference Range Interpretation Comments Urine Benzodiazepines Screen (test code = 67964-0) NEGATIVE NEG ATIVE [facility] Center[facility] cocaine measurement (mass/volume) 2020-01-28 22:35:00* Test Item Value Reference Range Interpretation Comments Urine Cocaine Screen (test code = 3398-5) NEGATIVE NEGATIVE [facility] Center[facility] cannabinoids detection by screening ddytuj9608-74-64 22:35:00* Test Item Value Reference Range Interpretation Comments Urine Cannabinoids Screen (test code = 25366-5) NEGATIVE NEGATI VE THESE RESULTS ARE FOR MEDICAL TREATMENT ONLYTHIS REPORT CONTAINS UNCONFIR MED SCREENING RESULTS*POSITIVE RESULTS WILL BE CONFIRMED BY REFERENCE LAB UPON R EQUEST CUT-OFFDRUG CLASS CONCENTRATION ng/mLAmphetamines 1000Methamphetamines 1000Cocaine 300Opiate 300Phencyc lidine 25Cannabinoid 50Barbiturates 300Benzodiazepine 300Methadone 300[facility] Center[facility] methadone zygave4349-46-19 22:35:00* Test Item Value Reference Range Interpretation Comments Urine Methadone Screen (test code = 55397-4) NEGATIVE NEGATIVE THESE RESULTS ARE FOR MEDICAL TREATMENT ONLYTHIS REPORT CONTAINS UNCONFIR MED SCREENING RESULTS*POSITIVE RESULTS WILL BE CONFIRMED BY REFERENCE LAB UPON R EQUEST CUT-OFFDRUG CLASS CONCENTRATION ng/mLAmphetamines 1000Methamphetamines 1000Cocaine Metabolite 300Opiate 300Phencyc lidine 25Cannabinoid 50Barbiturates 300Benzodiazepine 300Methadone 300[facility] Center[facility] urobilinogen measurement by test strip (mass/volume)2020-01-28 22:35:00* Test Item Value Reference Range Interpretation Comments Urine Urobilinogen (test code = 65762-5) 1 0.2-1 [facility] Center[facility] total bilirubin measurement (mass/volume)2020-01-28 22:35:00* Test Item Value Reference Range Interpretation Comments Urine Bilirubin (test code = 1978-6) SMALL NEGATIVE [facility] Center[facility] erythrocytes mcdknqyit7234-39-98 22:35:00* Test Item Value Reference Range Interpretation Comments Urine Blood (test code = 32451-6) NEGATIVE NEGATIVE [facility] CenterBlood leukocytes automated count (number/volume)2020-01-28 21:45:00* Test Item Value Reference Range Interpretation Comments White Blood Count (test code = 6690-2) 9.20 4.8-10.8 [facility] Center[facility] erythrocytes automated count (number/volume)2020-01-28 21:45:00* Test Item Value Reference Range Interpretation Comments Red Blood Count (test code = 789-8) 4.60 4.3-5.7 [facility] Center[facility] hemoglobin measurement (moles/volume)2020-01-28 21:45:00* Test Item Value Reference Range Interpretation Comments Hemoglobin (test code = 29093-9) 13.9 14.0-18.0 [facility] CenterAutomated blood hematocrit (volume fraction)2020-01-28 21:45:00* Test Item Value Reference Range Interpretation Comments Hematocrit (test code = 4544-3) 41.6 38.2-49.6 [facility] CenterAutomated erythrocyte mean corpuscular vgwecj1546-94-96 21:45:00* Test Item Value Reference Range Interpretation Comments Mean Corpuscular Volume (test code = 787-2) 90.4 81-99 [facility] CenterAutomated erythrocyte mean corpuscular hemoglobin (mass per erythrocyte)2020-01-28 21:45:00* Test Item Value Reference Range Interpretation Comments Mean Corpuscular Hemoglobin (test code = 785-6) 30.2 28-32 [facility] CenterAutomated erythrocyte mean corpuscular hemoglobin concentration measurement (mass/volume)2020-01-28 21:45:00* Test Item Value Reference Range Interpretation Comments Mean Corpuscular Hemoglobin Concent (test code = 786-4) 33.4 31-35 [facility] CenterRDW FpnZz-Tju1367-77-02 21:45:00* Test Item Value Reference Range Interpretation Comments Red Cell Distribution Width (test code = 96293-0) 13.8 11.7 -14.4 [facility] CenterAutomated blood platelet count (count/volume)2020-01-28 21:45:00* Test Item Value Reference Range Interpretation Comments Platelet Count (test code = 777-3) 257 140-360 [facility] CenterAutomated blood segmented neutrophil count as percentage of total dhyatydkry2727-16-05 21:45:00* Test Item Value Reference Range Interpretation Comments Neutrophils (%) (Auto) (test code = 85483-2) 61.6 38.7-80.0 [facility] CenterAutomated blood lymphocyte count as percentage ot total gzdobiyugh0896-64-63 21:45:00* Test Item Value Reference Range Interpretation Comments Lymphocytes (%) (Auto) (test code = 736-9) 27.6 18.0-39.1 [facility] CenterAutomated blood monocyte count as percentage of total icijvkvlsm8689-53-92 21:45:00* Test Item Value Reference Range Interpretation Comments Monocytes (%) (Auto) (test code = 5905-5) 7.9 4.4-11.3 [facility] CenterAutomated blood eosinophil count as percentage of total bjifgkesbx4346-84-04 21:45:00* Test Item Value Reference Range Interpretation Comments Eosinophils (%) (Auto) (test code = 713-8) 2.3 0.0-6.0 [facility] CenterAutomated blood basophil count as percentage of total lugndzooyt7510-36-38 21:45:00* Test Item Value Reference Range Interpretation Comments Basophils (%) (Auto) (test code = 706-2) 0.3 0.0-1.0 [facility] CenterFluoroscopic procedure less than one hour ewxorljf7031-52-28 21:45:00* Test Item Value Reference Range Interpretation Comments IM GRANULOCYTES % (test code = IM GRANULOCYTES %) 0.3 0.0- 1.0 [facility] CenterAutomated blood neutrophil count 2020-01-28 21:45:00* Test Item Value Reference Range Interpretation Comments Neutrophils # (Auto) (test code = 751-8) 5.7 2.1-6.9 [facility] CenterBlood lymphocytes count (number/volume) 2020-01-28 21:45:00* Test Item Value Reference Range Interpretation Comments Lymphocytes # (Auto) (test code = 62542-9) 2.5 1.0-3.2 [facility] CenterBlood monocytes automated count (number/volume)2020-01-28 21:45:00* Test Item Value Reference Range Interpretation Comments Monocytes # (Auto) (test code = 742-7) 0.7 0.2-0.8 [facility] CenterAutomated blood eosinophil count 2020-01-28 21:45:00* Test Item Value Reference Range Interpretation Comments Eosinophils # (Auto) (test code = 711-2) 0.2 0.0-0.4 [facility] CenterAutomated blood basophil count (count/volume)2020-01-28 21:45:00* Test Item Value Reference Range Interpretation Comments Basophils # (Auto) (test code = 704-7) 0.0 0.0-0.1 [facility] CenterFluoroscopic procedure less than one hour midssshm7056-63-23 21:45:00* Test Item Value Reference Range Interpretation Comments Absolute Immature Granulocyte (auto (patrick t code = Absolute Immature Granulocyte (auto) 0.03 0-0.1 [facility] plasma sodium measurement (moles/volume)2020-01-28 21:45:00* Test Item Value Reference Range Interpretation Comments Sodium Level (test code = 2951-2) 143 136-145 [facility] or plasma potassium measurement (moles/volume)2020-01-28 21:45:00* Test Item Value Reference Range Interpretation Comments Potassium Level (test code = 2823-3) 3.2 3.5-5.1 [facility] or plasma chloride measurement (moles/volume)2020-01-28 21:45:00* Test Item Value Reference Range Interpretation Comments Chloride Level (test code = 2075-0) 104 98-107 [facility]ererum or plasma carbon dioxide, total measurement (moles/volume)2020-01-28 21:45:00* Test Item Value Reference Range Interpretation Comments Carbon Dioxide Level (test code = 2028-9) 26 22-29 [facility]ererum or plasma anion evg1346-22-05 21:45:00* Test Item Value Reference Range Interpretation Comments Anion Gap (test code = 91701-5) 16.2 8-16 [facility] or plasma urea nitrogen measurement (mass/volume)2020-01-28 21:45:00* Test Item Value Reference Range Interpretation Comments Blood Urea Nitrogen (test code = 3094-0) 12 7-26 [facility] Centererum or plasma creatinine measurement (mass/volume)2020-01-28 21:45:00* Test Item Value Reference Range Interpretation Comments Creatinine (test code = 2160-0) 0.81 0.72-1.25 [facility]ererum or plasma urea nitrogen/creatinine mass igeqx3245-05-12 21:45:00* Test Item Value Reference Range Interpretation Comments BUN/Creatinine Ratio (test code = 3097-3) 15 6- [facility] CenterEstimated glomerular filtration rate (GFR) xxcyxksfdhvhe6113-56-50 21:45:00* Test Item Value Reference Range Interpretation Comments Estimat Glomerular Filtration Rate (test code = 150182681) > 60 >60 Ranges were taken from the National Kidney Disease Education Program and the [facility] literature.Reference ranges:60 or greater: Pggtsf15-26 ( for 3 consecutive months): Chronic kidney disease 15 or less: Kidney failureMatagorda Regional Medical CenterGlucose dmhjknbjsbf4402-77-91 21:45:00* Test Item Value Reference Range Interpretation Comments Glucose Level (test code = MRW3554) 103 74-118 [facility]ere[facility] or plasma calcium measurement (mass/volume)2020-01-28 21:45:00* Test Item Value Reference Range Interpretation Comments Calcium Level (test code = 52047-1) 9.8 8.4-10.2 [facility] or plasma total bilirubin measurement (mass/volume)2020-01-28 21:45:00* Test Item Value Reference Range Interpretation Comments Total Bilirubin (test code = 1975-2) 0.6 0.2-1.2 [facility] CenterFluoroscopic procedure less than one hour rusbbxqk0934-95-96 21:45:00* Test Item Value Reference Range Interpretation Comments Aspartate Amino Transf (AST/SGOT) (test code = Aspartate Amino Transf (AST/SGOT)) 31 5-34 [facility] Centererum or plasma alanine aminotransferase measurement (enzymatic activity/volume)2020-01-28 21:45:00* Test Item Value Reference Range Interpretation Comments Alanine Aminotransferase (ALT/SGPT) (test code = 1742-6) 32 0-55 [facility] plasma protein measurement (mass/volume)2020-01-28 21:45:00* Test Item Value Reference Range Interpretation Comments Total Protein (test code = 2885-2) 7.0 6.5-8.1 [facility] plasma albumin measurement (mass/volume)2020-01-28 21:45:00* Test Item Value Reference Range Interpretation Comments Albumin (test code = 1751-7) 4.4 3.5-5.0 [facility] CenterPlasma globulin measurement (mass/volume) 2020-01-28 21:45:00* Test Item Value Reference Range Interpretation Comments Globulin (test code = 28630-6) 2.6 2.3-3.5 [facility]ererum or plasma albumin/globulin mass smiya5565-24-61 21:45:00* Test Item Value Reference Range Interpretation Comments Albumin/Globulin Ratio (test code = 1759-0) 1.7 0.8-2.0 [facility] or plasma alkaline phosphatase measurement (enzymatic activity/volume)2020-01-28 21:45:00* Test Item Value Reference Range Interpretation Comments Alkaline Phosphatase (test code = 6768-6) 68 40-150 [facility]rum or plasma creatine kinase measurement (enzymatic activity/volume)2020-01-28 21:45:00* Test Item Value Reference Range Interpretation Comments Creatine Kinase (test code = 2157-6) 137 30-200 [facility]rum or plasma creatine kinase MB measurement (mass/volume)2020-01-28 21:45:00* Test Item Value Reference Range Interpretation Comments Creatine Kinase MB (test code = 58968-4) 3.30 0-5.0 [facility] CenterTroponin I measurement by highly sensitive enzyme rwqgugrbqih8494-14-43 21:45:00* Test Item Value Reference Range Interpretation Comments Troponin I (test code = 74364-4) 0.008 0-0.300 [facility]rum or plasma lipase measurement (enzymatic activity/volume)2020-01-28 21:45:00* Test Item Value Reference Range Interpretation Comments Lipase (test code = 3040-3) 10 8-78 [facility]rum or plasma ethanol measurement (mass/volume)2020-01-28 21:45:00* Test Item Value Reference Range Interpretation Comments Ethyl Alcohol Level (test code = 5643-2) < 10.0 0.0-10.0 [facility] CenterUrine DOA 27136-71-66 03:35:44* Test Item Value Reference Range Interpretation [...] within 7 days. Urinalysis with Culture, if czbvrmyvc1831-62-90 03:32:44* Test Item Value Reference Range Interpretation [...] Ind?) Not Indicated Not Indicat ed Alcohol Fgyha3446-86-54 03:20:56* Test Item Value Reference Range Interpretation Comments Ethanol Level (test code = Ethanol Level) 74.1 mg/dL N The pharmacological response to blood alcohol levels may vary from individual to individual. The fatal concentration has been reported to be >400 mg/dl. Comprehensive Metabolic Tzezl1096-22-09 03:20:55* Test Item Value Reference Range Interpretation [...] Lipemia) 0 g/dL 1-2 H Comprehensive Metabolic Joeou4124-71-38 03:20:55* Test Item Value Reference Range Interpretation [...] is not provided, and the patient is -[place], multiply by 1.212. If sex is not [...] Lipemia) 0 g/dL 1-2 H Comprehensive Metabolic Jubmx8357-20-24 03:20:55* Test Item Value Reference Range Interpretation [...] is not provided, and the patient is -[place], multiply by 1.212. If sex is not [...] is not provided, and the patient is -[place], multiply by 1.212. If sex is not [...] g/dL 1-2 H Complete Blood Count with Hlhwrghvpjga1121-95-04 03:19:59* Test Item Value Reference Range Interpretation [...] = NRBC Abs) 0.00 x10 N Automated Zckyarilczna9343-20-80 03:19:59* Test Item Value Reference Range Interpretation Comments Neutro Auto (test code = Neutro Auto) 57.9 % 36.0-70.0 Lymph Auto (test code = Lymph Auto) 32.4 % 12.0-44.0 Ritchie Auto (test code = Ritchie Auto) 5.5 % 0.0-11.0 Eos, Auto (test code = Eos, Auto) 3.6 % 0.0-7.0 Basophil Auto (test code = Basophil Auto) 0.3 % 0.0-2.0 Neutro Absolute (test code = Neutro Absolute) 5.0 x10 1.6-7.4 Lymph Absolute (test code = Lymph Absolute) 2.80 x10 .50-4.60 Ritchie Absolute (test code = Ritchie Absolute) .48 x10 .00-1.20 Eos Absolute (test code = Eos Absolute) 0.31 x10 0.00-0.74 Baso Absolute (test code = Baso Absolute) 0.03 x10 0.00-0.21 IG Tulpd9178-77-70 03:19:59* Test Item Value Reference Range Interpretation Comments IG (test code = IG) 0.3 % 0.0-5.0 IG Abs (test code = IG Abs) 0 x10 N URINALYSIS KEKCAOBD5802-18-68 20:39:00* Test Item Value Reference Range Interpretation [...] Urine Source? Clean CatchDRUGS OF ABUSE SCREEN TQ6798-15-50 20:39:00* Test Item Value Reference Range Interpretation [...] NEGATIVE <300 ng/mL Urine Source? Clean CatchURINALYSIS GMNGMSXJ7162-10-38 20:38:00* Test Item Value Reference Range Interpretation [...] Urine Source? Clean CatchDRUGS OF ABUSE SCREEN CD1781-90-02 20:38:00* Test Item Value Reference Range Interpretation [...] <300 ng/mL Urine Source? Clean CatchBASIC METABOLIC NMURC5104-16-32 20:26:00* Test Item Value Reference Range Interpretation [...] CA) 9.5 mg/dL 8.5-10.1 N HEPATIC FUNCTION CJSXX2537-74-22 20:26:00* Test Item Value Reference Range Interpretation [...] reference range due to change in reagent. KKIKSOC7636-87-84 20:26:00* Test Item Value Reference Range Interpretation [...] AT ANADDITIONAL CHARGE TO THE PATIENT. URINALYSIS OEXKHQFX0709-92-52 20:23:00* Test Item Value Reference Range Interpretation [...] Urine Source? Clean CatchDRUGS OF ABUSE SCREEN [id number] 20:23:00* Test Item Value Reference Range Interpretation [...] <300 ng/mL Urine Source? Clean CatchBASIC METABOLIC QBOBZ7760-50-85 20:18:00* Test Item Value Reference Range Interpretation [...] code = CA) mg/dL 8.5-10.1 HEPATIC FUNCTION ICADQ5378-05-68 20:18:00* Test Item Value Reference Range Interpretation [...] TOTAL (test code = ALKP) IUnit/L 45-117 DRUKILL6157-54-54 20:18:00* Test Item Value Reference Range Interpretation Comments ALCOHOL (test code = ALC) mg/dL 0-3 CBC W/O DJPN0714-27-76 20:13:00* Test Item Value Reference Range Interpretation [...] MPV) 9.5 fL 6.7-11.0 N CBC W/O [id number] 20:10:00* Test Item Value Reference Range Interpretation [...] (test code = MPV) fL 6.7-11.0 RPR Anmhqtekcxt0304-09-83 15:45:35* Test Item Value Reference Range Interpretation [...] code = Expiration Dt) 9-30-21 N Lipid Rurtd2961-08-63 07:30:39* Test Item Value Reference Range Interpretation [...] is LDL/HDL Ratio=LDL Calc/HDL Chol Thyroid Stimulating Gwrjhxm0329-92-09 07:30:39* Test Item Value Reference Range Interpretation Comments TSH (test code = TSH) 0.616 mcIU/mL 0.550-4.780 Hemoglobin D1z5834-71-67 07:28:34* Test Item Value Reference Range Interpretation Comments Hemoglobin A1c (test code = Hemoglobin A1c) 4.5 % 4.0-5.8 Diabetic >=6.5 %Prediabetes 5.7-6.4 %Normal <5.7 % COVID 19 INHOUSE YM3246-64-84 11:10:00* Test Item Value Reference Range Interpretation Comments COVID 19 INHOUSE AG (test code = OCWZE30WXCZ) NEGATIVE URINALYSIS MRCLJMCB0603-56-84 04:32:00* Test Item Value Reference Range Interpretation [...] Urine Source? Clean CatchDRUGS OF ABUSE SCREEN [id number] 04:32:00* Test Item Value Reference Range Interpretation [...] NEGATIVE <300 ng/mL Urine Source? Clean CatchURINALYSIS ELVRWNRI4765-49-29 04:30:00* Test Item Value Reference Range Interpretation [...] Urine Source? Clean CatchDRUGS OF ABUSE SCREEN PD3989-30-49 04:30:00* Test Item Value Reference Range Interpretation [...] NEGATIVE <300 ng/mL Urine Source? Clean CatchURINALYSIS KIYFYNBJ3378-12-15 03:58:00* Test Item Value Reference Range Interpretation [...] Urine Source? Clean CatchDRUGS OF ABUSE SCREEN NI6214-11-77 03:58:00* Test Item Value Reference Range Interpretation [...] <300 ng/mL Urine Source? Clean CatchBASIC METABOLIC NQZPZ5545-75-51 23:16:00* Test Item Value Reference Range Interpretation [...] CA) 9.4 mg/dL 8.5-10.1 N HEPATIC FUNCTION [id number] 23:16:00* Test Item Value Reference Range Interpretation [...] reference range due to change in reagent. JGYJSJAHHMPYG7619-56-79 23:16:00* Test Item Value Reference Range Interpretation Comments ACETAMINOPHEN (test code = ACET) < 10 mcg/mL 10-30 L A RANGE OF 10-30 mcg/mL IS A THERAPEUTIC RANGE. TOXIC CONCENTRATIONS: >150 mcg/mL AT 4 HOURS AFTER INGESTION >= 50 mcg/mL AT 12 HOURS AFTER INGESTION [id number] 23:16:00* Test Item Value Reference Range Interpretation Comments SALICYLATE (test code = KALLI) 5.8 mg/dL 2.8-20.0 N HRNNQUU7760-54-10 23:16:00* Test Item Value Reference Range Interpretation [...] ANADDITIONAL CHARGE TO THE PATIENT. BASIC METABOLIC [id number] 23:08:00* Test Item Value Reference Range Interpretation [...] code = CA) mg/dL 8.5-10.1 HEPATIC FUNCTION [id number] 23:08:00* Test Item Value Reference Range Interpretation [...] TOTAL (test code = ALKP) IUnit/L 45-117 [id number] 23:08:00* Test Item Value Reference Range Interpretation Comments ACETAMINOPHEN (test code = ACET) mcg/mL 10-30 VHODKXXFWE2467-98-95 23:08:00* Test Item Value Reference Range Interpretation Comments SALICYLATE (test code = KALLI) mg/dL 2.8-20.0 ONIHPFB4900-15-87 23:08:00* Test Item Value Reference Range Interpretation Comments ALCOHOL (test code = ALC) mg/dL 0-3 CBC W/O [id number] 22:58:00* Test Item Value Reference Range Interpretation [...] MPV) 9.4 fL 6.7-11.0 N CBC W/O [id number] 22:57:00* Test Item Value Reference Range Interpretation [...] code = MPV) fL 6.7-11.0 CT BRAIN [id number] 16:15:00 [place] [address] Patient Name: GARCIA CARTWRIGHT MR #: [id number] : 1965 Age/Sex: 54/M Req #: [id number] Adm Physician: Ordered by: CHANTEL REYES MECHANICAL SERVICE TECHNICIAN Report #: [id number] Location: ER Room/Bed: Procedure: [id number] CT/CT BRAIN WO Exam Date: 10/08/19 Exam [...] TO: CHANTEL REYES NP CT CERVICAL SPINE [id number] 16:15:00 [place] [address] Patient Name: GARCIA CARTWRIGHT MR #: [id number] : 1965 Age/Sex: 54/M [facility] #: [id number] Req #: [id number] Adm Physician: Ordered by: CHANTEL REYES NP Report #: [id number] Location: ER Room/Bed: Procedure: [id number] CT/CT CERVICAL SPINE WO Exam Date: 10/08/19 [...] Sera REYES NP CHEST SINGLE (PORTABLE)2019-10-08 15:46:00 [place] [address] Patient Name: GARCIA CARTWRIGHT MR #: [id number] : 1965 Age/Sex: 54/M Req #: [id number] Adm Physician: Ordered by: CHANTEL REYES NP Report #: [id number] Location: ER Room/Bed: Procedure: [id number] DX/CHEST SINGLE (PORTABLE) Exam Date: 10/08/19 Exam [...] WBC (test code = 5821-4) 0-5 0-5 [facility] CenterErythrocytes detection in urine sediment by light mnwshafmhs8805-89-76 15:34:00* Test Item Value Reference Range Interpretation Comments Urine RBC (test code = 48215-8) NONE 0-5 [facility] CenterBacteria detection in urine sediment by light vavedwtrow9709-09-29 15:34:00* Test Item Value Reference Range Interpretation Comments Urine Bacteria (test code = 03557-0) RARE NONE [facility] CenterEpithelial cells detection in urine sediment by light vmduqwggrm1273-95-85 15:34:00* Test Item Value Reference Range Interpretation Comments Urine Epithelial Cells (test code = 35274-3) FEW NONE [facility] CenterProthrombin time (PT) in platelet poor plasma by coagulation pelkl0043-17-56 15:23:00* Test Item Value Reference Range Interpretation Comments Prothrombin Time (test code = 5902-2) 13.8 11.9-14.5 [facility] CenterINR in Platelet poor plasma by Coagulation syeos0799-82-99 15:23:00* Test Item Value Reference Range Interpretation Comments Prothromb Time International Ratio (test code = 6301-6) 1.00 Oral Anticoagulant Therapy INR Values:1. Low Intensity Therapy 1.5 - 2.02 . Moderate Intensity Therapy 2.0 - 3.03. High Intensity Therapy(1) 2.5 - 3. 54. High Intensity Therapy(2) 3.0 - 4.05. Panic Value INR > 5.0 [facility] CenterActivated partial thromboplastin time (aPTT) in platelet poor plasma by coagulation obhon7308-21-75 15:23:00* Test Item Value Reference Range Interpretation Comments Activated Partial Thromboplast Time (test code = 64027-7) 31.3 23.8-35.5 [facility]rum or plasma acetaminophen measurement by screening method (mass/volume)2019-10-08 15:23:00* Test Item Value Reference Range Interpretation Comments Acetaminophen Level (test code = 14370-4) < 3.0 10-30 [facility]URINAL[facility] PTIDDVNR7306-21-78 19:24:00* Test Item Value Reference Range Interpretation [...] Urine Source? Clean CatchDRUGS OF ABUSE SCREEN [id number] 19:24:00* Test Item Value Reference Range Interpretation [...] NEGATIVE <300 ng/mL Urine Source? Clean CatchURINALYSIS [id number] 18:53:00* Test Item Value Reference Range Interpretation [...] Urine Source? Clean CatchDRUGS OF ABUSE SCREEN [id number] 18:53:00* Test Item Value Reference Range Interpretation [...] <300 ng/mL Urine Source? Clean CatchBASIC METABOLIC ENHNV9472-12-53 14:49:00* Test Item Value Reference Range Interpretation [...] CA) 9.2 mg/dL 8.5-10.1 N HEPATIC FUNCTION [id number] 14:49:00* Test Item Value Reference Range Interpretation [...] reference range due to change in reagent. [id number] 14:49:00* Test Item Value Reference Range Interpretation [...] ANADDITIONAL CHARGE TO THE PATIENT. BASIC METABOLIC [id number] 14:36:00* Test Item Value Reference Range Interpretation [...] code = CA) mg/dL 8.5-10.1 HEPATIC FUNCTION [id number] 14:36:00* Test Item Value Reference Range Interpretation [...] TOTAL (test code = ALKP) IUnit/L 45-117 FQUVJER3558-53-54 14:36:00* Test Item Value Reference Range Interpretation Comments ALCOHOL (test code = ALC) mg/dL 0-3 CBC W/O [id number] 14:33:00* Test Item Value Reference Range Interpretation [...] MPV) 9.5 fL 6.7-11.0 N BASIC METABOLIC CSMHE5767-99-96 04:02:00* Test Item Value Reference Range Interpretation [...] CA) 9.2 mg/dL 8.5-10.1 N HEPATIC FUNCTION VKXOQ1461-26-13 04:02:00* Test Item Value Reference Range Interpretation [...] reference range due to change in reagent. QORACDSZPRKCV5076-80-56 04:02:00* Test Item Value Reference Range Interpretation Comments ACETAMINOPHEN (test code = ACET) < 10 mcg/mL 10-30 L A RANGE OF 10-30 mcg/mL IS A THERAPEUTIC RANGE. TOXIC CONCENTRATIONS: >150 mcg/mL AT 4 HOURS AFTER INGESTION >= 50 mcg/mL AT 12 HOURS AFTER INGESTION UKTIZNMJIE0883-48-54 04:02:00* Test Item Value Reference Range Interpretation Comments SALICYLATE (test code = KALLI) 6.5 mg/dL 2.8-20.0 N VABBUVX8661-07-30 04:02:00* Test Item Value Reference Range Interpretation [...] ANADDITIONAL CHARGE TO THE PATIENT. BASIC METABOLIC [id number] 03:48:00* Test Item Value Reference Range Interpretation [...] code = CA) mg/dL 8.5-10.1 HEPATIC FUNCTION USVIS3473-89-14 03:48:00* Test Item Value Reference Range Interpretation [...] TOTAL (test code = ALKP) IUnit/L 45-117 SUHFIXILLYIFV5357-18-25 03:48:00* Test Item Value Reference Range Interpretation Comments ACETAMINOPHEN (test code = ACET) mcg/mL 10-30 RLLGSFGRMP4474-26-66 03:48:00* Test Item Value Reference Range Interpretation Comments SALICYLATE (test code = KALLI) mg/dL 2.8-20.0 SUNHHSR6772-25-91 03:48:00* Test Item Value Reference Range Interpretation Comments ALCOHOL (test code = ALC) mg/dL 0-3 CBC W/O UWEY7149-20-34 03:35:00* Test Item Value Reference Range Interpretation [...] 9.5 fL 6.7-11.0 N - CT MAXIFAC W/ADKDVUQK5290-56-34 21:29:00 Name: GARCIA CARTWRIGHT [facility] : 1965 Age/S: 54 / M [address] [facility]: [id number] Loc: [place] [address] Phys: Christina Alston MD Acct: [id number] Dis Date: Status: REG ER PHONE #: [phone] Exam Date: 09/03/20192107 FAX #: [phone] Reason: swelling, redness, discharge to right ear EXAMS: CPT CODE: [id number] CT MAXIFAC W/CONTRAST 21570 EXAM: - CT MAXIFAC W/CONTRAST HISTORY: swelling, [...] the left external auditory canal. The right industrial hygienist al auditory canal is grossly clear. Both [...] 1 Signed Report (CONTINUED) Name: GARCIA CARTWRIGHT [facility] [address] [facility] : 1965 Age/S: 54 / M [address] Unit #: [id number] Loc: [place], [place] [address] Phys: Christina Alston MD Acct: [id number] Dis Date: Status: REG ER PHONE #: [phone] Exam Date: 09/03/20192107 FAX #: [phone] Reason: swelling, redness, discharge to ri t ear EXAMS: CPT CODE: [id number] CT MAXIFAC W/CONTRAST 79338 < Continued> at 2128 Reported and signed by: Calos Infante MD CC: Juanito Morales; Christina Alston MD Technologist:Bridget Brody RT(R); ALFONZO Jacob CTDI: DLP: Trnscb Date/Time: 09/03/2019 (2128) t.[id number] Orig Print D/T: S: 09/03/2019 (2131) PAGE 2 Signed Report BASIC METABOLIC [id number] 20:41:00* Test Item Value Reference Range Interpretation [...] CA) 9.9 mg/dL 8.5-10.1 N HEPATIC FUNCTION [id number] 20:41:00* Test Item Value Reference Range Interpretation [...] reference range due to change in reagent. [id number] 20:41:00* Test Item Value Reference Range Interpretation Comments LIPASE (test code = LIP) 35 U/L 73.0-393.0 L AVTEGYAU-[id number] 20:41:00* Test Item Value Reference Range Interpretation Comments TROPONIN-I (test code = TROPI) <0.015 ng/mL 0-0.045 N LACTIC [id number] 20:38:00* Test Item Value Reference Range Interpretation Comments LACTIC ACID (test code = LACT) 1.2 mmol/L 0.4-1.9 N BASIC METABOLIC [id number] 20:28:00* Test Item Value Reference Range Interpretation [...] code = CA) mg/dL 8.5-10.1 HEPATIC FUNCTION [id number] 20:28:00* Test Item Value Reference Range Interpretation [...] TOTAL (test code = ALKP) IUnit/L 45-117 [id number] 20:28:00* Test Item Value Reference Range Interpretation Comments LIPASE (test code = LIP) U/L 73.0-393.0 VXZWNPEH-C5902-37-08 20:28:00* Test Item Value Reference Range Interpretation Comments TROPONIN-I (test code = TROPI) ng/mL 0-0.045 CBC W/AUTO [id number] 20:16:00* Test Item Value Reference Range Interpretation [...] = NRBC#) 0.00 K/mm3 0.0-0.1 N Magnesium Iirma5833-63-49 13:56:00* Test Item Value Reference Range Interpretation Comments Magnesium Level (test code = 61841-4) 1.7 1.3-2.1 [facility] CenterCreatine Kinase OH5383-19-08 13:26:00* Test Item Value Reference Range Interpretation Comments Creatine Kinase MB (test code = 10355-9) 1.50 0-5.0 [facility] CenterTroponin [id number] 13:26:00* Test Item Value Reference Range Interpretation Comments Troponin I (test code = BPW0702) 0.001 0-0.300 [facility] Centerodium Hyyny2867-24-13 13:19:00* Test Item Value Reference Range Interpretation Comments Sodium Level (test code = 2951-2) 138 136-145 [facility] CenterPotassium Wcbnf3526-78-87 13:19:00* Test Item Value Reference Range Interpretation Comments Potassium Level (test code = 2823-3) 3.7 3.5-5.1 [facility] CenterChloride Xemcc5936-42-37 13:19:00* Test Item Value Reference Range Interpretation Comments Chloride Level (test code = 2075-0) 109 98-107 H [facility] CenterCarbon Dioxide Eimlu7032-77-63 13:19:00* Test Item Value Reference Range Interpretation Comments Carbon Dioxide Level (test code = 2028-9) 23 22-29 [facility] CenterAnion Abz2983-44-27 13:19:00* Test Item Value Reference Range Interpretation Comments Anion Gap (test code = 88588-7) 9.7 8-16 [facility] CenterBlood Urea Fdskxnaq2444-03-42 13:19:00* Test Item Value Reference Range Interpretation Comments Blood Urea Nitrogen (test code = 3094-0) 7 7-26 [facility] CenterCreatinine2020-03-11 13:19:00* Test Item Value Reference Range Interpretation Comments Creatinine (test code = 2160-0) 0.72 0.72-1.25 [facility] CenterBUN/Creatinine Kynpl4950-87-57 13:19:00* Test Item Value Reference Range Interpretation Comments BUN/Creatinine Ratio (test code = 3097-3) 10 6-25 [facility] CenterEstimat Glomerular Filtration Rate 2019-08-06 13:19:00* Test Item Value Reference Range Interpretation Comments Estimat Glomerular Filtration Rate (test code = 018483291) > 60 >60 Ranges were taken from the National Kidney Disease Education Program and the [facility] Kidney Foundation literature.Reference ranges:60 or greater: Uayztw68-55 ( for 3 consecutive months): Chronic kidney disease 15 or less: Kidney failureMatagorda Regional Medical CenterGlucose Ibtiu9842-15-02 13:19:00* Test Item Value Reference Range Interpretation Comments Glucose Level (test code = NUY9731) 96 74-118 [facility] CenterCalcium Gvshl6345-16-09 13:19:00* Test Item Value Reference Range Interpretation Comments Calcium Level (test code = 43471-7) 9.0 8.4-10.2 [facility] CenterTotal Olvsofahb4652-89-34 13:19:00* Test Item Value Reference Range Interpretation Comments Total Bilirubin (test code = 1975-2) 0.4 0.2-1.2 [facility] CenterAspartate Amino Transf (AST/SGOT) 2019-08-06 13:19:00* Test Item Value Reference Range Interpretation Comments Aspartate Amino Transf (AST/SGOT) (test code = Aspartate Amino Transf (AST/SGOT)) 32 5-34 [facility] CenterAlanine Aminotransferase (ALT/SGPT) 2019-08-06 13:19:00* Test Item Value Reference Range Interpretation Comments Alanine Aminotransferase (ALT/SGPT) (test code = 1742-6) 33 0-55 [facility] CenterTotal Dzmldbb1239-04-90 13:19:00* Test Item Value Reference Range Interpretation Comments Total Protein (test code = 2885-2) 6.5 6.5-8.1 [facility] CenterAlbumin2020-03-11 13:19:00* Test Item Value Reference Range Interpretation Comments Albumin (test code = 1751-7) 3.5 3.5-5.0 [facility] CenterGlobulin2020-03-11 13:19:00* Test Item Value Reference Range Interpretation Comments Globulin (test code = 33572-2) 3.0 2.3-3.5 [facility] CenterAlbumin/Globulin Udlnk5187-36-47 13:19:00 * Test Item Value Reference Range Interpretation Comments Albumin/Globulin Ratio (test code = 1759-0) 1.2 0.8-2.0 [facility] CenterAlkaline Cqsqcwtckxu2219-50-47 13:19:00* Test Item Value Reference Range Interpretation Comments Alkaline Phosphatase (test code = 6768-6) 65 40-150 [facility] CenterCreatine Wpgiah6305-22-17 13:19:00* Test Item Value Reference Range Interpretation Comments Creatine Kinase (test code = 2157-6) 39 30-200 [facility] CenterCHEST 2 VMMVC1444-74-78 13:14:00 [facility] [address] [place] [address] Patient Name: GARCIA CARTWRIGHT MR #: [id number] : 1965 Age/Sex: 54/M Req #: [id number] Adm Physician: Ordered by: TIA BUCK MD Report #: [id number] Location: ER Room/Bed: Procedure: [id number] DX/C HEST 2 VIEWS Exam Date: Exam [...] T O: TIA BUCK MD White Blood Glicd2846-25-32 13:00:00* Test Item Value Reference Range Interpretation Comments White Blood Count (test code = 6690-2) 6.63 4.8-10.8 [facility] CenterRed Blood Mwtmn6227-45-41 13:00:00* Test Item Value Reference Range Interpretation Comments Red Blood Count (test code = 789-8) 5.14 4.3-5.7 [facility] CenterHemoglobin2020-03-11 13:00:00* Test Item Value Reference Range Interpretation Comments Hemoglobin (test code = 25017-5) 16.0 14.0-18.0 [facility] CenterHematocrit2020-03-11 13:00:00* Test Item Value Reference Range Interpretation Comments Hematocrit (test code = 4544-3) 47.1 38.2-49.6 [facility] CenterMean Corpuscular Gzdtmn3502-27-33 13:00:00* Test Item Value Reference Range Interpretation Comments Mean Corpuscular Volume (test code = 787-2) 91.6 81-99 [facility] CenterMean Corpuscular Mybhheboyf7950-74-02 13:00:00* Test Item Value Reference Range Interpretation Comments Mean Corpuscular Hemoglobin (test code = 785-6) 31.1 28-32 [facility] Corpuscular Hemoglobin Concent 2019-08-06 13:00:00* Test Item Value Reference Range Interpretation Comments Mean Corpuscular Hemoglobin Concent (test code = 786-4) 34.0 31-35 [facility] CenterRed Cell Distribution Arnqa2305-55-67 13:00:00* Test Item Value Reference Range Interpretation Comments Red Cell Distribution Width (test code = 92011-1) 13.2 11.7 -14.4 [facility] CenterPlatelet Jfvao8000-01-07 13:00:00* Test Item Value Reference Range Interpretation Comments Platelet Count (test code = 777-3) 194 140-360 [facility]ils (%) (Auto)2019-08-06 13:00:00 * Test Item Value Reference Range Interpretation Comments Neutrophils (%) (Auto) (test code = 32348-2) 64.9 38.7-80.0 [facility] CenterLymphocytes (%) (Auto)2019-08-06 13:00:00 * Test Item Value Reference Range Interpretation Comments Lymphocytes (%) (Auto) (test code = 736-9) 26.5 18.0-39.1 [facility] (%) (Auto)2019-08-06 13:00:00* Test Item Value Reference Range Interpretation Comments Monocytes (%) (Auto) (test code = 5905-5) 6.6 4.4-11.3 [facility]ophils (%) (Auto)2019-08-06 13:00:00 * Test Item Value Reference Range Interpretation Comments Eosinophils (%) (Auto) (test code = 713-8) 1.4 0.0-6.0 [facility] Center[facility] (%) (Auto)2019-08-06 13:00:00* Test Item Value Reference Range Interpretation Comments Basophils (%) (Auto) (test code = 706-2) 0.3 0.0-1.0 [facility] CenterIM GRANULOCYTES %2019-08-06 13:00:00* Test Item Value Reference Range Interpretation Comments IM GRANULOCYTES % (test code = IM GRANULOCYTES %) 0.3 0.0- 1.0 [facility] CenterNeutrophils # (Auto)2019-08-06 13:00:00* Test Item Value Reference Range Interpretation Comments Neutrophils # (Auto) (test code = 751-8) 4.3 2.1-6.9 [facility] CenterLymphocytes # (Auto)2019-08-06 13:00:00* Test Item Value Reference Range Interpretation Comments Lymphocytes # (Auto) (test code = 72069-3) 1.8 1.0-3.2 [facility] CenterMonocytes # (Auto)2019-08-06 13:00:00* Test Item Value Reference Range Interpretation Comments Monocytes # (Auto) (test code = 742-7) 0.4 0.2-0.8 [facility] CenterEosinophils # (Auto)2019-08-06 13:00:00* Test Item Value Reference Range Interpretation Comments Eosinophils # (Auto) (test code = 711-2) 0.1 0.0-0.4 [facility]Basophils # (Auto)2019-08-06 13:00:00* Test Item Value Reference Range Interpretation Comments Basophils # (Auto) (test code = 704-7) 0.0 0.0-0.1 [facility] CenterAbsolute Immature Granulocyte (auto 2019-08-06 13:00:00* Test Item Value Reference Range Interpretation Comments Absolute Immature Granulocyte (auto (patrick t code = Absolute Immature Granulocyte (auto) 0.02 0-0.1 [facility] plasma magnesium measurement (mass/volume)2019-08-06 12:42:00* Test Item Value Reference Range Interpretation Comments Magnesium Level (test code = 25901-5) 1.7 1.3-2.1 [facility]- XR PELVIS 05/29 [id number] 09:34:00 FAX: Alberto Mills MD [phone] [place]: St: [facility] FAX: Juanito Tellez [phone] Name: GARCIA CARTWRIGHT [facility] [place] : 1965 Age/S: 53/M [address] Unit #: [id number] [facility]: [facility] [place] [phone] Phys: Alberto Stone MD Acct: [id number] Dis Date: Status: REG RCR PHONE #: [phone] Exam Date: 06/03/2019921 FAX #: Reason: HIP PAIN EXAMS: CPT CODE: [id number] XR PELVIS 1/2 VIEWS 35678 HISTORY: LEFT HIP PAIN EXAM: AP pelvis [...] Report - XR HIP W/PEL UNI 2+V [id number] 09:34:00 FAX: Alberto Mills MD [phone] [place]: St: REG FAX: Juanito Tellez [phone] Name: GARCIA CARTWRIGHT [facility] [place] : 1965 Age/S: 53/M [address] Unit #: [id number] [facility]: [facility] [place] [phone] Phys: Alberto Stone MD Acct: [id number] Dis Date: Status: REG RCR PHONE #: [phone] Exam Date: 06/03/2019921 FAX #: Reason: LEFT HIP PAIN EXAMS: CPT CODE: [id number] XR HIP W/PEL UNI 2+[place] [address] HISTORY: LEFT HIP PAIN EXAM: AP pelvis [...] gist: RT Meliton(Latoya) Trnscrd Date/Time/B y: 06/03/2019 (0934) : By: [email or web address] Orig Print D/T: S: 06/03/2019 () PAGE 1 Signed Report - MRI LW JNT W/O CONT [id number] 14:57:00 FAX: Juanito Tellez [phone] [place]: B St: REG Name: GARCIA DURAND [facility] : [birth year] Age/S: 53/M [address] Unit #: [id number] Loc: V.MRI [place], [place] [address] Phys: Juanito Morales Acct: [id number] Dis Date: Status: REG CLI PHONE #: [phone] Exam Date: 05/14/2019 1047 FAX #: [phone] Reason: M16.12,M25.552 EXAMS: CPT CODE: [id number] [place] JNT [place] [address] HISTORY: M16.12/M25.552. COMPARISON: X-ray from March 02, [...] By: [email or web address] Orig Print D/T: S: 05/14/2019 (6125) PAGE 1 Signed Report RPR [id number] 16:20:39* Test Item Value Reference Range Interpretation [...] = Expiration Dt) 10.31.20 N Thyroid Stimulating Xbacxtu6538-07-55 10:27:38* Test Item Value Reference Range Interpretation Comments TSH (test code = TSH) 1.880 mIU/mL 0.270-4.200 Lipid Sucga0244-74-17 10:24:51* Test Item Value Reference Range Interpretation Comments Cholesterol Total (test code = Cholesterol Total) 136 mg/dL 0-20 0 RISK OF HEART DISEASEPublished by [place] Heart Association Analyte Optimal Borderline Increased RiskCHOL [...] calculation is LDL/HDL Ratio=LDL Calc/HDL Chol Alcohol Baalz7434-82-73 22:16:26* Test Item Value Reference Range Interpretation Comments Ethanol Level (test code = Ethanol Level) <0.00 g/dL 0.00-0.01 Intoxicated 0.080 g/dL or more Ethanol Inst (test code = Ethanol Inst) <0 N Comprehensive Metabolic Jdnds6870-30-59 22:16:25* Test Item Value Reference Range Interpretation [...] A/G Ratio) 1.5 ratio N Comprehensive Metabolic Fxvgs1790-62-75 22:16:25* Test Item Value Reference Range Interpretation [...] is not provided, and the patient is -[place], multiply by 1.212. If sex is not [...] the National Kidney Foundation, http://nkdep.nih.gov Comprehensive Metabolic Reiff4163-93-39 22:16:25* Test Item Value Reference Range Interpretation [...] is not provided, and the patient is -[place], multiply by 1.212. If sex is not [...] is not provided, and the patient is -[place], multiply by 1.212. If sex is not [...] the National Kidney Foundation, http://nkdep.nih.gov Urine Drug Vptwnx3098-85-34 22:15:20* Test Item Value Reference Range Interpretation [...] a separate confirmatory test if desired. Automated Dzejcjhwxsip5736-01-55 21:55:00* Test Item Value Reference Range Interpretation Comments Neutro Auto (test code = Neutro Auto) 59.9 % 36.0-70.0 Lymph Auto (test code = Lymph Auto) 28.1 % 12.0-44.0 Ritchie Auto (test code = Ritchie Auto) 7.1 % 0.0-11.0 Eos, Auto (test code = Eos, Auto) 4.1 % 0.0-7.0 Basophil Auto (test code = Basophil Auto) 0.4 % 0.0-2.0 Neutro Absolute (test code = Neutro Absolute) 4.0 x10 1.6-7.4 Lymph Absolute (test code = Lymph Absolute) 1.90 x10 .50-4.60 Ritchie Absolute (test code = Ritchie Absolute) .48 x10 .00-1.20 Eos Absolute (test code = Eos Absolute) 0.28 x10 0.00-0.74 Baso Absolute (test code = Baso Absolute) 0.03 x10 0.00-0.21 IG Zjeca2056-87-31 21:55:00* Test Item Value Reference Range Interpretation Comments IG (test code = IG) 0.4 % 0.0-5.0 IG Abs (test code = IG Abs) 0 x10 N Complete Blood Count with Pyjxfebzueep2996-82-99 21:54:59* Test Item Value Reference Range Interpretation [...] code = IPF) 0 % N URINALYSIS [id number] 04:35:00* Test Item Value Reference Range Interpretation [...] Urine Source? Clean CatchDRUGS OF ABUSE SCREEN [id number] 04:35:00* Test Item Value Reference Range Interpretation [...] <300 ng/mL Urine Source? Clean CatchBASIC METABOLIC [id number] 03:28:00* Test Item Value Reference Range Interpretation [...] CA) 8.9 mg/dL 8.5-10.1 N HEPATIC FUNCTION [id number] 03:28:00* Test Item Value Reference Range Interpretation [...] reference range due to change in reagent. [id number] 03:28:00* Test Item Value Reference Range Interpretation Comments ACETAMINOPHEN (test code = ACET) < 10 mcg/mL 10-30 L A RANGE OF 10-30 mcg/mL IS A THERAPEUTIC RANGE. TOXIC CONCENTRATIONS: >150 mcg/mL AT 4 HOURS AFTER INGESTION >= 50 mcg/mL AT 12 HOURS AFTER INGESTION [id number] 03:28:00* Test Item Value Reference Range Interpretation Comments SALICYLATE (test code = KALLI) 9.1 mg/dL 2.8-20.0 N [id number] 03:28:00* Test Item Value Reference Range Interpretation [...] ANADDITIONAL CHARGE TO THE PATIENT. BASIC METABOLIC [id number] 03:13:00* Test Item Value Reference Range Interpretation [...] code = CA) mg/dL 8.5-10.1 HEPATIC FUNCTION [id number] 03:13:00* Test Item Value Reference Range Interpretation [...] TOTAL (test code = ALKP) IUnit/L 45-117 [id number] 03:13:00* Test Item Value Reference Range Interpretation Comments ACETAMINOPHEN (test code = ACET) mcg/mL 10-30 [id number] 03:13:00* Test Item Value Reference Range Interpretation Comments SALICYLATE (test code = KALLI) mg/dL 2.8-20.0 [id number] 03:13:00* Test Item Value Reference Range Interpretation Comments ALCOHOL (test code = ALC) mg/dL 0-3 URINALYSIS OLNYGRMJ7990-69-01 03:10:00* Test Item Value Reference Range Interpretation [...] Urine Source? Clean CatchDRUGS OF ABUSE SCREEN [id number] 03:10:00* Test Item Value Reference Range Interpretation [...] <300 ng/mL Urine Source? Clean CatchCBC W/O [id number] 03:03:00* Test Item Value Reference Range Interpretation [...] MPV) 9.2 fL 6.7-11.0 N BASIC METABOLIC [id number] 10:40:00* Test Item Value Reference Range Interpretation [...] CA) 9.1 mg/dL 8.5-10.1 N HEPATIC FUNCTION [id number] 10:40:00* Test Item Value Reference Range Interpretation [...] reference range due to change in reagent. [id number] 10:40:00* Test Item Value Reference Range Interpretation Comments ACETAMINOPHEN (test code = ACET) < 10 mcg/mL 10-30 L A RANGE OF 10-30 mcg/mL IS A THERAPEUTIC RANGE. TOXIC CONCENTRATIONS: >150 mcg/mL AT 4 HOURS AFTER INGESTION >= 50 mcg/mL AT 12 HOURS AFTER INGESTION [id number] 10:40:00* Test Item Value Reference Range Interpretation Comments SALICYLATE (test code = KALLI) 7.9 mg/dL 2.8-20.0 N [id number] 10:40:00* Test Item Value Reference Range Interpretation [...] ANADDITIONAL CHARGE TO THE PATIENT. BASIC METABOLIC [id number] 10:32:00* Test Item Value Reference Range Interpretation [...] code = CA) mg/dL 8.5-10.1 HEPATIC FUNCTION [id number] 10:32:00* Test Item Value Reference Range Interpretation [...] TOTAL (test code = ALKP) IUnit/L 45-117 [id number] 10:32:00* Test Item Value Reference Range Interpretation Comments ACETAMINOPHEN (test code = ACET) mcg/mL 10-30 [id number] 10:32:00* Test Item Value Reference Range Interpretation Comments SALICYLATE (test code = KALLI) mg/dL 2.8-20.0 [id number] 10:32:00* Test Item Value Reference Range Interpretation Comments ALCOHOL (test code = ALC) mg/dL 0-3 CBC W/O [id number] 10:24:00* Test Item Value Reference Range Interpretation [...] = MPV) 9.3 fL 6.7-11.0 N URINALYSIS [id number] 10:09:00* Test Item Value Reference Range Interpretation [...] Urine Source? Clean CatchDRUGS OF ABUSE SCREEN [id number] 10:09:00* Test Item Value Reference Range Interpretation [...] NEGATIVE <300 ng/mL Urine Source? Clean CatchURINALYSIS [id number] 09:50:00* Test Item Value Reference Range Interpretation [...] Urine Source? Clean CatchDRUGS OF ABUSE SCREEN [id number] 09:50:00* Test Item Value Reference Range Interpretation [...] Urine Source? Clean Catch- XR PELVIS 05/29 [id number] 08:55:00 FAX: John Dietrich [place]: B St: REG Name: [facility]AND [facility] [birth year] Age/S: 53/M [address] [facility]: [id number] Loc: [place] [address] Phys: John Dietrcih Acct: [id number] Dis Date: Status: REG ER PHONE #: [phone] Exam Date: 03/02/2019 0831 FAX #: [phone] Reason: pain EXAMS: CPT CODE: [id number] XR PELVIS 1/2 VIEWS 48603 EXAM: Pelvis, one view; INFORMATION: Pelvic pain and leg pain; FINDINGS: Normal shape and structure of the imaged bones; no evidence of fracture or disloc ation; no soft tissue abnormalities. IMPRESSION: No evidence of acute osseous trauma or other pathological changes. No ra diopaque foreign body. at 0855 Reported and signed by: Richi Cruz M.D. CC: John Dietrich MD [place] hnologist: Alfonzo Silverman RTTayR) Trnscrd Date/T alissa/By: 03/02/2019 (0855) : By: BernardoGRW Orig Print D/T: S: 9 (9942) PAGE 1 Signed Report [id number] 13:47:00 RUN DATE: 03/08/18 [employer] [facility] PAGE 1 RUN TIME: 1347 Specimen Inqui ry RUN USER: INTERFACE PATIENT: GARCIA CARTWRIGHT ACCT #: [id number] LOC: ICU U #: [id number] AGE/SX: 52/M ROOM: [facility] RE03/06/18REG DR: Avinash Mallory MD : 63 BED: A DIS: STATUS: ADM IN TLOC: SPEC #: [id number] RECD: 03/07/18 STATUS: [facility] #: [id number] SARAH: 03/06/18- SUBM DR: Alexei Henning MD ENTERED: 03/07/18-1111 SP TYPE: STOMACH OTHR DR: Kleber Balbuena i, MD, Nkoli I MDORDERED: GROSS COPIES TO: Alexei Henning MD [address] [place] [address] Kleber Harmon MD [address] [place] [address] Glenda Russell MD [address] [place], [place] [address] PROCEDURES: GROSS (03/08/18-124 5) TISSUES: GASTRIC ULCER - BX CLINICAL HISTORY COLLECTION DATE: 03/06/18 INTENTIONAL INGESTION OF CLOROX FINAL DIAGNOSIS Gastric tissue, biopsy: REACTIVE GASTROPATHY NO AREAS OF MUCO KALLI EROSION/ULCERATION NO ACUTE INFLAMMATORY INFILTRATE PRESENT KS LD REACTIVE EPITHELIAL CHANGE PRESENT NEGATIVE FOR INTESTINAL METAPLASIA NEGATIVE FOR HELICOBACTER ORGANISMS NEGATIVE FOR MALIGNANCY RRB/sm D CONTINUED ON NEXT PAGE ----- -------RUN DATE: 03/08/18 [facility] PAGE 2 RUN TIME: 1347 Specimen Inquiry RUN USER: INTERFACE SPEC #: [id number] PATIENT: GARCIA CARTWRIGHT #[id number] (Continued) FINAL DIAGNOSIS (Continued) 09882, 57289 MACROSCOPIC The specimen is recei amanda in formalin, labeled with the patient's name, identified as "gastric", and consists of light eduardo-pink biopsy tissue measuring 0.3 cm in aggregate, submi tted for H E and Giemsa stains. GROSS PERFORMED AT [facility] [address] [place] [phone] MICROSCOPIC MICROSCOPIC PERFORMED AT [facility] A ll of the stains, including any controls performed, stain appropriately. [facility] [address] [place] [phone] PERFORMING SITE Diagnosis performed at: [facility] [address] [place] [address] Signed SIGNATURE ON FILE Tanner Gautam 03/08/18 1347 END OF REPORT [id number] 21:56:00* Test Item Value Reference Range Interpretation [...] ETOHU) <0.01 g/dL 0.00-0.01 N Comprehensive Metabolic [id number] 21:56:00* Test Item Value Reference Range Interpretation [...] race is not provided, and the patient isAfrican-Tuvaluan, multiply by 1.212. If sex is not [...] by the National Kidney Found ation,http://nkdep.nih.gov Urinalysis Pcqaoveo8196-24-43 21:42:00* Test Item Value Reference Range Interpretation Comments Color (test code = COLOR) Yellow Yellow,Straw,Pl yellow N Clarity (test code = CLAR) Clear Clear N Specific [place] (test code = SPGR) 1.005 1.001-1.035 N [...] code = MEXAM) Not indicated CBC with Awldpolowkyp6611-64-69 21:35:00* Test Item Value Reference Range Interpretation [...] code = ALYMPH) 2.5 K/cumm 0.5-4.6 N Ritchie Abs (test code = AMONO) 0.4 K/cumm 0.0-1.2 N Eos Abs (test code = AEOS) 0.24 K/cumm 0.00-0.74 N Baso Abs (test code = ABASO) 0.0 K/cumm 0.00-0.21 N
== END 2020-01-31 12:50 | disposition home or self-care (01) ==
LOC: ER 12:35
DX: S00.412A Abrasion of left ear, initial encounter (principal); W22.8XXA Striking against or struck by other objects, initial encounter; F41.9 Anxiety disorder, unspecified; F32.9 Major depressive disorder, single episode, unspecified; F17.210 Nicotine dependence, cigarettes, uncomplicated
CPT/HCPCS: 99282

== ENCOUNTER 2020-07-17 05:32 | Emergency (ER) | payer MEDICARE, OTHER ==
[~2020-07-17] VITALS: Ht 188 cm; Wt 90.7 kg
[2020-07-17] MEDS: METHYLPREDNISOLONE SOD SUCC 125 MG/2ML VIAL IV ONE ×2 (05:44→05:50)
[2020-07-17] MEDS ORDERED: METHYLPREDNISOLONE SOD SUCC 125 MG/2ML VIAL IM ONE (05:45)
[2020-07-17] MEDS ORDERED: KETOROLAC TROMETHAMINE 60 MG/2 ML VIAL IM ONE (05:45)
== END 2020-07-17 06:15 | disposition home or self-care (01) ==
LOC: ER 05:39
DX: M71.58 Other bursitis, not elsewhere classified, other site (principal); J44.9 Chronic obstructive pulmonary disease, unspecified; I10 Essential (primary) hypertension; E78.5 Hyperlipidemia, unspecified; K21.9 Gastro-esophageal reflux disease without esophagitis; F20.0 Paranoid schizophrenia
CPT/HCPCS: 99282

== ENCOUNTER 2020-12-14 12:03 | Emergency (ER) | payer MEDICARE ==
[~2020-12-14] VITALS: Ht 188 cm; Wt 90.7 kg
== END 2020-12-14 14:30 | disposition home or self-care (01) ==
LOC: ER 14:20
DX: K59.00 Constipation, unspecified (principal); I10 Essential (primary) hypertension; J44.9 Chronic obstructive pulmonary disease, unspecified; F20.0 Paranoid schizophrenia; I25.10 Atherosclerotic heart disease of native coronary artery without angina pectoris; B19.20 Unspecified viral hepatitis C without hepatic coma; K21.9 Gastro-esophageal reflux disease without esophagitis; E78.5 Hyperlipidemia, unspecified
CPT/HCPCS: 74018; 99283